=== PATIENT | male | born 1965 | race Caucasian/White ===

== ENCOUNTER 2016-09-10 21:55 | Observation (INO) | payer OTHER ==
[~2016-09-10] VITALS: Ht 180.3 cm; Wt 68.0 kg
[~2016-09-10 21:55] MED LIST: CELEXA 20MG20 MG/TAB; CITALOPRAM10 MG PO; DOXYCYCLINE 10100 MG PO; EC NAPROSYN500 MG; FOLIC ACID 11 MG/TA1; FOLIC ACID 11 MG/TA1 PO; LEVAQUIN 750MG750 M1 PO; NALTREXONE 50 MG PO; NAPROSYN250 MG PO; NO HOME MEDICATIONS; NORCO 325 MG-51 TAB; OXYCODONE5 MG PO; PREDNISONE20 MG PO; PROVENTIL0.09 MG/A1 IH; REMERON45 MG PO; REVIA 50MG TABL50 MG; THERAGRAN TAB1 UDTAB PO
[2016-09-10] MEDS ORDERED: CELEXA10 MG PO (22:11)
[2016-09-10] MEDS ORDERED: NATURE'S BLEND100 M2 PO (22:12)
[2016-09-10] MEDS ORDERED: ZOCOR5 MG PO (22:12)
[2016-09-10] MEDS ORDERED: ASPIRIN 81M81 MG/TA2 PO (22:12)
[2016-09-10] MEDS ORDERED: BLOOD THINNER PO (22:14)
[2016-09-10 22:16] LABS: BASO # 0.1 (0.0-0.2); BASO % 0.5 % (0.0-2.0); EOS # 0.5 (0.0-0.7); EOS % 2.8 % (0-4.0); GRAN # 12.2 (1.4-6.5); GRAN % 66.6 % (42.2-75.2); HEMATOCRIT 42.5 % (42.0-52.0); HEMOGLOBIN 14.7 g/dl (13.5-18.0); LYMPH # 4.2 (1.2-3.4); LYMPH % 23.1 % (20.0-51.0); MEAN CELL VOLUME 89 fl (80.0-100.0); MEAN CORPUSCULAR HEMOGLOBIN 31 pg (27.0-31.0); MEAN CORPUSCULAR HGB CONC 35 g/dl (33.0-37.0); MEAN PLATELET VOLUME 8.7 fl (7.4-10.4); MONO # 1.2 (0.1-0.6); MONO % 6.3 % (1.7-9.3); PLATELET COUNT 239 K/mm3 (130-400); RED BLOOD COUNT 4.78 M/mm3 (4.20-5.60); REDCELL DISTRIBUTION WIDTH-CV 13.2 % (11.5-14.5); WHITE BLOOD COUNT 18.3 K/mm3 (4.8-10.8)
[2016-09-10 22:21] LABS: PROTHROMBIN TIME 10.6 SECONDS (9.7-12.8)
[2016-09-10 22:23] LABS: PARTIAL THROMBOPLASTIN TIME 29.8 SECONDS (26.0-37.0)
[2016-09-10 22:25] LABS: ADJUSTED CALCIUM 9.3 mg/dL (8.4-10.2); ALANINE AMINOTRANSFERASE 29 U/L (21-72); ALBUMIN 4.6 gm/dL (3.5-5.0); ALKALINE PHOSPHATASE 53 U/L (50-136); ANION GAP 12 mmol/L (7-16); BILIRUBIN,TOTAL 0.5 mg/dL (0.0-1.0); BLOOD UREA NITROGEN 17 mg/dL (9-20); CALCIUM 9.8 mg/dL (8.4-10.2); CARBON DIOXIDE 24 mmol/L (22-30); CHLORIDE 101 mmol/L (98-107); CREATININE, serum 1.02 mg/dL (0.66-1.25); GLUCOSE 87 mg/dL (74-106); LIPASE 105 U/L (23-300); SODIUM 137 mmol/L (137-145); TOTAL PROTEIN 7.7 gm/dL (6.4-8.2)
[2016-09-10 22:27] LABS: C-REACTIVE PROTEIN < 0.5 mg/dL (0.0-0.9)
[2016-09-10 22:35] LABS: B-TYPE NATRIURETIC PEPTIDE 41 pg/mL (0-125)
[2016-09-10 22:36] LABS: TROPONIN-I < 0.012 ng/mL (0.000-0.034)
[2016-09-11 00:28] VITALS: BP 105/68; PULSE 70; TEMP 97.8
[2016-09-11 00:33] LABS: MAGNESIUM 1.9 mg/dL (1.6-2.3)
[2016-09-11] MEDS ORDERED: VITAMIN D 1001000 IU PO (01:28)
[2016-09-11] MEDS ORDERED: CELEXA40 MG PO (01:31)
[2016-09-11] MEDS ORDERED: VISTARIL50 MG PO (01:33)
[2016-09-11] MEDS ORDERED: ZANTAC 150MG T150 MG PO (01:37)
[2016-09-11] MEDS ORDERED: BRILINTA90 MG PO (01:42)
[2016-09-11] MEDS ORDERED: DESYREL 50MG50 MG PO (01:43)
[2016-09-11] MEDS ORDERED: CHANTIX START M1 TAB PO (01:48)
[2016-09-11] MEDS ORDERED: TYLENOL 325MG325 MG PO (01:49)
[2016-09-11] MEDS ORDERED: LIPITOR 80MG80 MG PO (01:52)
[2016-09-11] MEDS ORDERED: PERIACTIN 4MG TA4 MG PO (01:55)
[2016-09-11] MEDS ORDERED: FOLIC ACID 11 MG/TA1 PO (01:56)
[2016-09-11 05:07] VITALS: BP 100/59; PULSE 71
[2016-09-11 07:39] VITALS: BP 101/65; PULSE 71; TEMP 97.5
[2016-09-11] MEDS ORDERED: NITROSTAT0.4 MG/TAB SL (11:49)
[2016-09-11] MEDS ORDERED: LOPRESSOR 225 MG/TAB PO (11:49)
== END 2016-09-11 12:31 | disposition home or self-care (01) ==
LOC: COL.ER 21:55 → MEDICAL 23:27
PROVIDERS: Emergency Medicine
DX: R07.9 Chest pain, unspecified (principal); K21.9 Gastro-esophageal reflux disease without esophagitis; E78.5 Hyperlipidemia, unspecified; F17.210 Nicotine dependence, cigarettes, uncomplicated; F10.20 Alcohol dependence, uncomplicated; F41.8 Other specified anxiety disorders; F43.10 Post-traumatic stress disorder, unspecified; I25.10 Atherosclerotic heart disease of native coronary artery without angina pectoris; Z95.5 Presence of coronary angioplasty implant and graft; I25.2 Old myocardial infarction; I10 Essential (primary) hypertension; J44.9 Chronic obstructive pulmonary disease, unspecified
CPT/HCPCS: G0378; J2405; J7030

== ENCOUNTER 2016-10-24 16:31 | Inpatient (IN) | payer OTHER ==
[~2016-10-24] VITALS: Ht 180.3 cm; Wt 64.1 kg
[~2016-10-24 16:31] MED LIST changes: +ASPIRIN 81M81 MG/TA2 PO; +BLOOD THINNER PO; +BRILINTA90 MG PO; +CELEXA10 MG PO; +CELEXA40 MG PO; +CHANTIX START M1 TAB PO; +DESYREL 50MG50 MG PO; +LIPITOR 80MG80 MG PO; +LOPRESSOR 225 MG/TAB PO; +NATURE'S BLEND100 M2 PO; +NITROSTAT0.4 MG/TAB SL; +PERIACTIN 4MG TA4 MG PO; +TYLENOL 325MG325 MG PO; +VISTARIL50 MG PO; +VITAMIN D 1001000 IU PO; +ZANTAC 150MG T150 MG PO; +ZOCOR5 MG PO
[2016-10-24 17:18] LABS: INR 1.1 (0.8-3.0); PROTHROMBIN TIME 11.7 SECONDS (9.7-12.8)
[2016-10-24 17:19] LABS: ADJUSTED CALCIUM 9.1 mg/dL (8.4-10.2); ALANINE AMINOTRANSFERASE 23 U/L (21-72); ALBUMIN 4.9 gm/dL (3.5-5.0); ALKALINE PHOSPHATASE 59 U/L (50-136); ANION GAP 10 mmol/L (7-16); BILIRUBIN,TOTAL 0.8 mg/dL (0.0-1.0); BLOOD UREA NITROGEN 7 mg/dL (9-20); CALCIUM 9.8 mg/dL (8.4-10.2); CARBON DIOXIDE 25 mmol/L (22-30); CHLORIDE 103 mmol/L (98-107); GLUCOSE 97 mg/dL (74-106); POTASSIUM 4.1 mmol/L (3.4-5.0); SODIUM 138 mmol/L (137-145); TOTAL PROTEIN 8.2 gm/dL (6.4-8.2)
[2016-10-24 17:21] LABS: BASO # 0.1 (0.0-0.2); EOS # 0.4 (0.0-0.7); EOS % 3.6 % (0-4.0); GRAN # 7.8 (1.4-6.5); GRAN % 65.8 % (42.2-75.2); HEMATOCRIT 46.9 % (42.0-52.0); HEMOGLOBIN 16.1 g/dl (13.5-18.0); LYMPH # 2.4 (1.2-3.4); LYMPH % 20.1 % (20.0-51.0); MEAN CELL VOLUME 90 fl (80.0-100.0); MEAN CORPUSCULAR HEMOGLOBIN 31 pg (27.0-31.0); MEAN CORPUSCULAR HGB CONC 34 g/dl (33.0-37.0); MEAN PLATELET VOLUME 9.1 fl (7.4-10.4); MONO # 1.1 (0.1-0.6); PLATELET COUNT 257 K/mm3 (130-400); REDCELL DISTRIBUTION WIDTH-CV 13.3 % (11.5-14.5); WHITE BLOOD COUNT 11.9 K/mm3 (4.8-10.8)
[2016-10-24 17:31] LABS: TROPONIN-I < 0.012 ng/mL (0.000-0.034)
[2016-10-24 20:49] VITALS: BP 89/63; PULSE 111; TEMP 98
[2016-10-25 00:52] VITALS: BP 91/74; PULSE 105; TEMP 97.8
[2016-10-25 02:11] LABS: INFLUENZA B NEGATIVE
[2016-10-25 03:58] VITALS: BP 112/63; PULSE 108; TEMP 97.3
[2016-10-25 07:12] VITALS: BP 111/64; PULSE 96; TEMP 98.2
[2016-10-25 07:41] LABS: BASO % 0.3 % (0.0-2.0); EOS % 0.1 % (0-4.0); GRAN # 7.7 (1.4-6.5); GRAN % 81.1 % (42.2-75.2); HEMATOCRIT 42.6 % (42.0-52.0); HEMOGLOBIN 14.2 g/dl (13.5-18.0); LYMPH # 1.1 (1.2-3.4); LYMPH % 11.4 % (20.0-51.0); MEAN CELL VOLUME 92 fl (80.0-100.0); MEAN CORPUSCULAR HEMOGLOBIN 31 pg (27.0-31.0); MEAN CORPUSCULAR HGB CONC 33 g/dl (33.0-37.0); MEAN PLATELET VOLUME 9.1 fl (7.4-10.4); MONO # 0.6 (0.1-0.6); MONO % 6.6 % (1.7-9.3); PLATELET COUNT 248 K/mm3 (130-400); RED BLOOD COUNT 4.63 M/mm3 (4.20-5.60); REDCELL DISTRIBUTION WIDTH-CV 13.5 % (11.5-14.5); WHITE BLOOD COUNT 9.6 K/mm3 (4.8-10.8)
[2016-10-25 07:54] LABS: ADJUSTED CALCIUM 9.3 mg/dL (8.4-10.2); ALANINE AMINOTRANSFERASE 22 U/L (21-72); ALBUMIN 4.1 gm/dL (3.5-5.0); ALKALINE PHOSPHATASE 50 U/L (50-136); ANION GAP 11 mmol/L (7-16); BILIRUBIN,TOTAL 0.5 mg/dL (0.0-1.0); BLOOD UREA NITROGEN 6 mg/dL (9-20); CALCIUM 9.4 mg/dL (8.4-10.2); CARBON DIOXIDE 22 mmol/L (22-30); CHLORIDE 111 mmol/L (98-107); CREATININE, serum 0.84 mg/dL (0.66-1.25); GLUCOSE 103 mg/dL (74-106); POTASSIUM 4.2 mmol/L (3.4-5.0); SODIUM 144 mmol/L (137-145)
[2016-10-25 08:06] LABS: TROPONIN-I < 0.012 ng/mL (0.000-0.034)
[2016-10-25 08:15] LABS: PH 7 (5-8); SQUAMOUS EPITHELIAL None Seen /hpf; URINE APPEARANCE Clear; URINE BACTERIA None Seen /hpf; URINE BILIRUBIN Negative (NEGATIVE); URINE BLOOD Negative (NEGATIVE); URINE COLOR Straw; URINE GLUCOSE Negative (NEGATIVE); URINE KETONE Negative (NEGATIVE); URINE RBC 0-2 /hpf; URINE UROBILINOGEN Negative (NEGATIVE); URINE WBC None Seen /hpf
[2016-10-25 12:05] VITALS: BP 116/67; PULSE 94; TEMP 98.9
[2016-10-25 15:58] VITALS: BP 120/70; PULSE 89; TEMP 97.8
[2016-10-25 21:13] VITALS: BP 118/63; PULSE 104; TEMP 97.4
[2016-10-26] VITALS (15 sets, daily range): BP systolic 114–118; BP diastolic 61–65; PULSE 101–102; TEMP 96.9–98.1; O2SAT 94–97
[2016-10-26 02:16] LABS: HEMATOCRIT 39.1 % (42.0-52.0); HEMOGLOBIN 12.9 g/dl (13.5-18.0); MEAN CELL VOLUME 93 fl (80.0-100.0); MEAN CORPUSCULAR HEMOGLOBIN 31 pg (27.0-31.0); MEAN CORPUSCULAR HGB CONC 33 g/dl (33.0-37.0); PLATELET COUNT 227 K/mm3 (130-400); REDCELL DISTRIBUTION WIDTH-CV 13.6 % (11.5-14.5); WHITE BLOOD COUNT 12.7 K/mm3 (4.8-10.8)
[2016-10-26] MEDS ORDERED: NICODERM C21 MG/PATC TD (02:23)
[2016-10-26] MEDS ORDERED: LEVAQUIN 750MG750 M1 PO (02:23)
[2016-10-26] MEDS ORDERED: IPRATROPIUM BROM3 M1 IH ×2 (02:23)
[2016-10-26] MEDS ORDERED: HEPARIN SOD5000 U/ML IV (02:24)
[2016-10-26 02:25] LABS: PROTHROMBIN TIME 11.2 SECONDS (9.7-12.8)
[2016-10-26] MEDS ORDERED: ROBITUSSIN DM 105 ML PO (02:25)
[2016-10-26] MEDS ORDERED: MUCINEX DM 30 M1 TE1 PO (02:25)
[2016-10-26] MEDS ORDERED: SOLU-MEDRO125 MG/21 IV (02:26)
[2016-10-26 02:27] LABS: PARTIAL THROMBOPLASTIN TIME 26.6 SECONDS (26.0-37.0)
== END 2016-10-26 03:39 | disposition short-term general hospital (02) | DRG 313 ==
LOC: COL.ER 16:31 → MEDICAL 18:26 → ICU 10-26 02:14
PROVIDERS: Emergency Medicine; Internal Medicine; Nurse Practitioner Family
DX: R07.9 Chest pain, unspecified (principal); J44.1 Chronic obstructive pulmonary disease with (acute) exacerbation; I25.10 Atherosclerotic heart disease of native coronary artery without angina pectoris; Z95.5 Presence of coronary angioplasty implant and graft; F17.210 Nicotine dependence, cigarettes, uncomplicated; I10 Essential (primary) hypertension; F43.12 Post-traumatic stress disorder, chronic; F41.8 Other specified anxiety disorders; F10.20 Alcohol dependence, uncomplicated
CPT/HCPCS: 99223-AI; 99239; J1644; J1650; J1956; J2930; J7030; J7512

== ENCOUNTER 2016-11-29 07:17 | Emergency (ER) | payer OTHER ==
[~2016-11-29] VITALS: Ht 180.3 cm; Wt 64.1 kg
[~2016-11-29 07:17] MED LIST changes: +HEPARIN SOD5000 U/ML IV; +IPRATROPIUM BROM3 M1 IH; +MUCINEX DM 30 M1 TE1 PO; +NICODERM C21 MG/PATC TD; +ROBITUSSIN DM 105 ML PO; +SOLU-MEDRO125 MG/21 IV
[2016-11-29] MEDS ORDERED: RT SPIRIVA18 MCG IH (07:40)
[2016-11-29] MEDS ORDERED: NICOTROL I420 MG/42 IH (07:41)
[2016-11-29] MEDS ORDERED: RT ALBUTER2.5 MG/0.5 IH (07:41)
[2016-11-29] MEDS ORDERED: ZOLOFT 25MG25 MG PO (07:43)
[2016-11-29 07:58] LABS: BASO # 0.1 (0.0-0.2); EOS # 0.4 (0.0-0.7); GRAN % 67.6 % (42.2-75.2); HEMATOCRIT 49.2 % (42.0-52.0); HEMOGLOBIN 16.4 g/dl (13.5-18.0); LYMPH # 2.9 (1.2-3.4); LYMPH % 21.5 % (20.0-51.0); MEAN CELL VOLUME 93 fl (80.0-100.0); MEAN CORPUSCULAR HEMOGLOBIN 31 pg (27.0-31.0); MEAN CORPUSCULAR HGB CONC 33 g/dl (33.0-37.0); MONO # 0.8 (0.1-0.6); MONO % 6.2 % (1.7-9.3); PLATELET COUNT 274 K/mm3 (130-400); RED BLOOD COUNT 5.27 M/mm3 (4.20-5.60); REDCELL DISTRIBUTION WIDTH-CV 13.4 % (11.5-14.5); WHITE BLOOD COUNT 13.3 K/mm3 (4.8-10.8)
[2016-11-29 08:02] LABS: ADJUSTED CALCIUM 9.3 mg/dL (8.4-10.2); ALANINE AMINOTRANSFERASE 18 U/L (21-72); ALBUMIN 4.5 gm/dL (3.5-5.0); ALKALINE PHOSPHATASE 54 U/L (50-136); ANION GAP 12 mmol/L (7-16); BILIRUBIN,TOTAL 0.7 mg/dL (0.0-1.0); BLOOD UREA NITROGEN 11 mg/dL (9-20); CALCIUM 9.7 mg/dL (8.4-10.2); CARBON DIOXIDE 27 mmol/L (22-30); CHLORIDE 104 mmol/L (98-107); CREATININE, serum 1.06 mg/dL (0.66-1.25); GLUCOSE 83 mg/dL (74-106); POTASSIUM 3.9 mmol/L (3.4-5.0); SODIUM 143 mmol/L (137-145); TOTAL PROTEIN 7.7 gm/dL (6.4-8.2)
[2016-11-29 08:07] LABS: PROTHROMBIN TIME 10.7 SECONDS (9.7-12.8)
[2016-11-29 08:09] LABS: PARTIAL THROMBOPLASTIN TIME 32.6 SECONDS (26.0-37.0)
[2016-11-29 08:14] LABS: TROPONIN-I < 0.012 ng/mL (0.000-0.034)
[2016-11-29 08:53] VITALS: BP 98/87; PULSE 89
== END 2016-11-29 09:08 | disposition short-term general hospital (02) ==
LOC: COL.ER 07:17
PROVIDERS: Family Medicine
DX: I20.9 Angina pectoris, unspecified (principal); I47.1 Supraventricular tachycardia; F17.210 Nicotine dependence, cigarettes, uncomplicated; Z79.82 Long term (current) use of aspirin; Z95.5 Presence of coronary angioplasty implant and graft
CPT/HCPCS: J0153; J1644; J2270; J7030

== ENCOUNTER 2017-01-03 16:02 | Emergency (ER) | payer OTHER ==
[~2017-01-03] VITALS: Ht 180.3 cm; Wt 65.9 kg
[~2017-01-03 16:02] MED LIST changes: +NICOTROL I420 MG/42 IH; +RT ALBUTER2.5 MG/0.5 IH; +RT SPIRIVA18 MCG IH; +ZOLOFT 25MG25 MG PO
[2017-01-03 16:08] VITALS: TEMP 97.6
[2017-01-03 16:26] LABS: BASO # 0.1 (0.0-0.2); BASO % 1.4 % (0.0-2.0); EOS # 0.5 (0.0-0.7); GRAN # 4.4 (1.4-6.5); GRAN % 47.2 % (42.2-75.2); HEMATOCRIT 45.5 % (42.0-52.0); HEMOGLOBIN 15.2 g/dl (13.5-18.0); LYMPH # 3.6 (1.2-3.4); MEAN CELL VOLUME 92 fl (80.0-100.0); MEAN CORPUSCULAR HEMOGLOBIN 31 pg (27.0-31.0); MEAN CORPUSCULAR HGB CONC 33 g/dl (33.0-37.0); MONO # 0.7 (0.1-0.6); MONO % 7.9 % (1.7-9.3); PLATELET COUNT 240 K/mm3 (130-400); RED BLOOD COUNT 4.96 M/mm3 (4.20-5.60); WHITE BLOOD COUNT 9.4 K/mm3 (4.8-10.8)
[2017-01-03 16:41] LABS: ALANINE AMINOTRANSFERASE 22 U/L (21-72); ALBUMIN 4.8 gm/dL (3.5-5.0); ALKALINE PHOSPHATASE 59 U/L (50-136); ANION GAP 11 mmol/L (7-16); BILIRUBIN,TOTAL 0.4 mg/dL (0.0-1.0); BLOOD UREA NITROGEN 10 mg/dL (9-20); CALCIUM 9.6 mg/dL (8.4-10.2); CARBON DIOXIDE 26 mmol/L (22-30); CHLORIDE 103 mmol/L (98-107); CREATININE, serum 1.12 mg/dL (0.66-1.25); GLUCOSE 79 mg/dL (74-106); POTASSIUM 3.9 mmol/L (3.4-5.0); SODIUM 141 mmol/L (137-145); TOTAL PROTEIN 7.5 gm/dL (6.4-8.2)
[2017-01-03 16:53] LABS: B-TYPE NATRIURETIC PEPTIDE 70 pg/mL (0-125); TROPONIN-I < 0.012 ng/mL (0.000-0.034)
[2017-01-03] MEDS ORDERED: NAPROXEN 3375 MG/TAB PO (21:09)
[2017-01-03 21:25] VITALS: BP 93/73; PULSE 72
== END 2017-01-03 21:27 | disposition home or self-care (01) ==
LOC: COL.ER 16:02
PROVIDERS: Emergency Medicine
DX: R07.89 Other chest pain (principal); I10 Essential (primary) hypertension; E78.5 Hyperlipidemia, unspecified; Z95.5 Presence of coronary angioplasty implant and graft
CPT/HCPCS: J1885; J2270; J2405; J7030; J7050; Q9967

== ENCOUNTER 2017-01-24 12:00 | Emergency (ER) | payer OTHER ==
[~2017-01-24] VITALS: Ht 180.3 cm; Wt 65.9 kg
[~2017-01-24 12:00] MED LIST changes: +NAPROXEN 3375 MG/TAB PO
[2017-01-24 12:03] VITALS: TEMP 98
[2017-01-24 12:31] LABS: BASO # 0.1 (0.0-0.2); BASO % 1.3 % (0.0-2.0); EOS # 0.4 (0.0-0.7); EOS % 3.5 % (0-4.0); GRAN # 5.8 (1.4-6.5); GRAN % 58.6 % (42.2-75.2); HEMOGLOBIN 15.6 g/dl (13.5-18.0); LYMPH # 2.9 (1.2-3.4); LYMPH % 28.9 % (20.0-51.0); MEAN CELL VOLUME 91 fl (80.0-100.0); MEAN CORPUSCULAR HEMOGLOBIN 31 pg (27.0-31.0); MEAN CORPUSCULAR HGB CONC 34 g/dl (33.0-37.0); MONO # 0.7 (0.1-0.6); MONO % 7.4 % (1.7-9.3); PLATELET COUNT 262 K/mm3 (130-400); RED BLOOD COUNT 5.07 M/mm3 (4.20-5.60); WHITE BLOOD COUNT 9.9 K/mm3 (4.8-10.8)
[2017-01-24 13:47] LABS: ADJUSTED CALCIUM 9.2 mg/dL (8.4-10.2); ALANINE AMINOTRANSFERASE 20 U/L (21-72); ALBUMIN 4.3 gm/dL (3.5-5.0); ALKALINE PHOSPHATASE 58 U/L (50-136); ANION GAP 8 mmol/L (7-16); BILIRUBIN,TOTAL 0.4 mg/dL (0.0-1.0); BLOOD UREA NITROGEN 9 mg/dL (9-20); CALCIUM 9.4 mg/dL (8.4-10.2); CARBON DIOXIDE 25 mmol/L (22-30); CHLORIDE 106 mmol/L (98-107); CREATININE, serum 0.99 mg/dL (0.66-1.25); GLUCOSE 90 mg/dL (74-106); INR 1.1 (0.8-3.0); PROTHROMBIN TIME 12.3 SECONDS (9.7-12.8); SODIUM 138 mmol/L (137-145); TOTAL PROTEIN 7.1 gm/dL (6.4-8.2)
[2017-01-24 13:58] LABS: TROPONIN-I < 0.012 ng/mL (0.000-0.034)
[2017-01-24 14:20] LABS: PARTIAL THROMBOPLASTIN TIME 31.6 SECONDS (26.0-37.0)
[2017-01-24] MEDS ORDERED: TYLENOL W/COD1 UDTAB PO (16:19)
[2017-01-24] MEDS ORDERED: FLEXERIL 1010 MG/TAB PO (16:19)
[2017-01-24 16:38] VITALS: BP 115/78; PULSE 67
== END 2017-01-24 17:00 | disposition home or self-care (01) ==
LOC: COL.ER 12:00
PROVIDERS: Family Medicine
DX: M25.512 Pain in left shoulder (principal); M25.511 Pain in right shoulder; R07.9 Chest pain, unspecified; I48.91 Unspecified atrial fibrillation; Z87.891 Personal history of nicotine dependence; Z79.82 Long term (current) use of aspirin
CPT/HCPCS: J1885; J2270; J2360; J2930

== ENCOUNTER 2017-02-15 17:20 | Emergency (ER) | payer OTHER ==
[~2017-02-15] VITALS: Ht 180.3 cm; Wt 65.0 kg
[~2017-02-15 17:20] MED LIST changes: +FLEXERIL 1010 MG/TAB PO; +TYLENOL W/COD1 UDTAB PO
[2017-02-15 17:31] VITALS: BP 122/64; TEMP 98.5
[2017-02-15] MEDS ORDERED: NORCO 325 MG-51 TAB PO (18:50)
[2017-02-15 18:55] VITALS: PULSE 87
== END 2017-02-15 18:56 | disposition home or self-care (01) ==
LOC: COL.ER 17:20
DX: S46.912A Strain of unspecified muscle, fascia and tendon at shoulder and upper arm level, left arm, initial encounter (principal); F32.9 Major depressive disorder, single episode, unspecified; Z95.5 Presence of coronary angioplasty implant and graft; F17.210 Nicotine dependence, cigarettes, uncomplicated; Z79.82 Long term (current) use of aspirin; X50.0XXA Overexertion from strenuous movement or load, initial encounter

== ENCOUNTER 2017-11-16 10:22 | Observation (INO) | payer OTHER ==
[~2017-11-16] VITALS: Ht 180.3 cm; Wt 51.3 kg
[~2017-11-16 10:22] MED LIST changes: +NORCO 325 MG-51 TAB PO
[2017-11-16 11:02] LABS: ALANINE AMINOTRANSFERASE 27 U/L (21-72); ALBUMIN 4.3 gm/dL (3.5-5.0); ALKALINE PHOSPHATASE 53 U/L (50-136); ANION GAP 9 mmol/L (7-16); AST,SGOT 17 U/L (15-37); BILIRUBIN,TOTAL 0.5 mg/dL (0.0-1.0); BLOOD UREA NITROGEN 7 mg/dL (9-20); CALCIUM 9.3 mg/dL (8.4-10.2); CARBON DIOXIDE 26 mmol/L (22-30); CHLORIDE 102 mmol/L (98-107); CREATININE, serum 0.95 mg/dL (0.66-1.25); GLUCOSE 111 mg/dL (74-106); LIPASE 81 U/L (23-300); POTASSIUM 3.9 mmol/L (3.4-5.0); SODIUM 137 mmol/L (137-145); TOTAL PROTEIN 7.4 gm/dL (6.4-8.2)
[2017-11-16 11:05] LABS: PROTHROMBIN TIME 11.4 SECONDS (9.7-12.8)
[2017-11-16 11:07] LABS: PARTIAL THROMBOPLASTIN TIME 35.4 SECONDS (26.0-37.0)
[2017-11-16 11:14] LABS: BASO # 0.1 (0.0-0.2); EOS # 0.3 (0.0-0.7); EOS % 3.3 % (0-4.0); GRAN # 5.5 (1.4-6.5); GRAN % 63.1 % (42.2-75.2); HEMOGLOBIN 15.7 g/dl (13.5-18.0); LYMPH # 2.1 (1.2-3.4); MEAN CELL VOLUME 90 fl (80.0-100.0); MEAN CORPUSCULAR HEMOGLOBIN 31 pg (27.0-31.0); MEAN CORPUSCULAR HGB CONC 34 g/dl (33.0-37.0); MEAN PLATELET VOLUME 9.1 fl (7.4-10.4); MONO # 0.7 (0.1-0.6); MONO % 7.9 % (1.7-9.3); PLATELET COUNT 259 K/mm3 (130-400); RED BLOOD COUNT 5.14 M/mm3 (4.20-5.60); REDCELL DISTRIBUTION WIDTH-CV 13.5 % (11.5-14.5); TROPONIN-I < 0.012 ng/mL (0.000-0.034)
[2017-11-16] MEDS ORDERED: CARDIZEM CD 12120 MG PO (14:47)
[2017-11-16] MEDS ORDERED: LIPITOR 80MG80 MG PO (14:47)
[2017-11-16 15:54] VITALS: BP 90/48; PULSE 76; TEMP 98.2
[2017-11-16 16:02] VITALS: BP 84/54; BP 90/48; BP 90/54; PULSE 102; PULSE 43; PULSE 59; TEMP 98.2; TEMP 98.4; TEMP 98.5
[2017-11-16 20:59] VITALS: BP 90/55; PULSE 69; TEMP 97.7
[2017-11-17] VITALS (33 sets, daily range): BP systolic 76–127; BP diastolic 37–75; PULSE 64–101; TEMP 97–98.2
[2017-11-17 07:07] LABS: BASO # 0.1 (0.0-0.2); BASO % 1.2 % (0.0-2.0); EOS # 0.5 (0.0-0.7); EOS % 5.8 % (0-4.0); GRAN # 3.8 (1.4-6.5); GRAN % 48.3 % (42.2-75.2); HEMATOCRIT 40.6 % (42.0-52.0); LYMPH # 2.8 (1.2-3.4); MEAN CELL VOLUME 93 fl (80.0-100.0); MEAN CORPUSCULAR HEMOGLOBIN 31 pg (27.0-31.0); MEAN CORPUSCULAR HGB CONC 33 g/dl (33.0-37.0); MEAN PLATELET VOLUME 8.7 fl (7.4-10.4); MONO # 0.6 (0.1-0.6); MONO % 8.1 % (1.7-9.3); PLATELET COUNT 195 K/mm3 (130-400); RED BLOOD COUNT 4.39 M/mm3 (4.20-5.60); REDCELL DISTRIBUTION WIDTH-CV 13.9 % (11.5-14.5)
[2017-11-17 07:09] LABS: HEMOGLOBIN 13.4 g/dl (13.5-18.0)
[2017-11-17 07:19] LABS: CALCIUM 8.6 mg/dL (8.4-10.2); CREATININE, serum 0.97 mg/dL (0.66-1.25); POTASSIUM 4.3 mmol/L (3.4-5.0)
[2017-11-18 01:01] VITALS: BP 108/70; BP 123/62; PULSE 79; PULSE 98; TEMP 98.2
[2017-11-18 04:12] VITALS: BP 118/101; PULSE 81; TEMP 97.9
[2017-11-18 04:15] VITALS: BP 100/74; PULSE 89
[2017-11-18 08:43] VITALS: BP 87/47; PULSE 83; TEMP 98
[2017-11-18 10:05] VITALS: BP 111/65
[2017-11-18 11:30] VITALS: BP 104/62; PULSE 62; TEMP 97.8
== END 2017-11-18 12:25 | disposition home or self-care (01) ==
LOC: COL.ER 10:22 → MEDICAL 14:49
PROVIDERS: Emergency Medicine; Hospitalist
DX: R07.9 Chest pain, unspecified (principal); I25.10 Atherosclerotic heart disease of native coronary artery without angina pectoris; F17.210 Nicotine dependence, cigarettes, uncomplicated; E78.5 Hyperlipidemia, unspecified; I10 Essential (primary) hypertension; J44.9 Chronic obstructive pulmonary disease, unspecified; F32.9 Major depressive disorder, single episode, unspecified; F41.9 Anxiety disorder, unspecified; I95.9 Hypotension, unspecified; R51 Headache; I25.2 Old myocardial infarction; Z95.5 Presence of coronary angioplasty implant and graft; Z79.82 Long term (current) use of aspirin; Z82.49 Family history of ischemic heart disease and other diseases of the circulatory system
CPT/HCPCS: 99239; A9502; G0378; J1650; J2270; J2785; J3010; J7030; J7040; Q9967

== ENCOUNTER 2018-01-04 10:29 | Observation (INO) | payer OTHER ==
[~2018-01-04] VITALS: Ht 180.3 cm; Wt 59.5 kg
[~2018-01-04 10:29] MED LIST changes: +CARDIZEM CD 12120 MG PO
[2018-01-04 10:53] LABS: HEMATOCRIT 38.7 % (42.0-52.0); HEMOGLOBIN 12.6 g/dl (13.5-18.0); MEAN CELL VOLUME 87 fl (80.0-100.0); MEAN CORPUSCULAR HEMOGLOBIN 28 pg (27.0-31.0); MEAN CORPUSCULAR HGB CONC 33 g/dl (33.0-37.0); MEAN PLATELET VOLUME 8.1 fl (7.4-10.4); PLATELET COUNT 608 K/mm3 (130-400); RED BLOOD COUNT 4.43 M/mm3 (4.20-5.60); REDCELL DISTRIBUTION WIDTH-CV 13.4 % (11.5-14.5)
[2018-01-04 11:06] LABS: ALBUMIN 3.8 gm/dL (3.5-5.0); BILIRUBIN,TOTAL 0.4 mg/dL (0.0-1.0); CALCIUM 9.2 mg/dL (8.4-10.2); CREATININE, serum 1.06 mg/dL (0.66-1.25); POTASSIUM 4.1 mmol/L (3.4-5.0); TOTAL PROTEIN 7.3 gm/dL (6.4-8.2)
[2018-01-04] MEDS ORDERED: ZYRTEC ALLERGY10 MG PO (11:22)
[2018-01-04] MEDS ORDERED: TESSALON P100 MG/CAP PO (11:23)
[2018-01-04] MEDS ORDERED: TYLENOL 325MG325 MG PO (11:23)
[2018-01-04] MEDS ORDERED: VOLTAREN 75 DR75 MG PO (11:23)
[2018-01-04] MEDS ORDERED: ZOLOFT 50MG50 MG PO (11:24)
[2018-01-04] MEDS ORDERED: ZITHROMAX500 M2 PO (11:24)
[2018-01-04] MEDS ORDERED: NICODERM C21 MG/PATC TD (11:25)
[2018-01-04 11:30] LABS: BAND 1 % (0-10); BASOPHIL 1 % (0-2); EOSINOPHIL 3 % (0-4); LYMPHOCYTE 12 % (20.0-51.0); NEUTROPHILS 79 % (42.0-75.2); PLATELET ESTIMATE INCREASED (NORMAL)
[2018-01-04 11:31] LABS: POLYCHROMASIA 1+
[2018-01-04 11:40] LABS: COLLECTION METHOD CLEAN CATCH
[2018-01-04 11:45] LABS: PH 6 (5-8); SQUAMOUS EPITHELIAL None Seen /hpf; URINE APPEARANCE Clear; URINE BACTERIA None Seen /hpf; URINE BILIRUBIN Negative (NEGATIVE); URINE BLOOD Negative (NEGATIVE); URINE COLOR Yellow; URINE GLUCOSE Negative (NEGATIVE); URINE KETONE Negative (NEGATIVE); URINE LEUKOCYTE ESTERASE Negative (NEGATIVE); URINE NITRATE Negative (NEGATIVE); URINE PROTEIN(semi-quant) Negative (NEGATIVE); URINE RBC 0-2 /hpf; URINE UROBILINOGEN Negative (NEGATIVE)
[2018-01-04 16:29] VITALS: BP 108/60; PULSE 56; TEMP 98.4
[2018-01-04 19:15] VITALS: BP 98/62; PULSE 85; TEMP 97.6
[2018-01-04] MEDS ORDERED: CHANTIX 0.5MG0.5 MG PO (19:47)
[2018-01-04] MEDS ORDERED: CHANTIX 1MG1 MG PO (19:48)
[2018-01-04 21:20] VITALS: BP 107/67; PULSE 74
[2018-01-04 23:24] VITALS: BP 147/96; PULSE 74; TEMP 98.4
[2018-01-05 04:00] VITALS: BP 87/64; PULSE 89; TEMP 98.2
[2018-01-05 06:22] VITALS: BP 124/70; PULSE 78
[2018-01-05 08:59] LABS: HEMOGLOBIN 11.1 g/dl (13.5-18.0); MEAN CELL VOLUME 91 fl (80.0-100.0); MEAN CORPUSCULAR HEMOGLOBIN 29 pg (27.0-31.0); MEAN CORPUSCULAR HGB CONC 32 g/dl (33.0-37.0); MEAN PLATELET VOLUME 8.3 fl (7.4-10.4); PLATELET COUNT 589 K/mm3 (130-400); RED BLOOD COUNT 3.85 M/mm3 (4.20-5.60); REDCELL DISTRIBUTION WIDTH-CV 13.6 % (11.5-14.5)
[2018-01-05 09:02] LABS: HEMATOCRIT 35.1 % (42.0-52.0)
[2018-01-05 09:04] LABS: ALBUMIN 3.1 gm/dL (3.5-5.0); BILIRUBIN,TOTAL 0.1 mg/dL (0.0-1.0); CREATININE, serum 0.88 mg/dL (0.66-1.25); POTASSIUM 5.1 mmol/L (3.4-5.0); TOTAL PROTEIN 6.3 gm/dL (6.4-8.2)
[2018-01-05 10:40] LABS: LYMPHOCYTE 19 % (20.0-51.0); METAMYELOCYTE 2 % (0-0); NEUTROPHILS 76 % (42.0-75.2); TOXIC GRANULATION PRESENT
[2018-01-05 12:09] VITALS: BP 115/62; PULSE 84; TEMP 97.8
[2018-01-05 15:33] VITALS: BP 115/57; BP 120/64; BP 120/70; PULSE 91; PULSE 95; PULSE 99
[2018-01-05] MEDS ORDERED: COMBIRESP IH (15:42)
[2018-01-05] MEDS ORDERED: NORCO 325 MG-101 TAB PO (15:43)
[2018-01-05] MEDS ORDERED: MEDROL 4MG DOSPA4 MG PO (15:43)
[2018-01-05] MEDS ORDERED: LEVAQUIN 5500 MG/TA1 PO (15:46)
[2018-01-09 10:17] LABS: PATHOLOGY DIFF REVIEW OK +
== END 2018-01-05 17:57 | disposition home or self-care (01) ==
LOC: COL.ER 10:29 → MEDICAL 16:10
PROVIDERS: Family Medicine; Hospitalist
DX: R07.9 Chest pain, unspecified (principal); J18.8 Other pneumonia, unspecified organism; J44.1 Chronic obstructive pulmonary disease with (acute) exacerbation; F41.9 Anxiety disorder, unspecified; F32.9 Major depressive disorder, single episode, unspecified; I25.10 Atherosclerotic heart disease of native coronary artery without angina pectoris; R56.9 Unspecified convulsions; D47.3 Essential (hemorrhagic) thrombocythemia; D72.829 Elevated white blood cell count, unspecified; E87.5 Hyperkalemia; R73.9 Hyperglycemia, unspecified; E87.1 Hypo-osmolality and hyponatremia; E44.0 Moderate protein-calorie malnutrition; R53.81 Other malaise; E78.5 Hyperlipidemia, unspecified; I25.2 Old myocardial infarction; F17.210 Nicotine dependence, cigarettes, uncomplicated; F14.11 Cocaine abuse, in remission; Z95.5 Presence of coronary angioplasty implant and graft; Z79.82 Long term (current) use of aspirin
CPT/HCPCS: OP; J0696; J1170; J1956; J3010; J7030; J7512; Q9967

== ENCOUNTER 2018-01-13 11:55 | Inpatient (IN) | payer OTHER ==
[~2018-01-13] VITALS: Ht 180.3 cm; Wt 59.1 kg
[~2018-01-13 11:55] MED LIST changes: +CHANTIX 0.5MG0.5 MG PO; +CHANTIX 1MG1 MG PO; +COMBIRESP IH; +LEVAQUIN 5500 MG/TA1 PO; +MEDROL 4MG DOSPA4 MG PO; +NORCO 325 MG-101 TAB PO; +TESSALON P100 MG/CAP PO; +VOLTAREN 75 DR75 MG PO; +ZITHROMAX500 M2 PO; +ZOLOFT 50MG50 MG PO; +ZYRTEC ALLERGY10 MG PO
[2018-01-13 12:37] LABS: HEMOGLOBIN 11.8 g/dl (13.5-18.0); MEAN CELL VOLUME 88 fl (80.0-100.0); MEAN CORPUSCULAR HEMOGLOBIN 29 pg (27.0-31.0); MEAN CORPUSCULAR HGB CONC 33 g/dl (33.0-37.0); MEAN PLATELET VOLUME 8.3 fl (7.4-10.4); PLATELET COUNT 319 K/mm3 (130-400); RED BLOOD COUNT 4.05 M/mm3 (4.20-5.60)
[2018-01-13 12:40] LABS: HEMATOCRIT 35.8 % (42.0-52.0)
[2018-01-13 12:47] LABS: PROTHROMBIN TIME 11.8 SECONDS (9.7-12.8)
[2018-01-13 12:51] LABS: ALANINE AMINOTRANSFERASE 36 U/L (21-72); ALBUMIN 3.4 gm/dL (3.5-5.0); ALKALINE PHOSPHATASE 46 U/L (50-136); ANION GAP 7 mmol/L (7-16); AST,SGOT 13 U/L (15-37); BILIRUBIN,TOTAL 0.2 mg/dL (0.0-1.0); BLOOD UREA NITROGEN 18 mg/dL (9-20); CALCIUM 8.9 mg/dL (8.4-10.2); CARBON DIOXIDE 27 mmol/L (22-30); CHLORIDE 101 mmol/L (98-107); CREATININE, serum 0.93 mg/dL (0.66-1.25); GLUCOSE 113 mg/dL (74-106); POTASSIUM 3.6 mmol/L (3.4-5.0); SODIUM 136 mmol/L (137-145); TOTAL PROTEIN 6.4 gm/dL (6.4-8.2)
[2018-01-13 13:06] LABS: BAND 7 % (0-10); LYMPHOCYTE 18 % (20.0-51.0); NEUTROPHILS 69 % (42.0-75.2)
[2018-01-13 13:07] LABS: PLATELET ESTIMATE NORMAL (NORMAL)
[2018-01-13 13:09] LABS: TROPONIN-I < 0.012 ng/mL (0.000-0.034)
[2018-01-13] MEDS ORDERED: ATARAX 25MG25 MG/TAB PO (15:27)
[2018-01-13 17:31] VITALS: BP 105/65; PULSE 99
[2018-01-13 19:30] VITALS: BP 131/60; PULSE 103; TEMP 97.8
[2018-01-13 23:34] VITALS: BP 99/53; PULSE 88; TEMP 97.4
[2018-01-14 03:44] VITALS: BP 91/49; PULSE 82
[2018-01-14 07:02] LABS: HEMATOCRIT 31.4 % (42.0-52.0); HEMOGLOBIN 10.2 g/dl (13.5-18.0); MEAN CELL VOLUME 91 fl (80.0-100.0); MEAN CORPUSCULAR HEMOGLOBIN 29 pg (27.0-31.0); MEAN CORPUSCULAR HGB CONC 33 g/dl (33.0-37.0); MEAN PLATELET VOLUME 8.6 fl (7.4-10.4); PLATELET COUNT 315 K/mm3 (130-400); RED BLOOD COUNT 3.47 M/mm3 (4.20-5.60); REDCELL DISTRIBUTION WIDTH-CV 15.3 % (11.5-14.5)
[2018-01-14 07:10] VITALS: BP 108/63; PULSE 19; TEMP 97.8
[2018-01-14 07:19] LABS: CALCIUM 8.6 mg/dL (8.4-10.2); CREATININE, serum 0.84 mg/dL (0.66-1.25); POTASSIUM 4.4 mmol/L (3.4-5.0)
[2018-01-14 07:55] LABS: BAND 4 % (0-10); HYPOCHROMIA 1+; LYMPHOCYTE 4 % (20.0-51.0); NEUTROPHILS 92 % (42.0-75.2); PLATELET ESTIMATE NORMAL (NORMAL)
[2018-01-14 11:32] VITALS: BP 113/62; PULSE 64; TEMP 97.8
[2018-01-14 15:11] VITALS: BP 109/54; PULSE 115; TEMP 98.3
[2018-01-14 20:42] VITALS: BP 113/57; PULSE 102
[2018-01-15] VITALS: BP 104/57; PULSE 94; TEMP 97.8
[2018-01-15 03:47] LABS: MEAN CELL VOLUME 91 fl (80.0-100.0); MEAN CORPUSCULAR HEMOGLOBIN 30 pg (27.0-31.0); MEAN CORPUSCULAR HGB CONC 33 g/dl (33.0-37.0); MEAN PLATELET VOLUME 8.5 fl (7.4-10.4); PLATELET COUNT 254 K/mm3 (130-400); RED BLOOD COUNT 3.35 M/mm3 (4.20-5.60); REDCELL DISTRIBUTION WIDTH-CV 15.5 % (11.5-14.5)
[2018-01-15 03:52] LABS: HEMATOCRIT 30.5 % (42.0-52.0)
[2018-01-15 03:57] LABS: CALCIUM 8.5 mg/dL (8.4-10.2); CREATININE, serum 0.83 mg/dL (0.66-1.25); POTASSIUM 4.2 mmol/L (3.4-5.0)
[2018-01-15 04:36] LABS: BAND 7 % (0-10); EOSINOPHIL 1 % (0-4); LYMPHOCYTE 7 % (20.0-51.0); NEUTROPHILS 81 % (42.0-75.2)
[2018-01-15 04:37] LABS: ANISOCYTOSIS 1+; HYPOCHROMIA 1+; OVALOCYTES 1+; PLATELET ESTIMATE NORMAL (NORMAL)
[2018-01-15 04:38] LABS: HELMET CELLS 1+
[2018-01-15 05:23] VITALS: BP 116/72; PULSE 68; TEMP 98
[2018-01-15 07:54] VITALS: BP 115/69; PULSE 74; TEMP 97.4
[2018-01-15 12:48] VITALS: BP 110/57; PULSE 91; TEMP 97.3
[2018-01-15 16:54] VITALS: BP 91/71; PULSE 89; TEMP 98.3
[2018-01-15 21:49] VITALS: BP 101/58; PULSE 78; TEMP 97.3
[2018-01-16] VITALS (8 sets, daily range): BP systolic 96–125; BP diastolic 51–83; PULSE 76–110; TEMP 97.9–98.6
[2018-01-16 06:14] LABS: BASO % 0.2 % (0.0-2.0); EOS # 0.1 (0.0-0.7); EOS % 0.7 % (0-4.0); GRAN # 12.3 (1.4-6.5); GRAN % 69.6 % (42.2-75.2); HEMOGLOBIN 10.5 g/dl (13.5-18.0); LYMPH # 3.3 (1.2-3.4); LYMPH % 18.6 % (20.0-51.0); MEAN CELL VOLUME 90 fl (80.0-100.0); MEAN CORPUSCULAR HEMOGLOBIN 29 pg (27.0-31.0); MEAN CORPUSCULAR HGB CONC 32 g/dl (33.0-37.0); MEAN PLATELET VOLUME 8.8 fl (7.4-10.4); MONO # 1.4 (0.1-0.6); PLATELET COUNT 271 K/mm3 (130-400); RED BLOOD COUNT 3.62 M/mm3 (4.20-5.60); REDCELL DISTRIBUTION WIDTH-CV 15.7 % (11.5-14.5)
[2018-01-16 06:15] LABS: HEMATOCRIT 32.6 % (42.0-52.0)
[2018-01-16 06:22] LABS: CALCIUM 8.8 mg/dL (8.4-10.2); CREATININE, serum 0.79 mg/dL (0.66-1.25); POTASSIUM 3.9 mmol/L (3.4-5.0)
[2018-01-16 13:24] LABS: HIV 1/2 Antibodies Non-Reactive; HIV-1p24 Antigen Non-Reactive
[2018-01-17 03:07] VITALS: BP 102/58; PULSE 96; TEMP 98.1
[2018-01-17 06:19] LABS: HEMOGLOBIN 10.6 g/dl (13.5-18.0); MEAN CELL VOLUME 91 fl (80.0-100.0); MEAN CORPUSCULAR HEMOGLOBIN 29 pg (27.0-31.0); MEAN CORPUSCULAR HGB CONC 32 g/dl (33.0-37.0); MEAN PLATELET VOLUME 8.7 fl (7.4-10.4); PLATELET COUNT 273 K/mm3 (130-400); RED BLOOD COUNT 3.61 M/mm3 (4.20-5.60); REDCELL DISTRIBUTION WIDTH-CV 15.9 % (11.5-14.5)
[2018-01-17 06:27] LABS: CALCIUM 8.5 mg/dL (8.4-10.2); CREATININE, serum 0.77 mg/dL (0.66-1.25); POTASSIUM 3.7 mmol/L (3.4-5.0)
[2018-01-17 06:54] LABS: BAND 2 % (0-10); EOSINOPHIL 1 % (0-4); LYMPHOCYTE 21 % (20.0-51.0); MYELOCYTE 1 % (0-0); NEUTROPHILS 69 % (42.0-75.2); PLATELET ESTIMATE NORMAL (NORMAL)
[2018-01-17 06:56] LABS: ANISOCYTOSIS 1+
[2018-01-17 07:21] VITALS: BP 121/74; PULSE 78; TEMP 97.7
[2018-01-17 11:10] VITALS: BP 119/65; PULSE 93; TEMP 98.2
[2018-01-17 14:58] VITALS: BP 123/68; PULSE 92; TEMP 98.1
[2018-01-17 21:04] VITALS: BP 113/68; PULSE 83; TEMP 98.1
[2018-01-17 23:11] VITALS: BP 115/67; PULSE 75; TEMP 97.4
[2018-01-18 05:31] VITALS: PULSE 84
[2018-01-18 06:09] LABS: MEAN CELL VOLUME 92 fl (80.0-100.0); MEAN CORPUSCULAR HEMOGLOBIN 29 pg (27.0-31.0); MEAN CORPUSCULAR HGB CONC 32 g/dl (33.0-37.0); MEAN PLATELET VOLUME 8.8 fl (7.4-10.4); PLATELET COUNT 263 K/mm3 (130-400); RED BLOOD COUNT 3.75 M/mm3 (4.20-5.60); REDCELL DISTRIBUTION WIDTH-CV 16.2 % (11.5-14.5)
[2018-01-18 06:12] LABS: HEMATOCRIT 34.6 % (42.0-52.0)
[2018-01-18 06:39] LABS: BAND 2 % (0-10); HYPOCHROMIA 1+; LYMPHOCYTE 35 % (20.0-51.0); NEUTROPHILS 60 % (42.0-75.2); PLATELET ESTIMATE NORMAL (NORMAL)
[2018-01-18 06:41] LABS: ANISOCYTOSIS 1+
[2018-01-18 06:42] LABS: POLYCHROMASIA 1+
[2018-01-18 06:43] LABS: BURR CELLS 1+
[2018-01-18 07:13] VITALS: BP 107/79; PULSE 74; TEMP 97.7
[2018-01-18 11:08] VITALS: BP 131/75; PULSE 101; TEMP 98
[2018-01-18 14:52] VITALS: BP 122/64; PULSE 88; TEMP 98.2
[2018-01-18 17:41] LABS: MYCOPLASMA IGM ANTIBODIES 0.72 (0.00-0.90)
[2018-01-18 19:32] VITALS: BP 131/75; PULSE 96; TEMP 97.6
[2018-01-18 23:44] VITALS: BP 117/70; PULSE 80; TEMP 98.2
[2018-01-19 05:04] VITALS: BP 109/65; PULSE 66; TEMP 98
[2018-01-19 05:37] LABS: HEMOGLOBIN 11.1 g/dl (13.5-18.0); MEAN CELL VOLUME 92 fl (80.0-100.0); MEAN CORPUSCULAR HEMOGLOBIN 29 pg (27.0-31.0); MEAN CORPUSCULAR HGB CONC 32 g/dl (33.0-37.0); MEAN PLATELET VOLUME 8.9 fl (7.4-10.4); PLATELET COUNT 252 K/mm3 (130-400); REDCELL DISTRIBUTION WIDTH-CV 16.4 % (11.5-14.5)
[2018-01-19 05:40] LABS: HEMATOCRIT 34.8 % (42.0-52.0)
[2018-01-19 05:51] LABS: CALCIUM 8.8 mg/dL (8.4-10.2); CREATININE, serum 0.96 mg/dL (0.66-1.25); POTASSIUM 3.8 mmol/L (3.4-5.0)
[2018-01-19 06:22] LABS: BAND 6 % (0-10); EOSINOPHIL 1 % (0-4); HYPOCHROMIA 2+; LYMPHOCYTE 29 % (20.0-51.0); NEUTROPHILS 57 % (42.0-75.2); PLATELET ESTIMATE NORMAL (NORMAL)
[2018-01-19 06:23] LABS: ANISOCYTOSIS 1+; OVALOCYTES 1+
[2018-01-19 07:50] VITALS: BP 126/81; PULSE 84; TEMP 98.1
[2018-01-19 10:48] VITALS: BP 117/63; PULSE 80; TEMP 98.3
[2018-01-19 15:50] LABS: BLASTOMYCES ID Negative (Negative)
[2018-01-19 17:47] VITALS: BP 125/77; PULSE 104; TEMP 98.5
[2018-01-19 20:38] VITALS: BP 117/80; PULSE 100; TEMP 97.9
[2018-01-20 01:52] VITALS: BP 106/53; PULSE 64; TEMP 97.8
[2018-01-20 04:25] VITALS: BP 102/50; PULSE 78; TEMP 97.8
[2018-01-20 07:00] LABS: HEMOGLOBIN 11.5 g/dl (13.5-18.0); MEAN CELL VOLUME 92 fl (80.0-100.0); MEAN CORPUSCULAR HEMOGLOBIN 29 pg (27.0-31.0); MEAN CORPUSCULAR HGB CONC 32 g/dl (33.0-37.0); MEAN PLATELET VOLUME 9.2 fl (7.4-10.4); PLATELET COUNT 202 K/mm3 (130-400); RED BLOOD COUNT 3.91 M/mm3 (4.20-5.60); REDCELL DISTRIBUTION WIDTH-CV 16.8 % (11.5-14.5)
[2018-01-20 07:05] LABS: HEMATOCRIT 35.8 % (42.0-52.0)
[2018-01-20 07:11] LABS: CREATININE, serum 0.89 mg/dL (0.66-1.25); POTASSIUM 3.9 mmol/L (3.4-5.0)
[2018-01-20 07:23] LABS: BAND 1 % (0-10); EOSINOPHIL 1 % (0-4); LYMPHOCYTE 21 % (20.0-51.0); NEUTROPHILS 71 % (42.0-75.2); PLATELET ESTIMATE NORMAL (NORMAL)
[2018-01-20 07:24] LABS: ANISOCYTOSIS 1+; HYPOCHROMIA 1+; POLYCHROMASIA 1+
[2018-01-20 08:24] LABS: .HISTOPLASMA ANTIGEN SERUM None Detected (())
[2018-01-20 09:00] VITALS: BP 109/67; PULSE 116; TEMP 98.5
[2018-01-20] MEDS ORDERED: LEVAQUIN 750MG750 M1 PO (10:42)
[2018-01-20] MEDS ORDERED: MONODOX100 PO (10:43)
[2018-01-20] MEDS ORDERED: CHANTIX 1MG1 MG PO (10:45)
[2018-01-20] MEDS ORDERED: NYSTATIN OR100 MU/ML PO (10:52)
[2018-01-20] MEDS ORDERED: NORCO 325 MG-51 TAB PO (10:53)
[2018-01-20 12:11] VITALS: BP 104/60; PULSE 116; TEMP 98.3
[2018-01-21 15:05] LABS: COCCIDIOIDES AB IGG Negative (Negative); COCCIDIOIDES AB IGM Negative (Negative); COCCIDIOIDES CF Negative (Negative)
[2018-01-21] MEDS ORDERED: OMNICEF 300MG300 MG PO (22:52)
== END 2018-01-20 17:40 | disposition home or self-care (01) | DRG 871 ==
LOC: COL.ER 11:55 → MEDICAL 15:06
PROVIDERS: Emergency Medicine; Hospitalist; Internal Medicine; Internal Medicine Infectious Disease; Physician Assistant
PROC: 02HV33Z Insertion of Infusion Device into Superior Vena Cava, Percutaneous Approach (ICD-10-PCS; principal; 2018-01-13)
DX: A41.9 Sepsis, unspecified organism (principal); J18.9 Pneumonia, unspecified organism; J44.0 Chronic obstructive pulmonary disease with (acute) lower respiratory infection; J44.1 Chronic obstructive pulmonary disease with (acute) exacerbation; B37.0 Candidal stomatitis; Z68.1 Body mass index [BMI] 19.9 or less, adult; I10 Essential (primary) hypertension; I25.10 Atherosclerotic heart disease of native coronary artery without angina pectoris; Z95.5 Presence of coronary angioplasty implant and graft; F41.8 Other specified anxiety disorders; Z87.891 Personal history of nicotine dependence; E78.5 Hyperlipidemia, unspecified; D64.9 Anemia, unspecified; R63.4 Abnormal weight loss
CPT/HCPCS: 99223-AI; 99231-AI; 99233-AI; 99239; A4216; C1751; J0692; J1170; J1650; J1956; J3370; J7030; J7050; J7120; J7512; Q9967

== ENCOUNTER 2018-01-21 21:58 | Emergency (ER) | payer OTHER ==
[~2018-01-21] VITALS: Ht 180.3 cm; Wt 61.1 kg
[~2018-01-21 21:58] MED LIST changes: +ATARAX 25MG25 MG/TAB PO; +MONODOX100 PO; +NYSTATIN OR100 MU/ML PO
[2018-01-21 22:04] VITALS: TEMP 98.2
[2018-01-21 22:41] LABS: HEMATOCRIT 38.6 % (42.0-52.0); HEMOGLOBIN 12.4 g/dl (13.5-18.0); MEAN CELL VOLUME 91 fl (80.0-100.0); MEAN CORPUSCULAR HEMOGLOBIN 29 pg (27.0-31.0); MEAN CORPUSCULAR HGB CONC 32 g/dl (33.0-37.0); MEAN PLATELET VOLUME 8.3 fl (7.4-10.4); PLATELET COUNT 235 K/mm3 (130-400); RED BLOOD COUNT 4.25 M/mm3 (4.20-5.60); REDCELL DISTRIBUTION WIDTH-CV 17.1 % (11.5-14.5)
[2018-01-21] MEDS ORDERED: OMNICEF 300MG300 MG PO (22:52)
[2018-01-21 22:53] LABS: ANION GAP 4 mmol/L (7-16); BLOOD UREA NITROGEN 21 mg/dL (9-20); CALCIUM 9.4 mg/dL (8.4-10.2); CARBON DIOXIDE 32 mmol/L (22-30); CHLORIDE 99 mmol/L (98-107); CREATININE, serum 0.98 mg/dL (0.66-1.25); GLUCOSE 98 mg/dL (74-106); SODIUM 135 mmol/L (137-145)
[2018-01-21 22:55] LABS: CREATINE KINASE < 20 U/L (55-170)
[2018-01-21 23:05] LABS: BAND 5 % (0-10); EOSINOPHIL 9 % (0-4); LYMPHOCYTE 20 % (20.0-51.0); METAMYELOCYTE 1 % (0-0); MYELOCYTE 1 % (0-0); NEUTROPHILS 58 % (42.0-75.2)
[2018-01-21 23:06] LABS: ANISOCYTOSIS 2+; PLATELET ESTIMATE NORMAL (NORMAL)
[2018-01-21 23:21] VITALS: BP 108/73; PULSE 99
== END 2018-01-21 23:20 | disposition home or self-care (01) ==
LOC: COL.ER 21:58
PROVIDERS: Emergency Medicine
DX: T36.8X5A Adverse effect of other systemic antibiotics, initial encounter (principal); M65.872 Other synovitis and tenosynovitis, left ankle and foot; M65.871 Other synovitis and tenosynovitis, right ankle and foot; Z79.82 Long term (current) use of aspirin

== ENCOUNTER 2018-01-25 12:39 | Emergency (ER) | payer OTHER ==
[~2018-01-25] VITALS: Ht 180.3 cm; Wt 60.5 kg
[~2018-01-25 12:39] MED LIST changes: +OMNICEF 300MG300 MG PO
[2018-01-25 12:54] VITALS: TEMP 99.5
[2018-01-25 13:28] LABS: HEMATOCRIT 37.9 % (42.0-52.0); HEMOGLOBIN 12.3 g/dl (13.5-18.0); MEAN CELL VOLUME 90 fl (80.0-100.0); MEAN CORPUSCULAR HEMOGLOBIN 29 pg (27.0-31.0); MEAN CORPUSCULAR HGB CONC 33 g/dl (33.0-37.0); MEAN PLATELET VOLUME 8.5 fl (7.4-10.4); PLATELET COUNT 223 K/mm3 (130-400); RED BLOOD COUNT 4.21 M/mm3 (4.20-5.60); REDCELL DISTRIBUTION WIDTH-CV 16.5 % (11.5-14.5)
[2018-01-25 13:37] LABS: BAND 2 % (0-10); BASOPHIL 2 % (0-2); EOSINOPHIL 9 % (0-4); LYMPHOCYTE 25 % (20.0-51.0); MYELOCYTE 3 % (0-0); NEUTROPHILS 51 % (42.0-75.2); PLATELET ESTIMATE NORMAL (NORMAL)
[2018-01-25 13:38] LABS: ANISOCYTOSIS 1+
[2018-01-25 13:39] LABS: PARTIAL THROMBOPLASTIN TIME 30.3 SECONDS (26.0-37.0)
[2018-01-25 13:43] LABS: ALANINE AMINOTRANSFERASE 46 U/L (21-72); ALBUMIN 3.7 gm/dL (3.5-5.0); ALKALINE PHOSPHATASE 45 U/L (50-136); ANION GAP 6 mmol/L (7-16); AST,SGOT 17 U/L (15-37); BILIRUBIN,TOTAL 0.3 mg/dL (0.0-1.0); BLOOD UREA NITROGEN 20 mg/dL (9-20); C-REACTIVE PROTEIN 4.3 mg/dL (0.0-0.9); CALCIUM 9.6 mg/dL (8.4-10.2); CARBON DIOXIDE 30 mmol/L (22-30); CHLORIDE 103 mmol/L (98-107); CREATININE, serum 1.05 mg/dL (0.66-1.25); GLUCOSE 99 mg/dL (74-106); SODIUM 139 mmol/L (137-145); TOTAL PROTEIN 6.9 gm/dL (6.4-8.2)
[2018-01-25 13:55] LABS: TROPONIN-I < 0.012 ng/mL (0.000-0.034)
[2018-01-25 15:45] VITALS: BP 104/73; PULSE 97
[2018-01-25] MEDS ORDERED: PREDNISONE20 MG PO (15:46)
== END 2018-01-25 15:58 | disposition home or self-care (01) ==
LOC: COL.ER 12:39
PROVIDERS: Emergency Medicine
DX: J18.1 Lobar pneumonia, unspecified organism (principal); J44.1 Chronic obstructive pulmonary disease with (acute) exacerbation; I25.10 Atherosclerotic heart disease of native coronary artery without angina pectoris; I10 Essential (primary) hypertension; E78.5 Hyperlipidemia, unspecified; E78.00 Pure hypercholesterolemia, unspecified; F17.210 Nicotine dependence, cigarettes, uncomplicated; Z79.82 Long term (current) use of aspirin
CPT/HCPCS: J2930; J3010; J7512; Q9967

== ENCOUNTER 2018-02-03 20:06 | Emergency (ER) | payer OTHER ==
[~2018-02-03] VITALS: Ht 180.3 cm; Wt 63.6 kg
[2018-02-03 20:24] VITALS: TEMP 97
[2018-02-03 21:12] LABS: BASO # 0.1 (0.0-0.2); BASO % 0.6 % (0.0-2.0); EOS # 0.6 (0.0-0.7); EOS % 7.3 % (0-4.0); GRAN # 3.8 (1.4-6.5); GRAN % 45.8 % (42.2-75.2); HEMOGLOBIN 12.9 g/dl (13.5-18.0); LYMPH # 3.1 (1.2-3.4); LYMPH % 37.4 % (20.0-51.0); MEAN CELL VOLUME 90 fl (80.0-100.0); MEAN CORPUSCULAR HEMOGLOBIN 29 pg (27.0-31.0); MEAN CORPUSCULAR HGB CONC 32 g/dl (33.0-37.0); MEAN PLATELET VOLUME 8.6 fl (7.4-10.4); MONO # 0.6 (0.1-0.6); MONO % 7.1 % (1.7-9.3); PLATELET COUNT 283 K/mm3 (130-400); RED BLOOD COUNT 4.44 M/mm3 (4.20-5.60); REDCELL DISTRIBUTION WIDTH-CV 16.4 % (11.5-14.5)
[2018-02-03 21:24] LABS: ALANINE AMINOTRANSFERASE 18 U/L (21-72); ALBUMIN 3.9 gm/dL (3.5-5.0); ALKALINE PHOSPHATASE 47 U/L (50-136); ANION GAP 6 mmol/L (7-16); AST,SGOT 19 U/L (15-37); BILIRUBIN,TOTAL 0.3 mg/dL (0.0-1.0); BLOOD UREA NITROGEN 12 mg/dL (9-20); C-REACTIVE PROTEIN 0.8 mg/dL (0.0-0.9); CALCIUM 9.4 mg/dL (8.4-10.2); CARBON DIOXIDE 28 mmol/L (22-30); CHLORIDE 107 mmol/L (98-107); CREATININE, serum 1.09 mg/dL (0.66-1.25); GLUCOSE 95 mg/dL (74-106); LIPASE 111 U/L (23-300); POTASSIUM 3.9 mmol/L (3.4-5.0); SODIUM 142 mmol/L (137-145); TOTAL PROTEIN 6.9 gm/dL (6.4-8.2)
[2018-02-03 21:33] LABS: TROPONIN-I < 0.012 ng/mL (0.000-0.034)
[2018-02-03 22:00] LABS: COLLECTION METHOD CLEAN CATCH
[2018-02-03 22:06] LABS: PH 5 (5-8); SQUAMOUS EPITHELIAL None Seen /hpf; URINE APPEARANCE Clear; URINE BACTERIA None Seen /hpf; URINE BILIRUBIN Negative (NEGATIVE); URINE BLOOD Negative (NEGATIVE); URINE COLOR Straw; URINE GLUCOSE Negative (NEGATIVE); URINE KETONE Negative (NEGATIVE); URINE LEUKOCYTE ESTERASE Negative (NEGATIVE); URINE NITRATE Negative (NEGATIVE); URINE PROTEIN(semi-quant) Negative (NEGATIVE); URINE RBC 0-2 /hpf; URINE UROBILINOGEN Negative (NEGATIVE)
[2018-02-03 23:06] VITALS: BP 102/74; PULSE 105
== END 2018-02-03 23:06 | disposition home or self-care (01) ==
LOC: COL.ER 20:06
PROVIDERS: Emergency Medicine
DX: R10.31 Right lower quadrant pain (principal); J18.1 Lobar pneumonia, unspecified organism; J44.9 Chronic obstructive pulmonary disease, unspecified; I10 Essential (primary) hypertension; F17.210 Nicotine dependence, cigarettes, uncomplicated; Z79.82 Long term (current) use of aspirin
CPT/HCPCS: J7030; Q9967

== ENCOUNTER 2018-02-19 14:22 | Emergency (ER) | payer OTHER ==
[~2018-02-19] VITALS: Ht 180.3 cm; Wt 63.6 kg
[2018-02-19 14:28] VITALS: TEMP 97.6
[2018-02-19 14:47] LABS: BASO # 0.1 (0.0-0.2); EOS # 0.4 (0.0-0.7); GRAN # 7.6 (1.4-6.5); GRAN % 60.6 % (42.2-75.2); HEMATOCRIT 47.1 % (42.0-52.0); HEMOGLOBIN 15.2 g/dl (13.5-18.0); LYMPH # 3.3 (1.2-3.4); LYMPH % 25.9 % (20.0-51.0); MEAN CELL VOLUME 90 fl (80.0-100.0); MEAN CORPUSCULAR HEMOGLOBIN 29 pg (27.0-31.0); MEAN CORPUSCULAR HGB CONC 32 g/dl (33.0-37.0); MEAN PLATELET VOLUME 8.8 fl (7.4-10.4); MONO # 1.1 (0.1-0.6); MONO % 8.5 % (1.7-9.3); PLATELET COUNT 255 K/mm3 (130-400); RED BLOOD COUNT 5.26 M/mm3 (4.20-5.60); REDCELL DISTRIBUTION WIDTH-CV 15.8 % (11.5-14.5)
[2018-02-19 14:54] LABS: ALANINE AMINOTRANSFERASE 14 U/L (21-72); ALBUMIN 4.7 gm/dL (3.5-5.0); ALKALINE PHOSPHATASE 71 U/L (50-136); ANION GAP 9 mmol/L (7-16); AST,SGOT 20 U/L (15-37); BILIRUBIN,TOTAL 0.7 mg/dL (0.0-1.0); BLOOD UREA NITROGEN 7 mg/dL (9-20); CALCIUM 9.7 mg/dL (8.4-10.2); CARBON DIOXIDE 25 mmol/L (22-30); CHLORIDE 106 mmol/L (98-107); CREATININE, serum 1.14 mg/dL (0.66-1.25); GLUCOSE 94 mg/dL (74-106); POTASSIUM 3.9 mmol/L (3.4-5.0); SODIUM 140 mmol/L (137-145); TOTAL PROTEIN 8.2 gm/dL (6.4-8.2)
[2018-02-19 15:09] LABS: TROPONIN-I < 0.012 ng/mL (0.000-0.034)
[2018-02-19 17:17] LABS: COLLECTION METHOD CLEAN CATCH
[2018-02-19 17:22] LABS: PH 5 (5-8); SQUAMOUS EPITHELIAL None Seen /hpf; URINE APPEARANCE Clear; URINE BACTERIA None Seen /hpf; URINE BILIRUBIN Negative (NEGATIVE); URINE BLOOD Negative (NEGATIVE); URINE COLOR Yellow; URINE GLUCOSE Negative (NEGATIVE); URINE KETONE Trace (NEGATIVE); URINE LEUKOCYTE ESTERASE Negative (NEGATIVE); URINE NITRATE Negative (NEGATIVE); URINE PROTEIN(semi-quant) Negative (NEGATIVE); URINE RBC 0-2 /hpf; URINE UROBILINOGEN Negative (NEGATIVE)
[2018-02-19 17:30] LABS: TRICYCLIC ANTIDEPRESS URINE NEGATIVE
[2018-02-19] MEDS ORDERED: PREDNISONE20 MG PO (18:28)
[2018-02-19 18:31] VITALS: BP 111/71; PULSE 108
== END 2018-02-19 18:36 | disposition home or self-care (01) ==
LOC: COL.ER 14:22
PROVIDERS: Emergency Medicine; Nurse Practitioner
DX: R07.89 Other chest pain (principal); J44.1 Chronic obstructive pulmonary disease with (acute) exacerbation; I25.10 Atherosclerotic heart disease of native coronary artery without angina pectoris; F17.210 Nicotine dependence, cigarettes, uncomplicated; E78.5 Hyperlipidemia, unspecified; F43.10 Post-traumatic stress disorder, unspecified; F32.9 Major depressive disorder, single episode, unspecified; F41.9 Anxiety disorder, unspecified; Z95.5 Presence of coronary angioplasty implant and graft; Z79.82 Long term (current) use of aspirin
CPT/HCPCS: J2270; J2405; J7030; J7512

== ENCOUNTER 2018-03-21 15:34 | Emergency (ER) | payer OTHER ==
[~2018-03-21] VITALS: Wt 62.7 kg
[2018-03-21 15:46] VITALS: TEMP 98
[2018-03-21 16:17] LABS: BASO # 0.1 (0.0-0.2); BASO % 0.9 % (0.0-2.0); EOS # 0.5 (0.0-0.7); EOS % 5.3 % (0-4.0); GRAN # 4.5 (1.4-6.5); GRAN % 51.4 % (42.2-75.2); HEMATOCRIT 45.8 % (42.0-52.0); HEMOGLOBIN 15.1 g/dl (13.5-18.0); LYMPH % 34.5 % (20.0-51.0); MEAN CELL VOLUME 88 fl (80.0-100.0); MEAN CORPUSCULAR HEMOGLOBIN 29 pg (27.0-31.0); MEAN CORPUSCULAR HGB CONC 33 g/dl (33.0-37.0); MEAN PLATELET VOLUME 8.7 fl (7.4-10.4); MONO # 0.7 (0.1-0.6); MONO % 7.4 % (1.7-9.3); PLATELET COUNT 260 K/mm3 (130-400); RED BLOOD COUNT 5.19 M/mm3 (4.20-5.60); REDCELL DISTRIBUTION WIDTH-CV 15.5 % (11.5-14.5)
[2018-03-21 16:24] LABS: PROTHROMBIN TIME 11.1 SECONDS (9.7-12.8)
[2018-03-21 16:27] LABS: ALANINE AMINOTRANSFERASE 16 U/L (21-72); ALBUMIN 4.3 gm/dL (3.5-5.0); ALKALINE PHOSPHATASE 48 U/L (50-136); ANION GAP 9 mmol/L (7-16); AST,SGOT 17 U/L (15-37); BILIRUBIN,TOTAL 0.2 mg/dL (0.0-1.0); BLOOD UREA NITROGEN 7 mg/dL (9-20); CALCIUM 9.4 mg/dL (8.4-10.2); CARBON DIOXIDE 23 mmol/L (22-30); CHLORIDE 105 mmol/L (98-107); CREATININE, serum 1.04 mg/dL (0.66-1.25); GLUCOSE 98 mg/dL (74-106); POTASSIUM 3.8 mmol/L (3.4-5.0); SODIUM 137 mmol/L (137-145); TOTAL PROTEIN 7.2 gm/dL (6.4-8.2)
[2018-03-21 16:42] LABS: TROPONIN-I < 0.012 ng/mL (0.000-0.035)
[2018-03-21] MEDS ORDERED: MIRTAZAPINE7.5 MG PO (17:03)
[2018-03-21 18:40] VITALS: BP 104/64; PULSE 89
== END 2018-03-21 19:00 | disposition home or self-care (01) ==
LOC: COL.ER 15:34
PROVIDERS: Family Medicine
DX: R07.89 Other chest pain (principal); J44.9 Chronic obstructive pulmonary disease, unspecified; F17.210 Nicotine dependence, cigarettes, uncomplicated; E78.5 Hyperlipidemia, unspecified; I25.10 Atherosclerotic heart disease of native coronary artery without angina pectoris; Z79.82 Long term (current) use of aspirin; Z95.9 Presence of cardiac and vascular implant and graft, unspecified
CPT/HCPCS: J2060; J7030

== ENCOUNTER 2018-04-12 10:56 | Emergency (ER) | payer OTHER ==
[~2018-04-12] VITALS: Ht 180.3 cm; Wt 59.1 kg
[~2018-04-12 10:56] MED LIST changes: +MIRTAZAPINE7.5 MG PO
[2018-04-12 11:14] VITALS: TEMP 97.8
[2018-04-12 11:18] LABS: BASO # 0.1 (0.0-0.2); BASO % 0.7 % (0.0-2.0); EOS # 0.2 (0.0-0.7); EOS % 1.3 % (0-4.0); GRAN # 9.7 (1.4-6.5); GRAN % 73.4 % (42.2-75.2); HEMATOCRIT 42.1 % (42.0-52.0); HEMOGLOBIN 13.7 g/dl (13.5-18.0); LYMPH # 2.5 (1.2-3.4); LYMPH % 18.6 % (20.0-51.0); MEAN CELL VOLUME 90 fl (80.0-100.0); MEAN CORPUSCULAR HEMOGLOBIN 29 pg (27.0-31.0); MEAN CORPUSCULAR HGB CONC 33 g/dl (33.0-37.0); MEAN PLATELET VOLUME 8.6 fl (7.4-10.4); MONO # 0.7 (0.1-0.6); MONO % 5.6 % (1.7-9.3); PLATELET COUNT 283 K/mm3 (130-400); RED BLOOD COUNT 4.68 M/mm3 (4.20-5.60); REDCELL DISTRIBUTION WIDTH-CV 14.8 % (11.5-14.5)
[2018-04-12 11:32] LABS: ALANINE AMINOTRANSFERASE 20 U/L (21-72); ALBUMIN 4.1 gm/dL (3.5-5.0); ALKALINE PHOSPHATASE 38 U/L (50-136); ANION GAP 7 mmol/L (7-16); AST,SGOT 17 U/L (15-37); BILIRUBIN,TOTAL 0.3 mg/dL (0.0-1.0); BLOOD UREA NITROGEN 8 mg/dL (9-20); CALCIUM 9.3 mg/dL (8.4-10.2); CARBON DIOXIDE 26 mmol/L (22-30); CHLORIDE 104 mmol/L (98-107); CREATININE, serum 1.02 mg/dL (0.66-1.25); GLUCOSE 140 mg/dL (74-106); POTASSIUM 4.1 mmol/L (3.4-5.0); SODIUM 138 mmol/L (137-145)
[2018-04-12 11:34] LABS: PARTIAL THROMBOPLASTIN TIME 32.9 SECONDS (26.0-37.0)
[2018-04-12 11:37] LABS: PROTHROMBIN TIME 11.6 SECONDS (9.7-12.8)
[2018-04-12 11:45] LABS: TROPONIN-I < 0.012 ng/mL (0.000-0.035)
[2018-04-12] MEDS ORDERED: NORCO 325 MG-51 TAB PO (14:06)
[2018-04-12] MEDS ORDERED: ZITHROMAX Z PA250 MG PO (14:06)
[2018-04-12] MEDS ORDERED: PREDNISONE10 MG PO (14:06)
[2018-04-12 14:23] VITALS: BP 104/64; PULSE 99
== END 2018-04-12 14:25 | disposition home or self-care (01) ==
LOC: COL.ER 10:56
PROVIDERS: Family Medicine
DX: J42 Unspecified chronic bronchitis (principal); I25.10 Atherosclerotic heart disease of native coronary artery without angina pectoris; F17.210 Nicotine dependence, cigarettes, uncomplicated; Z79.82 Long term (current) use of aspirin; Z95.5 Presence of coronary angioplasty implant and graft
CPT/HCPCS: J2930; J7030

== ENCOUNTER 2018-04-20 22:17 | Emergency (ER) | payer OTHER ==
[~2018-04-20] VITALS: Ht 180.3 cm; Wt 59.1 kg
[~2018-04-20 22:17] MED LIST changes: +PREDNISONE10 MG PO; +ZITHROMAX Z PA250 MG PO
[2018-04-20 22:30] VITALS: TEMP 96.7
[2018-04-20 22:57] LABS: BASO # 0.1 (0.0-0.2); BASO % 0.9 % (0.0-2.0); EOS # 0.5 (0.0-0.7); EOS % 3.6 % (0-4.0); GRAN # 8.2 (1.4-6.5); GRAN % 63.5 % (42.2-75.2); HEMATOCRIT 44.1 % (42.0-52.0); HEMOGLOBIN 14.5 g/dl (13.5-18.0); LYMPH # 3.3 (1.2-3.4); LYMPH % 25.9 % (20.0-51.0); MEAN CELL VOLUME 89 fl (80.0-100.0); MEAN CORPUSCULAR HEMOGLOBIN 29 pg (27.0-31.0); MEAN CORPUSCULAR HGB CONC 33 g/dl (33.0-37.0); MEAN PLATELET VOLUME 8.7 fl (7.4-10.4); MONO # 0.7 (0.1-0.6); MONO % 5.6 % (1.7-9.3); PLATELET COUNT 284 K/mm3 (130-400); RED BLOOD COUNT 4.97 M/mm3 (4.20-5.60); REDCELL DISTRIBUTION WIDTH-CV 14.5 % (11.5-14.5)
[2018-04-20 23:11] LABS: ALANINE AMINOTRANSFERASE 19 U/L (21-72); ALBUMIN 4.3 gm/dL (3.5-5.0); ALCOHOL(ethanol),MEDICAL 176 mg/dL; ALKALINE PHOSPHATASE 48 U/L (50-136); ANION GAP 10 mmol/L (7-16); AST,SGOT 16 U/L (15-37); BILIRUBIN,TOTAL 0.2 mg/dL (0.0-1.0); BLOOD UREA NITROGEN 6 mg/dL (9-20); CALCIUM 9.1 mg/dL (8.4-10.2); CARBON DIOXIDE 22 mmol/L (22-30); CHLORIDE 105 mmol/L (98-107); CREATININE, serum 0.97 mg/dL (0.66-1.25); GLUCOSE 100 mg/dL (74-106); LIPASE 116 U/L (23-300); POTASSIUM 3.6 mmol/L (3.4-5.0); SODIUM 137 mmol/L (137-145); TOTAL PROTEIN 7.3 gm/dL (6.4-8.2)
[2018-04-20 23:23] LABS: TROPONIN-I < 0.012 ng/mL (0.000-0.035)
[2018-04-21 01:03] LABS: PROTHROMBIN TIME 11.4 SECONDS (9.7-12.8)
[2018-04-21 01:07] LABS: D-DIMER < 200.00 ng/mLDDu (200-230)
[2018-04-21 01:15] VITALS: PULSE 102
[2018-04-21 01:30] VITALS: BP 88/46
== END 2018-04-21 02:10 | disposition home or self-care (01) ==
LOC: COL.ER 22:17
PROVIDERS: Emergency Medicine
DX: F10.129 Alcohol abuse with intoxication, unspecified (principal); J44.9 Chronic obstructive pulmonary disease, unspecified; I25.10 Atherosclerotic heart disease of native coronary artery without angina pectoris; J40 Bronchitis, not specified as acute or chronic; Y90.6 Blood alcohol level of 120-199 mg/100 ml; F17.210 Nicotine dependence, cigarettes, uncomplicated; Z79.82 Long term (current) use of aspirin
CPT/HCPCS: J2060; J2405; J2930

== ENCOUNTER 2018-05-07 09:06 | Emergency (ER) | payer OTHER ==
[~2018-05-07] VITALS: Ht 180.3 cm; Wt 65.9 kg
[2018-05-07 09:10] VITALS: TEMP 98.2
[2018-05-07 09:23] LABS: BASO # 0.1 (0.0-0.2); BASO % 1.2 % (0.0-2.0); EOS # 0.4 (0.0-0.7); EOS % 5.8 % (0-4.0); GRAN # 3.9 (1.4-6.5); GRAN % 54.4 % (42.2-75.2); HEMATOCRIT 47.6 % (42.0-52.0); HEMOGLOBIN 15.6 g/dl (13.5-18.0); LYMPH # 2.1 (1.2-3.4); LYMPH % 28.7 % (20.0-51.0); MEAN CELL VOLUME 90 fl (80.0-100.0); MEAN CORPUSCULAR HEMOGLOBIN 29 pg (27.0-31.0); MEAN CORPUSCULAR HGB CONC 33 g/dl (33.0-37.0); MEAN PLATELET VOLUME 8.6 fl (7.4-10.4); MONO # 0.7 (0.1-0.6); MONO % 9.5 % (1.7-9.3); PLATELET COUNT 252 K/mm3 (130-400); RED BLOOD COUNT 5.31 M/mm3 (4.20-5.60); REDCELL DISTRIBUTION WIDTH-CV 14.2 % (11.5-14.5)
[2018-05-07 09:37] LABS: ALANINE AMINOTRANSFERASE 26 U/L (21-72); ALBUMIN 4.5 gm/dL (3.5-5.0); ALKALINE PHOSPHATASE 52 U/L (50-136); ANION GAP 10 mmol/L (7-16); AST,SGOT 31 U/L (15-37); BILIRUBIN,TOTAL 0.3 mg/dL (0.0-1.0); BLOOD UREA NITROGEN 7 mg/dL (9-20); CALCIUM 9.9 mg/dL (8.4-10.2); CARBON DIOXIDE 27 mmol/L (22-30); CHLORIDE 102 mmol/L (98-107); CREATININE, serum 1.05 mg/dL (0.66-1.25); GLUCOSE 106 mg/dL (74-106); POTASSIUM 3.6 mmol/L (3.4-5.0); SODIUM 139 mmol/L (137-145); TOTAL PROTEIN 7.6 gm/dL (6.4-8.2)
[2018-05-07 09:52] LABS: TROPONIN-I < 0.012 ng/mL (0.000-0.035)
[2018-05-07 09:54] LABS: INR 0.9 (0.8-3.0); PROTHROMBIN TIME 10.1 SECONDS (9.7-12.8)
[2018-05-07 09:57] LABS: PARTIAL THROMBOPLASTIN TIME 33.7 SECONDS (26.0-37.0)
[2018-05-07 12:40] VITALS: BP 108/74; PULSE 82
== END 2018-05-07 12:41 | disposition home or self-care (01) ==
LOC: COL.ER 09:06
PROVIDERS: Family Medicine
DX: R07.89 Other chest pain (principal); I25.10 Atherosclerotic heart disease of native coronary artery without angina pectoris; F17.210 Nicotine dependence, cigarettes, uncomplicated; Z79.82 Long term (current) use of aspirin
CPT/HCPCS: J1170; J3010; J7030

== ENCOUNTER 2018-05-09 13:56 | Emergency (ER) | payer OTHER ==
[~2018-05-09] VITALS: Ht 180.3 cm; Wt 65.9 kg
[2018-05-09 14:14] VITALS: TEMP 97.4
[2018-05-09 14:25] LABS: BASO # 0.1 (0.0-0.2); BASO % 1.3 % (0.0-2.0); EOS # 0.6 (0.0-0.7); GRAN # 3.9 (1.4-6.5); GRAN % 50.2 % (42.2-75.2); HEMOGLOBIN 15.3 g/dl (13.5-18.0); LYMPH # 2.6 (1.2-3.4); LYMPH % 33.1 % (20.0-51.0); MEAN CELL VOLUME 89 fl (80.0-100.0); MEAN CORPUSCULAR HEMOGLOBIN 30 pg (27.0-31.0); MEAN CORPUSCULAR HGB CONC 33 g/dl (33.0-37.0); MEAN PLATELET VOLUME 8.6 fl (7.4-10.4); MONO # 0.6 (0.1-0.6); MONO % 7.9 % (1.7-9.3); PLATELET COUNT 280 K/mm3 (130-400); RED BLOOD COUNT 5.17 M/mm3 (4.20-5.60); REDCELL DISTRIBUTION WIDTH-CV 14.1 % (11.5-14.5)
[2018-05-09 14:34] LABS: ALANINE AMINOTRANSFERASE 22 U/L (21-72); ALBUMIN 4.3 gm/dL (3.5-5.0); ALKALINE PHOSPHATASE 56 U/L (50-136); ANION GAP 9 mmol/L (7-16); AST,SGOT 19 U/L (15-37); BILIRUBIN,TOTAL 0.3 mg/dL (0.0-1.0); BLOOD UREA NITROGEN 6 mg/dL (9-20); CALCIUM 9.8 mg/dL (8.4-10.2); CARBON DIOXIDE 29 mmol/L (22-30); CHLORIDE 103 mmol/L (98-107); CREATININE, serum 1.03 mg/dL (0.66-1.25); GLUCOSE 88 mg/dL (74-106); LIPASE 86 U/L (23-300); POTASSIUM 4.1 mmol/L (3.4-5.0); SODIUM 141 mmol/L (137-145); TOTAL PROTEIN 7.3 gm/dL (6.4-8.2)
[2018-05-09 14:38] LABS: INR 0.9 (0.8-3.0); PROTHROMBIN TIME 10.6 SECONDS (9.7-12.8)
[2018-05-09 14:48] LABS: TROPONIN-I < 0.012 ng/mL (0.000-0.035)
[2018-05-09 15:59] LABS: D-DIMER < 200.00 ng/mLDDu (200-230)
[2018-05-09 17:18] VITALS: BP 103/56; PULSE 94
== END 2018-05-09 17:21 | disposition home or self-care (01) ==
LOC: COL.ER 13:56
PROVIDERS: Emergency Medicine
DX: R07.89 Other chest pain (principal); J44.9 Chronic obstructive pulmonary disease, unspecified; F41.9 Anxiety disorder, unspecified; F17.210 Nicotine dependence, cigarettes, uncomplicated; Z95.5 Presence of coronary angioplasty implant and graft
CPT/HCPCS: J1170; J1885; J2060; J7030

== ENCOUNTER 2018-05-12 15:18 | Emergency (ER) | payer OTHER ==
[~2018-05-12] VITALS: Ht 180.3 cm; Wt 61.4 kg
[2018-05-12 15:36] VITALS: BP 119/72; PULSE 108; TEMP 97.4
== END 2018-05-12 18:25 | disposition left against medical advice (07) ==
LOC: COL.ER 15:18
DX: R09.89 Other specified symptoms and signs involving the circulatory and respiratory systems (principal)

== ENCOUNTER 2018-05-29 21:09 | Emergency (ER) | payer OTHER ==
[~2018-05-29] VITALS: Ht 180.3 cm; Wt 61.4 kg
[2018-05-29 22:02] LABS: BASO # 0.1 (0.0-0.2); BASO % 1.3 % (0.0-2.0); EOS # 0.5 (0.0-0.7); GRAN # 4.8 (1.4-6.5); GRAN % 47.1 % (42.2-75.2); HEMATOCRIT 46.3 % (42.0-52.0); HEMOGLOBIN 15.6 g/dl (13.5-18.0); LYMPH % 39.8 % (20.0-51.0); MEAN CELL VOLUME 87 fl (80.0-100.0); MEAN CORPUSCULAR HEMOGLOBIN 29 pg (27.0-31.0); MEAN CORPUSCULAR HGB CONC 34 g/dl (33.0-37.0); MEAN PLATELET VOLUME 8.4 fl (7.4-10.4); MONO # 0.6 (0.1-0.6); MONO % 6.2 % (1.7-9.3); PLATELET COUNT 295 K/mm3 (130-400); REDCELL DISTRIBUTION WIDTH-CV 14.6 % (11.5-14.5)
[2018-05-29 22:10] LABS: PROTHROMBIN TIME 11.3 SECONDS (9.7-12.8)
[2018-05-29 22:16] LABS: ALANINE AMINOTRANSFERASE 20 U/L (21-72); ALBUMIN 4.6 gm/dL (3.5-5.0); ALCOHOL(ethanol),MEDICAL 208 mg/dL; ALKALINE PHOSPHATASE 53 U/L (50-136); ANION GAP 12 mmol/L (7-16); AST,SGOT 22 U/L (15-37); BILIRUBIN,TOTAL 0.5 mg/dL (0.0-1.0); BLOOD UREA NITROGEN 4 mg/dL (9-20); CALCIUM 9.4 mg/dL (8.4-10.2); CARBON DIOXIDE 23 mmol/L (22-30); CHLORIDE 101 mmol/L (98-107); CREATININE, serum 0.92 (0.66-1.25); GLUCOSE 88 mg/dL (74-106); SODIUM 136 mmol/L (137-145); TOTAL PROTEIN 7.8 gm/dL (6.4-8.2)
[2018-05-29 22:19] LABS: ACETAMINOPHEN < 10 ug/mL (10-30); SALICYLATE < 1.0 mg/dL
[2018-05-29 22:22] LABS: TRICYCLIC ANTIDEPRESS URINE NEGATIVE
[2018-05-29 22:28] LABS: TROPONIN-I < 0.012 ng/mL (0.000-0.035)
[2018-05-29 22:47] LABS: THYROXINE (T4)-TOTAL 1.8 ug/dL (5.5-11.0)
--- NOTE | 2018-05-29 23:09 | NUR ---
PT REQUESTS A NICOTINE PATCH- STATES HE IS A 2 PACK A DAY SMOKER GIVEN A GLASS OF ICE WATER
[2018-05-30] MEDS ORDERED: PREDNISONE10 MG PO (15:13)
[2018-05-30] MEDS ORDERED: MOTRIN 200200 MG/TAB PO (15:14)
[2018-05-31 15:00] VITALS: TEMP 98.6
[2018-05-31] MEDS ORDERED: VALIUM 5MG T5 MG/TAB PO (16:03)
[2018-05-31 16:55] VITALS: BP 103/65; PULSE 89
== END 2018-05-31 17:03 | disposition home or self-care (01) ==
LOC: COL.ER 21:09
PROVIDERS: Emergency Medicine
DX: R45.851 Suicidal ideations (principal); F10.229 Alcohol dependence with intoxication, unspecified; J44.9 Chronic obstructive pulmonary disease, unspecified; F32.9 Major depressive disorder, single episode, unspecified; Y90.5 Blood alcohol level of 100-119 mg/100 ml
CPT/HCPCS: J2060; J2405; J2550; J3475; J7030

== ENCOUNTER 2018-06-11 12:18 | Emergency (ER) | payer OTHER ==
[~2018-06-11] VITALS: Ht 180.3 cm; Wt 60.0 kg
[~2018-06-11 12:18] MED LIST changes: +MOTRIN 200200 MG/TAB PO; +VALIUM 5MG T5 MG/TAB PO
[2018-06-11 12:23] VITALS: TEMP 97
[2018-06-11 12:44] LABS: BASO # 0.1 (0.0-0.2); BASO % 1.4 % (0.0-2.0); EOS # 0.4 (0.0-0.7); EOS % 5.3 % (0-4.0); GRAN % 47.7 % (42.2-75.2); HEMATOCRIT 44.7 % (42.0-52.0); HEMOGLOBIN 15.2 g/dl (13.5-18.0); LYMPH # 3.1 (1.2-3.4); LYMPH % 36.7 % (20.0-51.0); MEAN CELL VOLUME 88 fl (80.0-100.0); MEAN CORPUSCULAR HEMOGLOBIN 30 pg (27.0-31.0); MEAN CORPUSCULAR HGB CONC 34 g/dl (33.0-37.0); MEAN PLATELET VOLUME 8.7 fl (7.4-10.4); MONO # 0.7 (0.1-0.6); MONO % 8.1 % (1.7-9.3); PLATELET COUNT 276 K/mm3 (130-400); RED BLOOD COUNT 5.06 M/mm3 (4.20-5.60)
[2018-06-11 12:53] LABS: ALANINE AMINOTRANSFERASE 21 U/L (21-72); ALBUMIN 4.6 gm/dL (3.5-5.0); ALCOHOL(ethanol),MEDICAL 248 mg/dL; ALKALINE PHOSPHATASE 48 U/L (50-136); ANION GAP 14 mmol/L (7-16); AST,SGOT 32 U/L (15-37); BILIRUBIN,TOTAL 0.3 mg/dL (0.0-1.0); BLOOD UREA NITROGEN 7 mg/dL (9-20); CALCIUM 9.3 mg/dL (8.4-10.2); CARBON DIOXIDE 25 mmol/L (22-30); CHLORIDE 106 mmol/L (98-107); CREATININE, serum 0.82 (0.66-1.25); GLUCOSE 84 mg/dL (74-106); POTASSIUM 4.3 mmol/L (3.4-5.0); SODIUM 144 mmol/L (137-145); TOTAL PROTEIN 7.8 gm/dL (6.4-8.2)
[2018-06-11 13:05] LABS: TROPONIN-I < 0.012 ng/mL (0.000-0.035)
[2018-06-11 13:43] LABS: COLLECTION METHOD CLEAN CATCH
[2018-06-11 13:54] LABS: PH 6 (5-8); SQUAMOUS EPITHELIAL None Seen /hpf; URINE APPEARANCE Clear; URINE BACTERIA None Seen /hpf; URINE BILIRUBIN Negative (NEGATIVE); URINE BLOOD Negative (NEGATIVE); URINE COLOR Straw; URINE GLUCOSE Negative (NEGATIVE); URINE KETONE Negative (NEGATIVE); URINE LEUKOCYTE ESTERASE Negative (NEGATIVE); URINE NITRATE Negative (NEGATIVE); URINE PROTEIN(semi-quant) Negative (NEGATIVE); URINE RBC 0-2 /hpf; URINE UROBILINOGEN Negative (NEGATIVE)
[2018-06-11 14:03] LABS: TRICYCLIC ANTIDEPRESS URINE NEGATIVE
[2018-06-11 16:43] LABS: THYROID STIMULATING HORMONE 0.981 uIU/mL (0.465-4.680)
[2018-06-11 19:16] VITALS: BP 107/60; PULSE 109
== END 2018-06-11 19:16 | disposition short-term general hospital (02) ==
LOC: COL.ER 12:18
PROVIDERS: Emergency Medicine; Family Medicine
DX: F10.229 Alcohol dependence with intoxication, unspecified (principal); J44.9 Chronic obstructive pulmonary disease, unspecified; I25.10 Atherosclerotic heart disease of native coronary artery without angina pectoris; F17.210 Nicotine dependence, cigarettes, uncomplicated; Y90.8 Blood alcohol level of 240 mg/100 ml or more; Z79.82 Long term (current) use of aspirin
CPT/HCPCS: J2405; J7030

== ENCOUNTER 2018-06-19 15:54 | Emergency (ER) | payer OTHER ==
[~2018-06-19] VITALS: Ht 180.3 cm; Wt 60.2 kg
[2018-06-19 15:59] VITALS: BP 135/70; PULSE 112; TEMP 97
[2018-06-19 16:43] LABS: BASO # 0.1 (0.0-0.2); BASO % 0.5 % (0.0-2.0); EOS # 0.4 (0.0-0.7); EOS % 3.3 % (0-4.0); GRAN # 7.8 (1.4-6.5); GRAN % 61.3 % (42.2-75.2); HEMATOCRIT 42.2 % (42.0-52.0); HEMOGLOBIN 14.3 g/dl (13.5-18.0); LYMPH # 3.3 (1.2-3.4); LYMPH % 26.2 % (20.0-51.0); MEAN CELL VOLUME 89 fl (80.0-100.0); MEAN CORPUSCULAR HEMOGLOBIN 30 pg (27.0-31.0); MEAN CORPUSCULAR HGB CONC 34 g/dl (33.0-37.0); MEAN PLATELET VOLUME 8.7 fl (7.4-10.4); MONO # 0.9 (0.1-0.6); MONO % 7.1 % (1.7-9.3); PLATELET COUNT 243 K/mm3 (130-400); RED BLOOD COUNT 4.75 M/mm3 (4.20-5.60); REDCELL DISTRIBUTION WIDTH-CV 15.5 % (11.5-14.5)
--- NOTE | 2018-06-19 16:46 | NUR ---
SW was called to the ED because patient needed alcohol detox. SW spoke with the nurse and she reported patient would like to go back to the [facility] for detox. SW contacted [facility] and they reported patient was discharged last week and he as an admission date (07/04) to the [facility] treatment program in . SW was transferred to the location and they reported patient will not be able to be admitted until he is detoxed. DANIEL contacted [facility] again and they report if patient would like to be admitted for detox through them, the doctor will need to do a doc to doc call. SW then met with patient and he confirms he would like to return to the [facility]. SW reported this back to the doctor and nurse. SW also provided the phone number for [facility] to the doctor. DANIEL also reported that the [facility] does not have transportation and patient will likely need to be transported via EMS. Manager Terminal was also notified.
[2018-06-19 17:00] LABS: ACETAMINOPHEN 11 ug/mL (10-30); ALANINE AMINOTRANSFERASE 14 U/L (21-72); ALBUMIN 4.2 gm/dL (3.5-5.0); ALCOHOL(ethanol),MEDICAL 168 mg/dL; ALKALINE PHOSPHATASE 50 U/L (50-136); ANION GAP 12 mmol/L (7-16); AST,SGOT 31 U/L (15-37); BILIRUBIN,TOTAL 0.4 mg/dL (0.0-1.0); BLOOD UREA NITROGEN 6 mg/dL (9-20); CALCIUM 9.1 mg/dL (8.4-10.2); CARBON DIOXIDE 22 mmol/L (22-30); CHLORIDE 103 mmol/L (98-107); CREATININE, serum 0.87 (0.66-1.25); GLUCOSE 94 mg/dL (74-106); LIPASE 114 U/L (23-300); POTASSIUM 4.2 mmol/L (3.4-5.0); SODIUM 137 mmol/L (137-145); TOTAL PROTEIN 7.1 gm/dL (6.4-8.2)
[2018-06-19 17:01] LABS: SALICYLATE < 1.0 mg/dL
[2018-06-19 18:59] LABS: TRICYCLIC ANTIDEPRESS URINE NEGATIVE
== END 2018-06-19 19:05 | disposition short-term general hospital (02) ==
LOC: COL.ER 15:54
PROVIDERS: Emergency Medicine
DX: F10.129 Alcohol abuse with intoxication, unspecified (principal); J44.9 Chronic obstructive pulmonary disease, unspecified; I25.10 Atherosclerotic heart disease of native coronary artery without angina pectoris; F32.9 Major depressive disorder, single episode, unspecified; Y90.6 Blood alcohol level of 120-199 mg/100 ml; Z79.82 Long term (current) use of aspirin
CPT/HCPCS: C9113; J2060; J2405; J7030

== ENCOUNTER 2018-09-18 11:37 | Observation (INO) | payer OTHER ==
[~2018-09-18] VITALS: Ht 180.3 cm; Wt 67.8 kg
[2018-09-18 11:58] LABS: BASO # 0.1 (0.0-0.2); BASO % 1.3 % (0.0-2.0); EOS # 0.5 (0.0-0.7); EOS % 6.8 % (0-4.0); GRAN # 3.8 (1.4-6.5); GRAN % 49.1 % (42.2-75.2); HEMATOCRIT 44.8 % (42.0-52.0); HEMOGLOBIN 14.7 g/dl (13.5-18.0); LYMPH # 2.7 (1.2-3.4); MEAN CELL VOLUME 91 fl (80.0-100.0); MEAN CORPUSCULAR HEMOGLOBIN 30 pg (27.0-31.0); MEAN CORPUSCULAR HGB CONC 33 g/dl (33.0-37.0); MEAN PLATELET VOLUME 8.6 fl (7.4-10.4); MONO # 0.6 (0.1-0.6); MONO % 7.4 % (1.7-9.3); PLATELET COUNT 279 K/mm3 (130-400); PROTHROMBIN TIME 11.8 SECONDS (9.7-12.8); RED BLOOD COUNT 4.94 M/mm3 (4.20-5.60); REDCELL DISTRIBUTION WIDTH-CV 13.5 % (11.5-14.5)
[2018-09-18 12:01] LABS: PARTIAL THROMBOPLASTIN TIME 33.1 SECONDS (26.0-37.0)
[2018-09-18 12:05] LABS: ALANINE AMINOTRANSFERASE 10 U/L (21-72); ALBUMIN 4.2 gm/dL (3.5-5.0); ALKALINE PHOSPHATASE 50 U/L (50-136); ANION GAP 11 mmol/L (7-16); AST,SGOT 19 U/L (15-37); BILIRUBIN,TOTAL 0.3 mg/dL (0.0-1.0); BLOOD UREA NITROGEN 6 mg/dL (9-20); CALCIUM 9.6 mg/dL (8.4-10.2); CARBON DIOXIDE 25 mmol/L (22-30); CHLORIDE 102 mmol/L (98-107); CREATININE, serum 0.97 (0.66-1.25); GLUCOSE 103 mg/dL (74-106); SODIUM 139 mmol/L (137-145); TOTAL PROTEIN 7.3 gm/dL (6.4-8.2)
[2018-09-18 12:16] LABS: TROPONIN-I < 0.012 ng/mL (0.000-0.035)
[2018-09-18 15:44] VITALS: BP 91/58; PULSE 86
--- NOTE | 2018-09-18 19:45 | NUR ---
PT ADMITTED TO ROOM 343. SEE VS. DROWSY BUT ORIENTED. ASSIST TO BED. CALL LIGHT IN REACH. NO DISTRESS.
[2018-09-18 19:56] VITALS: BP 90/45; PULSE 110; TEMP 97.9
[2018-09-18 20:00] VITALS: BP 90/45; PULSE 110; TEMP 97.9
--- NOTE | 2018-09-18 20:10 | NUR ---
PT RESTING. NO RESP DISTRESS. HAD TO SHAKE SHOULDER TO WAKE. C/O CHEST PAIN. LEVEL7/10. RETURNS TO [facility]. CALL LIGHT IN REACH.
[2018-09-18 21:48] VITALS: BP 102/59; PULSE 102; TEMP 98.3
[2018-09-18 23:53] VITALS: BP 95/54; PULSE 90; TEMP 98.2
[2018-09-19 03:46] VITALS: BP 93/51; PULSE 84; TEMP 98.1
--- NOTE | 2018-09-19 05:44 | NUR ---
PT HAS SLEPT THROUGH THE NIGHT. NO FURTHER COMPLAINTS OF CHEST PAIN. QUIET UNEVENTFUL NIGHT.
[2018-09-19 07:01] LABS: BASO % 0.1 % (0.0-2.0); GRAN % 84.9 % (42.2-75.2); HEMATOCRIT 40.1 % (42.0-52.0); LYMPH # 1.2 (1.2-3.4); LYMPH % 9.2 % (20.0-51.0); MEAN CELL VOLUME 92 fl (80.0-100.0); MEAN CORPUSCULAR HEMOGLOBIN 30 pg (27.0-31.0); MEAN CORPUSCULAR HGB CONC 32 g/dl (33.0-37.0); MEAN PLATELET VOLUME 9.3 fl (7.4-10.4); MONO # 0.7 (0.1-0.6); MONO % 5.3 % (1.7-9.3); PLATELET COUNT 266 K/mm3 (130-400); RED BLOOD COUNT 4.37 M/mm3 (4.20-5.60); REDCELL DISTRIBUTION WIDTH-CV 13.5 % (11.5-14.5)
[2018-09-19 07:19] LABS: ALANINE AMINOTRANSFERASE 8 U/L (21-72); ALBUMIN 3.4 gm/dL (3.5-5.0); ALKALINE PHOSPHATASE 38 U/L (50-136); ANION GAP 7 mmol/L (7-16); AST,SGOT 14 U/L (15-37); BILIRUBIN,TOTAL 0.2 mg/dL (0.0-1.0); BLOOD UREA NITROGEN 11 mg/dL (9-20); CARBON DIOXIDE 22 mmol/L (22-30); CHLORIDE 112 mmol/L (98-107); CREATININE, serum 0.93 (0.66-1.25); GLUCOSE 112 mg/dL (74-106); POTASSIUM 4.5 mmol/L (3.4-5.0); SODIUM 141 mmol/L (137-145)
[2018-09-19 07:36] LABS: TROPONIN-I < 0.012 ng/mL (0.000-0.035)
[2018-09-19 08:14] VITALS: BP 101/48; PULSE 114; TEMP 97.8
--- NOTE | 2018-09-19 09:00 | NUR ---
Cardiology rounded, they do not want morphine given for pain, patient may have tylenol. Medications given per orders. visitor at bedside.
--- NOTE | 2018-09-19 10:41 | NUR ---
Patient sitting up in bed. He reports his gerd, improved after GI cocktail. Report tylenol not improving "chest pain". Voided in urinal. Will monitor.
--- NOTE | 2018-09-19 11:33 | NUR ---
SW attended clinical rounds. Patient lives independently at home with is girlfriend. [facility]. Patient is independent with ADLs and does not use any DME or home health services. SW does not anticipate any discharge needs. Patient will likely discharge tomorrow 09/20.
--- NOTE | 2018-09-19 12:03 | NUR ---
Initial visit; Patient thanked Manager Social Media for looking in on him and offering God's blessings and to keep him in Manager Social Media's prayers.
[2018-09-19 12:17] VITALS: BP 87/48; PULSE 98; TEMP 98.3
[2018-09-19 18:23] VITALS: BP 110/65; PULSE 96; TEMP 98.4
--- NOTE | 2018-09-19 18:32 | NUR ---
patient in bed eating dinner. alert and oriented x4. took vitals, all within normal limits. no further requests at this time.
[2018-09-19 19:57] VITALS: BP 102/54; PULSE 93; TEMP 98.2
--- NOTE | 2018-09-19 20:30 | NUR ---
Pt request and given Tylenol 650mg for chest pain rated 5/10. Denies feeling SOA. Refused most of his meds tonight. Pulse regular and strong. Call light in reach.
[2018-09-19 23:47] VITALS: BP 99/58; PULSE 65; PULSE 91; TEMP 98
[2018-09-20 04:00] VITALS: BP 110/76; PULSE 77; TEMP 98.2
--- NOTE | 2018-09-20 05:44 | NUR ---
Pt resting in bed. Lab in to draw blood. No c/o at this time.
[2018-09-20 06:53] LABS: BASO # 0.1 (0.0-0.2); BASO % 0.8 % (0.0-2.0); EOS # 0.4 (0.0-0.7); EOS % 4.4 % (0-4.0); GRAN # 5.4 (1.4-6.5); GRAN % 56.5 % (42.2-75.2); HEMATOCRIT 38.9 % (42.0-52.0); HEMOGLOBIN 12.6 g/dl (13.5-18.0); LYMPH % 30.9 % (20.0-51.0); MEAN CELL VOLUME 93 fl (80.0-100.0); MEAN CORPUSCULAR HEMOGLOBIN 30 pg (27.0-31.0); MEAN CORPUSCULAR HGB CONC 32 g/dl (33.0-37.0); MEAN PLATELET VOLUME 9.2 fl (7.4-10.4); MONO # 0.7 (0.1-0.6); MONO % 6.9 % (1.7-9.3); PLATELET COUNT 231 K/mm3 (130-400); RED BLOOD COUNT 4.19 M/mm3 (4.20-5.60); REDCELL DISTRIBUTION WIDTH-CV 13.9 % (11.5-14.5)
[2018-09-20 07:13] LABS: CALCIUM 8.8 mg/dL (8.4-10.2); CREATININE, serum 0.95 (0.66-1.25); POTASSIUM 4.1 mmol/L (3.4-5.0)
--- NOTE | 2018-09-20 07:19 | NUR ---
Shift report given to JELANI Martines.
[2018-09-20 08:20] VITALS: BP 102/68; PULSE 97; TEMP 98
[2018-09-20] MEDS ORDERED: NICODERM C14 MG/PATC TD (09:31)
[2018-09-20] MEDS ORDERED: LIPITOR 40MG TA40 MG PO (09:32)
[2018-09-20] MEDS ORDERED: PEPCID 20MG TAB20 MG PO (09:32)
--- NOTE | 2018-09-20 09:45 | NUR ---
Patient alert and oriented, answers questions appropriately. See assessment. No c/o chest, jaw or neck pain or pressure. Heart tones strong and even. Pulses palpable. No other c/o at this time.
--- NOTE | 2018-09-20 10:50 | NUR ---
Follow-up visit; Patient thanked Manager Bar for stopping and checking on him. Camilo stated he will follow up with his [facility] at [facility] but is feeling much better now and wonders if he is suffering from side effects from anxiety. Manager Bar wishes him well and offered God's blessings.
--- NOTE | 2018-09-20 11:10 | NUR ---
Discharge instructions reviewed with patient and friend, verbalized understanding. Discharged ambulatory to auto/home with friend at 1110.
== END 2018-09-20 11:10 | disposition home or self-care (01) ==
LOC: COL.ER 11:37 → SURG 16:52
PROVIDERS: Family Medicine; Physician Assistant; ADMIT Student in an Organized Health Care Education/Training Program
DX: I95.9 Hypotension, unspecified (principal); F17.210 Nicotine dependence, cigarettes, uncomplicated; J44.9 Chronic obstructive pulmonary disease, unspecified; Z79.82 Long term (current) use of aspirin; I25.2 Old myocardial infarction; F32.9 Major depressive disorder, single episode, unspecified; F41.9 Anxiety disorder, unspecified; F41.0 Panic disorder [episodic paroxysmal anxiety]; I25.10 Atherosclerotic heart disease of native coronary artery without angina pectoris; I47.1 Supraventricular tachycardia
CPT/HCPCS: 99232-AI; 99239; G0378; J1170; J2270; J2405; J2550; J2930; J7030

== ENCOUNTER 2018-10-19 14:57 | Emergency (ER) | payer OTHER ==
[~2018-10-19] VITALS: Ht 180.3 cm; Wt 61.8 kg
[~2018-10-19 14:57] MED LIST changes: +IMDUR 30MG30 MG/TAB PO; +LIPITOR 40MG TA40 MG PO; +NICODERM C14 MG/PATC TD; +PEPCID 20MG TAB20 MG PO; +PROTONIX 40MG T40 MG PO; +RT ADVAIR HFA 412 GM IH
[2018-10-19 15:11] VITALS: TEMP 98.4
[2018-10-19 16:08] LABS: BASO # 0.1 (0.0-0.2); BASO % 0.8 % (0.0-2.0); EOS # 0.8 (0.0-0.7); EOS % 8.1 % (0-4.0); GRAN # 5.7 (1.4-6.5); GRAN % 56.5 % (42.2-75.2); HEMATOCRIT 41.7 % (42.0-52.0); HEMOGLOBIN 13.8 g/dl (13.5-18.0); LYMPH # 2.9 (1.2-3.4); LYMPH % 28.4 % (20.0-51.0); MEAN CELL VOLUME 91 fl (80.0-100.0); MEAN CORPUSCULAR HEMOGLOBIN 30 pg (27.0-31.0); MEAN CORPUSCULAR HGB CONC 33 g/dl (33.0-37.0); MEAN PLATELET VOLUME 8.6 fl (7.4-10.4); MONO # 0.6 (0.1-0.6); MONO % 5.6 % (1.7-9.3); PLATELET COUNT 258 K/mm3 (130-400); RED BLOOD COUNT 4.61 M/mm3 (4.20-5.60)
[2018-10-19 16:21] LABS: ALANINE AMINOTRANSFERASE 9 U/L (21-72); ALKALINE PHOSPHATASE 44 U/L (50-136); ANION GAP 7 mmol/L (7-16); AST,SGOT 15 U/L (15-37); BILIRUBIN,TOTAL 0.2 mg/dL (0.0-1.0); BLOOD UREA NITROGEN 13 mg/dL (9-20); CALCIUM 9.1 mg/dL (8.4-10.2); CARBON DIOXIDE 27 mmol/L (22-30); CHLORIDE 104 mmol/L (98-107); CREATININE, serum 1.08 (0.66-1.25); GLUCOSE 103 mg/dL (74-106); POTASSIUM 4.1 mmol/L (3.4-5.0); SODIUM 138 mmol/L (137-145); TOTAL PROTEIN 6.7 gm/dL (6.4-8.2)
[2018-10-19 16:23] LABS: C-REACTIVE PROTEIN < 0.5 mg/dL (0.0-0.9)
[2018-10-19 16:32] LABS: TROPONIN-I < 0.012 ng/mL (0.000-0.035)
[2018-10-19 16:47] LABS: ERYTHROCYTE SEDIMENTATION RATE 1 mm/hr (0-15)
[2018-10-19] MEDS ORDERED: DESYREL 50MG50 MG PO (17:01)
[2018-10-19] MEDS ORDERED: MOBIC15 MG PO (17:01)
[2018-10-19] MEDS ORDERED: PROZAC 20MG20 MG PO (17:02)
[2018-10-19] MEDS ORDERED: 00186-0370-20 IH (17:02)
[2018-10-19 17:12] VITALS: BP 117/71; PULSE 86
== END 2018-10-19 17:16 | disposition home or self-care (01) ==
LOC: COL.ER 14:57
PROVIDERS: Emergency Medicine
DX: J44.9 Chronic obstructive pulmonary disease, unspecified (principal); R51 Headache; E78.00 Pure hypercholesterolemia, unspecified; F17.210 Nicotine dependence, cigarettes, uncomplicated; Z95.9 Presence of cardiac and vascular implant and graft, unspecified
CPT/HCPCS: J2405; J3010; J7030

== ENCOUNTER 2018-10-23 12:11 | Emergency (ER) | payer OTHER ==
[~2018-10-23] VITALS: Ht 180.3 cm; Wt 63.6 kg
[~2018-10-23 12:11] MED LIST changes: +00186-0370-20 IH; +MOBIC15 MG PO; +PROZAC 20MG20 MG PO
[2018-10-23] MEDS ORDERED: ASPIRIN 81M81 MG/TA2 PO (12:28)
[2018-10-23 14:41] LABS: BASO # 0.1 (0.0-0.2); EOS # 0.5 (0.0-0.7); EOS % 5.4 % (0-4.0); GRAN # 5.1 (1.4-6.5); GRAN % 53.9 % (42.2-75.2); HEMATOCRIT 41.8 % (42.0-52.0); HEMOGLOBIN 13.9 g/dl (13.5-18.0); LYMPH # 3.1 (1.2-3.4); LYMPH % 32.6 % (20.0-51.0); MEAN CELL VOLUME 88 fl (80.0-100.0); MEAN CORPUSCULAR HEMOGLOBIN 29 pg (27.0-31.0); MEAN CORPUSCULAR HGB CONC 33 g/dl (33.0-37.0); MEAN PLATELET VOLUME 8.7 fl (7.4-10.4); MONO # 0.7 (0.1-0.6); MONO % 6.9 % (1.7-9.3); PLATELET COUNT 273 K/mm3 (130-400); RED BLOOD COUNT 4.74 M/mm3 (4.20-5.60)
[2018-10-23 14:46] LABS: ALANINE AMINOTRANSFERASE 7 U/L (21-72); ALBUMIN 4.4 gm/dL (3.5-5.0); ALKALINE PHOSPHATASE 45 U/L (50-136); ANION GAP 7 mmol/L (7-16); AST,SGOT 16 U/L (15-37); BILIRUBIN,TOTAL 0.2 mg/dL (0.0-1.0); BLOOD UREA NITROGEN 9 mg/dL (9-20); CALCIUM 9.3 mg/dL (8.4-10.2); CARBON DIOXIDE 26 mmol/L (22-30); CHLORIDE 105 mmol/L (98-107); CREATININE, serum 1.01 (0.66-1.25); GLUCOSE 89 mg/dL (74-106); POTASSIUM 3.9 mmol/L (3.4-5.0); SODIUM 138 mmol/L (137-145); TOTAL PROTEIN 7.2 gm/dL (6.4-8.2)
[2018-10-23 15:07] LABS: TROPONIN-I < 0.012 ng/mL (0.000-0.035)
[2018-10-23 15:23] LABS: HIV 1/2 Antibodies Non-Reactive; HIV-1p24 Antigen Non-Reactive
[2018-10-23] MEDS ORDERED: ATARAX 25MG25 MG/TAB PO (16:36)
[2018-10-23 16:56] VITALS: BP 106/52; PULSE 74; TEMP 97
== END 2018-10-23 16:56 | disposition home or self-care (01) ==
LOC: COL.ER 12:11
PROVIDERS: Nurse Practitioner
DX: R07.89 Other chest pain (principal); J44.9 Chronic obstructive pulmonary disease, unspecified; F43.10 Post-traumatic stress disorder, unspecified; F32.9 Major depressive disorder, single episode, unspecified; F17.210 Nicotine dependence, cigarettes, uncomplicated; Z95.9 Presence of cardiac and vascular implant and graft, unspecified; Z79.82 Long term (current) use of aspirin
CPT/HCPCS: J2270; J2405

== ENCOUNTER 2018-11-06 15:37 | Emergency (ER) | payer OTHER ==
[~2018-11-06] VITALS: Ht 180.3 cm; Wt 63.6 kg
[2018-11-06 15:44] VITALS: TEMP 98.4
[2018-11-06 16:26] LABS: BASO # 0.1 (0.0-0.2); EOS # 0.8 (0.0-0.7); GRAN # 5.9 (1.4-6.5); GRAN % 56.6 % (42.2-75.2); HEMATOCRIT 42.6 % (42.0-52.0); HEMOGLOBIN 14.3 g/dl (13.5-18.0); LYMPH # 2.7 (1.2-3.4); LYMPH % 26.5 % (20.0-51.0); MEAN CELL VOLUME 88 fl (80.0-100.0); MEAN CORPUSCULAR HEMOGLOBIN 30 pg (27.0-31.0); MEAN CORPUSCULAR HGB CONC 34 g/dl (33.0-37.0); MEAN PLATELET VOLUME 8.9 fl (7.4-10.4); MONO # 0.8 (0.1-0.6); MONO % 7.3 % (1.7-9.3); PLATELET COUNT 262 K/mm3 (130-400); RED BLOOD COUNT 4.84 M/mm3 (4.20-5.60); REDCELL DISTRIBUTION WIDTH-CV 14.4 % (11.5-14.5)
[2018-11-06 16:48] LABS: ALANINE AMINOTRANSFERASE 6 U/L (21-72); ALBUMIN 4.2 gm/dL (3.5-5.0); ALKALINE PHOSPHATASE 45 U/L (50-136); ANION GAP 8 mmol/L (7-16); AST,SGOT 14 U/L (15-37); BILIRUBIN,TOTAL 0.1 mg/dL (0.0-1.0); BLOOD UREA NITROGEN 11 mg/dL (9-20); C-REACTIVE PROTEIN 0.8 mg/dL (0.0-0.9); CARBON DIOXIDE 24 mmol/L (22-30); CHLORIDE 105 mmol/L (98-107); CREATININE, serum 1.09 (0.66-1.25); GLUCOSE 95 mg/dL (74-106); LIPASE 93 U/L (23-300); POTASSIUM 3.8 mmol/L (3.4-5.0); SODIUM 137 mmol/L (137-145); TOTAL PROTEIN 6.9 gm/dL (6.4-8.2)
[2018-11-06 16:59] LABS: TROPONIN-I < 0.012 ng/mL (0.000-0.035)
[2018-11-06 20:30] VITALS: BP 101/76; PULSE 71
== END 2018-11-06 20:30 | disposition home or self-care (01) ==
LOC: COL.ER 15:37
PROVIDERS: Emergency Medicine
DX: J44.9 Chronic obstructive pulmonary disease, unspecified (principal); I10 Essential (primary) hypertension; E78.5 Hyperlipidemia, unspecified; K21.9 Gastro-esophageal reflux disease without esophagitis; F17.210 Nicotine dependence, cigarettes, uncomplicated; Z79.51 Long term (current) use of inhaled steroids; Z79.82 Long term (current) use of aspirin
CPT/HCPCS: J1170; J2405; J7030

== ENCOUNTER 2018-11-16 08:37 | Emergency (ER) | payer OTHER ==
[~2018-11-16] VITALS: Ht 180.3 cm; Wt 63.6 kg
[2018-11-16] MEDS ORDERED: PREDNISONE20 MG PO ×3 (08:55→22:17)
[2018-11-16] MEDS ORDERED: DOXYCYCLINE 10100 MG PO (08:55)
[2018-11-16 08:56] LABS: BASO # 0.1 (0.0-0.2); BASO % 1.3 % (0.0-2.0); EOS # 0.8 (0.0-0.7); EOS % 8.6 % (0-4.0); GRAN # 5.1 (1.4-6.5); GRAN % 51.8 % (42.2-75.2); HEMOGLOBIN 15.8 g/dl (13.5-18.0); LYMPH % 30.5 % (20.0-51.0); MEAN CELL VOLUME 89 fl (80.0-100.0); MEAN CORPUSCULAR HEMOGLOBIN 29 pg (27.0-31.0); MEAN CORPUSCULAR HGB CONC 33 g/dl (33.0-37.0); MEAN PLATELET VOLUME 8.7 fl (7.4-10.4); MONO # 0.7 (0.1-0.6); MONO % 7.2 % (1.7-9.3); PLATELET COUNT 280 K/mm3 (130-400); RED BLOOD COUNT 5.38 M/mm3 (4.20-5.60); REDCELL DISTRIBUTION WIDTH-CV 14.8 % (11.5-14.5)
[2018-11-16 09:07] LABS: ALANINE AMINOTRANSFERASE 8 U/L (21-72); ALBUMIN 4.7 gm/dL (3.5-5.0); ALKALINE PHOSPHATASE 56 U/L (50-136); ANION GAP 11 mmol/L (7-16); AST,SGOT 19 U/L (15-37); BILIRUBIN,TOTAL 0.3 mg/dL (0.0-1.0); BLOOD UREA NITROGEN 10 mg/dL (9-20); CALCIUM 9.8 mg/dL (8.4-10.2); CARBON DIOXIDE 29 mmol/L (22-30); CHLORIDE 103 mmol/L (98-107); CREATININE, serum 1.08 (0.66-1.25); GLUCOSE 99 mg/dL (74-106); LIPASE 85 U/L (23-300); POTASSIUM 4.4 mmol/L (3.4-5.0); PROTHROMBIN TIME 11.9 SECONDS (9.7-12.8); SODIUM 142 mmol/L (137-145)
[2018-11-16 09:20] LABS: TROPONIN-I < 0.012 ng/mL (0.000-0.035)
[2018-11-16 09:30] LABS: D-DIMER < 200.00 ng/mLDDu (200-230)
[2018-11-16] MEDS ORDERED: VENTOLIN0.09 MG IH (10:58)
[2018-11-16 12:29] VITALS: BP 97/68; PULSE 111; TEMP 98.6
[2018-11-16] MEDS ORDERED: PHENERGAN 25 TA25 MG PO (22:17)
== END 2018-11-16 12:29 | disposition home or self-care (01) ==
LOC: COL.ER 08:37
PROVIDERS: Emergency Medicine
DX: J44.9 Chronic obstructive pulmonary disease, unspecified (principal); R07.89 Other chest pain; F17.210 Nicotine dependence, cigarettes, uncomplicated; F41.9 Anxiety disorder, unspecified; Z95.5 Presence of coronary angioplasty implant and graft; Z79.82 Long term (current) use of aspirin
CPT/HCPCS: C9113; J1170; J2060; J2405; J2930; J3010; J3475; J7030

== ENCOUNTER 2018-11-16 19:32 | Emergency (ER) | payer OTHER ==
[~2018-11-16] VITALS: Ht 180.3 cm; Wt 65.9 kg
[~2018-11-16 19:32] MED LIST changes: +VENTOLIN0.09 MG IH
[2018-11-16 19:40] VITALS: TEMP 97.6
[2018-11-16] MEDS ORDERED: PREDNISONE20 MG PO (22:17)
[2018-11-16] MEDS ORDERED: PHENERGAN 25 TA25 MG PO (22:17)
[2018-11-16 22:32] VITALS: BP 107/66; PULSE 101
== END 2018-11-16 22:32 | disposition home or self-care (01) ==
LOC: COL.ER 19:32
DX: J44.1 Chronic obstructive pulmonary disease with (acute) exacerbation (principal); R10.10 Upper abdominal pain, unspecified; Z95.9 Presence of cardiac and vascular implant and graft, unspecified
CPT/HCPCS: J0780; J1885; J7512

== ENCOUNTER 2018-11-22 22:29 | Emergency (ER) | payer OTHER ==
[~2018-11-22] VITALS: Ht 180.3 cm; Wt 63.6 kg
[~2018-11-22 22:29] MED LIST changes: +PHENERGAN 25 TA25 MG PO
[2018-11-22 22:39] VITALS: TEMP 98.2
[2018-11-22 23:08] LABS: BASO # 0.1 (0.0-0.2); BASO % 0.6 % (0.0-2.0); EOS # 0.9 (0.0-0.7); EOS % 6.5 % (0-4.0); GRAN # 8.3 (1.4-6.5); GRAN % 59.4 % (42.2-75.2); HEMATOCRIT 42.6 % (42.0-52.0); HEMOGLOBIN 14.5 g/dl (13.5-18.0); LYMPH # 3.7 (1.2-3.4); LYMPH % 26.8 % (20.0-51.0); MEAN CELL VOLUME 87 fl (80.0-100.0); MEAN CORPUSCULAR HEMOGLOBIN 30 pg (27.0-31.0); MEAN CORPUSCULAR HGB CONC 34 g/dl (33.0-37.0); MEAN PLATELET VOLUME 8.7 fl (7.4-10.4); MONO # 0.8 (0.1-0.6); MONO % 5.8 % (1.7-9.3); PLATELET COUNT 250 K/mm3 (130-400); RED BLOOD COUNT 4.88 M/mm3 (4.20-5.60); REDCELL DISTRIBUTION WIDTH-CV 14.7 % (11.5-14.5)
[2018-11-22 23:23] LABS: ALANINE AMINOTRANSFERASE < 6 U/L (21-72); ALBUMIN 4.3 gm/dL (3.5-5.0); ALKALINE PHOSPHATASE 49 U/L (50-136); ANION GAP 9 mmol/L (7-16); AST,SGOT 20 U/L (15-37); BILIRUBIN,TOTAL 0.2 mg/dL (0.0-1.0); BLOOD UREA NITROGEN 10 mg/dL (9-20); C-REACTIVE PROTEIN 0.7 mg/dL (0.0-0.9); CALCIUM 9.2 mg/dL (8.4-10.2); CARBON DIOXIDE 25 mmol/L (22-30); CHLORIDE 103 mmol/L (98-107); CREATININE, serum 0.93 (0.66-1.25); GLUCOSE 89 mg/dL (74-106); LIPASE 121 U/L (23-300); POTASSIUM 3.9 mmol/L (3.4-5.0); SODIUM 136 mmol/L (137-145); TOTAL PROTEIN 7.2 gm/dL (6.4-8.2)
[2018-11-23] MEDS ORDERED: DOXYCYCLINE 10100 MG PO (01:24)
[2018-11-23 01:56] VITALS: BP 108/71; PULSE 92
== END 2018-11-23 02:01 | disposition home or self-care (01) ==
LOC: COL.ER 22:29
PROVIDERS: Emergency Medicine
DX: J40 Bronchitis, not specified as acute or chronic (principal); R07.89 Other chest pain; I10 Essential (primary) hypertension; E78.5 Hyperlipidemia, unspecified; J44.9 Chronic obstructive pulmonary disease, unspecified; F17.210 Nicotine dependence, cigarettes, uncomplicated; Z79.82 Long term (current) use of aspirin; Z95.5 Presence of coronary angioplasty implant and graft
CPT/HCPCS: J2405; J3010; J8540

== ENCOUNTER 2018-11-25 12:08 | Emergency (ER) | payer OTHER ==
[~2018-11-25] VITALS: Ht 180.3 cm; Wt 65.9 kg
[2018-11-25 12:12] VITALS: BP 144/63; TEMP 97.9
[2018-11-25] MEDS ORDERED: CEPHALEXIN500 M1 PO (12:39)
[2018-11-25 12:53] VITALS: PULSE 84
== END 2018-11-25 12:53 | disposition home or self-care (01) ==
LOC: COL.ER 12:08
DX: I80.8 Phlebitis and thrombophlebitis of other sites (principal); Z98.890 Other specified postprocedural states; Z79.52 Long term (current) use of systemic steroids; Z79.82 Long term (current) use of aspirin; Z79.51 Long term (current) use of inhaled steroids

== ENCOUNTER 2018-11-26 16:22 | Emergency (ER) | payer OTHER ==
[~2018-11-26] VITALS: Ht 180.3 cm; Wt 63.6 kg
[~2018-11-26 16:22] MED LIST changes: +CEPHALEXIN500 M1 PO
[2018-11-26 16:31] VITALS: TEMP 98.6
[2018-11-26 18:19] LABS: BASO # 0.1 (0.0-0.2); BASO % 1.1 % (0.0-2.0); EOS # 0.7 (0.0-0.7); EOS % 7.6 % (0-4.0); GRAN # 4.8 (1.4-6.5); GRAN % 51.3 % (42.2-75.2); HEMOGLOBIN 14.8 g/dl (13.5-18.0); LYMPH # 2.8 (1.2-3.4); LYMPH % 30.1 % (20.0-51.0); MEAN CELL VOLUME 89 fl (80.0-100.0); MEAN CORPUSCULAR HEMOGLOBIN 29 pg (27.0-31.0); MEAN CORPUSCULAR HGB CONC 33 g/dl (33.0-37.0); MEAN PLATELET VOLUME 8.6 fl (7.4-10.4); MONO # 0.8 (0.1-0.6); PLATELET COUNT 254 K/mm3 (130-400); RED BLOOD COUNT 5.08 M/mm3 (4.20-5.60); REDCELL DISTRIBUTION WIDTH-CV 14.7 % (11.5-14.5)
[2018-11-26 18:32] LABS: ALANINE AMINOTRANSFERASE 9 U/L (21-72); ALBUMIN 4.2 gm/dL (3.5-5.0); ALKALINE PHOSPHATASE 40 U/L (50-136); ANION GAP 9 mmol/L (7-16); AST,SGOT 17 U/L (15-37); BILIRUBIN,TOTAL 0.3 mg/dL (0.0-1.0); BLOOD UREA NITROGEN 9 mg/dL (9-20); C-REACTIVE PROTEIN 0.8 mg/dL (0.0-0.9); CARBON DIOXIDE 24 mmol/L (22-30); CHLORIDE 106 mmol/L (98-107); CREATININE, serum 1.03 (0.66-1.25); GLUCOSE 119 mg/dL (74-106); POTASSIUM 3.7 mmol/L (3.4-5.0); SODIUM 138 mmol/L (137-145)
[2018-11-26 18:41] LABS: TROPONIN-I < 0.012 ng/mL (0.000-0.035)
[2018-11-26 20:15] VITALS: BP 102/60; PULSE 94
== END 2018-11-26 20:15 | disposition home or self-care (01) ==
LOC: COL.ER 16:22
PROVIDERS: Emergency Medicine
DX: I80.9 Phlebitis and thrombophlebitis of unspecified site (principal); J44.9 Chronic obstructive pulmonary disease, unspecified; R07.89 Other chest pain; F17.210 Nicotine dependence, cigarettes, uncomplicated; I10 Essential (primary) hypertension; E78.5 Hyperlipidemia, unspecified; Z98.890 Other specified postprocedural states; Z79.82 Long term (current) use of aspirin
CPT/HCPCS: J7030

== ENCOUNTER 2018-11-28 12:44 | Day surgery (SDC) | payer OTHER ==
[~2018-11-28] VITALS: Ht 180.3 cm; Wt 61.5 kg
[2018-11-28] MEDS ORDERED: VITAMIN D 1001000 IU PO (13:19)
[2018-11-28 13:20] VITALS: BP 92/71; PULSE 100; TEMP 99
[2018-11-28 14:40] VITALS: BP 108/74; PULSE 101
--- NOTE | 2018-11-28 14:40 | NUR ---
Patient returns to GI bay 4 per cart and is awake and alert. Transfers from cart to recliner with one person assist. IV fluids infusing and patient denies difficulty swallowing or nausea. Given Cranberry juice and water to drink. Son in room.
[2018-11-28 14:55] VITALS: BP 111/94; PULSE 96
--- NOTE | 2018-11-28 14:55 | NUR ---
Tolerated juice and water. Son in room. IV fluids continue to infuse. Denies pain or nausea.
[2018-11-28 15:10] VITALS: BP 119/81; PULSE 93
--- NOTE | 2018-11-28 15:10 | NUR ---
Eating muffin and sipping on warm coffee.
[2018-11-28 15:25] VITALS: BP 110/79; PULSE 83
--- NOTE | 2018-11-28 15:25 | NUR ---
Sipping on warm coffee and tolerated muffin. Complains of being cold and wishes to get dressed. IV discontinued and allowed to dress.
--- NOTE | 2018-11-28 15:35 | NUR ---
Dr. Borges here to talk with the patient and all questions answered.
--- NOTE | 2018-11-28 15:40 | NUR ---
Patient given dismissal instructions and voices understanding of these. Dismissed to home driven by son and taken to the front door per wheelchair by Laura PALOMARES with dismissal instructions in hand.
== END 2018-11-28 15:40 | disposition home or self-care (01) ==
LOC: SDCO 12:44
DX: Z12.11 Encounter for screening for malignant neoplasm of colon (principal); K21.9 Gastro-esophageal reflux disease without esophagitis; K22.70 Barrett's esophagus without dysplasia; I25.10 Atherosclerotic heart disease of native coronary artery without angina pectoris; I25.2 Old myocardial infarction; I10 Essential (primary) hypertension; J44.9 Chronic obstructive pulmonary disease, unspecified; F17.210 Nicotine dependence, cigarettes, uncomplicated; G43.909 Migraine, unspecified, not intractable, without status migrainosus; D64.9 Anemia, unspecified; E78.00 Pure hypercholesterolemia, unspecified; Z80.0 Family history of malignant neoplasm of digestive organs
CPT/HCPCS: 43239; G0121; J2704; J7030

== ENCOUNTER 2018-11-30 12:06 | Emergency (ER) | payer OTHER ==
[~2018-11-30] VITALS: Ht 180.3 cm; Wt 65.9 kg
[2018-11-30 12:21] VITALS: TEMP 98.8
[2018-11-30 13:05] LABS: BASO # 0.1 (0.0-0.2); BASO % 0.8 % (0.0-2.0); EOS # 0.7 (0.0-0.7); EOS % 6.4 % (0-4.0); GRAN # 6.5 (1.4-6.5); GRAN % 58.8 % (42.2-75.2); HEMATOCRIT 44.4 % (42.0-52.0); HEMOGLOBIN 14.8 g/dl (13.5-18.0); LYMPH # 2.7 (1.2-3.4); LYMPH % 24.7 % (20.0-51.0); MEAN CELL VOLUME 88 fl (80.0-100.0); MEAN CORPUSCULAR HEMOGLOBIN 29 pg (27.0-31.0); MEAN CORPUSCULAR HGB CONC 33 g/dl (33.0-37.0); MEAN PLATELET VOLUME 8.6 fl (7.4-10.4); MONO # 0.9 (0.1-0.6); MONO % 8.4 % (1.7-9.3); PLATELET COUNT 268 K/mm3 (130-400); RED BLOOD COUNT 5.05 M/mm3 (4.20-5.60); REDCELL DISTRIBUTION WIDTH-CV 15.1 % (11.5-14.5)
[2018-11-30 13:13] LABS: INR 0.9 (0.8-3.0); PROTHROMBIN TIME 10.4 SECONDS (9.7-12.8)
[2018-11-30 13:16] LABS: PARTIAL THROMBOPLASTIN TIME 29.9 SECONDS (26.0-37.0)
[2018-11-30 13:19] LABS: ALANINE AMINOTRANSFERASE 13 U/L (21-72); ALBUMIN 4.3 gm/dL (3.5-5.0); ALKALINE PHOSPHATASE 54 U/L (50-136); ANION GAP 9 mmol/L (7-16); AST,SGOT 18 U/L (15-37); BILIRUBIN,TOTAL 0.4 mg/dL (0.0-1.0); BLOOD UREA NITROGEN 10 mg/dL (9-20); CALCIUM 9.4 mg/dL (8.4-10.2); CARBON DIOXIDE 23 mmol/L (22-30); CHLORIDE 105 mmol/L (98-107); CREATININE, serum 1.01 (0.66-1.25); GLUCOSE 90 mg/dL (74-106); LIPASE 89 U/L (23-300); POTASSIUM 4.3 mmol/L (3.4-5.0); SODIUM 137 mmol/L (137-145); TOTAL PROTEIN 7.3 gm/dL (6.4-8.2)
[2018-11-30 13:27] LABS: ALCOHOL(ethanol),MEDICAL < 10 mg/dL
[2018-11-30 13:29] LABS: TROPONIN-I < 0.012 ng/mL (0.000-0.035)
[2018-11-30] MEDS ORDERED: CARAFATE 1GM1 G PO (14:56)
[2018-11-30 17:01] VITALS: BP 105/70; PULSE 83
== END 2018-11-30 17:07 | disposition home or self-care (01) ==
LOC: COL.ER 12:06
PROVIDERS: Physician Assistant
DX: R07.9 Chest pain, unspecified (principal); J44.9 Chronic obstructive pulmonary disease, unspecified; K22.70 Barrett's esophagus without dysplasia; I25.10 Atherosclerotic heart disease of native coronary artery without angina pectoris; F17.210 Nicotine dependence, cigarettes, uncomplicated; Z79.82 Long term (current) use of aspirin
CPT/HCPCS: J2270; J2405

== ENCOUNTER 2018-12-02 16:25 | Emergency (ER) | payer OTHER ==
[~2018-12-02] VITALS: Ht 180.3 cm; Wt 65.9 kg
[~2018-12-02 16:25] MED LIST changes: +CARAFATE 1GM1 G PO
[2018-12-02 16:28] VITALS: TEMP 98.4
[2018-12-02 17:20] LABS: BASO # 0.1 (0.0-0.2); BASO % 1.1 % (0.0-2.0); EOS # 0.6 (0.0-0.7); GRAN # 5.8 (1.4-6.5); GRAN % 55.5 % (42.2-75.2); HEMATOCRIT 44.5 % (42.0-52.0); HEMOGLOBIN 14.8 g/dl (13.5-18.0); LYMPH % 29.2 % (20.0-51.0); MEAN CELL VOLUME 89 fl (80.0-100.0); MEAN CORPUSCULAR HEMOGLOBIN 29 pg (27.0-31.0); MEAN CORPUSCULAR HGB CONC 33 g/dl (33.0-37.0); MONO # 0.8 (0.1-0.6); MONO % 7.6 % (1.7-9.3); PLATELET COUNT 308 K/mm3 (130-400); RED BLOOD COUNT 5.03 M/mm3 (4.20-5.60); REDCELL DISTRIBUTION WIDTH-CV 15.1 % (11.5-14.5)
[2018-12-02 17:25] LABS: PROTHROMBIN TIME 11.3 SECONDS (9.7-12.8)
[2018-12-02 17:29] LABS: ALANINE AMINOTRANSFERASE 12 U/L (21-72); ALBUMIN 4.5 gm/dL (3.5-5.0); ALKALINE PHOSPHATASE 52 U/L (50-136); ANION GAP 11 mmol/L (7-16); AST,SGOT 18 U/L (15-37); BILIRUBIN,TOTAL 0.2 mg/dL (0.0-1.0); BLOOD UREA NITROGEN 12 mg/dL (9-20); CALCIUM 9.6 mg/dL (8.4-10.2); CARBON DIOXIDE 27 mmol/L (22-30); CHLORIDE 102 mmol/L (98-107); CREATININE, serum 1.15 (0.66-1.25); D-DIMER < 200.00 ng/mLDDu (200-230); GLUCOSE 94 mg/dL (74-106); SODIUM 140 mmol/L (137-145); TOTAL PROTEIN 7.3 gm/dL (6.4-8.2)
[2018-12-02 17:45] LABS: TROPONIN-I < 0.012 ng/mL (0.000-0.035)
[2018-12-02 19:12] VITALS: BP 102/62; PULSE 92
== END 2018-12-02 19:14 | disposition home or self-care (01) ==
LOC: COL.ER 16:25
PROVIDERS: Emergency Medicine
DX: K22.70 Barrett's esophagus without dysplasia (principal); E78.5 Hyperlipidemia, unspecified; J44.9 Chronic obstructive pulmonary disease, unspecified; F17.210 Nicotine dependence, cigarettes, uncomplicated
CPT/HCPCS: C9113; J2270

== ENCOUNTER 2018-12-04 09:07 | Emergency (ER) | payer OTHER ==
[~2018-12-04] VITALS: Ht 180.3 cm; Wt 63.6 kg
[2018-12-04 09:19] VITALS: TEMP 98.2
[2018-12-04] MEDS ORDERED: IMDUR 30MG30 MG/TAB PO (11:32)
[2018-12-04 13:25] VITALS: BP 96/73; PULSE 99
== END 2018-12-04 13:25 | disposition home or self-care (01) ==
LOC: COL.ER 09:07
DX: R07.89 Other chest pain (principal); I25.10 Atherosclerotic heart disease of native coronary artery without angina pectoris; Z98.890 Other specified postprocedural states; Z79.82 Long term (current) use of aspirin
CPT/HCPCS: J1100; Q9967

== ENCOUNTER 2018-12-17 15:34 | Emergency (ER) | payer OTHER ==
[~2018-12-17] VITALS: Ht 180.3 cm; Wt 65.9 kg
[2018-12-17] MEDS ORDERED: DOXYCYCLINE 10100 MG PO (17:30)
[2018-12-17 17:41] VITALS: BP 107/64; PULSE 103; TEMP 98.1
== END 2018-12-17 17:51 | disposition home or self-care (01) ==
LOC: COL.ER 15:34
DX: J44.9 Chronic obstructive pulmonary disease, unspecified (principal); R07.89 Other chest pain; I25.10 Atherosclerotic heart disease of native coronary artery without angina pectoris; Z79.82 Long term (current) use of aspirin
CPT/HCPCS: J8540

== ENCOUNTER 2018-12-20 15:53 | Emergency (ER) | payer OTHER ==
[~2018-12-20] VITALS: Ht 180.3 cm; Wt 65.9 kg
[2018-12-20] MEDS ORDERED: TESSALON P100 MG/CAP PO (16:18)
[2018-12-20] MEDS ORDERED: PROAIR HFA0.09 MG/AC IH (16:19)
[2018-12-20] MEDS ORDERED: 00186-0372-20 IH (16:20)
[2018-12-20] MEDS ORDERED: PREDNISONE20 MG PO (16:58)
[2018-12-20 17:14] VITALS: BP 93/75; PULSE 102; TEMP 98.4
== END 2018-12-20 17:14 | disposition home or self-care (01) ==
LOC: COL.ER 15:53
DX: J44.1 Chronic obstructive pulmonary disease with (acute) exacerbation (principal); Z79.82 Long term (current) use of aspirin
CPT/HCPCS: J7512

== ENCOUNTER 2018-12-22 13:07 | Emergency (ER) | payer OTHER ==
[~2018-12-22] VITALS: Ht 180.3 cm; Wt 63.6 kg
[~2018-12-22 13:07] MED LIST changes: +00186-0372-20 IH; +PROAIR HFA0.09 MG/AC IH
[2018-12-22 13:49] LABS: ALBUMIN 4.6 gm/dL (3.5-5.0); BILIRUBIN,TOTAL 0.4 mg/dL (0.0-1.0); CALCIUM 9.3 mg/dL (8.4-10.2); CREATININE, serum 0.9 (0.66-1.25); POTASSIUM 3.7 mmol/L (3.4-5.0); TOTAL PROTEIN 7.8 gm/dL (6.4-8.2)
[2018-12-22 13:55] LABS: MEAN CELL VOLUME 88 fl (80.0-100.0); MEAN CORPUSCULAR HEMOGLOBIN 29 pg (27.0-31.0); MEAN CORPUSCULAR HGB CONC 33 g/dl (33.0-37.0); MEAN PLATELET VOLUME 8.4 fl (7.4-10.4); PLATELET COUNT 291 K/mm3 (130-400); RED BLOOD COUNT 5.44 M/mm3 (4.20-5.60); REDCELL DISTRIBUTION WIDTH-CV 15.4 % (11.5-14.5)
[2018-12-22 14:37] LABS: BAND 3 % (0-10); EOSINOPHIL 2 % (0-4); LYMPHOCYTE 35 % (20.0-51.0); METAMYELOCYTE 1 % (0-0); NEUTROPHILS 50 % (42.0-75.2); PLATELET ESTIMATE NORMAL (NORMAL)
[2018-12-22 15:04] LABS: TROPONIN-I < 0.012 ng/mL (0.000-0.035)
[2018-12-22 16:03] LABS: ARTERIAL BLD GAS O2 SATURATION 93.2 % (92-100); ARTERIAL BLD GAS TCO2 CT 21.6; ARTERIAL BLOOD GAS BASE EXCESS -4.5 (-2-2); ARTERIAL BLOOD GAS HCO3 20.4 meq/L (22-26); ARTERIAL BLOOD GAS PCO2 37.4 mmHg (35-45); ARTERIAL BLOOD GAS PO2 66.9 mmHg (80-100); ARTERIAL BLOOD GAS pH 7.36 (7.35-7.45)
[2018-12-22 16:17] VITALS: BP 109/71; PULSE 94; TEMP 98.2
== END 2018-12-22 16:21 | disposition home or self-care (01) ==
LOC: COL.ER 13:07
PROVIDERS: Emergency Medicine; Family Medicine
DX: J44.9 Chronic obstructive pulmonary disease, unspecified (principal); I10 Essential (primary) hypertension; F10.129 Alcohol abuse with intoxication, unspecified; Z95.9 Presence of cardiac and vascular implant and graft, unspecified; Y90.6 Blood alcohol level of 120-199 mg/100 ml
CPT/HCPCS: J3411; J3475; J7030

== ENCOUNTER 2019-01-05 15:43 | Emergency (ER) | payer OTHER ==
[~2019-01-05] VITALS: Ht 180.3 cm; Wt 65.9 kg
[2019-01-05 15:45] VITALS: TEMP 97.9
[2019-01-05 16:26] LABS: HEMATOCRIT 45.2 % (42.0-52.0); MEAN CELL VOLUME 90 fl (80.0-100.0); MEAN CORPUSCULAR HEMOGLOBIN 30 pg (27.0-31.0); MEAN CORPUSCULAR HGB CONC 33 g/dl (33.0-37.0); MEAN PLATELET VOLUME 8.3 fl (7.4-10.4); PLATELET COUNT 323 K/mm3 (130-400); RED BLOOD COUNT 5.05 M/mm3 (4.20-5.60); REDCELL DISTRIBUTION WIDTH-CV 15.9 % (11.5-14.5)
[2019-01-05 16:31] LABS: INR 0.9 (0.8-3.0); PROTHROMBIN TIME 10.2 SECONDS (9.7-12.8)
[2019-01-05 16:34] LABS: PARTIAL THROMBOPLASTIN TIME 28.8 SECONDS (26.0-37.0)
[2019-01-05 16:36] LABS: ALANINE AMINOTRANSFERASE 17 U/L (21-72); ALBUMIN 4.5 gm/dL (3.5-5.0); ALCOHOL(ethanol),MEDICAL 254 mg/dL; ALKALINE PHOSPHATASE 50 U/L (50-136); ANION GAP 12 mmol/L (7-16); AST,SGOT 22 U/L (15-37); BILIRUBIN,TOTAL 0.3 mg/dL (0.0-1.0); BLOOD UREA NITROGEN 7 mg/dL (9-20); CALCIUM 8.6 mg/dL (8.4-10.2); CARBON DIOXIDE 23 mmol/L (22-30); CHLORIDE 105 mmol/L (98-107); CREATININE, serum 0.87 (0.66-1.25); GLUCOSE 60 mg/dL (74-106); POTASSIUM 3.8 mmol/L (3.4-5.0); SODIUM 140 mmol/L (137-145); TOTAL PROTEIN 7.6 gm/dL (6.4-8.2)
[2019-01-05 16:42] LABS: BAND 5 % (0-10); EOSINOPHIL 1 % (0-4); LYMPHOCYTE 34 % (20.0-51.0); NEUTROPHILS 55 % (42.0-75.2); PLATELET ESTIMATE NORMAL (NORMAL)
[2019-01-05 16:50] LABS: TROPONIN-I < 0.012 ng/mL (0.000-0.035)
[2019-01-05 21:00] VITALS: BP 115/89; PULSE 100
== END 2019-01-05 21:00 | disposition home or self-care (01) ==
LOC: COL.ER 15:43
PROVIDERS: Family Medicine
DX: R07.89 Other chest pain (principal); J44.9 Chronic obstructive pulmonary disease, unspecified; Z79.82 Long term (current) use of aspirin; F10.229 Alcohol dependence with intoxication, unspecified; Y90.8 Blood alcohol level of 240 mg/100 ml or more
CPT/HCPCS: C9113; J1200; J1630; J2060; J7030

== ENCOUNTER 2019-01-31 15:49 | Emergency (ER) | payer OTHER ==
[~2019-01-31] VITALS: Ht 180.3 cm; Wt 63.6 kg
[2019-01-31 15:55] VITALS: TEMP 98
[2019-01-31 16:42] LABS: BASO # 0.1 (0.0-0.2); BASO % 0.7 % (0.0-2.0); EOS # 0.5 (0.0-0.7); EOS % 2.8 % (0-4.0); GRAN # 11.3 (1.4-6.5); GRAN % 70.2 % (42.2-75.2); HEMATOCRIT 43.6 % (42.0-52.0); HEMOGLOBIN 14.6 g/dl (13.5-18.0); LYMPH # 3.3 (1.2-3.4); LYMPH % 20.3 % (20.0-51.0); MEAN CELL VOLUME 90 fl (80.0-100.0); MEAN CORPUSCULAR HEMOGLOBIN 30 pg (27.0-31.0); MEAN CORPUSCULAR HGB CONC 34 g/dl (33.0-37.0); MONO # 0.9 (0.1-0.6); MONO % 5.4 % (1.7-9.3); PLATELET COUNT 277 K/mm3 (130-400); RED BLOOD COUNT 4.86 M/mm3 (4.20-5.60); REDCELL DISTRIBUTION WIDTH-CV 15.3 % (11.5-14.5)
[2019-01-31 17:08] LABS: ALANINE AMINOTRANSFERASE 13 U/L (21-72); ALBUMIN 4.3 gm/dL (3.5-5.0); ALKALINE PHOSPHATASE 52 U/L (50-136); ANION GAP 9 mmol/L (7-16); AST,SGOT 30 U/L (15-37); BILIRUBIN,TOTAL 0.3 mg/dL (0.0-1.0); BLOOD UREA NITROGEN 12 mg/dL (9-20); CALCIUM 9.4 mg/dL (8.4-10.2); CARBON DIOXIDE 27 mmol/L (22-30); CHLORIDE 104 mmol/L (98-107); CREATININE, serum 1.06 (0.66-1.25); GLUCOSE 114 mg/dL (74-106); POTASSIUM 3.8 mmol/L (3.4-5.0); SODIUM 140 mmol/L (137-145); TOTAL PROTEIN 7.3 gm/dL (6.4-8.2)
[2019-01-31 17:28] LABS: TROPONIN-I < 0.012 ng/mL (0.000-0.035)
[2019-01-31] MEDS ORDERED: TUSS PO (18:23)
[2019-01-31 19:00] VITALS: BP 109/85; PULSE 89
== END 2019-01-31 19:02 | disposition home or self-care (01) ==
LOC: COL.ER 15:49
PROVIDERS: Emergency Medicine
DX: J44.9 Chronic obstructive pulmonary disease, unspecified (principal); R07.81 Pleurodynia; F32.9 Major depressive disorder, single episode, unspecified; I25.10 Atherosclerotic heart disease of native coronary artery without angina pectoris; K21.9 Gastro-esophageal reflux disease without esophagitis; F17.210 Nicotine dependence, cigarettes, uncomplicated; Z95.5 Presence of coronary angioplasty implant and graft; Z79.82 Long term (current) use of aspirin
CPT/HCPCS: J2060; J3010

== ENCOUNTER 2019-02-02 12:28 | Emergency (ER) | payer OTHER ==
[~2019-02-02] VITALS: Ht 180.3 cm; Wt 65.0 kg
[~2019-02-02 12:28] MED LIST changes: +TUSS PO
[2019-02-02 12:36] VITALS: TEMP 97.6
[2019-02-02 12:51] LABS: BASO # 0.1 (0.0-0.2); BASO % 1.2 % (0.0-2.0); EOS # 0.7 (0.0-0.7); EOS % 6.3 % (0-4.0); GRAN # 5.6 (1.4-6.5); GRAN % 52.7 % (42.2-75.2); HEMATOCRIT 46.6 % (42.0-52.0); HEMOGLOBIN 15.3 g/dl (13.5-18.0); LYMPH # 3.3 (1.2-3.4); LYMPH % 31.5 % (20.0-51.0); MEAN CELL VOLUME 91 fl (80.0-100.0); MEAN CORPUSCULAR HEMOGLOBIN 30 pg (27.0-31.0); MEAN CORPUSCULAR HGB CONC 33 g/dl (33.0-37.0); MEAN PLATELET VOLUME 9.1 fl (7.4-10.4); MONO # 0.8 (0.1-0.6); MONO % 7.4 % (1.7-9.3); PLATELET COUNT 313 K/mm3 (130-400); REDCELL DISTRIBUTION WIDTH-CV 15.4 % (11.5-14.5)
[2019-02-02 12:59] LABS: INR 0.9 (0.8-3.0); PROTHROMBIN TIME 10.6 SECONDS (9.7-12.8)
[2019-02-02 13:02] LABS: PARTIAL THROMBOPLASTIN TIME 32.7 SECONDS (26.0-37.0)
[2019-02-02 13:04] LABS: ALANINE AMINOTRANSFERASE < 6 U/L (21-72); ALBUMIN 4.6 gm/dL (3.5-5.0); ALKALINE PHOSPHATASE 59 U/L (50-136); ANION GAP 10 mmol/L (7-16); AST,SGOT 20 U/L (15-37); BILIRUBIN,TOTAL 0.3 mg/dL (0.0-1.0); BLOOD UREA NITROGEN 11 mg/dL (9-20); CALCIUM 9.7 mg/dL (8.4-10.2); CARBON DIOXIDE 27 mmol/L (22-30); CHLORIDE 104 mmol/L (98-107); CREATININE, serum 1.19 (0.66-1.25); GLUCOSE 84 mg/dL (74-106); LIPASE 126 U/L (23-300); POTASSIUM 4.2 mmol/L (3.4-5.0); SODIUM 142 mmol/L (137-145); TOTAL PROTEIN 7.9 gm/dL (6.4-8.2)
[2019-02-02 13:20] LABS: TROPONIN-I < 0.012 ng/mL (0.000-0.035)
[2019-02-02 15:10] LABS: ALCOHOL(ethanol),MEDICAL < 10 mg/dL
[2019-02-02 15:22] LABS: TROPONIN-I 3 HR POST INITIAL < 0.012 ng/mL (0.000-0.034)
[2019-02-02 16:45] VITALS: BP 95/79; PULSE 93
== END 2019-02-02 16:52 | disposition home or self-care (01) ==
LOC: COL.ER 12:28
PROVIDERS: Emergency Medicine
DX: R07.89 Other chest pain (principal); J44.9 Chronic obstructive pulmonary disease, unspecified; Z95.9 Presence of cardiac and vascular implant and graft, unspecified
CPT/HCPCS: J1170; J1885; J2060; J2405

== ENCOUNTER 2019-02-08 12:11 | Emergency (ER) | payer OTHER ==
[~2019-02-08] VITALS: Ht 180.3 cm; Wt 63.6 kg
[2019-02-08 12:42] VITALS: BP 101/76; PULSE 84; TEMP 98.3
== END 2019-02-08 13:08 | disposition left against medical advice (07) ==
LOC: COL.ER 12:11
DX: R06.02 Shortness of breath (principal); R07.9 Chest pain, unspecified

== ENCOUNTER 2019-02-11 13:46 | Emergency (ER) | payer OTHER ==
[~2019-02-11] VITALS: Ht 180.3 cm; Wt 65.5 kg
[2019-02-11 13:56] VITALS: TEMP 98.4
[2019-02-11 15:40] LABS: BASO # 0.2 (0.0-0.2); EOS # 0.7 (0.0-0.7); EOS % 5.2 % (0-4.0); GRAN # 9.4 (1.4-6.5); GRAN % 66.1 % (42.2-75.2); HEMATOCRIT 49.5 % (42.0-52.0); HEMOGLOBIN 16.1 g/dl (13.5-18.0); LYMPH # 3.2 (1.2-3.4); MEAN CELL VOLUME 92 fl (80.0-100.0); MEAN CORPUSCULAR HEMOGLOBIN 30 pg (27.0-31.0); MEAN CORPUSCULAR HGB CONC 33 g/dl (33.0-37.0); MEAN PLATELET VOLUME 9.3 fl (7.4-10.4); MONO # 0.7 (0.1-0.6); MONO % 4.8 % (1.7-9.3); PLATELET COUNT 247 K/mm3 (130-400); RED BLOOD COUNT 5.41 M/mm3 (4.20-5.60); REDCELL DISTRIBUTION WIDTH-CV 15.1 % (11.5-14.5)
[2019-02-11 16:03] LABS: ALANINE AMINOTRANSFERASE 11 U/L (21-72); ALBUMIN 4.7 gm/dL (3.5-5.0); ALKALINE PHOSPHATASE 55 U/L (50-136); ANION GAP 9 mmol/L (7-16); AST,SGOT 16 U/L (15-37); BILIRUBIN,TOTAL 0.2 mg/dL (0.0-1.0); BLOOD UREA NITROGEN 11 mg/dL (9-20); CALCIUM 9.5 mg/dL (8.4-10.2); CARBON DIOXIDE 27 mmol/L (22-30); CHLORIDE 104 mmol/L (98-107); CREATININE, serum 1.03 (0.66-1.25); GLUCOSE 99 mg/dL (74-106); POTASSIUM 3.8 mmol/L (3.4-5.0); SODIUM 141 mmol/L (137-145); TOTAL PROTEIN 7.8 gm/dL (6.4-8.2)
[2019-02-11 16:15] LABS: TROPONIN-I < 0.012 ng/mL (0.000-0.035)
[2019-02-11 16:43] LABS: INR 0.9 (0.8-3.0); PROTHROMBIN TIME 10.3 SECONDS (9.7-12.8)
[2019-02-11 16:45] LABS: PARTIAL THROMBOPLASTIN TIME 31.7 SECONDS (26.0-37.0)
[2019-02-11 18:00] VITALS: BP 113/68; PULSE 79
== END 2019-02-11 18:00 | disposition home or self-care (01) ==
LOC: COL.ER 13:46
PROVIDERS: Family Medicine
DX: R07.89 Other chest pain (principal); I25.10 Atherosclerotic heart disease of native coronary artery without angina pectoris; F17.210 Nicotine dependence, cigarettes, uncomplicated; Z79.82 Long term (current) use of aspirin
CPT/HCPCS: J1200; J1630; J2405; J7030

== ENCOUNTER 2019-02-21 11:24 | Emergency (ER) | payer OTHER ==
[~2019-02-21] VITALS: Ht 180.3 cm; Wt 65.9 kg
[2019-02-21 11:54] LABS: BASO # 0.1 (0.0-0.2); BASO % 1.2 % (0.0-2.0); EOS # 0.4 (0.0-0.7); EOS % 4.1 % (0-4.0); GRAN # 5.7 (1.4-6.5); GRAN % 60.4 % (42.2-75.2); HEMOGLOBIN 14.7 g/dl (13.5-18.0); LYMPH % 21.5 % (20.0-51.0); MEAN CELL VOLUME 89 fl (80.0-100.0); MEAN CORPUSCULAR HEMOGLOBIN 30 pg (27.0-31.0); MEAN CORPUSCULAR HGB CONC 33 g/dl (33.0-37.0); MEAN PLATELET VOLUME 8.3 fl (7.4-10.4); MONO # 1.2 (0.1-0.6); MONO % 12.4 % (1.7-9.3); PLATELET COUNT 277 K/mm3 (130-400); RED BLOOD COUNT 4.97 M/mm3 (4.20-5.60); REDCELL DISTRIBUTION WIDTH-CV 14.9 % (11.5-14.5)
[2019-02-21 12:16] LABS: ALANINE AMINOTRANSFERASE 17 U/L (21-72); ALBUMIN 4.6 gm/dL (3.5-5.0); ALKALINE PHOSPHATASE 57 U/L (50-136); ANION GAP 12 mmol/L (7-16); AST,SGOT 37 U/L (15-37); BILIRUBIN,TOTAL 0.6 mg/dL (0.0-1.0); BLOOD UREA NITROGEN 8 mg/dL (9-20); C-REACTIVE PROTEIN 0.8 mg/dL (0.0-0.9); CALCIUM 9.3 mg/dL (8.4-10.2); CARBON DIOXIDE 25 mmol/L (22-30); CHLORIDE 99 mmol/L (98-107); CREATININE, serum 0.92 (0.66-1.25); GLUCOSE 176 mg/dL (74-106); LIPASE 98 U/L (23-300); POTASSIUM 3.8 mmol/L (3.4-5.0); SODIUM 137 mmol/L (137-145); TOTAL PROTEIN 7.7 gm/dL (6.4-8.2)
[2019-02-21 12:18] LABS: ALCOHOL(ethanol),MEDICAL < 10 mg/dL
[2019-02-21 12:34] LABS: COLLECTION METHOD CLEAN CATCH
[2019-02-21 12:39] LABS: PH 6 (5-8); SQUAMOUS EPITHELIAL None Seen /hpf; URINE APPEARANCE Clear; URINE BACTERIA None Seen /hpf; URINE BILIRUBIN Negative (NEGATIVE); URINE BLOOD Negative (NEGATIVE); URINE COLOR Yellow; URINE GLUCOSE Negative (NEGATIVE); URINE KETONE Negative (NEGATIVE); URINE LEUKOCYTE ESTERASE Negative (NEGATIVE); URINE NITRATE Negative (NEGATIVE); URINE PROTEIN(semi-quant) Negative (NEGATIVE); URINE RBC 0-2 /hpf; URINE UROBILINOGEN Negative (NEGATIVE)
[2019-02-21 15:33] LABS: ACETAMINOPHEN < 10 ug/mL (10-30); SALICYLATE < 1.0 mg/dL
[2019-02-21 15:39] LABS: TRICYCLIC ANTIDEPRESS URINE NEGATIVE
--- NOTE | 2019-02-21 17:39 | NUR ---
Sequins Stringer responded to Emergency Department for consult. Patient detoxing from alcohol and interested in resources. Patient reports he was at the [facility] [place] last night but that they discharged him home. Patient works with the Red Team and sees Dr. Barraza for primary care. Patient reports he has had inpatient alcohol treatment in the past at [facility] in [place]. Prior to presenting to [facility] yesterday, patient has been drinking about a case of beer per day. Patient states he is in pain, hearing things, and is having suicidal thoughts. DANIEL contacted transfer agent, Mónica (ph#[phone] ext [phone]) at the [facility] who advised if patient wants to transfer to the [facility] for medical detox, he will have to do so via EMS transport, which would be an out of pocket cost for patient. DANIEL met again with patient and patient's girlfriend, Mini De Guzman (ph#[phone]) to provide update. Mini states they cannot afford EMS transport and [facility]. SW provided list of alcohol treatment resources. Patient states he is suicidal and does not think the ER can discharge him if he is having suicidal thoughts. DANIEL collaborated with ER physician and contacted [facility] for a screening. DANIEL was advised Xiomara sladeerCarlos Alberto would arrive in approximately an hour. DANIEL provided update to ER physician.
[2019-02-22] MEDS ORDERED: LIBRIUM 25M25 MG/CAP PO (07:37)
[2019-02-22] MEDS ORDERED: NEURONTIN300 MG/CAP PO (07:37)
[2019-02-22 08:30] VITALS: BP 108/83; PULSE 87; TEMP 97.1
== END 2019-02-22 08:30 | disposition home or self-care (01) ==
LOC: COL.ER 11:24
PROVIDERS: Emergency Medicine; Family Medicine
DX: F10.239 Alcohol dependence with withdrawal, unspecified (principal); I10 Essential (primary) hypertension; I25.2 Old myocardial infarction; Z79.82 Long term (current) use of aspirin
CPT/HCPCS: J2060; J2405; J7030

== ENCOUNTER 2019-03-21 16:56 | Emergency (ER) | payer OTHER ==
[~2019-03-21] VITALS: Ht 180.3 cm; Wt 66.8 kg
[~2019-03-21 16:56] MED LIST changes: +LIBRIUM 25M25 MG/CAP PO; +NEURONTIN300 MG/CAP PO
[2019-03-21 17:04] VITALS: TEMP 98.1
[2019-03-21 17:41] LABS: BASO # 0.1 (0.0-0.2); BASO % 1.2 % (0.0-2.0); EOS % 10.8 % (0-4.0); GRAN # 4.3 (1.4-6.5); GRAN % 45.1 % (42.2-75.2); HEMATOCRIT 45.6 % (42.0-52.0); LYMPH # 3.3 (1.2-3.4); LYMPH % 34.7 % (20.0-51.0); MEAN CELL VOLUME 91 fl (80.0-100.0); MEAN CORPUSCULAR HEMOGLOBIN 30 pg (27.0-31.0); MEAN CORPUSCULAR HGB CONC 33 g/dl (33.0-37.0); MEAN PLATELET VOLUME 8.9 fl (7.4-10.4); MONO # 0.7 (0.1-0.6); MONO % 7.7 % (1.7-9.3); PLATELET COUNT 263 K/mm3 (130-400); RED BLOOD COUNT 5.01 M/mm3 (4.20-5.60); REDCELL DISTRIBUTION WIDTH-CV 14.4 % (11.5-14.5)
[2019-03-21 17:47] LABS: ALBUMIN 4.6 gm/dL (3.5-5.0); BILIRUBIN,TOTAL 0.5 mg/dL (0.0-1.0); CALCIUM 9.6 mg/dL (8.4-10.2); CREATININE, serum 1.31 (0.66-1.25); TOTAL PROTEIN 7.8 gm/dL (6.4-8.2)
[2019-03-21 18:03] LABS: PROLACTIN 13.7 ng/mL (3.7-17.9)
[2019-03-21 19:15] LABS: COLLECTION METHOD CLEAN CATCH
[2019-03-21 19:25] LABS: MUCOUS Present /lpf; PH 5 (5-8); SQUAMOUS EPITHELIAL 0-2 /hpf; URINE APPEARANCE Clear; URINE BACTERIA None Seen /hpf; URINE BILIRUBIN Negative (NEGATIVE); URINE BLOOD Negative (NEGATIVE); URINE COLOR Yellow; URINE GLUCOSE Negative (NEGATIVE); URINE KETONE Negative (NEGATIVE); URINE LEUKOCYTE ESTERASE Negative (NEGATIVE); URINE NITRATE Negative (NEGATIVE); URINE PROTEIN(semi-quant) Negative (NEGATIVE); URINE RBC 0-2 /hpf; URINE UROBILINOGEN Negative (NEGATIVE)
[2019-03-21 20:35] VITALS: BP 103/69; PULSE 80
== END 2019-03-21 20:40 | disposition home or self-care (01) ==
LOC: COL.ER 16:56
PROVIDERS: Emergency Medicine
DX: R55 Syncope and collapse (principal); Z79.82 Long term (current) use of aspirin
CPT/HCPCS: J1885; J2550; J7030

== ENCOUNTER 2019-03-26 12:56 | Emergency (ER) | payer OTHER ==
[~2019-03-26] VITALS: Ht 180.3 cm; Wt 66.8 kg
[2019-03-26 13:03] VITALS: TEMP 97.4
[2019-03-26 13:51] LABS: BASO # 0.1 (0.0-0.2); BASO % 0.5 % (0.0-2.0); EOS # 0.5 (0.0-0.7); EOS % 3.1 % (0-4.0); GRAN # 12.7 (1.4-6.5); GRAN % 75.9 % (42.2-75.2); HEMATOCRIT 43.8 % (42.0-52.0); HEMOGLOBIN 14.4 g/dl (13.5-18.0); LYMPH # 2.4 (1.2-3.4); LYMPH % 14.6 % (20.0-51.0); MEAN CELL VOLUME 91 fl (80.0-100.0); MEAN CORPUSCULAR HEMOGLOBIN 30 pg (27.0-31.0); MEAN CORPUSCULAR HGB CONC 33 g/dl (33.0-37.0); MEAN PLATELET VOLUME 8.9 fl (7.4-10.4); MONO # 0.9 (0.1-0.6); MONO % 5.3 % (1.7-9.3); PLATELET COUNT 242 K/mm3 (130-400); RED BLOOD COUNT 4.84 M/mm3 (4.20-5.60); REDCELL DISTRIBUTION WIDTH-CV 14.3 % (11.5-14.5)
[2019-03-26 14:11] LABS: ALANINE AMINOTRANSFERASE 11 U/L (21-72); ALBUMIN 4.4 gm/dL (3.5-5.0); ALKALINE PHOSPHATASE 52 U/L (50-136); ANION GAP 10 mmol/L (7-16); AST,SGOT 15 U/L (15-37); BILIRUBIN,TOTAL 0.4 mg/dL (0.0-1.0); BLOOD UREA NITROGEN 13 mg/dL (9-20); CALCIUM 9.1 mg/dL (8.4-10.2); CARBON DIOXIDE 24 mmol/L (22-30); CHLORIDE 107 mmol/L (98-107); CREATININE, serum 1.34 (0.66-1.25); GLUCOSE 124 mg/dL (74-106); POTASSIUM 3.6 mmol/L (3.4-5.0); SODIUM 140 mmol/L (137-145); TOTAL PROTEIN 7.3 gm/dL (6.4-8.2)
[2019-03-26 14:15] LABS: ALCOHOL(ethanol),MEDICAL < 10 mg/dL
[2019-03-26 14:32] LABS: TROPONIN-I < 0.012 ng/mL (0.000-0.035)
[2019-03-26] MEDS ORDERED: CARAFATE 1GM1 G PO (16:27)
[2019-03-26 17:26] VITALS: BP 101/67; PULSE 71
== END 2019-03-26 17:26 | disposition home or self-care (01) ==
LOC: COL.ER 12:56
PROVIDERS: Emergency Medicine
DX: R07.89 Other chest pain (principal); Z87.19 Personal history of other diseases of the digestive system; Z79.82 Long term (current) use of aspirin

== ENCOUNTER 2019-04-01 11:50 | Emergency (ER) | payer OTHER ==
[~2019-04-01] VITALS: Ht 180.3 cm; Wt 66.8 kg
[2019-04-01 12:44] VITALS: TEMP 98.9
[2019-04-01 15:48] LABS: BASO # 0.1 (0.0-0.2); BASO % 0.6 % (0.0-2.0); EOS # 0.4 (0.0-0.7); EOS % 2.9 % (0-4.0); GRAN # 9.6 (1.4-6.5); GRAN % 75.5 % (42.2-75.2); HEMOGLOBIN 14.9 g/dl (13.5-18.0); LYMPH # 1.7 (1.2-3.4); LYMPH % 13.1 % (20.0-51.0); MEAN CELL VOLUME 89 fl (80.0-100.0); MEAN CORPUSCULAR HEMOGLOBIN 29 pg (27.0-31.0); MEAN CORPUSCULAR HGB CONC 33 g/dl (33.0-37.0); MEAN PLATELET VOLUME 8.9 fl (7.4-10.4); MONO # 0.9 (0.1-0.6); MONO % 7.3 % (1.7-9.3); PLATELET COUNT 221 K/mm3 (130-400); RED BLOOD COUNT 5.08 M/mm3 (4.20-5.60); REDCELL DISTRIBUTION WIDTH-CV 14.3 % (11.5-14.5)
[2019-04-01 15:56] LABS: COLLECTION METHOD CLEAN CATCH
[2019-04-01 16:03] LABS: ALANINE AMINOTRANSFERASE 18 U/L (21-72); ALBUMIN 4.6 gm/dL (3.5-5.0); ALKALINE PHOSPHATASE 61 U/L (50-136); ANION GAP 11 mmol/L (7-16); AST,SGOT 28 U/L (15-37); BILIRUBIN,TOTAL 0.7 mg/dL (0.0-1.0); BLOOD UREA NITROGEN 12 mg/dL (9-20); C-REACTIVE PROTEIN 5.2 mg/dL (0.0-0.9); CALCIUM 9.4 mg/dL (8.4-10.2); CARBON DIOXIDE 22 mmol/L (22-30); CHLORIDE 104 mmol/L (98-107); CREATININE, serum 1.26 (0.66-1.25); GLUCOSE 105 mg/dL (74-106); LIPASE 57 U/L (23-300); POTASSIUM 3.9 mmol/L (3.4-5.0); SODIUM 137 mmol/L (137-145); TOTAL PROTEIN 7.7 gm/dL (6.4-8.2)
[2019-04-01 16:20] LABS: TROPONIN-I < 0.012 ng/mL (0.000-0.035)
[2019-04-01 17:53] LABS: PH 5 (5-8); URINE APPEARANCE Hazy; URINE BILIRUBIN Negative (NEGATIVE); URINE BLOOD Negative (NEGATIVE); URINE COLOR Yellow; URINE GLUCOSE Negative (NEGATIVE); URINE KETONE Trace (NEGATIVE); URINE LEUKOCYTE ESTERASE Negative (NEGATIVE); URINE NITRATE Negative (NEGATIVE); URINE PROTEIN(semi-quant) Negative (NEGATIVE)
[2019-04-01] MEDS ORDERED: ZOFRAN 4MG T4 MG/TAB PO (18:03)
[2019-04-01 18:31] LABS: MUCOUS Present /lpf; SQUAMOUS EPITHELIAL 0-2 /hpf
[2019-04-01 18:34] VITALS: BP 109/70; PULSE 100
[2019-04-02] MEDS ORDERED: K-DUR20 MEQ PO (18:00)
[2019-04-02] MEDS ORDERED: ZOFRAN 4MG T4 MG/TAB PO (18:00)
[2019-04-02] MEDS ORDERED: PHENERGAN25 MG RC (18:00)
== END 2019-04-01 18:34 | disposition home or self-care (01) ==
LOC: COL.ER 11:50
PROVIDERS: Emergency Medicine
DX: K56.7 Ileus, unspecified (principal); B34.9 Viral infection, unspecified; J44.9 Chronic obstructive pulmonary disease, unspecified; I10 Essential (primary) hypertension; F17.210 Nicotine dependence, cigarettes, uncomplicated; Z95.9 Presence of cardiac and vascular implant and graft, unspecified; Z79.82 Long term (current) use of aspirin
CPT/HCPCS: J1170; J2405; J7030; Q9967

== ENCOUNTER 2019-04-02 15:27 | Emergency (ER) | payer OTHER ==
[~2019-04-02] VITALS: Ht 180.3 cm; Wt 66.8 kg
[~2019-04-02 15:27] MED LIST changes: +ZOFRAN 4MG T4 MG/TAB PO
[2019-04-02 15:35] VITALS: TEMP 97.4
[2019-04-02 17:10] LABS: BASO # 0.1 (0.0-0.2); BASO % 0.6 % (0.0-2.0); EOS # 0.6 (0.0-0.7); EOS % 5.6 % (0-4.0); GRAN % 66.6 % (42.2-75.2); LYMPH % 18.7 % (20.0-51.0); MEAN CELL VOLUME 90 fl (80.0-100.0); MEAN CORPUSCULAR HEMOGLOBIN 30 pg (27.0-31.0); MEAN CORPUSCULAR HGB CONC 33 g/dl (33.0-37.0); MEAN PLATELET VOLUME 8.8 fl (7.4-10.4); MONO # 0.9 (0.1-0.6); PLATELET COUNT 183 K/mm3 (130-400); RED BLOOD COUNT 4.12 M/mm3 (4.20-5.60)
[2019-04-02 17:14] LABS: HEMOGLOBIN 12.3 g/dl (13.5-18.0)
[2019-04-02 17:24] LABS: ALANINE AMINOTRANSFERASE 17 U/L (21-72); ALBUMIN 3.9 gm/dL (3.5-5.0); ALKALINE PHOSPHATASE 48 U/L (50-136); ANION GAP 7 mmol/L (7-16); AST,SGOT 22 U/L (15-37); BILIRUBIN,TOTAL 0.4 mg/dL (0.0-1.0); BLOOD UREA NITROGEN 7 mg/dL (9-20); C-REACTIVE PROTEIN 4.6 mg/dL (0.0-0.9); CALCIUM 8.5 mg/dL (8.4-10.2); CARBON DIOXIDE 25 mmol/L (22-30); CHLORIDE 105 mmol/L (98-107); CREATININE, serum 1.18 (0.66-1.25); GLUCOSE 98 mg/dL (74-106); LIPASE 47 U/L (23-300); POTASSIUM 3.2 mmol/L (3.4-5.0); SODIUM 137 mmol/L (137-145); TOTAL PROTEIN 6.5 gm/dL (6.4-8.2)
[2019-04-02 17:34] LABS: TROPONIN-I < 0.012 ng/mL (0.000-0.035)
[2019-04-02] MEDS ORDERED: PHENERGAN25 MG RC (18:00)
[2019-04-02] MEDS ORDERED: ZOFRAN 4MG T4 MG/TAB PO (18:00)
[2019-04-02] MEDS ORDERED: K-DUR20 MEQ PO (18:00)
[2019-04-02 18:12] VITALS: BP 135/82; PULSE 97
== END 2019-04-02 18:14 | disposition home or self-care (01) ==
LOC: COL.ER 15:27
PROVIDERS: Emergency Medicine
DX: K56.7 Ileus, unspecified (principal); R19.7 Diarrhea, unspecified; E87.6 Hypokalemia; F32.9 Major depressive disorder, single episode, unspecified; E78.5 Hyperlipidemia, unspecified; J44.9 Chronic obstructive pulmonary disease, unspecified; I10 Essential (primary) hypertension; B34.9 Viral infection, unspecified; Z95.5 Presence of coronary angioplasty implant and graft; Z87.891 Personal history of nicotine dependence; Z79.82 Long term (current) use of aspirin
CPT/HCPCS: J2405; J3010; J7030

== ENCOUNTER 2019-04-05 17:07 | Emergency (ER) | payer OTHER ==
[~2019-04-05] VITALS: Ht 180.3 cm; Wt 66.8 kg
[~2019-04-05 17:07] MED LIST changes: +K-DUR20 MEQ PO; +PHENERGAN25 MG RC
[2019-04-05 17:13] VITALS: TEMP 98.3
[2019-04-05 18:26] LABS: BASO # 0.1 (0.0-0.2); BASO % 0.6 % (0.0-2.0); EOS # 0.4 (0.0-0.7); EOS % 3.7 % (0-4.0); GRAN # 7.8 (1.4-6.5); GRAN % 64.9 % (42.2-75.2); HEMATOCRIT 43.4 % (42.0-52.0); HEMOGLOBIN 14.4 g/dl (13.5-18.0); LYMPH # 2.8 (1.2-3.4); LYMPH % 23.4 % (20.0-51.0); MEAN CELL VOLUME 89 fl (80.0-100.0); MEAN CORPUSCULAR HEMOGLOBIN 30 pg (27.0-31.0); MEAN CORPUSCULAR HGB CONC 33 g/dl (33.0-37.0); MEAN PLATELET VOLUME 8.7 fl (7.4-10.4); MONO # 0.8 (0.1-0.6); MONO % 6.7 % (1.7-9.3); PLATELET COUNT 265 K/mm3 (130-400); RED BLOOD COUNT 4.88 M/mm3 (4.20-5.60); REDCELL DISTRIBUTION WIDTH-CV 14.1 % (11.5-14.5)
[2019-04-05 18:40] LABS: ANION GAP 11 mmol/L (7-16); BLOOD UREA NITROGEN 7 mg/dL (9-20); CALCIUM 9.4 mg/dL (8.4-10.2); CARBON DIOXIDE 25 mmol/L (22-30); CHLORIDE 102 mmol/L (98-107); CREATININE, serum 1.07 (0.66-1.25); GLUCOSE 118 mg/dL (74-106); POTASSIUM 3.4 mmol/L (3.4-5.0); SODIUM 137 mmol/L (137-145)
[2019-04-05 18:48] LABS: ALBUMIN 4.7 gm/dL (3.5-5.0); BILIRUBIN,TOTAL 0.6 mg/dL (0.0-1.0); CALCIUM 9.4 mg/dL (8.4-10.2); CREATININE, serum 1.05 (0.66-1.25); POTASSIUM 3.4 mmol/L (3.4-5.0); TOTAL PROTEIN 7.8 gm/dL (6.4-8.2)
[2019-04-05 18:58] LABS: TROPONIN-I < 0.012 ng/mL (0.000-0.035)
[2019-04-05] MEDS ORDERED: PREDNISONE20 MG PO (20:04)
[2019-04-05] MEDS ORDERED: PHENERGAN 25 TA25 MG PO (20:04)
[2019-04-05 20:15] VITALS: BP 107/76; PULSE 97
== END 2019-04-05 20:15 | disposition home or self-care (01) ==
LOC: COL.ER 17:07
PROVIDERS: Emergency Medicine
DX: R11.10 Vomiting, unspecified (principal); J44.9 Chronic obstructive pulmonary disease, unspecified; I25.10 Atherosclerotic heart disease of native coronary artery without angina pectoris; Z79.82 Long term (current) use of aspirin
CPT/HCPCS: J0780; J7512

== ENCOUNTER 2019-04-07 20:42 | Emergency (ER) | payer OTHER ==
[~2019-04-07] VITALS: Ht 180.3 cm; Wt 66.8 kg
[2019-04-07 21:55] LABS: COLLECTION METHOD CLEAN CATCH
[2019-04-07 22:12] LABS: TRICYCLIC ANTIDEPRESS URINE NEGATIVE
[2019-04-07 22:19] LABS: PH 6 (5-8); SQUAMOUS EPITHELIAL None Seen /hpf; URINE APPEARANCE Clear; URINE BACTERIA None Seen /hpf; URINE BILIRUBIN Negative (NEGATIVE); URINE BLOOD Negative (NEGATIVE); URINE COLOR Straw; URINE GLUCOSE Negative (NEGATIVE); URINE KETONE Negative (NEGATIVE); URINE LEUKOCYTE ESTERASE Negative (NEGATIVE); URINE NITRATE Negative (NEGATIVE); URINE PROTEIN(semi-quant) Negative (NEGATIVE); URINE RBC 0-2 /hpf; URINE UROBILINOGEN Negative (NEGATIVE)
[2019-04-07 22:34] LABS: BASO # 0.1 (0.0-0.2); BASO % 0.5 % (0.0-2.0); EOS # 0.3 (0.0-0.7); EOS % 1.8 % (0-4.0); GRAN % 72.5 % (42.2-75.2); HEMATOCRIT 39.7 % (42.0-52.0); HEMOGLOBIN 13.4 g/dl (13.5-18.0); LYMPH # 3.3 (1.2-3.4); MEAN CELL VOLUME 87 fl (80.0-100.0); MEAN CORPUSCULAR HEMOGLOBIN 30 pg (27.0-31.0); MEAN CORPUSCULAR HGB CONC 34 g/dl (33.0-37.0); MEAN PLATELET VOLUME 8.4 fl (7.4-10.4); MONO # 0.6 (0.1-0.6); MONO % 3.9 % (1.7-9.3); PLATELET COUNT 309 K/mm3 (130-400); RED BLOOD COUNT 4.54 M/mm3 (4.20-5.60)
[2019-04-07 22:37] LABS: ALANINE AMINOTRANSFERASE 17 U/L (21-72); ALBUMIN 4.3 gm/dL (3.5-5.0); ALCOHOL(ethanol),MEDICAL 117 mg/dL; ALKALINE PHOSPHATASE 55 U/L (50-136); ANION GAP 14 mmol/L (7-16); AST,SGOT 25 U/L (15-37); BILIRUBIN,TOTAL 0.4 mg/dL (0.0-1.0); BLOOD UREA NITROGEN 7 mg/dL (9-20); CARBON DIOXIDE 22 mmol/L (22-30); CHLORIDE 98 mmol/L (98-107); GLUCOSE 99 mg/dL (74-106); POTASSIUM 3.6 mmol/L (3.4-5.0); SALICYLATE 1.1 mg/dL; SODIUM 134 mmol/L (137-145); TOTAL PROTEIN 7.1 gm/dL (6.4-8.2)
[2019-04-07 22:39] LABS: ACETAMINOPHEN < 10 ug/mL (10-30)
[2019-04-07 22:54] LABS: TROPONIN-I < 0.012 ng/mL (0.000-0.035)
[2019-04-07 23:06] LABS: TSH w REFLEX 0.987 uIU/mL (0.465-4.680)
--- NOTE | 2019-04-08 13:37 | NUR ---
Patient's nurse reported that patient is having suicidal ideation and has a history of alcoholism and wondering about options for him to detox at [facility] as the patient has been declined from a number of alternative detox/inpatient options including the [facility] and [facility]. daycare worker contacted [facility] Detox Hotline at [phone] and they advised the patient call their number personally for a brief phone assessment to indicate if the patient meets detox criteria. daycare worker referred the patient and his nurse Junie to [facility] and provided them with the contact information along with a list of alternative substance abuse centers that complete detox for males. No further needs at this time.
[2019-04-08 15:30] VITALS: TEMP 98.3
[2019-04-08 19:25] VITALS: BP 110/80
[2019-04-08 22:06] VITALS: PULSE 115
== END 2019-04-08 22:10 ==
LOC: COL.ER 20:42
PROVIDERS: Emergency Medicine
DX: F19.10 Other psychoactive substance abuse, uncomplicated (principal); F10.129 Alcohol abuse with intoxication, unspecified; R45.851 Suicidal ideations; F41.9 Anxiety disorder, unspecified; J44.9 Chronic obstructive pulmonary disease, unspecified; F17.210 Nicotine dependence, cigarettes, uncomplicated; Z79.82 Long term (current) use of aspirin

== ENCOUNTER 2019-05-24 23:24 | Emergency (ER) | payer OTHER ==
[~2019-05-24] VITALS: Ht 180.3 cm; Wt 65.9 kg
[2019-05-24 23:31] VITALS: TEMP 97.7
[2019-05-25 00:03] LABS: BASO # 0.1 (0.0-0.2); BASO % 0.8 % (0.0-2.0); EOS # 0.4 (0.0-0.7); EOS % 3.1 % (0-4.0); GRAN # 7.6 (1.4-6.5); HEMATOCRIT 45.3 % (42.0-52.0); HEMOGLOBIN 14.9 g/dl (13.5-18.0); LYMPH # 3.2 (1.2-3.4); LYMPH % 26.5 % (20.0-51.0); MEAN CELL VOLUME 88 fl (80.0-100.0); MEAN CORPUSCULAR HEMOGLOBIN 29 pg (27.0-31.0); MEAN CORPUSCULAR HGB CONC 33 g/dl (33.0-37.0); MEAN PLATELET VOLUME 9.3 fl (7.4-10.4); MONO # 0.9 (0.1-0.6); PLATELET COUNT 212 K/mm3 (130-400); RED BLOOD COUNT 5.13 M/mm3 (4.20-5.60); REDCELL DISTRIBUTION WIDTH-CV 15.5 % (11.5-14.5)
[2019-05-25 00:08] LABS: INR 0.9 (0.8-3.0); PROTHROMBIN TIME 10.7 SECONDS (9.7-12.8)
[2019-05-25 00:50] LABS: ALANINE AMINOTRANSFERASE 108 U/L (4-49); ALBUMIN 4.8 gm/dL (3.5-5.0); ALCOHOL(ethanol),MEDICAL 135 mg/dL; ALKALINE PHOSPHATASE 63 U/L (50-136); ANION GAP 14 mmol/L (7-16); AST,SGOT 137 U/L (15-37); BILIRUBIN,TOTAL 0.5 mg/dL (0.0-1.0); BLOOD UREA NITROGEN 3 mg/dL (9-20); CALCIUM 9.5 mg/dL (8.4-10.2); CARBON DIOXIDE 28 mmol/L (22-30); CHLORIDE 92 mmol/L (98-107); CREATININE, serum 0.83 (0.66-1.25); GLUCOSE 112 mg/dL (74-106); SODIUM 134 mmol/L (137-145)
[2019-05-25 00:53] LABS: POTASSIUM 2.9 mmol/L (3.4-5.0)
[2019-05-25 01:03] LABS: TROPONIN-I < 0.012 ng/mL (0.000-0.035)
[2019-05-25] MEDS ORDERED: LIBRIUM 25M25 MG/CAP PO (06:14)
[2019-05-25] MEDS ORDERED: ZOFRAN ODT4 MG SL (06:15)
[2019-05-25 06:37] VITALS: BP 112/73; PULSE 81
== END 2019-05-25 06:37 | disposition home or self-care (01) ==
LOC: COL.ER 23:24
PROVIDERS: Emergency Medicine
DX: R07.89 Other chest pain (principal); F10.220 Alcohol dependence with intoxication, uncomplicated; J44.9 Chronic obstructive pulmonary disease, unspecified; E78.5 Hyperlipidemia, unspecified; F17.220 Nicotine dependence, chewing tobacco, uncomplicated; Y90.6 Blood alcohol level of 120-199 mg/100 ml; Z79.82 Long term (current) use of aspirin
CPT/HCPCS: J2270; J2405; J7040

== ENCOUNTER 2019-06-21 17:45 | Emergency (ER) | payer OTHER ==
[~2019-06-21] VITALS: Ht 180.3 cm; Wt 59.1 kg
[~2019-06-21 17:45] MED LIST changes: +ZOFRAN ODT4 MG SL
[2019-06-21 18:02] LABS: BASO # 0.1 (0.0-0.2); EOS # 0.4 (0.0-0.7); EOS % 4.2 % (0-4.0); GRAN # 4.9 (1.4-6.5); GRAN % 51.1 % (42.2-75.2); HEMATOCRIT 48.1 % (42.0-52.0); HEMOGLOBIN 15.4 g/dl (13.5-18.0); LYMPH # 3.3 (1.2-3.4); MEAN CELL VOLUME 90 fl (80.0-100.0); MEAN CORPUSCULAR HEMOGLOBIN 29 pg (27.0-31.0); MEAN CORPUSCULAR HGB CONC 32 g/dl (33.0-37.0); MEAN PLATELET VOLUME 9.5 fl (7.4-10.4); MONO # 0.9 (0.1-0.6); MONO % 9.2 % (1.7-9.3); PLATELET COUNT 244 K/mm3 (130-400); RED BLOOD COUNT 5.36 M/mm3 (4.20-5.60); REDCELL DISTRIBUTION WIDTH-CV 16.2 % (11.5-14.5)
[2019-06-21 18:11] LABS: ACETAMINOPHEN 11 ug/mL (10-30); ALANINE AMINOTRANSFERASE 74 U/L (4-49); ALBUMIN 4.5 gm/dL (3.5-5.0); ALCOHOL(ethanol),MEDICAL 127 mg/dL; ALKALINE PHOSPHATASE 55 U/L (50-136); ANION GAP 11 mmol/L (7-16); AST,SGOT 79 U/L (15-37); BILIRUBIN,TOTAL 0.4 mg/dL (0.0-1.0); BLOOD UREA NITROGEN 3 mg/dL (9-20); CALCIUM 9.5 mg/dL (8.4-10.2); CARBON DIOXIDE 28 mmol/L (22-30); CHLORIDE 99 mmol/L (98-107); CREATININE, serum 0.86 (0.66-1.25); GLUCOSE 103 mg/dL (74-106); POTASSIUM 3.6 mmol/L (3.4-5.0); SODIUM 138 mmol/L (137-145); TOTAL PROTEIN 7.7 gm/dL (6.4-8.2)
[2019-06-21 18:12] LABS: SALICYLATE < 1.0 mg/dL
[2019-06-21 18:22] LABS: TROPONIN-I < 0.012 ng/mL (0.000-0.035)
[2019-06-21 18:26] LABS: COLLECTION METHOD CLEAN CATCH
[2019-06-21 18:31] LABS: PH 6 (5-8); SQUAMOUS EPITHELIAL None Seen /hpf; URINE APPEARANCE Clear; URINE BACTERIA Rare /hpf; URINE BILIRUBIN Negative (NEGATIVE); URINE BLOOD Negative (NEGATIVE); URINE COLOR Straw; URINE GLUCOSE Negative (NEGATIVE); URINE KETONE Negative (NEGATIVE); URINE LEUKOCYTE ESTERASE Negative (NEGATIVE); URINE NITRATE Negative (NEGATIVE); URINE PROTEIN(semi-quant) Negative (NEGATIVE); URINE RBC 0-2 /hpf; URINE UROBILINOGEN Negative (NEGATIVE)
[2019-06-21 18:41] LABS: TRICYCLIC ANTIDEPRESS URINE NEGATIVE
[2019-06-22 01:31] VITALS: BP 104/73; PULSE 83; TEMP 97.9
== END 2019-06-22 01:32 ==
LOC: COL.ER 17:45
PROVIDERS: Emergency Medicine
DX: R45.851 Suicidal ideations (principal); F10.239 Alcohol dependence with withdrawal, unspecified; J44.9 Chronic obstructive pulmonary disease, unspecified; Z79.82 Long term (current) use of aspirin; Z79.899 Other long term (current) drug therapy; Z98.890 Other specified postprocedural states; F17.210 Nicotine dependence, cigarettes, uncomplicated
CPT/HCPCS: J1885; J2060; J2405; J7030; J7512

== ENCOUNTER 2019-07-09 14:54 | Emergency (ER) | payer OTHER ==
[~2019-07-09] VITALS: Ht 180.3 cm; Wt 63.6 kg
[2019-07-09 15:10] VITALS: TEMP 98.1
[2019-07-09 16:18] LABS: BASO # 0.1 (0.0-0.2); BASO % 1.1 % (0.0-2.0); EOS # 0.7 (0.0-0.7); EOS % 6.8 % (0-4.0); GRAN % 59.8 % (42.2-75.2); HEMATOCRIT 46.5 % (42.0-52.0); HEMOGLOBIN 15.3 g/dl (13.5-18.0); LYMPH # 2.6 (1.2-3.4); LYMPH % 25.4 % (20.0-51.0); MEAN CELL VOLUME 88 fl (80.0-100.0); MEAN CORPUSCULAR HEMOGLOBIN 29 pg (27.0-31.0); MEAN CORPUSCULAR HGB CONC 33 g/dl (33.0-37.0); MEAN PLATELET VOLUME 9.5 fl (7.4-10.4); MONO # 0.7 (0.1-0.6); MONO % 6.5 % (1.7-9.3); PLATELET COUNT 316 K/mm3 (130-400); RED BLOOD COUNT 5.27 M/mm3 (4.20-5.60); REDCELL DISTRIBUTION WIDTH-CV 16.1 % (11.5-14.5)
[2019-07-09 17:19] LABS: PROTHROMBIN TIME 11.4 SECONDS (9.7-12.8)
[2019-07-09 17:21] LABS: ALANINE AMINOTRANSFERASE 22 U/L (4-49); ALKALINE PHOSPHATASE 47 U/L (50-136); ANION GAP 4 mmol/L (7-16); AST,SGOT 22 U/L (15-37); BILIRUBIN,TOTAL 0.4 mg/dL (0.0-1.0); BLOOD UREA NITROGEN 9 mg/dL (9-20); CARBON DIOXIDE 29 mmol/L (22-30); CHLORIDE 104 mmol/L (98-107); CREATININE, serum 1.01 (0.66-1.25); GLUCOSE 110 mg/dL (74-106); LIPASE 131 U/L (23-300); SODIUM 137 mmol/L (137-145); TOTAL PROTEIN 7.1 gm/dL (6.4-8.2)
[2019-07-09 17:28] LABS: D-DIMER < 200.00 ng/mLDDu (200-230)
[2019-07-09 17:44] LABS: TROPONIN-I < 0.012 ng/mL (0.000-0.035)
[2019-07-09] MEDS ORDERED: NORCO 325 MG-51 TAB PO (18:12)
[2019-07-09] MEDS ORDERED: PREDNISONE20 MG PO (18:12)
[2019-07-09 18:25] VITALS: BP 120/72; PULSE 72
== END 2019-07-09 18:28 | disposition home or self-care (01) ==
LOC: COL.ER 14:54
PROVIDERS: Emergency Medicine
DX: R07.81 Pleurodynia (principal); K21.9 Gastro-esophageal reflux disease without esophagitis; J44.9 Chronic obstructive pulmonary disease, unspecified; F41.9 Anxiety disorder, unspecified; F17.210 Nicotine dependence, cigarettes, uncomplicated; Z95.5 Presence of coronary angioplasty implant and graft; Z79.82 Long term (current) use of aspirin
CPT/HCPCS: J1885; J2270; J2405; J7030; J7512

== ENCOUNTER 2019-07-31 15:58 | Emergency (ER) | payer OTHER ==
[~2019-07-31] VITALS: Ht 180.3 cm; Wt 65.9 kg
[2019-07-31 16:02] VITALS: TEMP 97.8
[2019-07-31 16:22] LABS: BASO # 0.1 (0.0-0.2); BASO % 0.8 % (0.0-2.0); EOS # 0.8 (0.0-0.7); EOS % 6.5 % (0-4.0); GRAN # 6.1 (1.4-6.5); GRAN % 52.2 % (42.2-75.2); HEMATOCRIT 44.9 % (42.0-52.0); HEMOGLOBIN 14.9 g/dl (13.5-18.0); LYMPH # 3.8 (1.2-3.4); MEAN CELL VOLUME 86 fl (80.0-100.0); MEAN CORPUSCULAR HEMOGLOBIN 28 pg (27.0-31.0); MEAN CORPUSCULAR HGB CONC 33 g/dl (33.0-37.0); MEAN PLATELET VOLUME 8.3 fl (7.4-10.4); MONO # 0.9 (0.1-0.6); MONO % 7.7 % (1.7-9.3); PLATELET COUNT 293 K/mm3 (130-400); RED BLOOD COUNT 5.25 M/mm3 (4.20-5.60); REDCELL DISTRIBUTION WIDTH-CV 15.6 % (11.5-14.5)
[2019-07-31 16:34] LABS: ALANINE AMINOTRANSFERASE 21 U/L (4-49); ALBUMIN 4.4 gm/dL (3.5-5.0); ALKALINE PHOSPHATASE 56 U/L (50-136); ANION GAP 8 mmol/L (7-16); AST,SGOT 22 U/L (15-37); BILIRUBIN,TOTAL 0.4 mg/dL (0.0-1.0); BLOOD UREA NITROGEN 14 mg/dL (9-20); CALCIUM 9.5 mg/dL (8.4-10.2); CARBON DIOXIDE 26 mmol/L (22-30); CHLORIDE 102 mmol/L (98-107); CREATININE, serum 0.96 (0.66-1.25); GLUCOSE 129 mg/dL (74-106); LIPASE 172 U/L (23-300); POTASSIUM 3.7 mmol/L (3.4-5.0); SODIUM 136 mmol/L (137-145); TOTAL PROTEIN 7.5 gm/dL (6.4-8.2)
[2019-07-31 16:35] LABS: C-REACTIVE PROTEIN < 0.5 mg/dL (0.0-0.9)
[2019-07-31 16:42] LABS: TROPONIN-I < 0.012 ng/mL (0.000-0.035)
[2019-07-31] MEDS ORDERED: PREDNISONE20 MG PO (17:38)
[2019-07-31 19:06] VITALS: BP 107/65; PULSE 82
== END 2019-07-31 19:07 | disposition home or self-care (01) ==
LOC: COL.ER 15:58
PROVIDERS: Emergency Medicine
DX: J44.9 Chronic obstructive pulmonary disease, unspecified (principal); I10 Essential (primary) hypertension; E78.5 Hyperlipidemia, unspecified; I25.2 Old myocardial infarction; I45.6 Pre-excitation syndrome; I25.10 Atherosclerotic heart disease of native coronary artery without angina pectoris; F17.210 Nicotine dependence, cigarettes, uncomplicated; Z79.82 Long term (current) use of aspirin
CPT/HCPCS: J3010; J7030; J7512

== ENCOUNTER 2019-08-03 12:10 | Emergency (ER) | payer OTHER ==
[~2019-08-03] VITALS: Ht 180.3 cm; Wt 65.9 kg
[2019-08-03 12:15] VITALS: TEMP 97.5
[2019-08-03 12:39] LABS: BASO # 0.1 (0.0-0.2); BASO % 1.2 % (0.0-2.0); EOS # 0.6 (0.0-0.7); EOS % 5.6 % (0-4.0); GRAN # 5.9 (1.4-6.5); GRAN % 51.5 % (42.2-75.2); HEMATOCRIT 47.4 % (42.0-52.0); HEMOGLOBIN 15.5 g/dl (13.5-18.0); LYMPH # 3.5 (1.2-3.4); LYMPH % 31.2 % (20.0-51.0); MEAN CELL VOLUME 87 fl (80.0-100.0); MEAN CORPUSCULAR HEMOGLOBIN 29 pg (27.0-31.0); MEAN CORPUSCULAR HGB CONC 33 g/dl (33.0-37.0); MEAN PLATELET VOLUME 8.8 fl (7.4-10.4); MONO # 1.1 (0.1-0.6); MONO % 9.6 % (1.7-9.3); PLATELET COUNT 330 K/mm3 (130-400); RED BLOOD COUNT 5.43 M/mm3 (4.20-5.60); REDCELL DISTRIBUTION WIDTH-CV 15.9 % (11.5-14.5)
[2019-08-03 12:47] LABS: PROTHROMBIN TIME 10.8 SECONDS (9.7-12.8)
[2019-08-03 12:58] LABS: ALANINE AMINOTRANSFERASE 25 U/L (4-49); ALBUMIN 4.5 gm/dL (3.5-5.0); ALKALINE PHOSPHATASE 60 U/L (50-136); ANION GAP 9 mmol/L (7-16); AST,SGOT 28 U/L (15-37); BILIRUBIN,TOTAL 0.4 mg/dL (0.0-1.0); BLOOD UREA NITROGEN 17 mg/dL (9-20); CALCIUM 9.7 mg/dL (8.4-10.2); CARBON DIOXIDE 29 mmol/L (22-30); CHLORIDE 100 mmol/L (98-107); CREATININE, serum 1.02 (0.66-1.25); GLUCOSE 98 mg/dL (74-106); LIPASE 189 U/L (23-300); POTASSIUM 4.2 mmol/L (3.4-5.0); SODIUM 137 mmol/L (137-145); TOTAL PROTEIN 7.8 gm/dL (6.4-8.2)
[2019-08-03 13:09] LABS: TROPONIN-I < 0.012 ng/mL (0.000-0.035)
[2019-08-03 16:10] VITALS: BP 104/72; PULSE 77
== END 2019-08-03 16:15 | disposition home or self-care (01) ==
LOC: COL.ER 12:10
PROVIDERS: Emergency Medicine
DX: R07.89 Other chest pain (principal); J44.9 Chronic obstructive pulmonary disease, unspecified; K21.9 Gastro-esophageal reflux disease without esophagitis; Z79.82 Long term (current) use of aspirin
CPT/HCPCS: C9113; J1885; J2270; J2405; J7030

== ENCOUNTER 2019-08-09 13:32 | Emergency (ER) | payer OTHER ==
[~2019-08-09] VITALS: Ht 180.3 cm; Wt 63.6 kg
[2019-08-09 13:37] VITALS: TEMP 98.3
[2019-08-09 14:06] LABS: BASO # 0.1 (0.0-0.2); BASO % 0.8 % (0.0-2.0); EOS # 0.6 (0.0-0.7); GRAN # 7.1 (1.4-6.5); GRAN % 59.5 % (42.2-75.2); HEMATOCRIT 43.8 % (42.0-52.0); HEMOGLOBIN 14.7 g/dl (13.5-18.0); LYMPH # 2.9 (1.2-3.4); LYMPH % 24.4 % (20.0-51.0); MEAN CELL VOLUME 86 fl (80.0-100.0); MEAN CORPUSCULAR HEMOGLOBIN 29 pg (27.0-31.0); MEAN CORPUSCULAR HGB CONC 34 g/dl (33.0-37.0); MEAN PLATELET VOLUME 8.8 fl (7.4-10.4); MONO # 1.1 (0.1-0.6); MONO % 9.3 % (1.7-9.3); PLATELET COUNT 295 K/mm3 (130-400); REDCELL DISTRIBUTION WIDTH-CV 16.1 % (11.5-14.5)
[2019-08-09 14:07] LABS: ALANINE AMINOTRANSFERASE 23 U/L (4-49); ALBUMIN 4.5 gm/dL (3.5-5.0); ALKALINE PHOSPHATASE 62 U/L (50-136); ANION GAP 8 mmol/L (7-16); AST,SGOT 27 U/L (15-37); BILIRUBIN,TOTAL 0.4 mg/dL (0.0-1.0); BLOOD UREA NITROGEN 9 mg/dL (9-20); CALCIUM 9.6 mg/dL (8.4-10.2); CARBON DIOXIDE 24 mmol/L (22-30); CHLORIDE 105 mmol/L (98-107); CREATININE, serum 1.03 (0.66-1.25); GLUCOSE 99 mg/dL (74-106); LIPASE 143 U/L (23-300); POTASSIUM 3.9 mmol/L (3.4-5.0); SODIUM 137 mmol/L (137-145); TOTAL PROTEIN 7.7 gm/dL (6.4-8.2)
[2019-08-09 14:28] LABS: TROPONIN-I < 0.012 ng/mL (0.000-0.035)
[2019-08-09 16:53] VITALS: BP 94/61; PULSE 82
== END 2019-08-09 16:53 | disposition home or self-care (01) ==
LOC: COL.ER 13:32
PROVIDERS: Emergency Medicine
DX: R07.89 Other chest pain (principal); F41.9 Anxiety disorder, unspecified; J44.9 Chronic obstructive pulmonary disease, unspecified; F32.9 Major depressive disorder, single episode, unspecified; Z79.52 Long term (current) use of systemic steroids; Z79.82 Long term (current) use of aspirin; Z79.51 Long term (current) use of inhaled steroids; Z95.818 Presence of other cardiac implants and grafts
CPT/HCPCS: J1790; J1885; J3010; J7030; J7040

== ENCOUNTER 2019-08-21 20:32 | Emergency (ER) | payer OTHER ==
[~2019-08-21] VITALS: Ht 180.3 cm; Wt 63.6 kg
[2019-08-21 20:36] VITALS: TEMP 99
[2019-08-21 21:02] LABS: BASO # 0.1 (0.0-0.2); EOS # 0.4 (0.0-0.7); EOS % 4.5 % (0-4.0); GRAN # 3.9 (1.4-6.5); GRAN % 45.7 % (42.2-75.2); HEMATOCRIT 39.2 % (42.0-52.0); HEMOGLOBIN 13.5 g/dl (13.5-18.0); LYMPH # 3.5 (1.2-3.4); LYMPH % 40.1 % (20.0-51.0); MEAN CELL VOLUME 84 fl (80.0-100.0); MEAN CORPUSCULAR HEMOGLOBIN 29 pg (27.0-31.0); MEAN CORPUSCULAR HGB CONC 34 g/dl (33.0-37.0); MEAN PLATELET VOLUME 8.6 fl (7.4-10.4); MONO # 0.7 (0.1-0.6); MONO % 7.9 % (1.7-9.3); PLATELET COUNT 240 K/mm3 (130-400); RED BLOOD COUNT 4.65 M/mm3 (4.20-5.60)
[2019-08-21 21:11] LABS: PROTHROMBIN TIME 11.2 SECONDS (9.7-12.8)
[2019-08-21 21:13] LABS: PARTIAL THROMBOPLASTIN TIME 30.5 SECONDS (26.0-37.0)
[2019-08-21 21:19] LABS: ALANINE AMINOTRANSFERASE 34 U/L (4-49); ALBUMIN 4.2 gm/dL (3.5-5.0); ALCOHOL(ethanol),MEDICAL 247 mg/dL; ALKALINE PHOSPHATASE 51 U/L (50-136); ANION GAP 12 mmol/L (7-16); AST,SGOT 39 U/L (15-37); BILIRUBIN,TOTAL 0.4 mg/dL (0.0-1.0); BLOOD UREA NITROGEN 3 mg/dL (9-20); CALCIUM 8.8 mg/dL (8.4-10.2); CARBON DIOXIDE 23 mmol/L (22-30); CHLORIDE 96 mmol/L (98-107); CREATININE, serum 1.03 (0.66-1.25); GLUCOSE 98 mg/dL (74-106); POTASSIUM 3.6 mmol/L (3.4-5.0); SODIUM 132 mmol/L (137-145)
[2019-08-21 21:31] LABS: TROPONIN-I < 0.012 ng/mL (0.000-0.035)
[2019-08-21 23:28] VITALS: BP 101/67; PULSE 91
== END 2019-08-21 23:21 ==
LOC: COL.ER 20:32
PROVIDERS: Family Medicine
DX: F10.129 Alcohol abuse with intoxication, unspecified (principal); J44.9 Chronic obstructive pulmonary disease, unspecified; Z20.828 Contact with and (suspected) exposure to other viral communicable diseases; Z79.82 Long term (current) use of aspirin; Y90.8 Blood alcohol level of 240 mg/100 ml or more
CPT/HCPCS: J2270; J7030

== ENCOUNTER 2019-08-25 13:03 | Emergency (ER) | payer OTHER ==
[~2019-08-25] VITALS: Ht 180.3 cm; Wt 63.6 kg
[2019-08-25 13:13] VITALS: TEMP 98.3
[2019-08-25 13:27] LABS: BASO # 0.1 (0.0-0.2); BASO % 0.7 % (0.0-2.0); EOS # 0.7 (0.0-0.7); EOS % 7.7 % (0-4.0); GRAN # 4.4 (1.4-6.5); GRAN % 49.9 % (42.2-75.2); HEMATOCRIT 43.5 % (42.0-52.0); HEMOGLOBIN 14.2 g/dl (13.5-18.0); LYMPH # 2.8 (1.2-3.4); LYMPH % 31.8 % (20.0-51.0); MEAN CELL VOLUME 87 fl (80.0-100.0); MEAN CORPUSCULAR HEMOGLOBIN 28 pg (27.0-31.0); MEAN CORPUSCULAR HGB CONC 33 g/dl (33.0-37.0); MEAN PLATELET VOLUME 8.7 fl (7.4-10.4); MONO # 0.8 (0.1-0.6); MONO % 8.9 % (1.7-9.3); PLATELET COUNT 234 K/mm3 (130-400); REDCELL DISTRIBUTION WIDTH-CV 17.6 % (11.5-14.5)
[2019-08-25 13:32] LABS: PROTHROMBIN TIME 10.6 SECONDS (9.7-12.8)
[2019-08-25 13:34] LABS: PARTIAL THROMBOPLASTIN TIME 31.5 SECONDS (26.0-37.0)
[2019-08-25 13:36] LABS: ALBUMIN 4.4 gm/dL (3.5-5.0); BILIRUBIN,TOTAL 0.4 mg/dL (0.0-1.0); CALCIUM 9.8 mg/dL (8.4-10.2); CREATININE, serum 1.16 (0.66-1.25); POTASSIUM 4.3 mmol/L (3.4-5.0); TOTAL PROTEIN 7.4 gm/dL (6.4-8.2)
[2019-08-25 13:48] LABS: TROPONIN-I 0.017 ng/mL (0.000-0.035)
[2019-08-25 16:17] VITALS: BP 97/68; PULSE 81
== END 2019-08-25 16:20 | disposition home or self-care (01) ==
LOC: COL.ER 13:03
PROVIDERS: Family Medicine
DX: R55 Syncope and collapse (principal); G89.29 Other chronic pain; R07.9 Chest pain, unspecified; J44.9 Chronic obstructive pulmonary disease, unspecified; I25.10 Atherosclerotic heart disease of native coronary artery without angina pectoris; F17.210 Nicotine dependence, cigarettes, uncomplicated; Z79.82 Long term (current) use of aspirin; Z79.52 Long term (current) use of systemic steroids; Z79.51 Long term (current) use of inhaled steroids
CPT/HCPCS: J3010; J7030

== ENCOUNTER 2019-09-14 20:37 | Emergency (ER) | payer OTHER ==
[~2019-09-14] VITALS: Ht 180.3 cm; Wt 65.9 kg
[2019-09-14 20:46] VITALS: TEMP 99.7
[2019-09-14 21:32] LABS: COLLECTION METHOD CLEAN CATCH
[2019-09-14 21:47] LABS: ALANINE AMINOTRANSFERASE 33 U/L (4-49); ALBUMIN 4.9 gm/dL (3.5-5.0); ALKALINE PHOSPHATASE 63 U/L (50-136); ANION GAP 12 mmol/L (7-16); AST,SGOT 28 U/L (15-37); BILIRUBIN,TOTAL 0.9 mg/dL (0.0-1.0); BLOOD UREA NITROGEN 10 mg/dL (9-20); CALCIUM 9.4 mg/dL (8.4-10.2); CARBON DIOXIDE 22 mmol/L (22-30); CHLORIDE 100 mmol/L (98-107); CREATININE, serum 1.01 (0.66-1.25); GLUCOSE 65 mg/dL (74-106); SODIUM 134 mmol/L (137-145)
[2019-09-14 21:48] LABS: BASO # 0.1 (0.0-0.2); BASO % 1.3 % (0.0-2.0); EOS # 0.3 (0.0-0.7); EOS % 3.1 % (0-4.0); GRAN # 5.5 (1.4-6.5); HEMATOCRIT 43.5 % (42.0-52.0); HEMOGLOBIN 14.6 g/dl (13.5-18.0); LYMPH # 3.2 (1.2-3.4); LYMPH % 31.2 % (20.0-51.0); MEAN CELL VOLUME 86 fl (80.0-100.0); MEAN CORPUSCULAR HEMOGLOBIN 29 pg (27.0-31.0); MEAN CORPUSCULAR HGB CONC 34 g/dl (33.0-37.0); MONO # 1.1 (0.1-0.6); MONO % 10.8 % (1.7-9.3); PLATELET COUNT 313 K/mm3 (130-400); RED BLOOD COUNT 5.04 M/mm3 (4.20-5.60); REDCELL DISTRIBUTION WIDTH-CV 16.8 % (11.5-14.5)
[2019-09-14 21:51] LABS: ACETAMINOPHEN < 10 ug/mL (10-30); ALCOHOL(ethanol),MEDICAL < 10 mg/dL; MUCOUS Present /lpf; PH 5 (5-8); SALICYLATE < 1.0 mg/dL; SQUAMOUS EPITHELIAL None Seen /hpf; URINE APPEARANCE Clear; URINE BACTERIA None Seen /hpf; URINE BILIRUBIN Negative (NEGATIVE); URINE BLOOD Negative (NEGATIVE); URINE COLOR Yellow; URINE GLUCOSE Negative (NEGATIVE); URINE KETONE Trace (NEGATIVE); URINE LEUKOCYTE ESTERASE Negative (NEGATIVE); URINE NITRATE Negative (NEGATIVE); URINE PROTEIN(semi-quant) Negative (NEGATIVE); URINE RBC 0-2 /hpf; URINE UROBILINOGEN Negative (NEGATIVE)
[2019-09-14 22:00] LABS: TRICYCLIC ANTIDEPRESS URINE NEGATIVE
[2019-09-15 00:26] VITALS: BP 101/68; PULSE 95
== END 2019-09-15 00:31 ==
LOC: COL.ER 20:37
PROVIDERS: Emergency Medicine
DX: R45.851 Suicidal ideations (principal); F10.229 Alcohol dependence with intoxication, unspecified; F10.239 Alcohol dependence with withdrawal, unspecified; I25.10 Atherosclerotic heart disease of native coronary artery without angina pectoris; K21.9 Gastro-esophageal reflux disease without esophagitis; F32.9 Major depressive disorder, single episode, unspecified; J44.9 Chronic obstructive pulmonary disease, unspecified; F41.9 Anxiety disorder, unspecified; Z20.828 Contact with and (suspected) exposure to other viral communicable diseases; Z79.51 Long term (current) use of inhaled steroids; Z79.52 Long term (current) use of systemic steroids; Z79.82 Long term (current) use of aspirin
CPT/HCPCS: J2060; J2550; J3411; J7030

== ENCOUNTER 2019-09-20 15:38 | Emergency (ER) | payer OTHER ==
[~2019-09-20] VITALS: Ht 180.3 cm; Wt 65.9 kg
[2019-09-20 15:44] VITALS: TEMP 98.6
[2019-09-20 16:01] LABS: BASO # 0.1 (0.0-0.2); BASO % 1.2 % (0.0-2.0); EOS # 0.8 (0.0-0.7); EOS % 7.1 % (0-4.0); GRAN # 6.3 (1.4-6.5); HEMATOCRIT 37.6 % (42.0-52.0); HEMOGLOBIN 12.4 g/dl (13.5-18.0); LYMPH # 3.1 (1.2-3.4); LYMPH % 27.4 % (20.0-51.0); MEAN CELL VOLUME 90 fl (80.0-100.0); MEAN CORPUSCULAR HEMOGLOBIN 30 pg (27.0-31.0); MEAN CORPUSCULAR HGB CONC 33 g/dl (33.0-37.0); MEAN PLATELET VOLUME 8.9 fl (7.4-10.4); MONO # 0.8 (0.1-0.6); MONO % 7.2 % (1.7-9.3); PLATELET COUNT 259 K/mm3 (130-400); RED BLOOD COUNT 4.17 M/mm3 (4.20-5.60); REDCELL DISTRIBUTION WIDTH-CV 17.4 % (11.5-14.5)
[2019-09-20 16:14] LABS: ALANINE AMINOTRANSFERASE 41 U/L (4-49); ALBUMIN 4.4 gm/dL (3.5-5.0); ALKALINE PHOSPHATASE 50 U/L (50-136); ANION GAP 8 mmol/L (7-16); AST,SGOT 43 U/L (15-37); BILIRUBIN,TOTAL 0.4 mg/dL (0.0-1.0); BLOOD UREA NITROGEN 17 mg/dL (9-20); C-REACTIVE PROTEIN 0.7 mg/dL (0.0-0.9); CALCIUM 9.6 mg/dL (8.4-10.2); CARBON DIOXIDE 26 mmol/L (22-30); CHLORIDE 102 mmol/L (98-107); CREATININE, serum 1.34 (0.66-1.25); GLUCOSE 91 mg/dL (74-106); LIPASE 174 U/L (23-300); POTASSIUM 4.2 mmol/L (3.4-5.0); SODIUM 136 mmol/L (137-145); TOTAL PROTEIN 7.3 gm/dL (6.4-8.2)
[2019-09-20 16:29] LABS: TROPONIN-I < 0.012 ng/mL (0.000-0.035)
[2019-09-20 19:23] VITALS: BP 99/62; PULSE 82
== END 2019-09-20 19:21 | disposition home or self-care (01) ==
LOC: COL.ER 15:38
PROVIDERS: Emergency Medicine
DX: R07.89 Other chest pain (principal); M25.511 Pain in right shoulder; G89.29 Other chronic pain; I10 Essential (primary) hypertension; E78.5 Hyperlipidemia, unspecified; J44.9 Chronic obstructive pulmonary disease, unspecified; Z95.9 Presence of cardiac and vascular implant and graft, unspecified; Z79.52 Long term (current) use of systemic steroids; Z79.82 Long term (current) use of aspirin
CPT/HCPCS: J2405; J3010; J7030

== ENCOUNTER 2019-09-21 19:14 | Emergency (ER) | payer OTHER ==
[~2019-09-21] VITALS: Ht 180.3 cm; Wt 65.9 kg
[2019-09-21 19:17] VITALS: BP 136/80; PULSE 98; TEMP 98
== END 2019-09-21 19:40 | disposition left against medical advice (07) ==
LOC: COL.ER 19:14
DX: R07.89 Other chest pain (principal); Z79.82 Long term (current) use of aspirin

== ENCOUNTER 2019-09-22 10:05 | Emergency (ER) | payer OTHER ==
[~2019-09-22] VITALS: Ht 180.3 cm; Wt 65.9 kg
[2019-09-22 10:09] VITALS: TEMP 98.7
[2019-09-22 10:36] LABS: BASO # 0.1 (0.0-0.2); BASO % 1.1 % (0.0-2.0); EOS # 0.7 (0.0-0.7); EOS % 6.8 % (0-4.0); GRAN # 5.4 (1.4-6.5); GRAN % 56.3 % (42.2-75.2); HEMATOCRIT 39.3 % (42.0-52.0); HEMOGLOBIN 12.8 g/dl (13.5-18.0); LYMPH # 2.7 (1.2-3.4); LYMPH % 27.9 % (20.0-51.0); MEAN CELL VOLUME 91 fl (80.0-100.0); MEAN CORPUSCULAR HEMOGLOBIN 30 pg (27.0-31.0); MEAN CORPUSCULAR HGB CONC 33 g/dl (33.0-37.0); MEAN PLATELET VOLUME 8.9 fl (7.4-10.4); MONO # 0.7 (0.1-0.6); MONO % 6.9 % (1.7-9.3); PLATELET COUNT 254 K/mm3 (130-400); RED BLOOD COUNT 4.33 M/mm3 (4.20-5.60); REDCELL DISTRIBUTION WIDTH-CV 17.4 % (11.5-14.5)
[2019-09-22 10:44] LABS: INR 0.9 (0.8-3.0); PROTHROMBIN TIME 10.5 SECONDS (9.7-12.8)
[2019-09-22 10:47] LABS: ALANINE AMINOTRANSFERASE 39 U/L (4-49); ALBUMIN 4.3 gm/dL (3.5-5.0); ALKALINE PHOSPHATASE 53 U/L (50-136); ANION GAP 7 mmol/L (7-16); AST,SGOT 38 U/L (15-37); BILIRUBIN,TOTAL 0.4 mg/dL (0.0-1.0); BLOOD UREA NITROGEN 16 mg/dL (9-20); CARBON DIOXIDE 27 mmol/L (22-30); CHLORIDE 104 mmol/L (98-107); CREATININE, serum 1.24 (0.66-1.25); GLUCOSE 120 mg/dL (74-106); LIPASE 70 U/L (23-300); POTASSIUM 4.1 mmol/L (3.4-5.0); SODIUM 137 mmol/L (137-145); TOTAL PROTEIN 7.1 gm/dL (6.4-8.2)
[2019-09-22 11:03] LABS: TROPONIN-I < 0.012 ng/mL (0.000-0.035)
[2019-09-22 13:14] VITALS: BP 117/76; PULSE 88
[2019-09-23] MEDS ORDERED: CAMPRAL333 M1 (01:29)
[2019-09-23] MEDS ORDERED: NICODERM C14 MG/PATC TD (01:29)
[2019-09-23] MEDS ORDERED: REMERON30 MG PO (01:29)
[2019-09-23] MEDS ORDERED: NICORETTE GUM2 MG BC (01:30)
[2019-09-23] MEDS ORDERED: FLEXERIL 1010 MG/TAB PO (01:30)
[2019-09-23] MEDS ORDERED: NEURONTIN300 MG/CAP PO (01:30)
[2019-09-23] MEDS ORDERED: DESYREL 50MG50 MG PO (01:30)
[2019-09-23] MEDS ORDERED: PROTONIX 40MG T40 MG PO (01:31)
[2019-09-23] MEDS ORDERED: NATURE'S BLEND100 M2 PO (01:31)
[2019-09-23] MEDS ORDERED: FOLIC ACID 11 MG/TA1 PO (01:31)
[2019-09-23] MEDS ORDERED: LIPITOR 80MG80 MG PO (01:31)
== END 2019-09-22 13:17 | disposition home or self-care (01) ==
LOC: COL.ER 10:05
PROVIDERS: Emergency Medicine
DX: R07.89 Other chest pain (principal); S49.91XA Unspecified injury of right shoulder and upper arm, initial encounter; Z95.9 Presence of cardiac and vascular implant and graft, unspecified; X58.XXXA Exposure to other specified factors, initial encounter
CPT/HCPCS: J2270; J2405; J7030

== ENCOUNTER 2019-09-22 20:56 | Inpatient (IN) | payer OTHER ==
[~2019-09-22] VITALS: Ht 180.3 cm; Wt 70.0 kg
[2019-09-22 21:23] LABS: BASO # 0.2 (0.0-0.2); EOS # 0.8 (0.0-0.7); GRAN # 10.2 (1.4-6.5); GRAN % 68.1 % (42.2-75.2); HEMATOCRIT 43.4 % (42.0-52.0); HEMOGLOBIN 13.7 g/dl (13.5-18.0); LYMPH # 2.9 (1.2-3.4); LYMPH % 19.7 % (20.0-51.0); MEAN CELL VOLUME 93 fl (80.0-100.0); MEAN CORPUSCULAR HEMOGLOBIN 29 pg (27.0-31.0); MEAN CORPUSCULAR HGB CONC 32 g/dl (33.0-37.0); MEAN PLATELET VOLUME 8.9 fl (7.4-10.4); MONO # 0.8 (0.1-0.6); MONO % 5.3 % (1.7-9.3); PLATELET COUNT 293 K/mm3 (130-400); RED BLOOD COUNT 4.69 M/mm3 (4.20-5.60); REDCELL DISTRIBUTION WIDTH-CV 17.8 % (11.5-14.5)
[2019-09-22 21:28] LABS: INR 0.9 (0.8-3.0); PROTHROMBIN TIME 10.1 SECONDS (9.7-12.8)
[2019-09-22 21:33] LABS: ARTERIAL BLD GAS O2 SATURATION 93.6 % (92-100); ARTERIAL BLD GAS TCO2 CT 24.5; ARTERIAL BLOOD GAS BASE EXCESS -2.4 (-2-2); ARTERIAL BLOOD GAS HCO3 23.2 meq/L (22-26); ARTERIAL BLOOD GAS PCO2 42.8 mmHg (35-45); ARTERIAL BLOOD GAS PO2 67.7 mmHg (80-100); ARTERIAL BLOOD GAS pH 7.35 (7.35-7.45)
[2019-09-22 21:37] LABS: ALANINE AMINOTRANSFERASE 41 U/L (4-49); ALBUMIN 4.7 gm/dL (3.5-5.0); ALKALINE PHOSPHATASE 61 U/L (50-136); ANION GAP 9 mmol/L (7-16); AST,SGOT 35 U/L (15-37); BILIRUBIN,TOTAL 0.3 mg/dL (0.0-1.0); BLOOD UREA NITROGEN 14 mg/dL (9-20); C-REACTIVE PROTEIN 1.5 mg/dL (0.0-0.9); CALCIUM 9.2 mg/dL (8.4-10.2); CARBON DIOXIDE 27 mmol/L (22-30); CHLORIDE 105 mmol/L (98-107); CREATINE KINASE 125 U/L (55-170); CREATININE, serum 1.44 (0.66-1.25); GLUCOSE 128 mg/dL (74-106); LIPASE 106 U/L (23-300); POTASSIUM 4.4 mmol/L (3.4-5.0); SODIUM 141 mmol/L (137-145); TOTAL PROTEIN 7.8 gm/dL (6.4-8.2)
[2019-09-22 21:56] LABS: ALCOHOL(ethanol),MEDICAL < 10 mg/dL; TROPONIN-I < 0.012 ng/mL (0.000-0.035)
[2019-09-23] VITALS (7 sets, daily range): BP systolic 101–134; BP diastolic 59–73; PULSE 97–126; TEMP 97.6–101.8
[2019-09-23] MEDS ORDERED: REMERON30 MG PO (01:29)
[2019-09-23] MEDS ORDERED: CAMPRAL333 M1 (01:29)
[2019-09-23] MEDS ORDERED: NICODERM C14 MG/PATC TD (01:29)
[2019-09-23] MEDS ORDERED: NEURONTIN300 MG/CAP PO (01:30)
[2019-09-23] MEDS ORDERED: FLEXERIL 1010 MG/TAB PO (01:30)
[2019-09-23] MEDS ORDERED: NICORETTE GUM2 MG BC (01:30)
[2019-09-23] MEDS ORDERED: DESYREL 50MG50 MG PO (01:30)
[2019-09-23] MEDS ORDERED: PROTONIX 40MG T40 MG PO (01:31)
[2019-09-23] MEDS ORDERED: LIPITOR 80MG80 MG PO (01:31)
[2019-09-23] MEDS ORDERED: FOLIC ACID 11 MG/TA1 PO (01:31)
[2019-09-23] MEDS ORDERED: NATURE'S BLEND100 M2 PO (01:31)
[2019-09-23 06:12] LABS: HEMATOCRIT 38.2 % (42.0-52.0); MEAN CELL VOLUME 93 fl (80.0-100.0); MEAN CORPUSCULAR HEMOGLOBIN 29 pg (27.0-31.0); MEAN CORPUSCULAR HGB CONC 31 g/dl (33.0-37.0); MEAN PLATELET VOLUME 9.3 fl (7.4-10.4); PLATELET COUNT 230 K/mm3 (130-400); RED BLOOD COUNT 4.13 M/mm3 (4.20-5.60); REDCELL DISTRIBUTION WIDTH-CV 17.7 % (11.5-14.5)
[2019-09-23 06:30] LABS: ALANINE AMINOTRANSFERASE 35 U/L (4-49); ALBUMIN 3.7 gm/dL (3.5-5.0); ALKALINE PHOSPHATASE 38 U/L (50-136); ANION GAP 7 mmol/L (7-16); AST,SGOT 31 U/L (15-37); BILIRUBIN,TOTAL 0.6 mg/dL (0.0-1.0); BLOOD UREA NITROGEN 12 mg/dL (9-20); CALCIUM 8.5 mg/dL (8.4-10.2); CARBON DIOXIDE 25 mmol/L (22-30); CHLORIDE 108 mmol/L (98-107); CREATININE, serum 1.14 (0.66-1.25); GLUCOSE 174 mg/dL (74-106); POTASSIUM 4.1 mmol/L (3.4-5.0); SODIUM 140 mmol/L (137-145); TOTAL PROTEIN 6.5 gm/dL (6.4-8.2)
[2019-09-23 06:33] LABS: TROPONIN-I < 0.012 ng/mL (0.000-0.035)
[2019-09-23 06:41] LABS: ANISOCYTOSIS 1+; BAND 37 % (0-10); LYMPHOCYTE 6 % (20.0-51.0); METAMYELOCYTE 2 % (0-0); NEUTROPHILS 50 % (42.0-75.2); PLATELET ESTIMATE NORMAL (NORMAL)
--- NOTE | 2019-09-23 08:56 | NUR ---
PATIENT ASSESSMENT COMPLETED. HE REPORTS PAIN OF A 7 AND DOES HAVE SOME NAUSEA. HE HAS ORDERED A SECOND TRAY FOR BREAKFAST AFTER EATTING THE WHOLE 1ST ONE. WILL GIVEN PRN PAIN MEDICATION IF TIME TO.
--- NOTE | 2019-09-23 10:19 | NUR ---
SW met with patient to complete intake. Patient states that he lives in [place] with his significant other Mini [phone] and son Camilo Ngo [phone]. Patient states that he does not utilize any DME at home, and is independent with his ADL's. Patient states that his PCP is Dr. Barraza at the [facility]. Patient states that he usually gets his major meds from the [facility], but if it's something small he will go to [facility]. Patient states that he is able to afford his medications. Patient stated that he is in discussion with his significant other and son in regards to who he will appoint for his DPOA-HC. He did not wish to appoint anyone at this time. Patient stated that he utilized Telehealth services, but when COVID arrived services were stopped, but he would like to continue services when able to. Patient provided that he called the [facility] to obtain his auth. number for billing and wanted the to have information for hospital records. [facility] Auth number is as follows [id number]. SW will continue to follow.
--- NOTE | 2019-09-23 11:24 | NUR ---
PRN ATIVAN GIVEN AT THIS TIME. PATIENT SAYS HE IS A LITTLE ANXIOUS AND SHORT OF BREATH. I CALLED RT AND SHE WILL COME GIVE HIM A BREATHING TREATMENT
--- NOTE | 2019-09-23 12:30 | NUR ---
PATIENT COMPLAINS OF PAIN TO THE MID CHEST AND MID ABDOMEN CAUSED BY NAUSEA. NOTIFIED DR. PAUL OF THIS AND HE WILL ENTER ORDERS
[2019-09-23 16:03] LABS: TRICYCLIC ANTIDEPRESS URINE POSITIVE
--- NOTE | 2019-09-23 19:48 | NUR ---
Pt assessment completed and documented. Pt resting in bed watching television. Was able to eat 100% of dinner. IVF infusing per orders to right AC IV site. Complaints of constant mid sternal chest pressure that radiates to his neck and left arm. HARRIS Meléndez notified with orders to continue current treatment and to call if chest pain worsens. Exp. wheezing noted throughout all lung linn. Pt requesting PRN melatonin for sleep tonight. PT denies any other needs. Call light within reach.
[2019-09-24 04:00] VITALS: BP 106/71; PULSE 95; TEMP 97.8
--- NOTE | 2019-09-24 05:17 | NUR ---
Pt had uneventful shift. Pt rested well in bed overnight. IVF infusing per orders to right ac IV. Pt on 2L O2 via nasal cannula. Complaints of mid sternal chest pressure that radiates to his neck and left arm during the night- HARRIS Meléndez was notified with orders to continue current treatment and to call if chest pressure worsened. Pt denies any other needs. Call light within reach.
[2019-09-24 07:19] VITALS: BP 113/65; PULSE 104; TEMP 97.6
[2019-09-24 07:20] LABS: HEMOGLOBIN 10.8 g/dl (13.5-18.0); MEAN CELL VOLUME 92 fl (80.0-100.0); MEAN CORPUSCULAR HEMOGLOBIN 29 pg (27.0-31.0); MEAN CORPUSCULAR HGB CONC 31 g/dl (33.0-37.0); MEAN PLATELET VOLUME 9.9 fl (7.4-10.4); PLATELET COUNT 238 K/mm3 (130-400); RED BLOOD COUNT 3.74 M/mm3 (4.20-5.60); REDCELL DISTRIBUTION WIDTH-CV 17.7 % (11.5-14.5)
[2019-09-24 07:29] LABS: ALBUMIN 3.6 gm/dL (3.5-5.0); BILIRUBIN,TOTAL 0.4 mg/dL (0.0-1.0); CALCIUM 8.8 mg/dL (8.4-10.2); CREATININE, serum 0.95 (0.66-1.25); MAGNESIUM 2.1 mg/dL (1.6-2.3); PHOSPHOROUS 2.4 mg/dL (2.5-4.5); POTASSIUM 3.8 mmol/L (3.4-5.0); TOTAL PROTEIN 6.5 gm/dL (6.4-8.2)
[2019-09-24 07:31] LABS: HEMATOCRIT 34.5 % (42.0-52.0)
--- NOTE | 2019-09-24 08:11 | NUR ---
Pt being cared for by this nurse and orienteeNessa RN. Pt sitting in bed coloring, A&O. Pt on 2L NC, satting well. Pt has LAC IV w/ IVF infusing, no complications. Heart RRR, occasionally tachy. Audible exp wheezing noted. Pt denies N/V/D, c/o chest tightness still, noted to have constant cough, received breathing tx this morning. No edema noted. Pt requested ativan, stated his "anxiety was getting up there". Breakfast tray set up, no issues noted at this time.
--- NOTE | 2019-09-24 10:15 | NUR ---
Pt resting in bed, alert and oriented. complains of chest feeling tight, states that it started a couple days ago. denies pain anywhere else. wheezes audible on expiration. right lower lobe audible fine crackles. pt states cough usually after breathing treatment. heart sounds regular, S1 and S2 present. pt requested ativan, given per APR. will continue to monitor.
--- NOTE | 2019-09-24 10:30 | NUR ---
Initial visit; Patient thanked Parking Lot Laborer for looking in on him, visiting and offering God's blessings.
[2019-09-24 10:34] LABS: BAND 39 % (0-10); LYMPHOCYTE 4 % (20.0-51.0); NEUTROPHILS 56 % (42.0-75.2); PLATELET ESTIMATE NORMAL (NORMAL)
[2019-09-24 11:13] VITALS: BP 116/65; PULSE 99; TEMP 98
--- NOTE | 2019-09-24 14:55 | NUR ---
pt reported feeling anxious, requested ativan. Ativan given per prn order.
[2019-09-24 15:56] VITALS: BP 105/56; PULSE 90; TEMP 97.8
--- NOTE | 2019-09-24 17:11 | NUR ---
Pt IV in Right AC was taken out. new IV inserted into the Right forearm. flushes easily, no redness, drainage or edema. NS continued per APR.
--- NOTE | 2019-09-24 18:22 | NUR ---
pt resting in bed most of the day. requested ativan prn per orders every 6 hours. complained of chest pain, cardiology was consulted and notified by nurse. no other complaints at this time.
[2019-09-24 19:36] VITALS: BP 117/72; PULSE 101; TEMP 98.1
--- NOTE | 2019-09-24 20:30 | NUR ---
Patient assessed at this time. Alert and oriented x 4, and able to make needs known. Denies having pain at this time. Did complain of nausea, and was given PRN Zofran. Peripheral IV to right forearm. Fluids running per orders. Site is without redness, warmth, swelling, and pain. Reports SOB and dyspnea with exertion. Denies at rest. Continues on oxygen at 2 L/min via NC. Denies chest pain and discomfort. HR-tachy. Telemetry in place: sinus tachycardia. Capillary refill less than 3 seconds. Non-tenting skin turgor. BSAx4. Abdomen soft and non-tender. No edema. Voices no questions, needs, or concerns at this time. Resting in bed with call light within reach.
[2019-09-25] VITALS: BP 105/61; PULSE 96; TEMP 98.2
[2019-09-25 03:27] VITALS: BP 115/68; PULSE 100; TEMP 97.7
--- NOTE | 2019-09-25 05:27 | NUR ---
Patient has been resting in bed. Awake on and off during the night. Has been using bedside urinal. Voices no questions, needs, or concerns at this time. RT increased oxygen to 3 L/min via NC during the night. Continues to have expiratory wheezing, and reports SOB with exertion. Continues on IV antibiotics per orders. Voices no questions, needs, or concerns at this time. Resting in bed wtih call light within reach.
[2019-09-25 07:12] LABS: HEMOGLOBIN 10.3 g/dl (13.5-18.0); MEAN CELL VOLUME 90 fl (80.0-100.0); MEAN CORPUSCULAR HEMOGLOBIN 29 pg (27.0-31.0); MEAN CORPUSCULAR HGB CONC 32 g/dl (33.0-37.0); MEAN PLATELET VOLUME 9.5 fl (7.4-10.4); PLATELET COUNT 249 K/mm3 (130-400); RED BLOOD COUNT 3.56 M/mm3 (4.20-5.60); REDCELL DISTRIBUTION WIDTH-CV 17.6 % (11.5-14.5)
[2019-09-25 07:17] LABS: HEMATOCRIT 32.2 % (42.0-52.0)
[2019-09-25 07:29] LABS: CALCIUM 8.9 mg/dL (8.4-10.2); CREATININE, serum 1.02 (0.66-1.25); POTASSIUM 3.7 mmol/L (3.4-5.0)
[2019-09-25 07:40] VITALS: BP 121/66; PULSE 103; TEMP 97.3
[2019-09-25 09:40] LABS: BAND 21 % (0-10); LYMPHOCYTE 4 % (20.0-51.0); NEUTROPHILS 73 % (42.0-75.2)
[2019-09-25 09:41] LABS: ANISOCYTOSIS 1+; PLATELET ESTIMATE NORMAL (NORMAL)
[2019-09-25 09:43] LABS: HYPOCHROMIA 1+
--- NOTE | 2019-09-25 11:50 | NUR ---
Pt moved to room 359, this nurse contacted Joel regarding TB test/lab. Pt has cough but unable to produce sputum. TB lab ordered, phone order.
--- NOTE | 2019-09-25 15:09 | NUR ---
Casket Coverer contacted patient's significant other, Mini to discuss discharge planning. Mini is in agreement with patient returning home upon discharge. SW spoke with Mini about recommendation for shower seat and grab bars. Mini reports she already has a shower chair for patient and will be able to install grab bars for patient upon discharge. DANIEL will continue to follow as needed.
--- NOTE | 2019-09-25 16:09 | NUR ---
Pt reported nausea earlier today, did not want to eat. reported chest pain and feeling his heart was racing. Gave hydralazine per orders for anxiety. Pt now reports feeling much better and no nausea.
[2019-09-25 17:00] VITALS: BP 130/77; PULSE 93
[2019-09-25 19:06] VITALS: BP 128/63; PULSE 77; TEMP 98
--- NOTE | 2019-09-25 21:15 | NUR ---
Patient assessed at this time. Alert and oriented x 4, and able to make needs known. Denies having pain and discomfort at this time. Peripheral INT to right forearm flushed. Site is without redness, warmth, swelling, and pain. Reports SOB with exertion. Continues to wear oxygen at 3 L/min via NC. LS with expiratory wheezing throughout. HRR. Capillary refill less than 3 seconds. Non-tenting skin turgor. BSAx4. Abdomen soft and non-tender. Voices no questions, needs, or concerns at this time. Resting in bed with call light within reach.
[2019-09-25 23:09] VITALS: BP 117/75; PULSE 83; TEMP 97.6
[2019-09-26 03:59] VITALS: BP 130/80; PULSE 80; TEMP 97.7
--- NOTE | 2019-09-26 06:17 | NUR ---
Patient has been resting in bed with call light within reach. Voices no questions, needs, or concerns at this time. Had been given PRN Melatonin to help with insomnia last night, and reported medication was effective.
[2019-09-26 07:35] VITALS: BP 135/72; PULSE 103; TEMP 97.5
[2019-09-26 08:04] LABS: CALCIUM 9.4 mg/dL (8.4-10.2); POTASSIUM 3.8 mmol/L (3.4-5.0)
[2019-09-26 08:07] LABS: HEMOGLOBIN 11.7 g/dl (13.5-18.0); MEAN CELL VOLUME 89 fl (80.0-100.0); MEAN CORPUSCULAR HEMOGLOBIN 29 pg (27.0-31.0); MEAN CORPUSCULAR HGB CONC 32 g/dl (33.0-37.0); MEAN PLATELET VOLUME 9.7 fl (7.4-10.4); PLATELET COUNT 303 K/mm3 (130-400); REDCELL DISTRIBUTION WIDTH-CV 17.6 % (11.5-14.5)
[2019-09-26 08:11] LABS: HEMATOCRIT 36.5 % (42.0-52.0)
[2019-09-26 08:34] LABS: BAND 7 % (0-10); LYMPHOCYTE 5 % (20.0-51.0); METAMYELOCYTE 1 % (0-0); MYELOCYTE 1 % (0-0); NEUTROPHILS 84 % (42.0-75.2); PLATELET ESTIMATE NORMAL (NORMAL)
[2019-09-26 12:11] VITALS: BP 125/69; PULSE 100; TEMP 97.5
[2019-09-26 16:11] VITALS: BP 112/73; PULSE 92; TEMP 97.9
--- NOTE | 2019-09-26 18:15 | NUR ---
pt resting in bed, states he feels achy all over and tired. gave tylenol per orders. no complaints of nausea, ate dinner well. no other complaints of pain. lung sounds had exp. wheezing in all lobes. denies chest pain, SOB present. pt on oxygen at 3 L. will continue to monitor.
--- NOTE | 2019-09-26 21:25 | NUR ---
Pt assessment completed and documented. Pt resting in bed with eyes closed when entering room. Pt alert and oriented x3. Complaints of chest discomfort that is worse when he coughs. Pt states pain is not new. INT to right forearm CDI. Pt on 3L O2 via nasal cannula. Telemetry on. Pt denies any other needs. Call light within reach.
[2019-09-26 23:00] VITALS: BP 121/85; PULSE 90; TEMP 97.6
[2019-09-27 04:11] VITALS: BP 107/79; PULSE 81; TEMP 97.7
--- NOTE | 2019-09-27 05:14 | NUR ---
Pt had uneventful shift. Pt states he rested on and off throughout the night in bed. INT to left forearm CDI. Telemetry on. Complaints of chest discomfort that was worse when coughing overnight. Scheduled tylenol given per orders. PT denies any other needs. Call light within reach.
[2019-09-27 07:25] LABS: HEMATOCRIT 39.7 % (42.0-52.0); MEAN CELL VOLUME 89 fl (80.0-100.0); MEAN CORPUSCULAR HEMOGLOBIN 29 pg (27.0-31.0); MEAN CORPUSCULAR HGB CONC 33 g/dl (33.0-37.0); MEAN PLATELET VOLUME 9.4 fl (7.4-10.4); PLATELET COUNT 342 K/mm3 (130-400); RED BLOOD COUNT 4.48 M/mm3 (4.20-5.60); REDCELL DISTRIBUTION WIDTH-CV 17.4 % (11.5-14.5)
[2019-09-27 07:39] LABS: CALCIUM 9.4 mg/dL (8.4-10.2); CREATININE, serum 0.99 (0.66-1.25)
[2019-09-27 07:40] VITALS: BP 130/72; PULSE 89; TEMP 97.3
[2019-09-27 08:13] LABS: BAND 5 % (0-10); EOSINOPHIL 1 % (0-4); LYMPHOCYTE 12 % (20.0-51.0); METAMYELOCYTE 1 % (0-0); NEUTROPHILS 79 % (42.0-75.2); NUCLEATED RED BLOOD CELL 1 (0-6); PLATELET ESTIMATE NORMAL (NORMAL)
--- NOTE | 2019-09-27 10:25 | NUR ---
JAYLEN NOTE: PT AOX4. STATES CONSTAND CHEST PRESSURE TO MID CHEST WORSENED BY ACTIVITY. REPORTS MILD NAUSEA BUT TOLERATING PO. STATES CHRONIC KAUSHAL HIP, SHOULDERS AND GEN PAIN. ON SCHED TYLENOL. ON TELE, TACHY, NO CONCERNS. STEADY INDEPENDENT AMBULATION. ON 2L HI AJAY NC. TITRATED TO 1L WITH O2 SAT 94%. SOB WITH AMBULATION. DENIES DIZINESS. VSS. TOLERATING IV ABX.
[2019-09-27 12:22] VITALS: BP 131/66; PULSE 108; TEMP 98.1
[2019-09-27 16:00] VITALS: BP 129/79; PULSE 87; TEMP 97.7
--- NOTE | 2019-09-27 19:26 | NUR ---
CHANGE OF SHIFT REPORT RECEIVED FROM DAY SHIFT NURSE. TELE IN PLACE.
[2019-09-27 20:35] VITALS: BP 116/83; PULSE 100; TEMP 99
[2019-09-28 02:27] VITALS: BP 108/73; PULSE 88; TEMP 98.1
[2019-09-28 05:42] VITALS: BP 119/88; PULSE 105; TEMP 97.6
--- NOTE | 2019-09-28 06:33 | NUR ---
Reports nausea resolved. Wanting more coffee.
[2019-09-28 07:25] LABS: HEMATOCRIT 40.2 % (42.0-52.0); HEMOGLOBIN 13.2 g/dl (13.5-18.0); MEAN CELL VOLUME 88 fl (80.0-100.0); MEAN CORPUSCULAR HEMOGLOBIN 29 pg (27.0-31.0); MEAN CORPUSCULAR HGB CONC 33 g/dl (33.0-37.0); MEAN PLATELET VOLUME 9.1 fl (7.4-10.4); PLATELET COUNT 310 K/mm3 (130-400); RED BLOOD COUNT 4.56 M/mm3 (4.20-5.60); REDCELL DISTRIBUTION WIDTH-CV 17.3 % (11.5-14.5)
[2019-09-28 07:35] LABS: CALCIUM 8.9 mg/dL (8.4-10.2); CREATININE, serum 0.91 (0.66-1.25); POTASSIUM 3.5 mmol/L (3.4-5.0)
--- NOTE | 2019-09-28 07:50 | NUR ---
PATIENT RESTING IN BED DURING CHANGE OF SHIFT REPORT GIVEN TO DAY SHIFT NURSEAMALIA. TELE IN PLACE, AIRBORNE ISOLATION CONTINUES.
[2019-09-28 09:36] VITALS: BP 118/70; PULSE 130; TEMP 98.2
[2019-09-28 10:10] LABS: BAND 4 % (0-10); LYMPHOCYTE 13 % (20.0-51.0); METAMYELOCYTE 1 % (0-0); NEUTROPHILS 78 % (42.0-75.2)
[2019-09-28 10:11] LABS: ANISOCYTOSIS 1+; PLATELET ESTIMATE NORMAL (NORMAL)
[2019-09-28 10:13] LABS: HYPOCHROMIA 1+
[2019-09-28 12:05] VITALS: BP 116/67; PULSE 132; TEMP 99.6
[2019-09-28 12:09] LABS: TB GOLD INTERPRETATION Indeterminate (Negative)
--- NOTE | 2019-09-28 15:07 | NUR ---
Certified Procedural Coder contacted patient by phone as he is still in isolation. Patient states he is getting worse instead of getting better but reports he was just seen by the Hospitalist. Patient states he has been getting around his room okay. Patient still plans to return home upon discharge. SW will continue to follow.
[2019-09-28 17:09] VITALS: BP 110/72; PULSE 109; TEMP 97.2
--- NOTE | 2019-09-28 19:19 | NUR ---
PATIENT IS ALERT AND ORIENTED. PATIENT COMPLAINED OF NAUSEA, BACK PAIN, AND ANXIETY. ZOFRAN, ATIVAN AND TYLENOL ADMINSTERED NEEDED. MORPHINE ADMIN ONCE.PT HAD EPISODE OF DESATURATION 88% AND TACHCARDIA 130's, OXYGEN TITRATED TO 6L AT 95%, HR 109.
--- NOTE | 2019-09-28 21:30 | NUR ---
Assessment completed. Pt resting in bed. Reports shortness of breath after repositioning in bed, currently on 6 L/min O2 by NC, O2 saturation 98%. Coarse crackles auscultated over all lung linn. Cough noted. Pt reports nausea, feelings of anxiety, and pain 7/10 in chest and back with deep breaths. NS running to left forearm IV at 75 ml/hr.
--- NOTE | 2019-09-28 21:38 | NUR ---
Report received from JELANI Urrutia. Pt resting in room at this time.
[2019-09-28 21:58] VITALS: BP 118/65; PULSE 93; TEMP 98.3
[2019-09-29 00:35] VITALS: BP 111/75; PULSE 77; TEMP 97.8
[2019-09-29 04:28] VITALS: BP 102/70; PULSE 75; TEMP 97.8
--- NOTE | 2019-09-29 05:40 | NUR ---
Pt sleeping in bed throughout shift, easily aroused when entering room. Remains on 6 L/min by NC, O2 saturation 97-99% during night. Pt reports shortness of breath with physical exertion. Pt reporting pain 7/10 in chest and back. Reporting anxiety when awake. Remains in airborne isolation due to inconclusive TB quantiferon gold test.
[2019-09-29 08:17] VITALS: BP 114/73; PULSE 103; TEMP 97.3
[2019-09-29 09:08] LABS: HEMATOCRIT 38.8 % (42.0-52.0); HEMOGLOBIN 12.5 g/dl (13.5-18.0); MEAN CELL VOLUME 90 fl (80.0-100.0); MEAN CORPUSCULAR HEMOGLOBIN 29 pg (27.0-31.0); MEAN CORPUSCULAR HGB CONC 32 g/dl (33.0-37.0); MEAN PLATELET VOLUME 8.8 fl (7.4-10.4); PLATELET COUNT 281 K/mm3 (130-400); RED BLOOD COUNT 4.31 M/mm3 (4.20-5.60); REDCELL DISTRIBUTION WIDTH-CV 17.4 % (11.5-14.5)
[2019-09-29 09:27] LABS: CALCIUM 8.9 mg/dL (8.4-10.2); CREATININE, serum 0.97 (0.66-1.25); POTASSIUM 3.4 mmol/L (3.4-5.0)
[2019-09-29 11:15] LABS: ANISOCYTOSIS 2+; BAND 1 % (0-10); LYMPHOCYTE 33 % (20.0-51.0); NEUTROPHILS 62 % (42.0-75.2); PLATELET ESTIMATE NORMAL (NORMAL)
[2019-09-29 12:00] VITALS: BP 118/77; PULSE 112; TEMP 98.2
--- NOTE | 2019-09-29 15:48 | NUR ---
Patient is alert and oriented. complain of back pain, chest pain. continue to receive antibiotic and pain medication. patient mention that he had one episode of diarrhea this shift. awaiting sputum specimen form patient. patient state he is currently not producing any phlegm. Potassium 3.4, replaced with 60mEQ effer k. NS at 75mL/hr, ativan for anxiety. norco and tylenol for pain.
[2019-09-29 18:20] VITALS: BP 112/78; PULSE 102; TEMP 97.9
[2019-09-29 19:36] VITALS: BP 95/64; PULSE 92; TEMP 98
--- NOTE | 2019-09-29 19:48 | NUR ---
Assessment completed. Pt resting in bed. Reports pain 7/10 in chest and back, feelings of anxiety, nausea, and shortness of breath with movement. Currently on 4 L/min O2 by NC. O2 saturation 97%. Lung sounds coarse over allf linn. Pt reports having frequent watery stools. PRN [place] administered for pain, PRN ativan for anxiety, PRN Zofran for nausea per orders. Pt sitting up in bed eating snack before this nurse left room. Will continue to monitor.
--- NOTE | 2019-09-29 19:54 | NUR ---
REPORT RECEIVED FROM JELANI HOLLAND. PT RESTING IN ROOM, REQUESTS MEDICATION FOR PAIN AT THIS TIME.
[2019-09-30 01:20] VITALS: BP 103/62; PULSE 86; TEMP 97.8
[2019-09-30 04:22] VITALS: BP 114/71; PULSE 91; TEMP 97.6
--- NOTE | 2019-09-30 05:17 | NUR ---
Sleeping in bed throughout shift. Requested medication for pain, anxiety, and nausea once at beginning of shift. Has been sleeping or resting in bed without complaint since last administered PRN medications. IV Zosyn administered per orders.
[2019-09-30 06:54] LABS: HEMATOCRIT 38.3 % (42.0-52.0); HEMOGLOBIN 12.4 g/dl (13.5-18.0); MEAN CELL VOLUME 91 fl (80.0-100.0); MEAN CORPUSCULAR HEMOGLOBIN 29 pg (27.0-31.0); MEAN CORPUSCULAR HGB CONC 32 g/dl (33.0-37.0); MEAN PLATELET VOLUME 9.3 fl (7.4-10.4); PLATELET COUNT 321 K/mm3 (130-400); RED BLOOD COUNT 4.23 M/mm3 (4.20-5.60); REDCELL DISTRIBUTION WIDTH-CV 17.6 % (11.5-14.5)
[2019-09-30 07:14] LABS: CREATININE, serum 0.94 (0.66-1.25); POTASSIUM 3.9 mmol/L (3.4-5.0)
[2019-09-30 08:22] VITALS: BP 100/73; PULSE 104; TEMP 98
--- NOTE | 2019-09-30 08:45 | NUR ---
Patient sitting up in bed watching TV. A&Ox4. VSS 2L NC O2, no reported SOB. . IV CDI, fluids infusing. Patient reporting pain in chest and back. Not due for pain medication. No further needs expressed from the patient. Airborne precautions in place. Call light within reach
[2019-09-30 10:20] LABS: BAND 1 % (0-10); EOSINOPHIL 6 % (0-4); LYMPHOCYTE 17 % (20.0-51.0); METAMYELOCYTE 1 % (0-0); NEUTROPHILS 71 % (42.0-75.2)
[2019-09-30 10:21] LABS: ANISOCYTOSIS 1+; HYPOCHROMIA 1+; PLATELET ESTIMATE NORMAL (NORMAL)
[2019-09-30 11:41] VITALS: BP 129/74; PULSE 110; TEMP 97.9
[2019-09-30 12:33] LABS: PROTHROMBIN TIME 10.9 SECONDS (9.7-12.8)
[2019-09-30 15:51] VITALS: BP 138/72; PULSE 110; TEMP 97.9
[2019-09-30 16:15] LABS: TRICYCLIC ANTIDEPRESS URINE NEGATIVE
--- NOTE | 2019-09-30 18:14 | NUR ---
Patient has complaints of nausea and dinner not settling right. Requested nausea medication. Nurse gave zofran, IV and the patient is calling out for more nausea medication after initial dose. A&Ox3. VSS, patient currently on room air and O2 sats 94%. Nurse encouraged patient to take deep breaths to help calm down and help control anxiety. NC at the bedside as needed. Reporting pain in chest and back that is unresolved with pain medication. Doctor aware. No further needs expressed from the patient. Call light within reach. Airborne precautions in place
[2019-09-30 20:35] VITALS: BP 127/68; PULSE 97; TEMP 97.7
--- NOTE | 2019-09-30 20:35 | NUR ---
Assessment complete. Sitting up in bed, watching television, conversant. C/O of indestestion/heartbern. States, "A GI cocktail has worked in the ER". C/O anxiety r/t procedure tomorrow, requests PRN medication, will provide. Denies other needs at this time.
[2019-10-01] VITALS (8 sets, daily range): BP systolic 98–122; BP diastolic 69–76; PULSE 76–111; TEMP 97.4–98
--- NOTE | 2019-10-01 08:00 | NUR ---
Patient sitting up in bed coloring and listening to his audiobook. A&Ox4. VSS 2.5L NC O2, no reported SOB. IV CDI. Reporting pain at 4/10 and states that is his baseline. Patient NPO for procedure. Airborne precautions in place. No further needs expressed from the patient. Call light within reach
[2019-10-01 08:29] LABS: HEMATOCRIT 37.5 % (42.0-52.0); HEMOGLOBIN 12.2 g/dl (13.5-18.0); MEAN CELL VOLUME 88 fl (80.0-100.0); MEAN CORPUSCULAR HEMOGLOBIN 29 pg (27.0-31.0); MEAN CORPUSCULAR HGB CONC 33 g/dl (33.0-37.0); MEAN PLATELET VOLUME 9.5 fl (7.4-10.4); PLATELET COUNT 347 K/mm3 (130-400); RED BLOOD COUNT 4.24 M/mm3 (4.20-5.60); REDCELL DISTRIBUTION WIDTH-CV 17.3 % (11.5-14.5)
[2019-10-01 08:45] LABS: CALCIUM 9.3 mg/dL (8.4-10.2); CREATININE, serum 1.05 (0.66-1.25); POTASSIUM 3.9 mmol/L (3.4-5.0)
[2019-10-01 08:46] LABS: BAND 9 % (0-10); EOSINOPHIL 1 % (0-4); LYMPHOCYTE 11 % (20.0-51.0); METAMYELOCYTE 5 % (0-0); NEUTROPHILS 69 % (42.0-75.2); PLATELET ESTIMATE NORMAL (NORMAL)
--- NOTE | 2019-10-01 10:58 | NUR ---
Patient taken down for procedure. Patient wearing surgical mask and blanket covering. No further needs expressed from the patient
--- NOTE | 2019-10-01 11:50 | NUR ---
Patient back to room 359 from a procedure. Patient is A&Ox3. VSS 1.5L NC O2. Patient is coughing, but no complaints of SOB. Patient wearing a surgical mask in the hallway. VS monitored postop. No further needs expressed from the patient. Airborne precautions in place. Call light within reach
--- NOTE | 2019-10-01 18:37 | NUR ---
Patient had a better day. Had a bronchoscopy and tolerated the procedure well. Reports that he can breathe better and O2 titrated to 1L NC. Pain in chest and back better controlled today and anxiety better managed with scheduled medications. A&Ox3. VSS. IV CDI, coban covering. Airborne precautions in place. No further needs expressed from the patient. Call light within reach
--- NOTE | 2019-10-01 20:35 | NUR ---
Assessment complete.Sitting up on bed.Reports "feeling much better" post bronch. Denies needs at this time.
[2019-10-02 00:45] VITALS: BP 122/79; PULSE 91; TEMP 97.6
[2019-10-02 05:00] VITALS: BP 102/65; PULSE 96; TEMP 98
[2019-10-02 07:39] VITALS: BP 92/63; PULSE 94; PULSE 98; TEMP 97.7
[2019-10-02 08:03] LABS: HEMATOCRIT 37.4 % (42.0-52.0); HEMOGLOBIN 12.2 g/dl (13.5-18.0); MEAN CELL VOLUME 89 fl (80.0-100.0); MEAN CORPUSCULAR HEMOGLOBIN 29 pg (27.0-31.0); MEAN CORPUSCULAR HGB CONC 33 g/dl (33.0-37.0); MEAN PLATELET VOLUME 9.1 fl (7.4-10.4); PLATELET COUNT 362 K/mm3 (130-400); RED BLOOD COUNT 4.21 M/mm3 (4.20-5.60); REDCELL DISTRIBUTION WIDTH-CV 17.2 % (11.5-14.5)
[2019-10-02 08:08] LABS: CALCIUM 9.5 mg/dL (8.4-10.2); CREATININE, serum 1.13 (0.66-1.25); POTASSIUM 3.8 mmol/L (3.4-5.0)
[2019-10-02 08:59] LABS: BAND 9 % (0-10); EOSINOPHIL 3 % (0-4); LYMPHOCYTE 15 % (20.0-51.0); METAMYELOCYTE 2 % (0-0); NEUTROPHILS 67 % (42.0-75.2)
[2019-10-02 09:00] LABS: PLATELET ESTIMATE NORMAL (NORMAL)
--- NOTE | 2019-10-02 11:28 | NUR ---
Pt resting in the chair, complaints of right sided chest pain rated a 7 out of 10. gave tramadol prn per orders. pt reports pain at IV site, slight reddness noted and flushes easily, pain when flushed. IV taken out. no other complaints at this time. will continue to monitor.
[2019-10-02 12:00] VITALS: BP 100/66; PULSE 75; TEMP 98.1
--- NOTE | 2019-10-02 13:31 | NUR ---
SW patient remains in airborne isolation. SW contacted the patient to follow up and review discharge plan. The patient states that he is feeling better and feels good about returning home upon discharge. He had no other questions for SW at this time. SW to continue to follow as needed.
[2019-10-02 16:00] VITALS: BP 106/67; PULSE 76; TEMP 98.5
--- NOTE | 2019-10-02 16:11 | NUR ---
Pt resting in bed, IV site checked no signs of redness or edema. pt reports pain in the chest, no other complaints of pain.
[2019-10-02 20:00] VITALS: BP 114/80; PULSE 94; TEMP 97.9
--- NOTE | 2019-10-02 21:00 | NUR ---
Patient assessed at this time. Alert and oriented x 4, and able to make needs known. Reported level 2 pain to chest. Peripheral INT to left hand flushed. Site without redness, warmth, swelling, and pain. Reports some SOB with exertion, but "much better." Continues to be on room air at this time. LS faint expiratory wheezes in upper lobes, diminished in lower. HRR. Capillary refill less than 3 seconds. Non-tenting skin turgor. BSAx4. Abdomen soft and non-tender. No edema. Voices no questions, needs, or concerns at this time. Continues on airborne precautions to rule out TB.
[2019-10-03] VITALS (7 sets, daily range): BP systolic 94–117; BP diastolic 60–80; PULSE 85–104; TEMP 97.7–98.4
--- NOTE | 2019-10-03 05:38 | NUR ---
Patient has voices no questions, needs, or concerns this shift. Received PRN [place] once this shift. Resting in bed with call light within reach.
[2019-10-03 07:20] LABS: HEMOGLOBIN 11.8 g/dl (13.5-18.0); MEAN CELL VOLUME 89 fl (80.0-100.0); MEAN CORPUSCULAR HEMOGLOBIN 29 pg (27.0-31.0); MEAN CORPUSCULAR HGB CONC 32 g/dl (33.0-37.0); PLATELET COUNT 341 K/mm3 (130-400); RED BLOOD COUNT 4.09 M/mm3 (4.20-5.60); REDCELL DISTRIBUTION WIDTH-CV 17.3 % (11.5-14.5)
[2019-10-03 07:36] LABS: HEMATOCRIT 36.5 % (42.0-52.0)
--- NOTE | 2019-10-03 07:57 | NUR ---
CALLED CRITICAL LAB VAL[facility] TO MIKE/TOMAS IGLESIAS
--- NOTE | 2019-10-03 09:20 | NUR ---
PT IN ROOM, WONDERING WHEN TEST RESULTS WILL BE READ, ICE BROUGHT IN PER PT REQUEST, VITALS TAKEN, MEDS GIVEN, ASSESSMENT PERFORMED. PT GOT TACHYPNIC TALKING ABOUT BEING LONELY AND ISOLATED IN ROOM, PT BREATHING RETURNED TO NORMAL AFTERWARDS. PT DISCONNECTED FROM ZOSYN. REPORTS NOT HAVING BM IN 3-4 DAYS, WILL LOOK FOR ANY MEDICATIONS FOR CONSTIPATION. PT REPORTS ABD PAIN 07/24. NO OTHER NEEDS AT THIS TIME.
[2019-10-03 10:17] LABS: BAND 15 % (0-10); LYMPHOCYTE 16 % (20.0-51.0); METAMYELOCYTE 3 % (0-0); NEUTROPHILS 64 % (42.0-75.2); PLATELET ESTIMATE NORMAL (NORMAL)
--- NOTE | 2019-10-03 16:24 | NUR ---
DANIEL was asked to inquire if the patient could transfer to the [facility]. DANIEL contacted Idania Transfer RN, at the [facility]. Idania reports that the [facility] is full right now and no beds are available. She states that an ambulance ride to [place] would not be covered. DANIEL contacted Jeni Transfer RN, at the [place], [place]. Jeni reports that the patient has been at our hospital for awhile and would need to know why a transfer is being recommended. She states that it looks like the patient is close to discharging and that a rn charge could help with any services the patient may need after discharge.
--- NOTE | 2019-10-03 18:15 | NUR ---
PT PLEASANT, AOX4, REPORTS INC ANXIETY, HARRIS MCKEON ALERTED. PSYCH SAW PT TODAY FOR PT C/O OF INC ANXIETY. PT OUT OF ISOLATION. COMPLAINING OF PAIN, PRN MEDICATION ADMINISTERED WHEN AVAILABLE. PT MOOD IMPROVED ONCE HE MOVED ROOMS. STILL ON RA. NO OTHER NEEDS AT THIS TIME.
--- NOTE | 2019-10-03 21:00 | NUR ---
Patient assessed at this time. Alert and oriented x 4, and able to make needs known. Reported pain to chest r/t cough. Given PRN Ultram as requested. Peripheral INT to left hand flushed. Site is without redness, warmth, swelling, and pain. Reports SOB with exertion. LS CTA in upper lobes, diminished in lower lobes. Respirations even and unlabored at this time. Dry cough, no sputum production. HRR. Telemetry in place. Capillary refill less than 3 seconds. Non-tenting skin turgor. BSAx4. Abdomen soft and non-tender. No edema. Voices no questions, needs, or concerns at this time. Patient did refuse scheduled Miralax and Senokot, stating that he had a large BM earlier today, and a medium BM this afternoon. Given PRN Melatonin as requested to help sleep as well. Resting in bed with call light within reach.
[2019-10-04 03:21] VITALS: BP 97/67; PULSE 86; TEMP 97.9
--- NOTE | 2019-10-04 06:14 | NUR ---
Patient's IV to left hand infiltrated. New IV started to right forearm. Complained of discomfort and given PRN Ultram. Reports some SOB with exertion. Continues to drink decafe coffee throughout the night. Voices no questions, needs, or concerns at this time. In bed with call light within reach.
--- NOTE | 2019-10-04 07:45 | NUR ---
PT PLEASANT, AOX4, PT REPORTS FEELING WEAK. EDUCATED PT TO NOT GET UP WITHOUT ASSISTANCE, BED ALARM SET. VITALS REVIEWED, MEDICATIONS GIVEN, ASSESSMENT PERFORMED, EXPIRATORY WHEEZES NOTED PT REPORTS WANTING CENTRAL LINE. PT REPORTS PAIN 6/10 IN ABD. NO OTHER NEEDS AT THIS TIME.
[2019-10-04 07:46] VITALS: BP 121/61; PULSE 88; TEMP 98.2
--- NOTE | 2019-10-04 09:17 | NUR ---
PT SLEEPING COMFORTABLY IN ROOM.
[2019-10-04 10:50] LABS: HEMOGLOBIN 11.5 g/dl (13.5-18.0); MEAN CELL VOLUME 91 fl (80.0-100.0); MEAN CORPUSCULAR HEMOGLOBIN 29 pg (27.0-31.0); MEAN CORPUSCULAR HGB CONC 32 g/dl (33.0-37.0); MEAN PLATELET VOLUME 9.6 fl (7.4-10.4); PLATELET COUNT 384 K/mm3 (130-400); REDCELL DISTRIBUTION WIDTH-CV 17.6 % (11.5-14.5)
[2019-10-04 10:52] LABS: HEMATOCRIT 36.3 % (42.0-52.0)
--- NOTE | 2019-10-04 10:54 | NUR ---
CRITICAL WBC REPORTED TO MIKE IGLESIAS.
[2019-10-04 10:55] LABS: CALCIUM 9.5 mg/dL (8.4-10.2); CREATININE, serum 1.05 (0.66-1.25); POTASSIUM 4.2 mmol/L (3.4-5.0)
--- NOTE | 2019-10-04 11:25 | NUR ---
PT REPORTS FEELING SOB, PT REPORTS IT BEING DUE TO ANXIETY. HARRIS MCKEON MADE AWARE, WILL BE SEEING PT.
[2019-10-04 11:27] LABS: BAND 9 % (0-10); EOSINOPHIL 1 % (0-4); LYMPHOCYTE 21 % (20.0-51.0); METAMYELOCYTE 3 % (0-0); MYELOCYTE 1 % (0-0); NEUTROPHILS 60 % (42.0-75.2); PLATELET ESTIMATE NORMAL (NORMAL)
[2019-10-04 12:31] VITALS: BP 112/76; PULSE 91; TEMP 97.6
--- NOTE | 2019-10-04 13:00 | NUR ---
The patient's RN notified DANIEL that the patient had some questions for SW. DANIEL met with the patient and the patient's life partner, Mini, to address questions and review d/c plan. The patient reports that [facility] and he wanted to know if this was still recommended. DANIEL updated the patient and Mini on how the [facility] was full. DANIEL informed the patient's PA of the patient's questions. SW to continue to follow.
--- NOTE | 2019-10-04 15:18 | NUR ---
PT REPORTS INABILITY TO USE NICORETTE GUM DUE TO NOT HAVING TEETH.
[2019-10-04 15:52] VITALS: BP 127/74; PULSE 92; TEMP 98.1
--- NOTE | 2019-10-04 17:07 | NUR ---
PT PLEASANT, AOX4, VERY ANXIOUS ABOUT CARE AND POSSIBLE TRANSFER, PT HAS BEEN ANXIOUS ALL DAY NOT RELIEVED BY X1 DOSE OF ATIVAN. PT RECIEVING PRN PAIN MEDICATION AND REPORTS NO RELIEF, PAIN STAYS AT 7/10. PT GIRLFRIEND VISITED DURING THE DAY. PT WANTED NICORETTE [place]ES, HOSPITAL ONLY HAS NICORETTE GUM SO PT IS LETTING IT DISSOLVE IN MOUTH DUE TO LACK OF TEETH. NO OTHER NEEDS AT THIS TIME.
[2019-10-04 18:56] VITALS: BP 102/79; PULSE 91; TEMP 98.4
--- NOTE | 2019-10-04 20:15 | NUR ---
Patient assessed at this time. Alert and oriented x 4, and able to make needs known. Reported pain to chest area, and given PRN Ultram as requested. Peripheral INT to right forearm flushed. Site is without redness, warmth, swelling, and pain. IV antibiotics started per orders. Denies having SOB and dyspnea at rest, but continues with exertion. Dry cough, no sputum production. Respirations even and unlabored. Remains on room air. LS CTA. HRR. Telemetry: normal sinus. Capillary refill less than 3 seconds. Non-tenting skin turgor. BSAx4. Abdomen soft and non-tender. No edema. Voices no questions, needs, or concerns at this time. Resting in bed with call light within reach. Given PRN Melatonin. Continues to request coffee during the night. Given decafe coffee as requested.
[2019-10-04 23:23] VITALS: BP 129/74; PULSE 89; TEMP 97.7
--- NOTE | 2019-10-05 00:20 | NUR ---
Patient given GI [place] for heartburn as requested. Voices no further questions, needs, or concerns at this time. Resting in bed with call light within reach.
[2019-10-05 03:13] VITALS: BP 101/59; PULSE 66; TEMP 98.1
--- NOTE | 2019-10-05 05:19 | NUR ---
Patient given PRN Ultram as requested around 0500 for pain to right chest area. Stated that he feels like it is moving up and getting better. Patient was able to get a few hours of sleep this shift. Did not want to be woken up for scheduled nebulizer treatment around 0200. RT aware. Called RT and notified them around 0500 of patient wanting PRN nebulizer treatment. Continues to have occasional dry cough, no sputum. Voices no questions, needs, or concerns at this time. Stated that the GI [place] helped last night. In bed with call light within reach. Sitting up on phone at this time.
[2019-10-05 07:10] LABS: HEMOGLOBIN 11.3 g/dl (13.5-18.0); MEAN CELL VOLUME 90 fl (80.0-100.0); MEAN CORPUSCULAR HEMOGLOBIN 29 pg (27.0-31.0); MEAN CORPUSCULAR HGB CONC 32 g/dl (33.0-37.0); MEAN PLATELET VOLUME 9.1 fl (7.4-10.4); PLATELET COUNT 365 K/mm3 (130-400); RED BLOOD COUNT 3.91 M/mm3 (4.20-5.60); REDCELL DISTRIBUTION WIDTH-CV 17.7 % (11.5-14.5)
[2019-10-05 07:12] LABS: HEMATOCRIT 35.3 % (42.0-52.0)
[2019-10-05 07:33] LABS: BAND 2 % (0-10); EOSINOPHIL 2 % (0-4); LYMPHOCYTE 28 % (20.0-51.0); METAMYELOCYTE 3 % (0-0); NEUTROPHILS 58 % (42.0-75.2)
[2019-10-05 07:34] LABS: PLATELET ESTIMATE NORMAL (NORMAL)
[2019-10-05 07:35] LABS: CALCIUM 9.2 mg/dL (8.4-10.2); CREATININE, serum 1.19 (0.66-1.25); POTASSIUM 3.9 mmol/L (3.4-5.0)
[2019-10-05 07:40] VITALS: BP 104/63; PULSE 97; TEMP 98.5
--- NOTE | 2019-10-05 10:31 | NUR ---
Patient is alert and oriented. complain of right chest pain that has been ongoing for awhile now. multiple bruise on his hands and abdomen. signifcant other visiting at bedside.
[2019-10-05] MEDS ORDERED: TYLENOL 325MG325 MG PO (10:36)
[2019-10-05] MEDS ORDERED: MELATIN 3 MG-11 TAB PO (10:38)
[2019-10-05] MEDS ORDERED: PROZAC60 MG PO (10:44)
[2019-10-05] MEDS ORDERED: MUCUS RELIEF400 M1 PO (10:44)
[2019-10-05] MEDS ORDERED: PROAIR HFA0.09 MG/AC IH (10:44)
[2019-10-05] MEDS ORDERED: IMDUR 30MG30 MG/TAB PO (10:44)
[2019-10-05] MEDS ORDERED: ATARAX 25MG25 MG/TAB PO (10:44)
[2019-10-05] MEDS ORDERED: ULTRAM 50MG TAB50 MG PO (10:44)
[2019-10-05] MEDS ORDERED: SEROQUEL 1100 MG/TAB PO (10:44)
[2019-10-05] MEDS ORDERED: DOXYCYCLINE 10100 MG PO (10:44)
[2019-10-05] MEDS ORDERED: AMOXICILLIN 8751 TAB PO (10:44)
[2019-10-05] MEDS ORDERED: PREDNISONE20 MG PO (10:44)
--- NOTE | 2019-10-05 11:37 | NUR ---
Patient discharged with Vibramycin 100mg, Imdur 30mg, Ultra 50mg, Prozac 60mg,Seroquel 100mg, Atarax 25mg, Mucus Relief 400mg, Prednisone 20mg, Augmentin 875mg/125mg, ProAIR 90MCG new medication. Informed patient of future appointment with event decorator and designer, foil spooler, infection disease specialist.
--- NOTE | 2019-10-05 12:14 | NUR ---
Patient discharged home with significant other. INT discontinued.
== END 2019-10-05 12:16 | disposition home or self-care (01) | DRG 871 ==
LOC: COL.ER 20:56 → MEDICAL 22:17
PROVIDERS: Emergency Medicine; Hospitalist; Internal Medicine; Internal Medicine Pulmonary Disease; Physician Assistant; Student in an Organized Health Care Education/Training Program; ADMIT Family Medicine
PROC: 0BC88ZZ Extirpation of Matter from Left Upper Lobe Bronchus, Via Natural or Artificial Opening Endoscopic (ICD-10-PCS; 2019-10-01)
PROC: 0BC38ZZ Extirpation of Matter from Right Main Bronchus, Via Natural or Artificial Opening Endoscopic (ICD-10-PCS; principal; 2019-10-01 10:00)
DX: A41.9 Sepsis, unspecified organism (principal); J96.01 Acute respiratory failure with hypoxia; J18.9 Pneumonia, unspecified organism; N17.9 Acute kidney failure, unspecified; E44.0 Moderate protein-calorie malnutrition; J44.1 Chronic obstructive pulmonary disease with (acute) exacerbation; J44.0 Chronic obstructive pulmonary disease with (acute) lower respiratory infection; K21.9 Gastro-esophageal reflux disease without esophagitis; F32.9 Major depressive disorder, single episode, unspecified; F41.9 Anxiety disorder, unspecified; I25.10 Atherosclerotic heart disease of native coronary artery without angina pectoris; F19.10 Other psychoactive substance abuse, uncomplicated; F10.10 Alcohol abuse, uncomplicated; I45.6 Pre-excitation syndrome; R07.89 Other chest pain; G47.00 Insomnia, unspecified; J84.10 Pulmonary fibrosis, unspecified; G89.29 Other chronic pain; Z20.828 Contact with and (suspected) exposure to other viral communicable diseases; K59.00 Constipation, unspecified; Z87.891 Personal history of nicotine dependence
CPT/HCPCS: 99223-AI; 99231-AI; 99232-AI; 99233-AI; 99239; J0456; J1644; J2060; J2270; J2405; J2543; J2704; J2920; J2930; J7030; J7050; J7512; Q9967

== ENCOUNTER 2019-10-06 20:25 | Emergency (ER) | payer OTHER ==
[~2019-10-06] VITALS: Ht 180.3 cm; Wt 65.9 kg
[~2019-10-06 20:25] MED LIST changes: +AMOXICILLIN 8751 TAB PO; +CAMPRAL333 M1; +MELATIN 3 MG-11 TAB PO; +MUCUS RELIEF400 M1 PO; +NICORETTE GUM2 MG BC; +PROZAC60 MG PO; +REMERON30 MG PO; +SEROQUEL 1100 MG/TAB PO; +ULTRAM 50MG TAB50 MG PO
[2019-10-06 20:31] VITALS: TEMP 97.3
[2019-10-06 21:11] LABS: HEMOGLOBIN 12.2 g/dl (13.5-18.0); MEAN CELL VOLUME 88 fl (80.0-100.0); MEAN CORPUSCULAR HEMOGLOBIN 29 pg (27.0-31.0); MEAN CORPUSCULAR HGB CONC 33 g/dl (33.0-37.0); MEAN PLATELET VOLUME 8.6 fl (7.4-10.4); PLATELET COUNT 419 K/mm3 (130-400); REDCELL DISTRIBUTION WIDTH-CV 17.3 % (11.5-14.5)
[2019-10-06 21:21] LABS: CALCIUM 9.6 mg/dL (8.4-10.2); CREATININE, serum 1.06 (0.66-1.25); POTASSIUM 3.7 mmol/L (3.4-5.0)
[2019-10-06 21:33] LABS: ANISOCYTOSIS 2+; LYMPHOCYTE 11 % (20.0-51.0); MYELOCYTE 4 % (0-0); NEUTROPHILS 83 % (42.0-75.2); PLATELET ESTIMATE INCREASED (NORMAL)
[2019-10-06 22:15] VITALS: BP 127/92; PULSE 97
== END 2019-10-06 22:19 | disposition home or self-care (01) ==
LOC: COL.ER 20:25
PROVIDERS: Nurse Practitioner Primary Care
DX: R51 Headache (principal); I25.10 Atherosclerotic heart disease of native coronary artery without angina pectoris; I50.9 Heart failure, unspecified; I25.2 Old myocardial infarction; J44.9 Chronic obstructive pulmonary disease, unspecified; F32.9 Major depressive disorder, single episode, unspecified; F41.9 Anxiety disorder, unspecified; F43.12 Post-traumatic stress disorder, chronic; Z95.818 Presence of other cardiac implants and grafts; Z95.5 Presence of coronary angioplasty implant and graft; Z79.82 Long term (current) use of aspirin; Z79.52 Long term (current) use of systemic steroids; Z79.51 Long term (current) use of inhaled steroids; Z87.891 Personal history of nicotine dependence
CPT/HCPCS: J1200; J1885

== ENCOUNTER 2019-10-07 18:26 | Emergency (ER) | payer OTHER ==
[~2019-10-07] VITALS: Ht 180.3 cm; Wt 65.9 kg
[2019-10-07 18:30] VITALS: TEMP 98.7
[2019-10-07 18:44] LABS: HEMOGLOBIN 11.7 g/dl (13.5-18.0); MEAN CELL VOLUME 89 fl (80.0-100.0); MEAN CORPUSCULAR HEMOGLOBIN 29 pg (27.0-31.0); MEAN CORPUSCULAR HGB CONC 32 g/dl (33.0-37.0); MEAN PLATELET VOLUME 8.6 fl (7.4-10.4); PLATELET COUNT 389 K/mm3 (130-400); RED BLOOD COUNT 4.07 M/mm3 (4.20-5.60); REDCELL DISTRIBUTION WIDTH-CV 17.2 % (11.5-14.5)
[2019-10-07 18:48] LABS: HEMATOCRIT 36.1 % (42.0-52.0)
[2019-10-07 18:52] LABS: ALANINE AMINOTRANSFERASE 24 U/L (4-49); ALBUMIN 3.8 gm/dL (3.5-5.0); ALKALINE PHOSPHATASE 49 U/L (50-136); ANION GAP 10 mmol/L (7-16); AST,SGOT 21 U/L (15-37); BILIRUBIN,TOTAL 0.4 mg/dL (0.0-1.0); BLOOD UREA NITROGEN 18 mg/dL (9-20); CALCIUM 9.3 mg/dL (8.4-10.2); CARBON DIOXIDE 25 mmol/L (22-30); CHLORIDE 101 mmol/L (98-107); CREATININE, serum 1.15 (0.66-1.25); GLUCOSE 125 mg/dL (74-106); POTASSIUM 4.2 mmol/L (3.4-5.0); SODIUM 136 mmol/L (137-145); TOTAL PROTEIN 7.2 gm/dL (6.4-8.2)
[2019-10-07 19:03] LABS: ANISOCYTOSIS 3+; BAND 2 % (0-10); LYMPHOCYTE 14 % (20.0-51.0); MYELOCYTE 2 % (0-0); NEUTROPHILS 81 % (42.0-75.2); PLATELET ESTIMATE NORMAL (NORMAL)
[2019-10-07 19:04] LABS: TROPONIN-I < 0.012 ng/mL (0.000-0.035)
[2019-10-07 22:29] VITALS: BP 113/77; PULSE 72
== END 2019-10-07 22:29 | disposition home or self-care (01) ==
LOC: COL.ER 18:26
PROVIDERS: Family Medicine
DX: R07.89 Other chest pain (principal); J44.9 Chronic obstructive pulmonary disease, unspecified; F17.210 Nicotine dependence, cigarettes, uncomplicated; Z79.52 Long term (current) use of systemic steroids; Z79.82 Long term (current) use of aspirin; Z79.51 Long term (current) use of inhaled steroids
CPT/HCPCS: J1790; J2405; J3010; J7030

== ENCOUNTER 2019-10-11 09:50 | Outpatient (CLI) | payer OTHER ==
[~2019-10-11] VITALS: Ht 180.3 cm; Wt 67.2 kg
[2019-10-11 11:02] VITALS: BP 115/88; PULSE 122; TEMP 98.9
[2019-10-11 11:17] LABS: HEMATOCRIT 39.6 % (42.0-52.0); MEAN CELL VOLUME 87 fl (80.0-100.0); MEAN CORPUSCULAR HEMOGLOBIN 29 pg (27.0-31.0); MEAN CORPUSCULAR HGB CONC 33 g/dl (33.0-37.0); MEAN PLATELET VOLUME 8.5 fl (7.4-10.4); PLATELET COUNT 403 K/mm3 (130-400); RED BLOOD COUNT 4.53 M/mm3 (4.20-5.60); REDCELL DISTRIBUTION WIDTH-CV 17.1 % (11.5-14.5)
[2019-10-11 12:26] VITALS: BP 104/70; PULSE 115; TEMP 98.2
--- NOTE | 2019-10-11 13:32 | NUR ---
Pt states he feels no better after IVF and zofran doses. C/o continued overall "sick feeling" with nausea, body aches, occasional chills. Dr. Álvarez's office contacted to update them on pt's status. They will attemt to contact hospitalist to discuss direct admission. Pt resting calmly in bed with call light in reach.
[2019-10-11 13:58] LABS: BAND 7 % (0-10); EOSINOPHIL 2 % (0-4); LYMPHOCYTE 13 % (20.0-51.0); METAMYELOCYTE 2 % (0-0); NEUTROPHILS 72 % (42.0-75.2); PLATELET ESTIMATE NORMAL (NORMAL)
--- NOTE | 2019-10-11 14:00 | NUR ---
Pt taken by wheelchair to ED with personal belongings, for further cares per instruction of Glendy Macias APRN at ID[facility]Wound Care office after pt reports little to no improvement in symtoms. Continues to c/o nausea, chills and "filling super ill." Bedside report given to JELANI Reis and Dr. Rhoades.
[2019-10-11] MEDS ORDERED: MELATIN 3 MG-11 TAB PO (22:31)
== END 2019-10-11 14:00 | disposition still patient (30) ==
LOC: EUO 09:50
PROVIDERS: Internal Medicine Infectious Disease
DX: J18.9 Pneumonia, unspecified organism (principal); J84.10 Pulmonary fibrosis, unspecified; E86.0 Dehydration
CPT/HCPCS: J2405; J7030

== ENCOUNTER 2019-10-11 14:05 | Inpatient (IN) | payer OTHER ==
[~2019-10-11] VITALS: Ht 180.3 cm; Wt 66.7 kg
[2019-10-11 15:32] LABS: ALBUMIN 3.5 gm/dL (3.5-5.0); BILIRUBIN,TOTAL 0.6 mg/dL (0.0-1.0); CREATININE, serum 1.37 (0.66-1.25); TOTAL PROTEIN 6.4 gm/dL (6.4-8.2)
[2019-10-11 21:08] LABS: COLLECTION METHOD CLEAN CATCH
[2019-10-11 21:20] VITALS: BP 99/63; PULSE 88; TEMP 98.4
[2019-10-11 21:20] LABS: PH 6 (5-8); SQUAMOUS EPITHELIAL None Seen /hpf; URINE APPEARANCE Clear; URINE BACTERIA None Seen /hpf; URINE BILIRUBIN Negative (NEGATIVE); URINE BLOOD Negative (NEGATIVE); URINE COLOR Straw; URINE GLUCOSE Negative (NEGATIVE); URINE KETONE Negative (NEGATIVE); URINE LEUKOCYTE ESTERASE Negative (NEGATIVE); URINE NITRATE Negative (NEGATIVE); URINE PROTEIN(semi-quant) Negative (NEGATIVE); URINE RBC 0-2 /hpf; URINE UROBILINOGEN Negative (NEGATIVE)
[2019-10-11 21:34] LABS: TRICYCLIC ANTIDEPRESS URINE NEGATIVE
[2019-10-11] MEDS ORDERED: MELATIN 3 MG-11 TAB PO (22:31)
[2019-10-11 23:29] VITALS: BP 103/68; PULSE 98; TEMP 97.9
[2019-10-12] VITALS (8 sets, daily range): BP systolic 110–133; BP diastolic 61–81; PULSE 85–115; TEMP 97.8–99.4
--- NOTE | 2019-10-12 00:30 | NUR ---
Pt arrived to unit from ER, denies headache or chest pain. reports shortness of breath and cough. lung sounds have exp. wheezes bilaterally. pt reports night sweats and diarrhea. no other needs at this time, will continue to monitor.
--- NOTE | 2019-10-12 05:23 | NUR ---
Patient has denied having pain and discomfort except for some mild heart burn. Given milk and it was effective. Denies SOB. On room air. Resting in bed with call light within reach.
[2019-10-12 07:57] LABS: HEMATOCRIT 39.5 % (42.0-52.0); HEMOGLOBIN 12.8 g/dl (13.5-18.0); MEAN CELL VOLUME 89 fl (80.0-100.0); MEAN CORPUSCULAR HEMOGLOBIN 29 pg (27.0-31.0); MEAN CORPUSCULAR HGB CONC 32 g/dl (33.0-37.0); MEAN PLATELET VOLUME 8.8 fl (7.4-10.4); PLATELET COUNT 417 K/mm3 (130-400); RED BLOOD COUNT 4.44 M/mm3 (4.20-5.60)
[2019-10-12 07:58] LABS: ALBUMIN 3.8 gm/dL (3.5-5.0); BILIRUBIN,TOTAL 0.5 mg/dL (0.0-1.0); CALCIUM 9.6 mg/dL (8.4-10.2); CREATININE, serum 1.32 (0.66-1.25); POTASSIUM 4.3 mmol/L (3.4-5.0); TOTAL PROTEIN 6.9 gm/dL (6.4-8.2)
--- NOTE | 2019-10-12 08:00 | NUR ---
TELEMETRY CALLED NOTIFYING THIS NURSE OF IRREGULAR RHYTHM. THIS NURSE CHECKED ON PATIENT. PATIENT DESCRIBES PLEURITIC CHEST PAIN IN THE RIGHT SIDE OF HIS CHEST OTHERWISE PATIENT STATES THAT HE FEELS OKAY. HARRIS TIMMONS CALLED AND NOTIFIED. LABS AND EKG ORDERED.HUNTER WITH RT NOTIFIED OF EKG ORDER. PATIENT CURRENTLY RESTING IN BED. WILL GIVE AM MEDICATIONS AT THIS TIME. LAB IN ROOM DRAWING BLOOD.
[2019-10-12 08:47] LABS: BAND 6 % (0-10); EOSINOPHIL 3 % (0-4); LYMPHOCYTE 12 % (20.0-51.0); METAMYELOCYTE 1 % (0-0); NEUTROPHILS 72 % (42.0-75.2); PLATELET ESTIMATE NORMAL (NORMAL)
--- NOTE | 2019-10-12 09:01 | NUR ---
CALLED AND NOTIFIED OF PULMONOLOGY CONSULT. NO ORDERS GIVEN AT THIS TIME.
--- NOTE | 2019-10-12 14:44 | NUR ---
First visit from the mail carrier and clerk. No needs right now.
--- NOTE | 2019-10-12 18:43 | NUR ---
PATIENT PROVIDED WITH DETOX MEDICATIONS PER PROTOCOL DURING MY SHIFT. PATIENT GIVEN PRN PAIN MEDICATION NEEDED THROUGHOUT THE DAY. PATIENT CURRENTLY RESTING IN ROOM. PATIENT IS INDEPENDENT WITHIN THE ROOM. PATIENT DENIES ANY NEEDS AT THIS TIME. WILL REPORT OFF TO NIGHT NURSE.
--- NOTE | 2019-10-12 20:30 | NUR ---
Initial shift assessment done- denies pain at this time, will get some Ativan based on detox score, did have some stool-small hard formed, Tele on, IV of NS at 125cc/hr- watching some TV, requesting Sprite.
[2019-10-13] VITALS (11 sets, daily range): BP systolic 91–118; BP diastolic 46–75; PULSE 83–107; TEMP 97.6–98.5
--- NOTE | 2019-10-13 07:00 | NUR ---
Did get Ativan x2 this shift, Ultram every 6 hours for pain-- Zofran once for nausea. Did not sleep much-Tele on
--- NOTE | 2019-10-13 08:15 | NUR ---
Patient sitting up in bed getting a breathing treatment, RT at the bedside. Patient A&Ox3. VSS. IV CDI, fluids infusing. Patient requesting a PICC line, nurse informed the patient that he did not need one and that he wasnt going to get one. HARRIS Gonzalez aware. Contact precautions in place. Detox protocol in place. Visual tremors noted in hands. No further needs expressed from the patient. Call light within reach
[2019-10-13 12:28] LABS: CALCIUM 8.7 mg/dL (8.4-10.2); CREATININE, serum 1.07 (0.66-1.25); MEAN CELL VOLUME 89 fl (80.0-100.0); MEAN CORPUSCULAR HGB CONC 33 g/dl (33.0-37.0); MEAN PLATELET VOLUME 8.7 fl (7.4-10.4); PLATELET COUNT 331 K/mm3 (130-400); POTASSIUM 3.4 mmol/L (3.4-5.0); RED BLOOD COUNT 3.68 M/mm3 (4.20-5.60); REDCELL DISTRIBUTION WIDTH-CV 16.2 % (11.5-14.5)
[2019-10-13 12:35] LABS: HEMATOCRIT 32.8 % (42.0-52.0); MEAN CORPUSCULAR HEMOGLOBIN 29 pg (27.0-31.0)
[2019-10-13 12:38] LABS: HEMOGLOBIN 10.7 g/dl (13.5-18.0)
[2019-10-13 14:30] LABS: EOSINOPHIL 1 % (0-4); LYMPHOCYTE 8 % (20.0-51.0); NEUTROPHILS 89 % (42.0-75.2)
[2019-10-13 14:33] LABS: ANISOCYTOSIS 1+; HYPOCHROMIA 1+; PLATELET ESTIMATE NORMAL (NORMAL)
--- NOTE | 2019-10-13 17:38 | NUR ---
Patient has requested several times for a PICC line. Nurse informed patient that the doctor did not order a PICC line to be plced. Patient states that he is "tired" of getting poked by lab. Patient A&Ox3. VSS. IV CDI, fluids infusing. Visual tremors noted in arms Scheduled atarax PO tolerated by patient and patient states he thinks it is helping his anxiety. No reports of chest pain, SOB and no loose stools. Contact precautions in place. No further needs expressed from the patient. Call light within reach
--- NOTE | 2019-10-13 20:02 | NUR ---
Initial shift assessment done- states pleurisy type pain 08/23, will give pain meds when due-- up in the [place], getting coffee, drinking lots of coffee--encouraged to maybe slow down on coffe so he can get some sleep tonight. Understands need urine and stool specimen-- pt states he been having liquid stool bit no staff has seen this- will get a specimen tonight if possible-- VSS,
[2019-10-14] VITALS (8 sets, daily range): BP systolic 95–120; BP diastolic 50–82; PULSE 76–100; TEMP 97.8–98.9
--- NOTE | 2019-10-14 06:00 | NUR ---
Did sleep more than the previous night- when questioned about no stool specimen during the night- pt states "I guess im blocked up now"-- had told nurse he had liquid stools all day yesterday ,, also did not give a urine specimen after requesting one at start of shift. Continues to drink coffee-- also noted that patient seems to exaggerate hand/arms tremors when doing detox protocol-- did not give any ativan during the night- did get Atarax at start of shift, also was given tramadol twice during this shift for "lung" pain.
[2019-10-14 07:11] LABS: BASO % 0.2 % (0.0-2.0); EOS # 0.3 (0.0-0.7); EOS % 2.7 % (0-4.0); GRAN # 8.2 (1.4-6.5); HEMOGLOBIN 11.2 g/dl (13.5-18.0); LYMPH # 2.7 (1.2-3.4); LYMPH % 22.3 % (20.0-51.0); MEAN CELL VOLUME 89 fl (80.0-100.0); MEAN CORPUSCULAR HEMOGLOBIN 29 pg (27.0-31.0); MEAN CORPUSCULAR HGB CONC 32 g/dl (33.0-37.0); MEAN PLATELET VOLUME 8.4 fl (7.4-10.4); MONO # 0.8 (0.1-0.6); MONO % 6.3 % (1.7-9.3); PLATELET COUNT 328 K/mm3 (130-400); RED BLOOD COUNT 3.91 M/mm3 (4.20-5.60); REDCELL DISTRIBUTION WIDTH-CV 16.2 % (11.5-14.5)
[2019-10-14 07:26] LABS: HEMATOCRIT 34.7 % (42.0-52.0)
[2019-10-14 07:28] LABS: CALCIUM 9.1 mg/dL (8.4-10.2); CREATININE, serum 1.08 (0.66-1.25)
[2019-10-14 08:12] LABS: POTASSIUM 4.1 mmol/L (3.4-5.0)
--- NOTE | 2019-10-14 08:28 | NUR ---
PATIENT ASSESSMENT COMPLETED. HE IS AWAKE IN BED PLAYING ON IPAD. COMPLAINS OF CHEST PAIN NOT TIME FOR PAIN MEDICATION AT THIS TIME. NO OTHER CONCERNS AT THIS TIME.
--- NOTE | 2019-10-14 12:32 | NUR ---
DR. SANCHEZ DISCONTINUED DETOX PROTOCOL THIS WAS DCD. IVF ARE ALSO DISCONTINUED PER ORDERS
--- NOTE | 2019-10-14 16:13 | NUR ---
PATIENT COMPLAINED TO MOLDER APPRENTICE OF INDIGESTION BUT I WENT TO TALK WITH THE PATIENT AND HE WAS SOUNDLY SLEEPING IN BED. NO DISTRESS NOTED
--- NOTE | 2019-10-14 19:50 | NUR ---
Resting in bed with at bedside. Assessment complete. Lungs clear. Heart sounds normal. Bowels active x4. Pulses present throughout. No edema noted. INT right hand flushed without complications. Denies pain. Denies needs. Call light in reach. Will monitor.
--- NOTE | 2019-10-14 23:45 | NUR ---
Resting in bed. Denies needs. Call light in reach.
[2019-10-15] VITALS (9 sets, daily range): BP systolic 99–123; BP diastolic 63–81; PULSE 71–92; TEMP 97.6–98.4
--- NOTE | 2019-10-15 04:15 | NUR ---
Resting in bed. Denies needs. Call light in reach.
--- NOTE | 2019-10-15 06:06 | NUR ---
Patient had uneventful night. Required x1 dose of tramadol for pain control. Would like another dose with shift change this AM. Resting in bed. Denied other needs. Call light in reach.
[2019-10-15 06:19] LABS: HEMATOCRIT 38.5 % (42.0-52.0); HEMOGLOBIN 12.3 g/dl (13.5-18.0); MEAN CELL VOLUME 90 fl (80.0-100.0); MEAN CORPUSCULAR HEMOGLOBIN 29 pg (27.0-31.0); MEAN CORPUSCULAR HGB CONC 32 g/dl (33.0-37.0); MEAN PLATELET VOLUME 8.8 fl (7.4-10.4); PLATELET COUNT 372 K/mm3 (130-400); REDCELL DISTRIBUTION WIDTH-CV 16.6 % (11.5-14.5)
--- NOTE | 2019-10-15 07:14 | NUR ---
Report given to JELANI Becker
[2019-10-15 09:17] LABS: BAND 1 % (0-10); EOSINOPHIL 2 % (0-4); LYMPHOCYTE 40 % (20.0-51.0); METAMYELOCYTE 1 % (0-0); NEUTROPHILS 52 % (42.0-75.2); PLATELET ESTIMATE NORMAL (NORMAL)
--- NOTE | 2019-10-15 13:51 | NUR ---
Roadmaster met with the patient to complete initial intake. The patient lives in [place] with her life partner, Mini and his son, Camilo Birch. The patient denies DME use and is indepenent with ADLs. The patient receives medical care at the [facility], Red Team. The patient also receives medications from [facility]. The patient does not have advanced directives in the EMR and was not interested in a DPOA-HC form at this time. His only child is his son, Camilo Birch. # [phone]. The patient plans to return home, Mini will provide transportation.
[2019-10-15] MEDS ORDERED: AMOXICILLIN 8751 TAB PO (14:10)
--- NOTE | 2019-10-15 15:07 | NUR ---
The patient is to discharge home today, 10/14 with family support. There are no additional needs at this time.
--- NOTE | 2019-10-15 15:24 | NUR ---
Pt assessment completed and charted. Medications administered per APR. Pt sitting in bed, coloring..... A&O, independent in room, breathing is even and unlabored. Pt states he has rt sd chest pain that is sharp, non radiating, rated 7-8/10. LH INT IV flushes w/o difficulty, pt states it brings some discomfort. Pt had NATHALIA this morning, tolerated well. No issues. Lunch delivered by sig other this afternoon post procedure. Heart RRR, pulses strong bilaterally. BS hypoactive, pt denies diarrhea, vomiting, dizziness.
--- NOTE | 2019-10-15 15:51 | NUR ---
Discharge instructions discussed and reviewed w/ patients who verbalized understanding, all questions answered. No further needs. LH INT IV dc'd w/ catheter tip intact and no complications.
== END 2019-10-15 16:04 | disposition home or self-care (01) | DRG 871 ==
LOC: COL.ER 14:05 → MEDICAL 17:24
PROVIDERS: Emergency Medicine; Hospitalist; Physician Assistant
DX: A41.9 Sepsis, unspecified organism (principal); J18.9 Pneumonia, unspecified organism; N17.9 Acute kidney failure, unspecified; J84.10 Pulmonary fibrosis, unspecified; J44.9 Chronic obstructive pulmonary disease, unspecified; D69.6 Thrombocytopenia, unspecified; D64.9 Anemia, unspecified; I25.10 Atherosclerotic heart disease of native coronary artery without angina pectoris; K21.9 Gastro-esophageal reflux disease without esophagitis; F41.9 Anxiety disorder, unspecified; F32.9 Major depressive disorder, single episode, unspecified; G47.00 Insomnia, unspecified; R19.7 Diarrhea, unspecified; G20 Parkinson's disease; F43.10 Post-traumatic stress disorder, unspecified; Z20.828 Contact with and (suspected) exposure to other viral communicable diseases; Z95.5 Presence of coronary angioplasty implant and graft; Z87.891 Personal history of nicotine dependence
CPT/HCPCS: 99222-AI; 99231-AI; 99232-AI; 99233-AI; 99239; G0378; J1170; J1650; J1790; J1885; J1956; J2060; J2405; J2704; J7030; J7512

== ENCOUNTER 2019-10-18 00:08 | Emergency (ER) | payer OTHER ==
[~2019-10-18] VITALS: Ht 180.3 cm; Wt 65.9 kg
[2019-10-18 00:13] VITALS: TEMP 97.6
[2019-10-18 00:42] LABS: HEMATOCRIT 44.4 % (42.0-52.0); HEMOGLOBIN 14.1 g/dl (13.5-18.0); MEAN CELL VOLUME 90 fl (80.0-100.0); MEAN CORPUSCULAR HEMOGLOBIN 28 pg (27.0-31.0); MEAN CORPUSCULAR HGB CONC 32 g/dl (33.0-37.0); MEAN PLATELET VOLUME 8.2 fl (7.4-10.4); PLATELET COUNT 354 K/mm3 (130-400); RED BLOOD COUNT 4.96 M/mm3 (4.20-5.60); REDCELL DISTRIBUTION WIDTH-CV 16.5 % (11.5-14.5)
[2019-10-18 00:53] LABS: ALANINE AMINOTRANSFERASE 18 U/L (4-49); ALBUMIN 4.2 gm/dL (3.5-5.0); ALCOHOL(ethanol),MEDICAL < 10 mg/dL; ALKALINE PHOSPHATASE 56 U/L (50-136); ANION GAP 10 mmol/L (7-16); AST,SGOT 18 U/L (15-37); BILIRUBIN,TOTAL 0.4 mg/dL (0.0-1.0); BLOOD UREA NITROGEN 17 mg/dL (9-20); CALCIUM 9.3 mg/dL (8.4-10.2); CARBON DIOXIDE 31 mmol/L (22-30); CHLORIDE 98 mmol/L (98-107); CREATININE, serum 1.49 (0.66-1.25); GLUCOSE 151 mg/dL (74-106); LIPASE 61 U/L (23-300); POTASSIUM 4.1 mmol/L (3.4-5.0); SODIUM 138 mmol/L (137-145); TOTAL PROTEIN 7.3 gm/dL (6.4-8.2)
[2019-10-18 01:03] LABS: TROPONIN-I < 0.012 ng/mL (0.000-0.035)
[2019-10-18 01:10] LABS: BAND 5 % (0-10); EOSINOPHIL 2 % (0-4); LYMPHOCYTE 37 % (20.0-51.0); METAMYELOCYTE 2 % (0-0); NEUTROPHILS 51 % (42.0-75.2)
[2019-10-18 01:11] LABS: ANISOCYTOSIS 1+; HYPOCHROMIA 2+; PLATELET ESTIMATE NORMAL (NORMAL)
[2019-10-18 01:27] LABS: ARTERIAL BLD GAS O2 SATURATION 96.3 % (92-100); ARTERIAL BLD GAS TCO2 CT 23.3; ARTERIAL BLOOD GAS BASE EXCESS 0.2 (-2-2); ARTERIAL BLOOD GAS HCO3 22.4 meq/L (22-26); ARTERIAL BLOOD GAS PCO2 29.5 mmHg (35-45); ARTERIAL BLOOD GAS PO2 80.3 mmHg (80-100)
[2019-10-18 06:38] VITALS: BP 120/83; PULSE 103
[2019-10-19] MEDS ORDERED: DECADRON 4MG TAB4 MG PO (08:51)
[2019-10-19] MEDS ORDERED: DOXYCYCLINE 10100 MG PO (08:51)
== END 2019-10-18 06:40 | disposition home or self-care (01) ==
LOC: COL.ER 00:08
PROVIDERS: Emergency Medicine
DX: R07.89 Other chest pain (principal); R91.8 Other nonspecific abnormal finding of lung field; R06.02 Shortness of breath; F32.9 Major depressive disorder, single episode, unspecified; F41.9 Anxiety disorder, unspecified; J44.9 Chronic obstructive pulmonary disease, unspecified; I25.10 Atherosclerotic heart disease of native coronary artery without angina pectoris; K21.9 Gastro-esophageal reflux disease without esophagitis; F17.210 Nicotine dependence, cigarettes, uncomplicated; G89.29 Other chronic pain; Z95.5 Presence of coronary angioplasty implant and graft; Z79.82 Long term (current) use of aspirin; Z79.51 Long term (current) use of inhaled steroids
CPT/HCPCS: J1200; J1790; J2060; J7030; Q9967

== ENCOUNTER 2019-10-19 07:50 | Emergency (ER) | payer OTHER ==
[~2019-10-19] VITALS: Ht 180.3 cm; Wt 65.9 kg
[2019-10-19 07:54] VITALS: BP 103/62; TEMP 98.3
[2019-10-19] MEDS ORDERED: DOXYCYCLINE 10100 MG PO (08:51)
[2019-10-19] MEDS ORDERED: DECADRON 4MG TAB4 MG PO (08:51)
[2019-10-19 09:58] VITALS: PULSE 102
== END 2019-10-19 09:56 | disposition home or self-care (01) ==
LOC: COL.ER 07:50
DX: J18.9 Pneumonia, unspecified organism (principal); J44.0 Chronic obstructive pulmonary disease with (acute) lower respiratory infection; I25.10 Atherosclerotic heart disease of native coronary artery without angina pectoris; Z79.82 Long term (current) use of aspirin; Z79.51 Long term (current) use of inhaled steroids
CPT/HCPCS: J8540

== ENCOUNTER 2019-10-24 19:31 | Emergency (ER) | payer OTHER ==
[~2019-10-24] VITALS: Ht 180.3 cm; Wt 68.2 kg
[~2019-10-24 19:31] MED LIST changes: +DECADRON 4MG TAB4 MG PO
[2019-10-24 19:38] VITALS: TEMP 98.3
[2019-10-24 20:06] LABS: HEMOGLOBIN 11.3 g/dl (13.5-18.0); MEAN CELL VOLUME 89 fl (80.0-100.0); MEAN CORPUSCULAR HEMOGLOBIN 28 pg (27.0-31.0); MEAN CORPUSCULAR HGB CONC 32 g/dl (33.0-37.0); MEAN PLATELET VOLUME 8.7 fl (7.4-10.4); PLATELET COUNT 270 K/mm3 (130-400); RED BLOOD COUNT 4.01 M/mm3 (4.20-5.60); REDCELL DISTRIBUTION WIDTH-CV 15.9 % (11.5-14.5)
[2019-10-24 20:08] LABS: HEMATOCRIT 35.5 % (42.0-52.0)
[2019-10-24] MEDS ORDERED: PHENERGAN 25 TA25 MG PO (20:13)
[2019-10-24 20:17] LABS: ANION GAP 7 mmol/L (7-16); BLOOD UREA NITROGEN 15 mg/dL (9-20); C-REACTIVE PROTEIN 5.1 mg/dL (0.0-0.9); CALCIUM 8.7 mg/dL (8.4-10.2); CARBON DIOXIDE 28 mmol/L (22-30); CHLORIDE 103 mmol/L (98-107); GLUCOSE 123 mg/dL (74-106); POTASSIUM 4.2 mmol/L (3.4-5.0); SODIUM 138 mmol/L (137-145)
[2019-10-24 20:42] LABS: BAND 4 % (0-10); EOSINOPHIL 2 % (0-4); LYMPHOCYTE 23 % (20.0-51.0); MYELOCYTE 2 % (0-0); NEUTROPHILS 62 % (42.0-75.2)
[2019-10-24 20:44] LABS: ANISOCYTOSIS 1+; HYPOCHROMIA 2+; PLATELET ESTIMATE NORMAL (NORMAL); TROPONIN-I < 0.012 ng/mL (0.000-0.035)
[2019-10-24 21:15] VITALS: BP 109/82; PULSE 99
[2019-10-25 07:54] LABS: PATHOLOGY DIFF REVIEW OK
== END 2019-10-24 21:15 | disposition home or self-care (01) ==
LOC: COL.ER 19:31
PROVIDERS: Emergency Medicine
DX: G24.09 Other drug induced dystonia (principal); T43.3X5A Adverse effect of phenothiazine antipsychotics and neuroleptics, initial encounter; J18.9 Pneumonia, unspecified organism; I25.10 Atherosclerotic heart disease of native coronary artery without angina pectoris; Z79.82 Long term (current) use of aspirin; Z79.51 Long term (current) use of inhaled steroids
CPT/HCPCS: J1200; J1885

== ENCOUNTER 2019-10-26 13:00 | Emergency (ER) | payer OTHER ==
[~2019-10-26] VITALS: Ht 180.3 cm; Wt 68.2 kg
[2019-10-26 13:15] VITALS: PULSE 107; TEMP 98.2
[2019-10-26 14:07] LABS: HEMATOCRIT 37.1 % (42.0-52.0); HEMOGLOBIN 11.7 g/dl (13.5-18.0); MEAN CELL VOLUME 88 fl (80.0-100.0); MEAN CORPUSCULAR HEMOGLOBIN 28 pg (27.0-31.0); MEAN CORPUSCULAR HGB CONC 32 g/dl (33.0-37.0); MEAN PLATELET VOLUME 8.9 fl (7.4-10.4); PLATELET COUNT 291 K/mm3 (130-400); RED BLOOD COUNT 4.22 M/mm3 (4.20-5.60); REDCELL DISTRIBUTION WIDTH-CV 15.8 % (11.5-14.5)
[2019-10-26 14:13] LABS: PROTHROMBIN TIME 11.5 SECONDS (9.7-12.8)
[2019-10-26 14:16] LABS: PARTIAL THROMBOPLASTIN TIME 29.7 SECONDS (26.0-37.0)
[2019-10-26 14:23] LABS: ALANINE AMINOTRANSFERASE 16 U/L (4-49); ALBUMIN 3.8 gm/dL (3.5-5.0); ALKALINE PHOSPHATASE 55 U/L (50-136); ANION GAP 9 mmol/L (7-16); AST,SGOT 22 U/L (15-37); BILIRUBIN,TOTAL 0.3 mg/dL (0.0-1.0); BLOOD UREA NITROGEN 8 mg/dL (9-20); CALCIUM 9.1 mg/dL (8.4-10.2); CARBON DIOXIDE 26 mmol/L (22-30); CHLORIDE 105 mmol/L (98-107); CREATININE, serum 1.25 (0.66-1.25); GLUCOSE 145 mg/dL (74-106); POTASSIUM 3.9 mmol/L (3.4-5.0); SODIUM 140 mmol/L (137-145); TOTAL PROTEIN 6.8 gm/dL (6.4-8.2)
[2019-10-26 14:34] LABS: TROPONIN-I < 0.012 ng/mL (0.000-0.035)
[2019-10-26 14:39] LABS: BAND 2 % (0-10); EOSINOPHIL 3 % (0-4); LYMPHOCYTE 27 % (20.0-51.0); MYELOCYTE 1 % (0-0); NEUTROPHILS 60 % (42.0-75.2)
[2019-10-26 14:40] LABS: ANISOCYTOSIS 2+; HYPOCHROMIA 2+; PLATELET ESTIMATE NORMAL (NORMAL)
[2019-10-26 16:36] VITALS: BP 111/75
== END 2019-10-26 16:21 | disposition home or self-care (01) ==
LOC: COL.ER 13:00
PROVIDERS: Family Medicine
DX: R07.9 Chest pain, unspecified (principal); R19.7 Diarrhea, unspecified; I25.10 Atherosclerotic heart disease of native coronary artery without angina pectoris; J44.9 Chronic obstructive pulmonary disease, unspecified; Z79.82 Long term (current) use of aspirin; F17.200 Nicotine dependence, unspecified, uncomplicated
CPT/HCPCS: J1790; J7120

== ENCOUNTER 2019-10-29 11:35 | Emergency (ER) | payer OTHER ==
[~2019-10-29] VITALS: Ht 180.3 cm; Wt 68.2 kg
[2019-10-29 11:46] VITALS: TEMP 98.2
[2019-10-29 12:09] LABS: HEMATOCRIT 40.9 % (42.0-52.0); HEMOGLOBIN 13.1 g/dl (13.5-18.0); MEAN CELL VOLUME 88 fl (80.0-100.0); MEAN CORPUSCULAR HEMOGLOBIN 28 pg (27.0-31.0); MEAN CORPUSCULAR HGB CONC 32 g/dl (33.0-37.0); MEAN PLATELET VOLUME 8.6 fl (7.4-10.4); PLATELET COUNT 330 K/mm3 (130-400); RED BLOOD COUNT 4.67 M/mm3 (4.20-5.60); REDCELL DISTRIBUTION WIDTH-CV 15.7 % (11.5-14.5)
[2019-10-29 12:21] LABS: ALANINE AMINOTRANSFERASE 17 U/L (4-49); ALBUMIN 4.4 gm/dL (3.5-5.0); ALKALINE PHOSPHATASE 68 U/L (50-136); ANION GAP 11 mmol/L (7-16); AST,SGOT 24 U/L (15-37); BILIRUBIN,TOTAL 0.5 mg/dL (0.0-1.0); BLOOD UREA NITROGEN 8 mg/dL (9-20); CALCIUM 9.6 mg/dL (8.4-10.2); CARBON DIOXIDE 28 mmol/L (22-30); CHLORIDE 100 mmol/L (98-107); CREATININE, serum 1.24 (0.66-1.25); GLUCOSE 136 mg/dL (74-106); LIPASE 73 U/L (23-300); MAGNESIUM 1.7 mg/dL (1.6-2.3); POTASSIUM 3.9 mmol/L (3.4-5.0); SODIUM 140 mmol/L (137-145); TOTAL PROTEIN 7.9 gm/dL (6.4-8.2)
[2019-10-29 12:26] LABS: ALCOHOL(ethanol),MEDICAL < 10 mg/dL
[2019-10-29 12:41] LABS: TROPONIN-I < 0.012 ng/mL (0.000-0.035)
[2019-10-29 12:45] LABS: BAND 4 % (0-10); EOSINOPHIL 2 % (0-4); LYMPHOCYTE 17 % (20.0-51.0); NEUTROPHILS 73 % (42.0-75.2); PLATELET ESTIMATE NORMAL (NORMAL)
--- NOTE | 2019-10-29 13:42 | NUR ---
DANIEL responded to ED consult. The patient presented to the ED with chest pain. The patient has had multiple ED visits for chronic chest pain. The patient has been to the ED 15 times since September 05, 2019. DANIEL met with the patient and addressed the frequent visits. The patient states that things are going well at home. He states that he is still living with his girlfriend, Mini (ph#[phone]). The patient states that he develops chest pain and contacts the [facility] ED triage nurse. They advise him to come here. He reports that he was suppose to have an appointment with his PCP on 10/25, but forgot about the appointment. He states that the appointment was rescheduled, but is unsure of the date. He states that he is working with Dr. Maldonado and is scheduled to have a PET scan on 11/05 to determine if he has lung cancer. DANIEL discussed having an RN from the [facility] come out to visit him. The patient states that he may be interested in this. The patient states that he plans on returning back home with his girlfriend upon discharge from the ED. DANIEL contacted the [facility] Team and confirmed that the patient has an appointment with his PCP, Sanya Barraza, on 10/31, at 1130. The receptionist clerk then transferred DANIEL to Christi's RN. DANIEL left her voicemail. DANIEL updated the patient's RN on the above information and about the appointment with his PCP. DANIEL made an APS report. Intake ID#[id number].
[2019-10-29 15:08] VITALS: BP 119/89; PULSE 104
== END 2019-10-29 15:40 | disposition home or self-care (01) ==
LOC: COL.ER 11:35
PROVIDERS: Emergency Medicine
DX: R07.89 Other chest pain (principal); F41.9 Anxiety disorder, unspecified; I25.10 Atherosclerotic heart disease of native coronary artery without angina pectoris; J44.0 Chronic obstructive pulmonary disease with (acute) lower respiratory infection; J18.9 Pneumonia, unspecified organism; Z79.51 Long term (current) use of inhaled steroids; Z79.82 Long term (current) use of aspirin; F17.200 Nicotine dependence, unspecified, uncomplicated
CPT/HCPCS: J1790; J7030

== ENCOUNTER 2019-11-05 11:07 | Emergency (ER) | payer OTHER ==
[~2019-11-05] VITALS: Ht 180.3 cm; Wt 65.9 kg
[2019-11-05 11:32] VITALS: TEMP 98.1
[2019-11-05 12:27] LABS: BASO # 0.1 (0.0-0.2); BASO % 0.8 % (0.0-2.0); EOS # 0.3 (0.0-0.7); EOS % 2.4 % (0-4.0); GRAN # 8.2 (1.4-6.5); GRAN % 62.3 % (42.2-75.2); HEMATOCRIT 38.7 % (42.0-52.0); HEMOGLOBIN 12.5 g/dl (13.5-18.0); LYMPH # 3.2 (1.2-3.4); LYMPH % 24.3 % (20.0-51.0); MEAN CELL VOLUME 87 fl (80.0-100.0); MEAN CORPUSCULAR HEMOGLOBIN 28 pg (27.0-31.0); MEAN CORPUSCULAR HGB CONC 32 g/dl (33.0-37.0); MEAN PLATELET VOLUME 8.9 fl (7.4-10.4); MONO # 1.2 (0.1-0.6); MONO % 8.8 % (1.7-9.3); PLATELET COUNT 379 K/mm3 (130-400); RED BLOOD COUNT 4.43 M/mm3 (4.20-5.60); REDCELL DISTRIBUTION WIDTH-CV 15.4 % (11.5-14.5)
[2019-11-05 12:34] LABS: ALANINE AMINOTRANSFERASE 14 U/L (4-49); ALBUMIN 4.1 gm/dL (3.5-5.0); ALKALINE PHOSPHATASE 56 U/L (50-136); ANION GAP 8 mmol/L (7-16); AST,SGOT 19 U/L (15-37); BILIRUBIN,TOTAL 0.3 mg/dL (0.0-1.0); BLOOD UREA NITROGEN 15 mg/dL (9-20); CALCIUM 9.6 mg/dL (8.4-10.2); CARBON DIOXIDE 30 mmol/L (22-30); CHLORIDE 102 mmol/L (98-107); CREATININE, serum 1.41 (0.66-1.25); GLUCOSE 107 mg/dL (74-106); POTASSIUM 4.1 mmol/L (3.4-5.0); SODIUM 140 mmol/L (137-145); TOTAL PROTEIN 7.1 gm/dL (6.4-8.2)
[2019-11-05 12:35] LABS: PROTHROMBIN TIME 11.6 SECONDS (9.7-12.8)
[2019-11-05 12:38] LABS: PARTIAL THROMBOPLASTIN TIME 30.9 SECONDS (26.0-37.0)
[2019-11-05 12:44] LABS: TROPONIN-I < 0.012 ng/mL (0.000-0.035)
[2019-11-05 14:09] VITALS: BP 115/79; PULSE 96
== END 2019-11-05 14:13 | disposition home or self-care (01) ==
LOC: COL.ER 11:07
PROVIDERS: Family Medicine
DX: R07.9 Chest pain, unspecified (principal); J44.9 Chronic obstructive pulmonary disease, unspecified; F17.210 Nicotine dependence, cigarettes, uncomplicated; Z86.79 Personal history of other diseases of the circulatory system; Z79.82 Long term (current) use of aspirin
CPT/HCPCS: J1200; J1790; J7120

== ENCOUNTER 2019-11-10 16:29 | Emergency (ER) | payer OTHER ==
[~2019-11-10] VITALS: Ht 180.3 cm; Wt 65.9 kg
[2019-11-10 16:31] VITALS: TEMP 98.2
[2019-11-10 17:00] LABS: HEMATOCRIT 40.1 % (42.0-52.0); HEMOGLOBIN 13.4 g/dl (13.5-18.0); MEAN CELL VOLUME 83 fl (80.0-100.0); MEAN CORPUSCULAR HEMOGLOBIN 28 pg (27.0-31.0); MEAN CORPUSCULAR HGB CONC 33 g/dl (33.0-37.0); MEAN PLATELET VOLUME 8.7 fl (7.4-10.4); PLATELET COUNT 392 K/mm3 (130-400); RED BLOOD COUNT 4.82 M/mm3 (4.20-5.60); REDCELL DISTRIBUTION WIDTH-CV 15.1 % (11.5-14.5)
[2019-11-10 17:07] LABS: PROTHROMBIN TIME 11.6 SECONDS (9.7-12.8)
[2019-11-10 17:09] LABS: PARTIAL THROMBOPLASTIN TIME 30.7 SECONDS (26.0-37.0)
[2019-11-10 17:17] LABS: ALANINE AMINOTRANSFERASE 20 U/L (4-49); ALBUMIN 4.6 gm/dL (3.5-5.0); ALCOHOL(ethanol),MEDICAL 52 mg/dL; ALKALINE PHOSPHATASE 72 U/L (50-136); ANION GAP 14 mmol/L (7-16); AST,SGOT 31 U/L (15-37); BILIRUBIN,TOTAL 0.4 mg/dL (0.0-1.0); BLOOD UREA NITROGEN 8 mg/dL (9-20); CALCIUM 9.7 mg/dL (8.4-10.2); CARBON DIOXIDE 26 mmol/L (22-30); CHLORIDE 97 mmol/L (98-107); CREATININE, serum 1.01 (0.66-1.25); GLUCOSE 105 mg/dL (74-106); MAGNESIUM 1.9 mg/dL (1.6-2.3); POTASSIUM 3.8 mmol/L (3.4-5.0); SODIUM 137 mmol/L (137-145); TOTAL PROTEIN 7.9 gm/dL (6.4-8.2)
[2019-11-10 17:31] LABS: TROPONIN-I < 0.012 ng/mL (0.000-0.035)
[2019-11-10 17:34] LABS: EOSINOPHIL 3 % (0-4); LYMPHOCYTE 24 % (20.0-51.0); NEUTROPHILS 66 % (42.0-75.2)
[2019-11-10 17:35] LABS: ANISOCYTOSIS 1+; PLATELET ESTIMATE NORMAL (NORMAL)
[2019-11-10 17:36] LABS: TEAR DROP CELLS 1+
[2019-11-10 22:42] VITALS: BP 124/83; PULSE 108
== END 2019-11-10 22:28 | disposition short-term general hospital (02) ==
LOC: COL.ER 16:29
PROVIDERS: Family Medicine
DX: R07.9 Chest pain, unspecified (principal); J44.9 Chronic obstructive pulmonary disease, unspecified; F10.230 Alcohol dependence with withdrawal, uncomplicated; F41.9 Anxiety disorder, unspecified; R25.1 Tremor, unspecified; F17.210 Nicotine dependence, cigarettes, uncomplicated
CPT/HCPCS: J1790; J2060; J3411; J7030

== ENCOUNTER → 2019-11-23 | Emergency (ER) | payer OTHER ==
[~2019-11-23] MED LIST changes: +DUO-KAPS1 CAP PO
== END ==
LOC: COL.ER 22:20
DX: R69 Illness, unspecified (principal); Z53.21 Procedure and treatment not carried out due to patient leaving prior to being seen by health care provider

== ENCOUNTER 2019-12-17 22:33 | Emergency (ER) | payer OTHER ==
[~2019-12-17] VITALS: Ht 180.3 cm; Wt 59.1 kg
[2019-12-17 23:43] LABS: BASO # 0.1 (0.0-0.2); BASO % 1.3 % (0.0-2.0); EOS # 0.4 (0.0-0.7); GRAN # 4.8 (1.4-6.5); GRAN % 55.7 % (42.2-75.2); HEMATOCRIT 44.6 % (42.0-52.0); HEMOGLOBIN 13.9 g/dl (13.5-18.0); LYMPH # 2.7 (1.2-3.4); LYMPH % 31.4 % (20.0-51.0); MEAN CELL VOLUME 85 fl (80.0-100.0); MEAN CORPUSCULAR HEMOGLOBIN 26 pg (27.0-31.0); MEAN CORPUSCULAR HGB CONC 31 g/dl (33.0-37.0); MEAN PLATELET VOLUME 8.9 fl (7.4-10.4); MONO # 0.5 (0.1-0.6); MONO % 5.8 % (1.7-9.3); PLATELET COUNT 383 K/mm3 (130-400); RED BLOOD COUNT 5.26 M/mm3 (4.20-5.60); REDCELL DISTRIBUTION WIDTH-CV 15.9 % (11.5-14.5)
[2019-12-17 23:55] LABS: ALANINE AMINOTRANSFERASE 15 U/L (4-49); ALCOHOL(ethanol),MEDICAL 231 mg/dL; ALKALINE PHOSPHATASE 68 U/L (50-136); ANION GAP 16 mmol/L (7-16); AST,SGOT 25 U/L (15-37); BILIRUBIN,TOTAL 0.3 mg/dL (0.0-1.0); BLOOD UREA NITROGEN 3 mg/dL (9-20); CALCIUM 9.5 mg/dL (8.4-10.2); CARBON DIOXIDE 23 mmol/L (22-30); CHLORIDE 103 mmol/L (98-107); CREATININE, serum 1.09 (0.66-1.25); GLUCOSE 97 mg/dL (74-106); LIPASE 136 U/L (23-300); MAGNESIUM 2.1 mg/dL (1.6-2.3); POTASSIUM 3.9 mmol/L (3.4-5.0); SODIUM 142 mmol/L (137-145); TOTAL PROTEIN 9.5 gm/dL (6.4-8.2)
[2019-12-18 00:06] LABS: TROPONIN-I < 0.012 ng/mL (0.000-0.035)
[2019-12-18 10:14] VITALS: BP 102/65; PULSE 79; TEMP 98.5
--- NOTE | 2019-12-18 16:17 | NUR ---
Wing Coverer consulted for the patient due to being homeless and does not have his medications with him. The patient is medically cleared for discharge. DANIEL met with the patient. The patient was staying with his son, Camilo #[phone] but Camilo kicked the patient out because he started drinking alcohol. The patient was open to going to the [facility] for alcohol treatment or to the [facility]. SW contacted the [facility] and left several message and did not received a return call. SW contacted the [facility] and they are full. They encouraged the patient call during the day to check for availabity. DANIEL contacted Mini who is the patient's on and off again girlfriend. She was agreeable to making sure the patient has his meds. An APS case was open on the patient and Lucy Coulter was assigned to his case. DANIEL contacted Lucy and she reports the case was closed because the patient avoided her. DANIEL collaborated the above information with Lucy and she advised this SW to make another APS report so she could open his case again. APS report #[id number]. DANIEL collaborated the above information with the patient's nurse.
== END 2019-12-18 10:20 | disposition home or self-care (01) ==
LOC: COL.ER 22:33
PROVIDERS: Emergency Medicine
DX: J44.1 Chronic obstructive pulmonary disease with (acute) exacerbation (principal); F10.129 Alcohol abuse with intoxication, unspecified; I25.10 Atherosclerotic heart disease of native coronary artery without angina pectoris; Z79.82 Long term (current) use of aspirin; Z79.51 Long term (current) use of inhaled steroids
CPT/HCPCS: C9113; J1100; J2060; J2405; J3411; J7030

== ENCOUNTER 2019-12-29 12:33 | Emergency (ER) | payer OTHER ==
[~2019-12-29] VITALS: Ht 180.3 cm; Wt 63.6 kg
[2019-12-29 12:40] VITALS: TEMP 98.1
[2019-12-29 13:21] LABS: BASO # 0.1 (0.0-0.2); BASO % 0.9 % (0.0-2.0); EOS # 0.4 (0.0-0.7); EOS % 4.5 % (0-4.0); GRAN # 5.2 (1.4-6.5); GRAN % 61.4 % (42.2-75.2); HEMOGLOBIN 12.4 g/dl (13.5-18.0); LYMPH # 2.2 (1.2-3.4); LYMPH % 25.8 % (20.0-51.0); MEAN CELL VOLUME 85 fl (80.0-100.0); MEAN CORPUSCULAR HEMOGLOBIN 26 pg (27.0-31.0); MEAN CORPUSCULAR HGB CONC 31 g/dl (33.0-37.0); MEAN PLATELET VOLUME 9.3 fl (7.4-10.4); MONO # 0.6 (0.1-0.6); MONO % 6.9 % (1.7-9.3); PLATELET COUNT 303 K/mm3 (130-400); RED BLOOD COUNT 4.69 M/mm3 (4.20-5.60); REDCELL DISTRIBUTION WIDTH-CV 16.3 % (11.5-14.5)
[2019-12-29 13:31] LABS: ALANINE AMINOTRANSFERASE 14 U/L (4-49); ALKALINE PHOSPHATASE 48 U/L (50-136); ANION GAP 7 mmol/L (7-16); AST,SGOT 21 U/L (15-37); BILIRUBIN,TOTAL 0.3 mg/dL (0.0-1.0); BLOOD UREA NITROGEN 7 mg/dL (9-20); C-REACTIVE PROTEIN 1.1 mg/dL (0.0-0.9); CALCIUM 9.3 mg/dL (8.4-10.2); CARBON DIOXIDE 27 mmol/L (22-30); CHLORIDE 103 mmol/L (98-107); CREATININE, serum 1.14 (0.66-1.25); GLUCOSE 160 mg/dL (74-106); POTASSIUM 4.1 mmol/L (3.4-5.0); SODIUM 138 mmol/L (137-145); TOTAL PROTEIN 7.4 gm/dL (6.4-8.2)
[2019-12-29 13:41] LABS: TROPONIN-I < 0.012 ng/mL (0.000-0.035)
[2019-12-29 16:29] VITALS: BP 123/81; PULSE 98
== END 2019-12-29 16:31 | disposition home or self-care (01) ==
LOC: COL.ER 12:33
PROVIDERS: Emergency Medicine
DX: R07.89 Other chest pain (principal); I25.2 Old myocardial infarction; J44.9 Chronic obstructive pulmonary disease, unspecified; Z95.9 Presence of cardiac and vascular implant and graft, unspecified; Z79.82 Long term (current) use of aspirin; Z79.51 Long term (current) use of inhaled steroids
CPT/HCPCS: J1170; J1885; J7040

== ENCOUNTER 2020-01-18 10:04 | Emergency (ER) | payer OTHER ==
[~2020-01-18] VITALS: Ht 180.3 cm; Wt 65.9 kg
[2020-01-18 10:11] VITALS: TEMP 98.5
[2020-01-18 11:15] VITALS: BP 113/82; PULSE 87
== END 2020-01-18 11:15 | disposition home or self-care (01) ==
LOC: COL.ER 10:04
DX: J44.9 Chronic obstructive pulmonary disease, unspecified (principal); F10.20 Alcohol dependence, uncomplicated; R91.1 Solitary pulmonary nodule; I25.2 Old myocardial infarction; Z20.828 Contact with and (suspected) exposure to other viral communicable diseases; Z95.5 Presence of coronary angioplasty implant and graft; Z86.79 Personal history of other diseases of the circulatory system; Z79.82 Long term (current) use of aspirin
CPT/HCPCS: J1885

== ENCOUNTER 2020-02-03 15:09 | Emergency (ER) | payer OTHER ==
[~2020-02-03] VITALS: Ht 180.3 cm; Wt 65.9 kg
[2020-02-03 15:13] VITALS: BP 137/85; TEMP 98.2
[2020-02-03 16:05] VITALS: PULSE 111
== END 2020-02-03 16:05 | disposition home or self-care (01) ==
LOC: COL.ER 15:09
DX: M79.651 Pain in right thigh (principal); K21.9 Gastro-esophageal reflux disease without esophagitis; F32.9 Major depressive disorder, single episode, unspecified; J45.909 Unspecified asthma, uncomplicated; F41.0 Panic disorder [episodic paroxysmal anxiety]; G47.00 Insomnia, unspecified; I25.10 Atherosclerotic heart disease of native coronary artery without angina pectoris; I25.2 Old myocardial infarction; F17.200 Nicotine dependence, unspecified, uncomplicated; Z86.79 Personal history of other diseases of the circulatory system; Z95.5 Presence of coronary angioplasty implant and graft

== ENCOUNTER 2020-11-03 12:55 | Emergency (ER) | payer OTHER ==
[~2020-11-03] VITALS: Ht 180.3 cm; Wt 63.6 kg
[2020-11-03 13:28] VITALS: TEMP 99
[2020-11-03] MEDS ORDERED: NICORETTE2 M1 PO ×2 (13:45→13:46)
[2020-11-03] MEDS ORDERED: SPIRIVA RE2.5 MCG/Ac IH (13:47)
[2020-11-03] MEDS ORDERED: MOTRIN 800800 MG/TAB PO (13:49)
[2020-11-03] MEDS ORDERED: TRAVEL SICKNESS25 MG PO (13:49)
[2020-11-03] MEDS ORDERED: WELLBUTRIN XL300 M1 PO (13:51)
[2020-11-03] MEDS ORDERED: OXYGEN IH (13:54)
[2020-11-03 15:43] LABS: BASO # 0.1 (0.0-0.2); BASO % 1.3 % (0.0-2.0); EOS # 0.4 (0.0-0.7); EOS % 5.8 % (0-4.0); GRAN # 3.5 (1.4-6.5); GRAN % 51.6 % (42.2-75.2); HEMATOCRIT 44.1 % (42.0-52.0); HEMOGLOBIN 14.5 g/dl (13.5-18.0); LYMPH # 2.1 (1.2-3.4); LYMPH % 31.7 % (20.0-51.0); MEAN CELL VOLUME 90 fl (80.0-100.0); MEAN CORPUSCULAR HEMOGLOBIN 29 pg (27.0-31.0); MEAN CORPUSCULAR HGB CONC 33 g/dl (33.0-37.0); MEAN PLATELET VOLUME 11.3 fl (7.4-10.4); MONO # 0.6 (0.1-0.6); MONO % 9.3 % (1.7-9.3); PLATELET COUNT 250 K/mm3 (130-400); RED BLOOD COUNT 4.93 M/mm3 (4.20-5.60); REDCELL DISTRIBUTION WIDTH-CV 13.8 % (11.5-14.5)
[2020-11-03 16:27] LABS: ALANINE AMINOTRANSFERASE 14 U/L (4-49); ALBUMIN 4.4 gm/dL (3.5-5.0); ALKALINE PHOSPHATASE 47 U/L (50-136); ANION GAP 8 mmol/L (7-16); AST,SGOT 18 U/L (15-37); BILIRUBIN,TOTAL 0.3 mg/dL (0.0-1.0); BLOOD UREA NITROGEN 11 mg/dL (9-20); CARBON DIOXIDE 27 mmol/L (22-30); CHLORIDE 104 mmol/L (98-107); CREATININE, serum 1.04 (0.66-1.25); GLUCOSE 122 mg/dL (74-106); SODIUM 139 mmol/L (137-145); TOTAL PROTEIN 7.2 gm/dL (6.4-8.2)
[2020-11-03 16:39] LABS: TROPONIN-I < 0.012 ng/mL (0.000-0.035)
[2020-11-03 20:07] VITALS: BP 144/70; PULSE 68
== END 2020-11-03 20:08 | disposition home or self-care (01) ==
LOC: COL.ER 12:55
PROVIDERS: Personal Emergency Response Attendant
DX: R07.9 Chest pain, unspecified (principal); I25.10 Atherosclerotic heart disease of native coronary artery without angina pectoris; J44.9 Chronic obstructive pulmonary disease, unspecified; I25.2 Old myocardial infarction; Z87.891 Personal history of nicotine dependence; Z79.82 Long term (current) use of aspirin
CPT/HCPCS: J2270; J2405

== ENCOUNTER 2020-11-07 13:10 | Emergency (ER) | payer OTHER ==
[~2020-11-07] VITALS: Ht 180.3 cm; Wt 65.9 kg
[~2020-11-07 13:10] MED LIST changes: +MOTRIN 800800 MG/TAB PO; +NICORETTE2 M1 PO; +OXYGEN IH; +SPIRIVA RE2.5 MCG/Ac IH; +TRAVEL SICKNESS25 MG PO; +WELLBUTRIN XL300 M1 PO
[2020-11-07 13:24] VITALS: TEMP 97
[2020-11-07 14:05] LABS: BASO # 0.1 (0.0-0.2); BASO % 1.2 % (0.0-2.0); EOS # 0.6 (0.0-0.7); EOS % 9.6 % (0-4.0); GRAN # 2.7 (1.4-6.5); GRAN % 41.4 % (42.2-75.2); HEMATOCRIT 43.6 % (42.0-52.0); HEMOGLOBIN 14.2 g/dl (13.5-18.0); LYMPH # 2.4 (1.2-3.4); LYMPH % 37.1 % (20.0-51.0); MEAN CELL VOLUME 91 fl (80.0-100.0); MEAN CORPUSCULAR HEMOGLOBIN 30 pg (27.0-31.0); MEAN CORPUSCULAR HGB CONC 33 g/dl (33.0-37.0); MEAN PLATELET VOLUME 9.1 fl (7.4-10.4); MONO # 0.7 (0.1-0.6); MONO % 10.1 % (1.7-9.3); PLATELET COUNT 253 K/mm3 (130-400); REDCELL DISTRIBUTION WIDTH-CV 13.9 % (11.5-14.5)
[2020-11-07 14:58] LABS: ALKALINE PHOSPHATASE 58 U/L (0-750); ANION GAP 10 mmol/L; AST,SGOT 12 U/L (5-34); BILIRUBIN,TOTAL 0.2 mg/dL (0.2-1.2); BLOOD UREA NITROGEN 10 mg/dL (8-26); CALCIUM 9.7 mg/dL (8.4-10.2); CARBON DIOXIDE 24 mEq/L (22-29); CHLORIDE 106 mmol/L (98-107); CREATININE, serum 1.38 mg/dL (0.72-1.25); GLUCOSE 138 mg/dL (70-99); LIPASE 29 U/L (8-78); POTASSIUM 3.8 mmol/L (3.5-4.5); SODIUM 140 mmol/L (136-145); TOTAL PROTEIN 7.2 gm/dL (6.2-8.1)
[2020-11-07 15:34] LABS: ALANINE AMINOTRANSFERASE < 6 U/L (0-55); TROPONIN-I < 0.010 ng/mL (0.00-0.033)
[2020-11-07] MEDS ORDERED: ZOFRAN ODT4 MG PO (15:41)
[2020-11-07 16:09] VITALS: BP 104/64; PULSE 82
== END 2020-11-07 16:13 | disposition home or self-care (01) ==
LOC: COL.ER 13:10
PROVIDERS: Emergency Medicine
DX: R07.89 Other chest pain (principal); R79.89 Other specified abnormal findings of blood chemistry; I25.10 Atherosclerotic heart disease of native coronary artery without angina pectoris; I25.2 Old myocardial infarction; Z95.9 Presence of cardiac and vascular implant and graft, unspecified; Z87.891 Personal history of nicotine dependence; Z79.82 Long term (current) use of aspirin
CPT/HCPCS: J1170; J2270; J2405; J2765

== ENCOUNTER 2020-11-15 16:33 | Emergency (ER) | payer OTHER ==
[~2020-11-15] VITALS: Ht 180.3 cm; Wt 65.9 kg
[~2020-11-15 16:33] MED LIST changes: +ZOFRAN ODT4 MG PO
[2020-11-15 17:53] VITALS: TEMP 98.1
[2020-11-15 19:04] LABS: BASO # 0.1 (0.0-0.2); BASO % 0.8 % (0.0-2.0); EOS # 0.3 (0.0-0.7); GRAN # 6.3 (1.4-6.5); GRAN % 63.3 % (42.2-75.2); HEMATOCRIT 38.4 % (42.0-52.0); HEMOGLOBIN 12.5 g/dl (13.5-18.0); LYMPH # 2.6 (1.2-3.4); LYMPH % 26.1 % (20.0-51.0); MEAN CELL VOLUME 91 fl (80.0-100.0); MEAN CORPUSCULAR HEMOGLOBIN 30 pg (27.0-31.0); MEAN CORPUSCULAR HGB CONC 33 g/dl (33.0-37.0); MEAN PLATELET VOLUME 9.1 fl (7.4-10.4); MONO # 0.6 (0.1-0.6); MONO % 6.1 % (1.7-9.3); PLATELET COUNT 247 K/mm3 (130-400); RED BLOOD COUNT 4.22 M/mm3 (4.20-5.60); REDCELL DISTRIBUTION WIDTH-CV 13.9 % (11.5-14.5)
[2020-11-15 19:06] LABS: ALBUMIN 3.6 gm/dL (3.5-5.0); ALKALINE PHOSPHATASE 50 U/L (0-750); ANION GAP 9 mmol/L (7-16); AST,SGOT 12 U/L (5-34); BILIRUBIN,TOTAL 0.1 mg/dL (0.2-1.2); BLOOD UREA NITROGEN 9 mg/dL (8-26); CALCIUM 9.1 mg/dL (8.4-10.2); CARBON DIOXIDE 23 mmol/L (22-29); CHLORIDE 108 mmol/L (98-107); CREATININE, serum 1.28 mg/dL (0.72-1.25); GLUCOSE 121 mg/dL (70-99); POTASSIUM 3.6 mmol/L (3.5-4.5); SODIUM 140 mmol/L (136-145); TOTAL PROTEIN 6.5 gm/dL (6.2-8.1)
[2020-11-15 19:07] LABS: ALANINE AMINOTRANSFERASE < 6 U/L (0-55)
[2020-11-15 19:13] LABS: TROPONIN-I < 0.010 ng/mL (0.00-0.033)
[2020-11-15 21:45] VITALS: BP 95/70; PULSE 84
== END 2020-11-15 21:53 | disposition home or self-care (01) ==
LOC: COL.ER 16:33
PROVIDERS: Physician Assistant
DX: R07.89 Other chest pain (principal); I25.10 Atherosclerotic heart disease of native coronary artery without angina pectoris; J44.9 Chronic obstructive pulmonary disease, unspecified; F41.0 Panic disorder [episodic paroxysmal anxiety]; K21.9 Gastro-esophageal reflux disease without esophagitis; F32.9 Major depressive disorder, single episode, unspecified; G20 Parkinson's disease; I25.2 Old myocardial infarction; F17.200 Nicotine dependence, unspecified, uncomplicated; Z95.5 Presence of coronary angioplasty implant and graft; Z79.82 Long term (current) use of aspirin; Z79.899 Other long term (current) drug therapy
CPT/HCPCS: J1885; J2360

== ENCOUNTER → 2020-12-01 | Emergency (ER) | payer OTHER ==
[2020-12-01 18:33] VITALS: BP 105/74; PULSE 123; TEMP 98
== END ==
LOC: COL.ER 17:45
DX: R69 Illness, unspecified (principal)

== ENCOUNTER 2021-03-10 14:46 | Emergency (ER) | payer OTHER ==
[~2021-03-10] VITALS: Ht 180.3 cm; Wt 70.5 kg
[2021-03-10 15:28] LABS: BASO # 0.1 K/mm3 (0.0-0.2); BASO % 1.4 % (0.0-2.0); EOS # 0.7 K/mm3 (0.0-0.7); EOS % 9.7 % (0.0-4.0); GRAN # 3.3 K/mm3 (1.4-6.5); GRAN % 44.5 % (42.2-75.2); HEMATOCRIT 44.6 % (42.0-52.0); HEMOGLOBIN 14.8 g/dl (13.5-18.0); LYMPH # 2.6 K/mm3 (1.2-3.4); LYMPH % 35.1 % (20.0-51.0); MEAN CELL VOLUME 88 fl (80.0-100.0); MEAN CORPUSCULAR HEMOGLOBIN 29 pg (27-31); MEAN CORPUSCULAR HGB CONC 33 g/dl (33.0-37.0); MEAN PLATELET VOLUME 8.6 fl (7.4-10.4); MONO # 0.7 K/mm3 (0.1-0.6); MONO % 8.9 % (1.7-9.3); PLATELET COUNT 296 K/mm3 (130-400); REDCELL DISTRIBUTION WIDTH-CV 13.1 % (11.5-14.5)
[2021-03-10 15:50] LABS: ALANINE AMINOTRANSFERASE 21 U/L (0-55); ALBUMIN 4.3 gm/dL (3.5-5.0); ALKALINE PHOSPHATASE 54 U/L (40-150); ANION GAP 12 mmol/L (7-16); AST,SGOT 17 U/L (5-34); BILIRUBIN,TOTAL 0.4 mg/dL (0.2-1.2); BLOOD UREA NITROGEN 13 mg/dL (8-26); CALCIUM 9.6 mg/dL (8.4-10.2); CARBON DIOXIDE 26 mmol/L (22-29); CHLORIDE 104 mmol/L (98-107); CREATININE, serum 1.34 mg/dL (0.72-1.25); GLUCOSE 123 mg/dL (70-99); SODIUM 142 mmol/L (136-145); TOTAL PROTEIN 7.6 gm/dL (6.2-8.1)
[2021-03-10 15:56] LABS: TROPONIN-I < 0.010 ng/mL (0.00-0.033)
[2021-03-10 16:33] VITALS: TEMP 98.1
[2021-03-10 19:51] VITALS: BP 144/71; PULSE 64
[2021-03-10] MEDS ORDERED: NORCO 325 MG-51 TAB PO (19:52)
== END 2021-03-10 19:51 | disposition home or self-care (01) ==
LOC: COL.ER 14:46
PROVIDERS: Emergency Medicine
DX: R07.2 Precordial pain (principal); I25.10 Atherosclerotic heart disease of native coronary artery without angina pectoris; J44.9 Chronic obstructive pulmonary disease, unspecified; F41.9 Anxiety disorder, unspecified; F32.A Depression, unspecified; K21.9 Gastro-esophageal reflux disease without esophagitis; Z20.822 Contact with and (suspected) exposure to COVID-19; Z87.891 Personal history of nicotine dependence; Z79.899 Other long term (current) drug therapy; Z79.82 Long term (current) use of aspirin; Z79.51 Long term (current) use of inhaled steroids
CPT/HCPCS: J2270; J7120

== ENCOUNTER 2021-03-21 13:34 | Emergency (ER) | payer OTHER ==
[~2021-03-21] VITALS: Ht 180.3 cm; Wt 70.5 kg
[2021-03-21 13:38] VITALS: TEMP 98
[2021-03-21 13:56] LABS: BASO # 0.1 K/mm3 (0.0-0.2); BASO % 1.3 % (0.0-2.0); EOS # 0.6 K/mm3 (0.0-0.7); EOS % 6.3 % (0.0-4.0); GRAN # 5.5 K/mm3 (1.4-6.5); GRAN % 60.7 % (42.2-75.2); HEMATOCRIT 40.2 % (42.0-52.0); LYMPH # 2.2 K/mm3 (1.2-3.4); LYMPH % 23.6 % (20.0-51.0); MEAN CELL VOLUME 89 fl (80.0-100.0); MEAN CORPUSCULAR HEMOGLOBIN 29 pg (27-31); MEAN CORPUSCULAR HGB CONC 32 g/dl (33.0-37.0); MEAN PLATELET VOLUME 8.7 fl (7.4-10.4); MONO # 0.7 K/mm3 (0.1-0.6); MONO % 7.6 % (1.7-9.3); PLATELET COUNT 275 K/mm3 (130-400); RED BLOOD COUNT 4.54 M/mm3 (4.20-5.60); REDCELL DISTRIBUTION WIDTH-CV 13.2 % (11.5-14.5)
[2021-03-21 14:14] LABS: INR 1.1 (0.8-3.0); PARTIAL THROMBOPLASTIN TIME 29.5 SECONDS (26.0-37.0); PROTHROMBIN TIME 11.9 SECONDS (9.7-12.8)
[2021-03-21 14:15] LABS: ALANINE AMINOTRANSFERASE 26 U/L (0-55); ALBUMIN 3.8 gm/dL (3.5-5.0); ALKALINE PHOSPHATASE 48 U/L (40-150); ANION GAP 10 mmol/L (7-16); AST,SGOT 23 U/L (5-34); BILIRUBIN,TOTAL 0.3 mg/dL (0.2-1.2); BLOOD UREA NITROGEN 8 mg/dL (8-26); CALCIUM 8.4 mg/dL (8.4-10.2); CARBON DIOXIDE 24 mmol/L (22-29); CHLORIDE 108 mmol/L (98-107); CREATININE, serum 1.12 mg/dL (0.72-1.25); GLUCOSE 84 mg/dL (70-99); POTASSIUM 3.7 mmol/L (3.5-4.5); SODIUM 142 mmol/L (136-145); TOTAL PROTEIN 6.6 gm/dL (6.2-8.1)
[2021-03-21 14:21] LABS: TROPONIN-I < 0.010 ng/mL (0.00-0.033)
[2021-03-21 17:21] VITALS: BP 128/96; PULSE 102
[2021-03-24] MEDS ORDERED: NORCO 325 MG-51 TAB PO (18:04)
== END 2021-03-21 17:27 | disposition home or self-care (01) ==
LOC: COL.ER 13:34
PROVIDERS: Family Medicine
DX: R07.89 Other chest pain (principal); R00.0 Tachycardia, unspecified; J44.9 Chronic obstructive pulmonary disease, unspecified; I25.10 Atherosclerotic heart disease of native coronary artery without angina pectoris; I25.2 Old myocardial infarction; I45.6 Pre-excitation syndrome; K21.9 Gastro-esophageal reflux disease without esophagitis; F41.0 Panic disorder [episodic paroxysmal anxiety]; Z95.5 Presence of coronary angioplasty implant and graft; Z87.891 Personal history of nicotine dependence; Z79.82 Long term (current) use of aspirin; Z79.899 Other long term (current) drug therapy
CPT/HCPCS: J1100; J1885; J2270; J7120

== ENCOUNTER 2021-03-23 00:14 | Emergency (ER) | payer OTHER ==
[~2021-03-23] VITALS: Ht 180.3 cm; Wt 70.5 kg
[2021-03-23 01:06] LABS: BASO # 0.1 K/mm3 (0.0-0.2); BASO % 0.7 % (0.0-2.0); EOS # 0.2 K/mm3 (0.0-0.7); EOS % 1.2 % (0.0-4.0); LYMPH # 3.1 K/mm3 (1.2-3.4); LYMPH % 22.9 % (20.0-51.0); MEAN CELL VOLUME 87 fl (80.0-100.0); MEAN CORPUSCULAR HEMOGLOBIN 29 pg (27-31); MEAN CORPUSCULAR HGB CONC 33 g/dl (33.0-37.0); MEAN PLATELET VOLUME 8.8 fl (7.4-10.4); MONO # 1.1 K/mm3 (0.1-0.6); MONO % 8.1 % (1.7-9.3); PLATELET COUNT 297 K/mm3 (130-400); RED BLOOD COUNT 4.49 M/mm3 (4.20-5.60); REDCELL DISTRIBUTION WIDTH-CV 13.4 % (11.5-14.5)
[2021-03-23 01:23] LABS: ALBUMIN 4.3 gm/dL (3.5-5.0); BILIRUBIN,TOTAL 0.3 mg/dL (0.2-1.2); CALCIUM 9.4 mg/dL (8.4-10.2); CREATININE, serum 1.3 mg/dL (0.72-1.25); POTASSIUM 3.9 mmol/L (3.5-4.5); TOTAL PROTEIN 7.3 gm/dL (6.2-8.1)
[2021-03-23 01:29] LABS: TROPONIN-I 0.012 ng/mL (0.00-0.033)
[2021-03-23 05:22] VITALS: BP 123/95; PULSE 101
[2021-03-24] MEDS ORDERED: NORCO 325 MG-51 TAB PO (18:04)
== END 2021-03-23 05:22 | disposition home or self-care (01) ==
LOC: COL.ER 00:14
PROVIDERS: Student in an Organized Health Care Education/Training Program
DX: R07.89 Other chest pain (principal); I21.3 ST elevation (STEMI) myocardial infarction of unspecified site; I25.2 Old myocardial infarction; I45.6 Pre-excitation syndrome; J44.9 Chronic obstructive pulmonary disease, unspecified; Z95.818 Presence of other cardiac implants and grafts; Z95.5 Presence of coronary angioplasty implant and graft; Z87.891 Personal history of nicotine dependence; Z79.82 Long term (current) use of aspirin; Z79.899 Other long term (current) drug therapy
CPT/HCPCS: J2270

== ENCOUNTER 2021-03-31 17:09 | Emergency (ER) | payer OTHER ==
[~2021-03-31] VITALS: Ht 180.3 cm; Wt 70.5 kg
[2021-03-31 17:34] VITALS: BP 132/96; PULSE 102; TEMP 98.1
[2021-03-31 18:17] LABS: BASO # 0.1 K/mm3 (0.0-0.2); BASO % 1.1 % (0.0-2.0); EOS # 0.4 K/mm3 (0.0-0.7); EOS % 3.4 % (0.0-4.0); GRAN # 6.2 K/mm3 (1.4-6.5); GRAN % 59.7 % (42.2-75.2); HEMATOCRIT 39.7 % (42.0-52.0); HEMOGLOBIN 13.4 g/dl (13.5-18.0); LYMPH # 2.8 K/mm3 (1.2-3.4); LYMPH % 26.3 % (20.0-51.0); MEAN CELL VOLUME 87 fl (80.0-100.0); MEAN CORPUSCULAR HEMOGLOBIN 29 pg (27-31); MEAN CORPUSCULAR HGB CONC 34 g/dl (33.0-37.0); MEAN PLATELET VOLUME 8.5 fl (7.4-10.4); MONO # 0.9 K/mm3 (0.1-0.6); MONO % 8.3 % (1.7-9.3); PLATELET COUNT 263 K/mm3 (130-400); RED BLOOD COUNT 4.59 M/mm3 (4.20-5.60); REDCELL DISTRIBUTION WIDTH-CV 13.6 % (11.5-14.5)
[2021-03-31 18:34] LABS: ALANINE AMINOTRANSFERASE 18 U/L (0-55); ALBUMIN 4.2 gm/dL (3.5-5.0); ALKALINE PHOSPHATASE 44 U/L (40-150); ANION GAP 12 mmol/L (7-16); AST,SGOT 15 U/L (5-34); BILIRUBIN,TOTAL 0.3 mg/dL (0.2-1.2); BLOOD UREA NITROGEN 10 mg/dL (8-26); CALCIUM 9.4 mg/dL (8.4-10.2); CARBON DIOXIDE 23 mmol/L (22-29); CHLORIDE 105 mmol/L (98-107); CREATININE, serum 1.14 mg/dL (0.72-1.25); GLUCOSE 95 mg/dL (70-99); POTASSIUM 4.1 mmol/L (3.5-4.5); SODIUM 140 mmol/L (136-145); TOTAL PROTEIN 7.1 gm/dL (6.2-8.1)
[2021-03-31 18:55] LABS: TROPONIN-I < 0.010 ng/mL (0.00-0.033)
== END 2021-03-31 19:22 | disposition home or self-care (01) ==
LOC: COL.ER 17:09
PROVIDERS: Nurse Practitioner
DX: R07.89 Other chest pain (principal); I25.10 Atherosclerotic heart disease of native coronary artery without angina pectoris; I10 Essential (primary) hypertension; F17.200 Nicotine dependence, unspecified, uncomplicated; Z95.5 Presence of coronary angioplasty implant and graft

== ENCOUNTER 2021-04-19 22:36 | Emergency (ER) | payer OTHER ==
[~2021-04-19] VITALS: Ht 180.3 cm; Wt 65.9 kg
[2021-04-19 23:08] LABS: BASO # 0.1 K/mm3 (0.0-0.2); BASO % 1.2 % (0.0-2.0); EOS # 0.5 K/mm3 (0.0-0.7); EOS % 4.6 % (0.0-4.0); GRAN # 5.1 K/mm3 (1.4-6.5); GRAN % 52.5 % (42.2-75.2); HEMATOCRIT 41.6 % (42.0-52.0); LYMPH # 3.4 K/mm3 (1.2-3.4); LYMPH % 34.8 % (20.0-51.0); MEAN CELL VOLUME 87 fl (80.0-100.0); MEAN CORPUSCULAR HEMOGLOBIN 29 pg (27-31); MEAN CORPUSCULAR HGB CONC 34 g/dl (33.0-37.0); MEAN PLATELET VOLUME 8.6 fl (7.4-10.4); MONO # 0.6 K/mm3 (0.1-0.6); MONO % 6.3 % (1.7-9.3); PLATELET COUNT 276 K/mm3 (130-400); REDCELL DISTRIBUTION WIDTH-CV 14.3 % (11.5-14.5)
[2021-04-19 23:22] LABS: TRICYCLIC ANTIDEPRESS URINE NEGATIVE
[2021-04-19 23:24] LABS: ALANINE AMINOTRANSFERASE 16 U/L (0-55); ALBUMIN 4.5 gm/dL (3.5-5.0); ALCOHOL(ethanol),MEDICAL 227 mg/dL (0-10); ALKALINE PHOSPHATASE 48 U/L (40-150); ANION GAP 13 mmol/L (7-16); AST,SGOT 18 U/L (5-34); BILIRUBIN,TOTAL 0.3 mg/dL (0.2-1.2); BLOOD UREA NITROGEN 7 mg/dL (8-26); CALCIUM 9.3 mg/dL (8.4-10.2); CARBON DIOXIDE 24 mmol/L (22-29); CHLORIDE 103 mmol/L (98-107); CREATININE, serum 1.06 mg/dL (0.72-1.25); GLUCOSE 87 mg/dL (70-99); SODIUM 140 mmol/L (136-145); TOTAL PROTEIN 7.5 gm/dL (6.2-8.1)
[2021-04-19 23:25] LABS: ACETAMINOPHEN < 1.0 ug/mL (10-30); SALICYLATE < 5.0 mg/dL (15.0-30.0)
[2021-04-20] MEDS ORDERED: PROAMATINE 5MG T5 MG PO (07:00)
[2021-04-20] MEDS ORDERED: DESYREL 50MG50 MG PO (07:01)
[2021-04-20 11:00] VITALS: TEMP 98.4
[2021-04-20 18:10] VITALS: BP 91/53; PULSE 109
== END 2021-04-20 18:17 ==
LOC: COL.ER 22:36
PROVIDERS: Nurse Practitioner
DX: F10.129 Alcohol abuse with intoxication, unspecified (principal); R45.851 Suicidal ideations; F17.210 Nicotine dependence, cigarettes, uncomplicated; Y90.7 Blood alcohol level of 200-239 mg/100 ml; Z20.822 Contact with and (suspected) exposure to COVID-19

== ENCOUNTER 2021-05-03 13:09 | Emergency (ER) | payer OTHER ==
[~2021-05-03] VITALS: Ht 180.3 cm; Wt 69.5 kg
[~2021-05-03 13:09] MED LIST changes: +PROAMATINE 5MG T5 MG PO
[2021-05-03 13:20] VITALS: TEMP 98.2
[2021-05-03 14:00] LABS: BASO # 0.1 K/mm3 (0.0-0.2); BASO % 1.4 % (0.0-2.0); EOS # 0.5 K/mm3 (0.0-0.7); EOS % 5.5 % (0.0-4.0); GRAN # 4.6 K/mm3 (1.4-6.5); GRAN % 54.7 % (42.2-75.2); HEMATOCRIT 43.5 % (42.0-52.0); HEMOGLOBIN 14.6 g/dl (13.5-18.0); LYMPH # 2.5 K/mm3 (1.2-3.4); LYMPH % 29.9 % (20.0-51.0); MEAN CELL VOLUME 88 fl (80.0-100.0); MEAN CORPUSCULAR HEMOGLOBIN 29 pg (27-31); MEAN CORPUSCULAR HGB CONC 34 g/dl (33.0-37.0); MEAN PLATELET VOLUME 8.7 fl (7.4-10.4); MONO # 0.7 K/mm3 (0.1-0.6); MONO % 7.8 % (1.7-9.3); PLATELET COUNT 344 K/mm3 (130-400); RED BLOOD COUNT 4.96 M/mm3 (4.20-5.60); REDCELL DISTRIBUTION WIDTH-CV 14.6 % (11.5-14.5)
[2021-05-03 14:18] LABS: ALBUMIN 4.3 gm/dL (3.5-5.0); BILIRUBIN,TOTAL 0.3 mg/dL (0.2-1.2); CALCIUM 9.7 mg/dL (8.4-10.2); CREATININE, serum 1.31 mg/dL (0.72-1.25); POTASSIUM 3.8 mmol/L (3.5-4.5); TOTAL PROTEIN 7.6 gm/dL (6.2-8.1)
[2021-05-03 14:23] LABS: COLLECTION METHOD CLEAN CATCH
[2021-05-03 14:24] LABS: TROPONIN-I 0.017 ng/mL (0.00-0.033)
[2021-05-03 15:05] LABS: PH 6 (5-8); SQUAMOUS EPITHELIAL 0-2 /hpf (0-10); URINE APPEARANCE Clear (CLEAR/HAZY); URINE BACTERIA None Seen /hpf (NONE SEEN); URINE BILIRUBIN Negative (NEGATIVE); URINE BLOOD Negative (NEGATIVE); URINE COLOR Yellow (YELLOW); URINE GLUCOSE Negative (NEGATIVE); URINE KETONE Negative (NEGATIVE); URINE LEUKOCYTE ESTERASE Negative (NEGATIVE); URINE NITRATE Negative (NEGATIVE); URINE PROTEIN(semi-quant) Negative (NEGATIVE); URINE RBC 0-2 /hpf (0-2); URINE UROBILINOGEN Negative (NEGATIVE)
[2021-05-03] MEDS ORDERED: REGLAN 10MG10 MG/TAB PO (15:18)
[2021-05-03 16:11] VITALS: BP 125/88; PULSE 106
== END 2021-05-03 16:12 | disposition home or self-care (01) ==
LOC: COL.ER 13:09
PROVIDERS: Student in an Organized Health Care Education/Training Program
DX: R14.0 Abdominal distension (gaseous) (principal); R10.31 Right lower quadrant pain
CPT/HCPCS: Q9967

== ENCOUNTER 2021-05-04 12:02 | Emergency (ER) | payer OTHER ==
[~2021-05-04] VITALS: Ht 180.3 cm; Wt 69.5 kg
[~2021-05-04 12:02] MED LIST changes: +REGLAN 10MG10 MG/TAB PO
[2021-05-04 12:12] VITALS: TEMP 98.4
[2021-05-04 13:50] VITALS: BP 109/87; PULSE 103
== END 2021-05-04 13:52 | disposition home or self-care (01) ==
LOC: COL.ER 12:02
DX: R10.84 Generalized abdominal pain (principal); R14.0 Abdominal distension (gaseous); F17.200 Nicotine dependence, unspecified, uncomplicated
CPT/HCPCS: J1885; J2765

== ENCOUNTER 2021-05-16 09:51 | Emergency (ER) | payer OTHER ==
[~2021-05-16] VITALS: Ht 180.3 cm; Wt 69.5 kg
[2021-05-16 09:56] VITALS: BP 119/88; PULSE 116; TEMP 98.1
== END 2021-05-16 10:32 | disposition left against medical advice (07) ==
LOC: COL.ER 09:51
DX: R00.0 Tachycardia, unspecified (principal); F17.200 Nicotine dependence, unspecified, uncomplicated; Z53.29 Procedure and treatment not carried out because of patient's decision for other reasons

== ENCOUNTER 2021-07-10 14:02 | Emergency (ER) | payer OTHER ==
[~2021-07-10] VITALS: Ht 180.3 cm; Wt 68.2 kg
[2021-07-10 14:08] VITALS: TEMP 98.6
[2021-07-10 15:00] LABS: BASO # 0.1 K/mm3 (0.0-0.2); BASO % 1.1 % (0.0-2.0); EOS % 11.2 % (0.0-4.0); GRAN # 4.6 K/mm3 (1.4-6.5); GRAN % 50.4 % (42.2-75.2); HEMOGLOBIN 14.8 g/dl (13.5-18.0); LYMPH # 2.7 K/mm3 (1.2-3.4); LYMPH % 29.2 % (20.0-51.0); MEAN CELL VOLUME 87 fl (80.0-100.0); MEAN CORPUSCULAR HEMOGLOBIN 29 pg (27-31); MEAN CORPUSCULAR HGB CONC 34 g/dl (33.0-37.0); MEAN PLATELET VOLUME 9.7 fl (7.4-10.4); MONO # 0.7 K/mm3 (0.1-0.6); MONO % 7.5 % (1.7-9.3); PLATELET COUNT 278 K/mm3 (130-400); RED BLOOD COUNT 5.06 M/mm3 (4.20-5.60); REDCELL DISTRIBUTION WIDTH-CV 13.8 % (11.5-14.5)
[2021-07-10 15:22] LABS: ALANINE AMINOTRANSFERASE 16 U/L (0-55); ALBUMIN 4.2 gm/dL (3.5-5.0); ALKALINE PHOSPHATASE 52 U/L (40-150); ANION GAP 13 mmol/L (7-16); AST,SGOT 21 U/L (5-34); BILIRUBIN,TOTAL 0.2 mg/dL (0.2-1.2); BLOOD UREA NITROGEN 8 mg/dL (8-26); CALCIUM 9.3 mg/dL (8.4-10.2); CARBON DIOXIDE 24 mmol/L (22-29); CHLORIDE 104 mmol/L (98-107); CREATININE, serum 1.21 mg/dL (0.72-1.25); GLUCOSE 105 mg/dL (70-99); POTASSIUM 4.3 mmol/L (3.5-4.5); SODIUM 141 mmol/L (136-145); TOTAL PROTEIN 7.5 gm/dL (6.2-8.1)
[2021-07-10 15:33] LABS: TROPONIN-I < 0.010 ng/mL (0.00-0.033)
[2021-07-10] MEDS ORDERED: MOTRIN 800800 MG/TAB PO (16:38)
[2021-07-10 16:46] VITALS: BP 89/75; PULSE 100
== END 2021-07-10 16:50 | disposition home or self-care (01) ==
LOC: COL.ER 14:02
PROVIDERS: Personal Emergency Response Attendant
DX: R07.89 Other chest pain (principal); R00.0 Tachycardia, unspecified; Z82.49 Family history of ischemic heart disease and other diseases of the circulatory system; Z87.891 Personal history of nicotine dependence
CPT/HCPCS: J1885; J7030

== ENCOUNTER 2021-08-20 15:43 | Emergency (ER) | payer OTHER ==
[~2021-08-20] VITALS: Ht 180.3 cm; Wt 52.3 kg
[2021-08-20 16:25] LABS: BASO # 0.1 K/mm3 (0.0-0.2); BASO % 0.9 % (0.0-2.0); EOS # 0.7 K/mm3 (0.0-0.7); EOS % 6.8 % (0.0-4.0); GRAN # 5.1 K/mm3 (1.4-6.5); GRAN % 49.7 % (42.2-75.2); HEMATOCRIT 42.1 % (42.0-52.0); HEMOGLOBIN 14.1 g/dl (13.5-18.0); LYMPH # 3.6 K/mm3 (1.2-3.4); LYMPH % 35.1 % (20.0-51.0); MEAN CELL VOLUME 86 fl (80.0-100.0); MEAN CORPUSCULAR HEMOGLOBIN 29 pg (27-31); MEAN CORPUSCULAR HGB CONC 34 g/dl (33.0-37.0); MEAN PLATELET VOLUME 8.5 fl (7.4-10.4); MONO # 0.7 K/mm3 (0.1-0.6); MONO % 6.6 % (1.7-9.3); PLATELET COUNT 281 K/mm3 (130-400); RED BLOOD COUNT 4.89 M/mm3 (4.20-5.60); REDCELL DISTRIBUTION WIDTH-CV 14.6 % (11.5-14.5)
[2021-08-20 16:42] LABS: ALANINE AMINOTRANSFERASE 12 U/L (0-55); ALBUMIN 4.1 gm/dL (3.5-5.0); ALCOHOL(ethanol),MEDICAL 186 mg/dL (0-10); ALKALINE PHOSPHATASE 55 U/L (40-150); ANION GAP 15 mmol/L (7-16); AST,SGOT 18 U/L (5-34); BILIRUBIN,TOTAL 0.4 mg/dL (0.2-1.2); BLOOD UREA NITROGEN 8 mg/dL (8-26); CARBON DIOXIDE 22 mmol/L (22-29); CHLORIDE 102 mmol/L (98-107); CREATININE, serum 1.09 mg/dL (0.72-1.25); GLUCOSE 73 mg/dL (70-99); SODIUM 139 mmol/L (136-145); TOTAL PROTEIN 7.5 gm/dL (6.2-8.1)
[2021-08-20 16:55] LABS: ACETAMINOPHEN < 1.0 ug/mL (10-30); SALICYLATE < 5.0 mg/dL (15.0-30.0)
[2021-08-20 17:09] LABS: COLLECTION METHOD CLEAN CATCH
[2021-08-20 17:35] LABS: TRICYCLIC ANTIDEPRESS URINE NEGATIVE
[2021-08-20 17:43] LABS: SQUAMOUS EPITHELIAL None Seen /hpf (0-10); URINE BACTERIA None Seen /hpf (NONE SEEN); URINE RBC 0-2 /hpf (0-2)
[2021-08-20 17:44] LABS: PH 5 (5-8); URINE APPEARANCE Clear (CLEAR/HAZY); URINE BILIRUBIN Negative (NEGATIVE); URINE COLOR Yellow (YELLOW); URINE GLUCOSE Negative (NEGATIVE); URINE KETONE Negative (NEGATIVE); URINE PROTEIN(semi-quant) Negative (NEGATIVE)
[2021-08-20 17:45] LABS: URINE BLOOD Negative (NEGATIVE); URINE LEUKOCYTE ESTERASE Negative (NEGATIVE); URINE NITRATE Negative (NEGATIVE); URINE UROBILINOGEN Negative (NEGATIVE)
--- NOTE | 2021-08-20 18:45 | NUR ---
pt in safety precaution in place upon this RN arrival
--- NOTE | 2021-08-20 19:16 | NUR ---
awakens briefly reaching for blankets. assisted to cover up. Pt states "I'm freezing" closes eyes after covered.
--- NOTE | 2021-08-20 20:31 | NUR ---
resting bed, watching tv. Estra blanket provided
--- NOTE | 2021-08-20 20:40 | NUR ---
cooperative with line draw for blood work. Stands at bedside to use urinal.back to bed, covers self up. changes tv channel, then closes eyes
--- NOTE | 2021-08-20 20:48 | NUR ---
head no longer resting on tv remote. Volume turned down by this RN. no response from pt
--- NOTE | 2021-08-20 21:00 | NUR ---
resting quietly with eyes closed
--- NOTE | 2021-08-20 21:00 | NUR ---
pt resting with head on tv remote tv volume LOUD. continues with eyes closed
--- NOTE | 2021-08-20 21:14 | NUR ---
safety precautions continue
--- NOTE | 2021-08-20 22:30 | NUR ---
safety precautions continue in place.
[2021-08-21 07:32] VITALS: TEMP 98.6
[2021-08-21 10:46] VITALS: BP 142/86; PULSE 107
== END 2021-08-21 10:58 | disposition other institution (70) ==
LOC: COL.ER 15:43
PROVIDERS: Emergency Medicine
DX: R45.851 Suicidal ideations (principal); R51.9 Headache, unspecified; F17.210 Nicotine dependence, cigarettes, uncomplicated; Z20.822 Contact with and (suspected) exposure to COVID-19
CPT/HCPCS: J1200; J1885; J2405; J2765; J7030

== ENCOUNTER 2021-09-09 10:13 | Emergency (ER) | payer OTHER ==
[~2021-09-09] VITALS: Ht 180.3 cm; Wt 68.2 kg
[2021-09-09 10:21] VITALS: TEMP 97.9
[2021-09-09 10:48] LABS: BASO # 0.1 K/mm3 (0.0-0.2); BASO % 1.2 % (0.0-2.0); EOS # 0.3 K/mm3 (0.0-0.7); EOS % 4.6 % (0.0-4.0); GRAN # 3.7 K/mm3 (1.4-6.5); HEMATOCRIT 46.2 % (42.0-52.0); LYMPH # 2.2 K/mm3 (1.2-3.4); MEAN CELL VOLUME 89 fl (80.0-100.0); MEAN CORPUSCULAR HEMOGLOBIN 29 pg (27-31); MEAN CORPUSCULAR HGB CONC 33 g/dl (33.0-37.0); MEAN PLATELET VOLUME 8.9 fl (7.4-10.4); MONO # 0.6 K/mm3 (0.1-0.6); PLATELET COUNT 365 K/mm3 (130-400); RED BLOOD COUNT 5.22 M/mm3 (4.20-5.60); REDCELL DISTRIBUTION WIDTH-CV 14.4 % (11.5-14.5)
[2021-09-09 10:59] LABS: ALANINE AMINOTRANSFERASE 15 U/L (0-55); ALBUMIN 4.3 gm/dL (3.5-5.0); ALKALINE PHOSPHATASE 57 U/L (40-150); ANION GAP 14 mmol/L (7-16); AST,SGOT 16 U/L (5-34); BILIRUBIN,TOTAL 0.4 mg/dL (0.2-1.2); BLOOD UREA NITROGEN 6 mg/dL (8-26); CALCIUM 9.8 mg/dL (8.4-10.2); CARBON DIOXIDE 24 mmol/L (22-29); CHLORIDE 102 mmol/L (98-107); CREATININE, serum 1.33 mg/dL (0.72-1.25); GLUCOSE 105 mg/dL (70-99); SODIUM 140 mmol/L (136-145); TOTAL PROTEIN 7.6 gm/dL (6.2-8.1)
[2021-09-09 11:12] LABS: TROPONIN-I < 0.010 ng/mL (0.00-0.033)
[2021-09-09] MEDS ORDERED: PREDNISONE20 MG PO (11:46)
[2021-09-09] MEDS ORDERED: ZITHROMAX 250M250 MG PO (11:46)
[2021-09-09] MEDS ORDERED: TESSALON PERLE200 MG PO (11:46)
[2021-09-09 12:22] VITALS: BP 109/86; PULSE 104
== END 2021-09-09 12:25 | disposition home or self-care (01) ==
LOC: COL.ER 10:13
PROVIDERS: Physician Assistant
DX: J44.1 Chronic obstructive pulmonary disease with (acute) exacerbation (principal); Z86.16 Personal history of COVID-19
CPT/HCPCS: J7030; J7512

== ENCOUNTER 2021-10-17 22:00 | Emergency (ER) | payer OTHER ==
[~2021-10-17] VITALS: Ht 180.3 cm; Wt 67.3 kg
[~2021-10-17 22:00] MED LIST changes: +TESSALON PERLE200 MG PO; +ZITHROMAX 250M250 MG PO
[2021-10-17 22:14] VITALS: TEMP 98.5
[2021-10-17 22:40] VITALS: BP 109/93; PULSE 115
== END 2021-10-17 23:52 | disposition home or self-care (01) ==
LOC: COL.ER 22:00
DX: F10.10 Alcohol abuse, uncomplicated (principal); F41.9 Anxiety disorder, unspecified; F17.200 Nicotine dependence, unspecified, uncomplicated

== ENCOUNTER 2021-12-17 13:06 | Day surgery (SDC) | payer OTHER ==
[~2021-12-17] VITALS: Ht 180.3 cm; Wt 65.4 kg
[~2021-12-17 13:06] MED LIST changes: +BUSPAR10 MG PO; +COLESTID 1GM1 G PO; +CYMBALTA 60MG60 MG PO; +ELIQUIS 2.5 PO; +HYCET SOLN PO
[2021-12-17] MEDS ORDERED: FOLIC ACID 11 MG/TA1 PO (14:07)
[2021-12-17 14:17] VITALS: BP 114/79; PULSE 109; TEMP 97.9
[2021-12-17 15:35] VITALS: BP 91/70; PULSE 112; TEMP 97.2
[2021-12-17 15:50] VITALS: BP 94/70; PULSE 100
[2021-12-17 16:05] VITALS: BP 94/72; PULSE 104
--- NOTE | 2021-12-17 16:19 | NUR ---
1535 RETURNS TO ROOM 4 PER CART. AMBULATES FROM CART TO RECLINER WITH STAND BY ASSIST. ALERT. SEATED IN RECLINER. DENIES NAUSEA, ABD PAIN OR DYSPHAGIA. SIGNIFICANT OTHER IN ROOM. 1536 DR. MAHAN HERE. VISITS WITH PATIENT AND SIGNIFICANT OTHER. 1543 TOLERATES PO JUICE WITHOUT NAUSEA. SWALLOWS WITHOUT DIFFICULTY. 1605 DISCHARGE INSTRUCTIONS REVIEWED. PATIENT AND SIGNIFICANT OTHER VERBALIZE UNDERSTANDING. COPY OF INSTRUCTIONS AND EDUCATIONAL MATERIALS PROVIDED IN DISCHARGE FOLDER. 1611 DRESSES SELF. 1619 DISCHARGED PER WHEELCHAIR TO VEHICLE BEING DRIVEN BY SIGNIFICANT OTHER.
== END 2021-12-17 16:19 | disposition home or self-care (01) ==
LOC: SDCO 13:06
DX: K29.50 Unspecified chronic gastritis without bleeding (principal); K21.00 Gastro-esophageal reflux disease with esophagitis, without bleeding; F17.210 Nicotine dependence, cigarettes, uncomplicated
CPT/HCPCS: J2704; J7120

== ENCOUNTER 2021-12-25 10:04 | Emergency (ER) | payer OTHER ==
[~2021-12-25] VITALS: Ht 180.3 cm; Wt 65.9 kg
[2021-12-25 10:22] VITALS: BP 121/57; TEMP 98
[2021-12-25 10:55] LABS: BASO # 0.1 K/mm3 (0.0-0.2); BASO % 0.8 % (0.0-2.0); EOS # 0.3 K/mm3 (0.0-0.7); EOS % 4.3 % (0.0-4.0); GRAN # 3.4 K/mm3 (1.4-6.5); HEMATOCRIT 47.2 % (42.0-52.0); HEMOGLOBIN 15.2 g/dl (13.5-18.0); LYMPH # 2.1 K/mm3 (1.2-3.4); LYMPH % 31.7 % (20.0-51.0); MEAN CELL VOLUME 89 fl (80.0-100.0); MEAN CORPUSCULAR HEMOGLOBIN 29 pg (27-31); MEAN CORPUSCULAR HGB CONC 32 g/dl (33.0-37.0); MONO # 0.6 K/mm3 (0.1-0.6); MONO % 9.6 % (1.7-9.3); PLATELET COUNT 248 K/mm3 (130-400); RED BLOOD COUNT 5.33 M/mm3 (4.20-5.60); REDCELL DISTRIBUTION WIDTH-CV 15.8 % (11.5-14.5)
[2021-12-25 11:20] LABS: ALANINE AMINOTRANSFERASE 20 U/L (0-55); ALBUMIN 4.3 gm/dL (3.5-5.0); ALKALINE PHOSPHATASE 50 U/L (40-150); ANION GAP 12 mmol/L (7-16); AST,SGOT 23 U/L (5-34); BILIRUBIN,TOTAL 0.3 mg/dL (0.2-1.2); BLOOD UREA NITROGEN 5 mg/dL (8-26); CALCIUM 9.7 mg/dL (8.4-10.2); CARBON DIOXIDE 25 mmol/L (22-29); CHLORIDE 103 mmol/L (98-107); CREATININE, serum 1.09 mg/dL (0.72-1.25); GLUCOSE 131 mg/dL (70-99); LIPASE 26 U/L (8-78); POTASSIUM 3.9 mmol/L (3.5-4.5); SODIUM 140 mmol/L (136-145); TOTAL PROTEIN 7.9 gm/dL (6.2-8.1)
[2021-12-25 11:27] LABS: TROPONIN-I < 0.010 ng/mL (0.00-0.033)
[2021-12-25 15:37] VITALS: PULSE 90
== END 2021-12-25 15:37 | disposition home or self-care (01) ==
LOC: COL.ER 10:04
PROVIDERS: Emergency Medicine
DX: R10.84 Generalized abdominal pain (principal); R07.89 Other chest pain; R11.0 Nausea; F17.210 Nicotine dependence, cigarettes, uncomplicated; Z20.822 Contact with and (suspected) exposure to COVID-19
CPT/HCPCS: J2270; J2405; J7120; Q9967

== ENCOUNTER 2022-06-03 11:55 | Emergency (ER) | payer OTHER ==
[~2022-06-03] VITALS: Ht 180.3 cm; Wt 68.2 kg
[~2022-06-03 11:55] MED LIST changes: +ELIQUIS 5MG PO; +PRIL40 PO; +TYLENOL 500MG500 MG
[2022-06-03 12:01] VITALS: TEMP 97.8
[2022-06-03 12:36] LABS: BASO # 0.1 K/mm3 (0.0-0.2); BASO % 0.7 % (0.0-2.0); EOS # 0.3 K/mm3 (0.0-0.7); EOS % 3.9 % (0.0-4.0); GRAN # 4.3 K/mm3 (1.4-6.5); HEMATOCRIT 43.1 % (42.0-52.0); HEMOGLOBIN 14.2 g/dl (13.5-18.0); LYMPH # 2.3 K/mm3 (1.2-3.4); LYMPH % 28.6 % (20.0-51.0); MEAN CELL VOLUME 88 fl (80.0-100.0); MEAN CORPUSCULAR HEMOGLOBIN 29 pg (27-31); MEAN CORPUSCULAR HGB CONC 33 g/dl (33.0-37.0); MONO % 12.2 % (1.7-9.3); PLATELET COUNT 290 K/mm3 (130-400)
[2022-06-03 12:55] LABS: ALANINE AMINOTRANSFERASE 28 U/L (0-55); ALBUMIN 4.2 gm/dL (3.5-5.0); ALCOHOL(ethanol),MEDICAL 80 mg/dL (0-10); ALKALINE PHOSPHATASE 48 U/L (40-150); ANION GAP 15 mmol/L (7-16); AST,SGOT 28 U/L (5-34); BILIRUBIN,TOTAL 0.4 mg/dL (0.2-1.2); BLOOD UREA NITROGEN 5 mg/dL (8-26); CALCIUM 9.5 mg/dL (8.4-10.2); CARBON DIOXIDE 22 mmol/L (22-29); CHLORIDE 95 mmol/L (98-107); CREATININE, serum 0.87 mg/dL (0.72-1.25); GLUCOSE 84 mg/dL (70-99); POTASSIUM 3.4 mmol/L (3.5-4.5); SODIUM 132 mmol/L (136-145); TOTAL PROTEIN 7.2 gm/dL (6.2-8.1)
[2022-06-03 13:02] LABS: TROPONIN-I < 0.010 ng/mL (0.00-0.033)
[2022-06-03 14:03] VITALS: BP 105/69; PULSE 105
== END 2022-06-03 14:10 | disposition home or self-care (01) ==
LOC: COL.ER 11:55
PROVIDERS: Physician Assistant
DX: S93.402A Sprain of unspecified ligament of left ankle, initial encounter (principal); F10.929 Alcohol use, unspecified with intoxication, unspecified; I25.2 Old myocardial infarction; F17.200 Nicotine dependence, unspecified, uncomplicated; Z86.79 Personal history of other diseases of the circulatory system; Z95.5 Presence of coronary angioplasty implant and graft; W18.30XA Fall on same level, unspecified, initial encounter
CPT/HCPCS: J2060; J7030

== ENCOUNTER 2022-11-26 18:37 | Emergency (ER) | payer OTHER ==
[~2022-11-26] VITALS: Ht 180.3 cm; Wt 60.5 kg
[~2022-11-26 18:37] MED LIST changes: +ABILIFY20 MG PO; +CARAFATE S1 GM/10 ML PO; +CICLOPIROX TOP; +CYMBALTA 30MG30 MG PO; +ENSURE PLUS 23237 ML PO; +FLORINEF ACETA0.1 MG PO; +MULTI VITAMINS1 TAB PO; +NARCAN4 MG NS; +SENEXON-S 50-81 EACH PO; +SEROQUEL 200MG200 MG PO; +TAZTIA180 PO; +THIAMINE 1100 MG/TAB PO; -TYLENOL 500MG500 MG; +TYLENOL 500MG500 MG PO; +VALIUM 10MG10 MG/TAB PO; +WIXELA 250-501 EACH IH
[2022-11-26 18:42] VITALS: TEMP 97.6
[2022-11-26 19:50] LABS: BASO # 0.1 K/mm3 (0.0-0.2); BASO % 1.2 % (0.0-2.0); EOS # 0.4 K/mm3 (0.0-0.7); EOS % 4.3 % (0.0-4.0); GRAN % 48.9 % (42.2-75.2); HEMATOCRIT 41.7 % (42.0-52.0); HEMOGLOBIN 13.2 g/dl (13.5-18.0); LYMPH # 2.6 K/mm3 (1.2-3.4); LYMPH % 32.2 % (20.0-51.0); MEAN CELL VOLUME 86 fl (80.0-100.0); MEAN CORPUSCULAR HEMOGLOBIN 27 pg (27-31); MEAN CORPUSCULAR HGB CONC 32 g/dl (33.0-37.0); MEAN PLATELET VOLUME 9.2 fl (7.4-10.4); MONO # 1.1 K/mm3 (0.1-0.6); PLATELET COUNT 347 K/mm3 (130-400); RED BLOOD COUNT 4.83 M/mm3 (4.20-5.60); REDCELL DISTRIBUTION WIDTH-CV 16.2 % (11.5-14.5)
[2022-11-26 20:28] LABS: ALBUMIN 3.8 gm/dL (3.5-5.0); BILIRUBIN,TOTAL 0.4 mg/dL (0.2-1.2); C-REACTIVE PROTEIN 0.18 mg/dL (0.00-0.50); CALCIUM 9.3 mg/dL (8.4-10.2); CREATININE, serum 0.96 mg/dL (0.72-1.25); POTASSIUM 3.6 mmol/L (3.5-4.5); TOTAL PROTEIN 6.9 gm/dL (6.2-8.1)
[2022-11-26 21:03] LABS: COLLECTION METHOD CLEAN CATCH
[2022-11-26 21:13] LABS: PH 5.5 (5.0-8.5); URINE APPEARANCE Clear (CLEAR/HAZY); URINE BLOOD Negative (NEGATIVE); URINE COLOR Yellow (YELLOW); URINE GLUCOSE Negative (NEGATIVE); URINE KETONE Negative (NEGATIVE); URINE NITRATE Negative (NEGATIVE); URINE PROTEIN(semi-quant) Negative (NEGATIVE); URINE UROBILINOGEN 0.2 E.U/dL (0.2-1.0)
[2022-11-26 21:25] LABS: SQUAMOUS EPITHELIAL None Seen /hpf (0-10); URINE RBC 0-2 /hpf (0-2)
[2022-11-26 21:59] VITALS: BP 110/67; PULSE 80
== END 2022-11-26 22:00 | disposition home or self-care (01) ==
LOC: COL.ER 18:37
PROVIDERS: Family Medicine
DX: K52.9 Noninfective gastroenteritis and colitis, unspecified (principal)
CPT/HCPCS: J2270; J2405; J7120; Q9967

== ENCOUNTER 2023-01-12 12:42 | Emergency (ER) | payer OTHER ==
[~2023-01-12] VITALS: Ht 180.3 cm; Wt 61.4 kg
[~2023-01-12 12:42] MED LIST changes: +PREDNISONE50 MG PO
[2023-01-12 12:45] VITALS: TEMP 98.1
[2023-01-12 13:13] LABS: BASO # 0.1 K/mm3 (0.0-0.2); BASO % 1.2 % (0.0-2.0); EOS # 0.6 K/mm3 (0.0-0.7); EOS % 6.5 % (0.0-4.0); GRAN # 5.2 K/mm3 (1.4-6.5); GRAN % 57.9 % (42.2-75.2); HEMATOCRIT 40.2 % (42.0-52.0); HEMOGLOBIN 12.8 g/dl (13.5-18.0); LYMPH # 2.2 K/mm3 (1.2-3.4); LYMPH % 24.8 % (20.0-51.0); MEAN CELL VOLUME 86 fl (80.0-100.0); MEAN CORPUSCULAR HEMOGLOBIN 27 pg (27-31); MEAN CORPUSCULAR HGB CONC 32 g/dl (33.0-37.0); MEAN PLATELET VOLUME 9.2 fl (7.4-10.4); MONO # 0.8 K/mm3 (0.1-0.6); MONO % 8.9 % (1.7-9.3); PLATELET COUNT 289 K/mm3 (130-400); RED BLOOD COUNT 4.67 M/mm3 (4.20-5.60); REDCELL DISTRIBUTION WIDTH-CV 17.8 % (11.5-14.5)
[2023-01-12 13:34] LABS: ALBUMIN 3.9 gm/dL (3.5-5.0); BILIRUBIN,TOTAL 0.4 mg/dL (0.2-1.2); CALCIUM 9.3 mg/dL (8.4-10.2); CREATININE, serum 1.16 mg/dL (0.72-1.25); POTASSIUM 3.7 mmol/L (3.5-4.5); TOTAL PROTEIN 6.5 gm/dL (6.2-8.1)
[2023-01-12 14:20] LABS: PROTHROMBIN TIME 10.7 SECONDS (9.7-12.8)
[2023-01-12 15:22] VITALS: BP 104/58; PULSE 96
== END 2023-01-12 15:44 | disposition home or self-care (01) ==
LOC: COL.ER 12:42
PROVIDERS: Emergency Medicine; Physician Assistant
DX: K92.1 Melena (principal); I48.91 Unspecified atrial fibrillation; F17.200 Nicotine dependence, unspecified, uncomplicated; Z79.01 Long term (current) use of anticoagulants
CPT/HCPCS: J2360; J7030

== ENCOUNTER 2023-05-11 13:36 | Emergency (ER) | payer OTHER ==
[~2023-05-11] VITALS: Ht 180.3 cm; Wt 59.1 kg
[2023-05-11 13:51] VITALS: BP 106/74; PULSE 101; TEMP 98.1
== END 2023-05-11 14:54 | disposition left against medical advice (07) ==
LOC: COL.ER 13:36
DX: K59.00 Constipation, unspecified (principal)

== ENCOUNTER 2023-11-11 13:04 | Emergency (ER) | payer OTHER ==
[~2023-11-11] VITALS: Ht 180.3 cm; Wt 51.4 kg
[2023-11-11 13:12] VITALS: TEMP 99.3
[2023-11-11 13:28] LABS: BASO % 0.3 % (0.0-2.0); EOS # 0.1 K/mm3 (0.0-0.7); EOS % 0.8 % (0.0-4.0); GRAN # 8.6 K/mm3 (1.4-6.5); GRAN % 80.9 % (42.2-75.2); HEMOGLOBIN 11.8 g/dl (13.5-18.0); LYMPH # 1.4 K/mm3 (1.2-3.4); LYMPH % 12.8 % (20.0-51.0); MEAN CELL VOLUME 97 fl (80.0-100.0); MEAN CORPUSCULAR HEMOGLOBIN 32 pg (27-31); MEAN CORPUSCULAR HGB CONC 33 g/dl (33.0-37.0); MEAN PLATELET VOLUME 9.5 fl (7.4-10.4); MONO # 0.5 K/mm3 (0.1-0.6); MONO % 4.3 % (1.7-9.3); PLATELET COUNT 164 K/mm3 (130-400); RED BLOOD COUNT 3.65 M/mm3 (4.20-5.60); REDCELL DISTRIBUTION WIDTH-CV 18.6 % (11.5-14.5)
[2023-11-11 13:30] LABS: HEMATOCRIT 35.3 % (42.0-52.0)
[2023-11-11] MEDS ORDERED: Ondansetron 4 MG/2 ML VIAL IV ONE (13:30)
[2023-11-11] MEDS ORDERED: LR 1,000 ML IV ONE (13:30)
[2023-11-11] MEDS ORDERED: HYDROmorphone 0.5 MG/0.5 ML SYRINGE IV ONE ×2 (13:30→15:00)
[2023-11-11 13:33] LABS: INR 1.1 (0.8-3.0)
[2023-11-11 13:35] LABS: PARTIAL THROMBOPLASTIN TIME 35.4 SECONDS (26.0-37.0)
[2023-11-11 13:46] LABS: ALANINE AMINOTRANSFERASE 13 U/L (0-55); ALBUMIN 3.4 g/dL (3.5-5.0); ALKALINE PHOSPHATASE 44 U/L (40-150); ANION GAP 13 mmol/L (7-16); AST,SGOT 9 U/L (5-34); BILIRUBIN,TOTAL 0.2 mg/dL (0.2-1.2); BLOOD UREA NITROGEN 9 mg/dL (8-26); CALCIUM 9.5 mg/dL (8.4-10.2); CHLORIDE 102 mEq/L (98-107); CREATININE, serum 0.85 mg/dL (0.72-1.25); GLUCOSE 189 mg/dL (70-99); MAGNESIUM 1.9 mg/dL (1.6-2.6); POTASSIUM 3.6 mEq/L (3.5-4.5); SODIUM 137 mEq/L (136-145); TOTAL PROTEIN 6.3 g/dl (6.2-8.1)
[2023-11-11 13:54] LABS: TROPONIN-I < 0.010 ng/mL (0.00-0.033)
[2023-11-11] MEDS ORDERED: Iohexol 300 - 100 ML VIAL IV ONE (14:50)
[2023-11-11] MEDS ORDERED: NS 90 ML IV SCH (14:55)
[2023-11-11] MEDS ORDERED: ROXICODONE 55 MG/TAB PO (15:24)
[2023-11-11 15:45] VITALS: BP 128/86; PULSE 104
== END 2023-11-11 15:45 | disposition home or self-care (01) ==
LOC: COL.ER 13:04
PROVIDERS: Family Medicine
DX: C34.92 Malignant neoplasm of unspecified part of left bronchus or lung (principal); G89.29 Other chronic pain; F17.200 Nicotine dependence, unspecified, uncomplicated
CPT/HCPCS: J1170; J2405; J7120; Q9967

== ENCOUNTER 2023-11-17 16:58 | Emergency (ER) | payer OTHER ==
[~2023-11-17] VITALS: Ht 180.3 cm; Wt 51.4 kg
[~2023-11-17 16:58] MED LIST changes: +ROXICODONE 55 MG/TAB PO
[2023-11-17 17:02] VITALS: TEMP 97.7
[2023-11-17 17:15] VITALS: O2SAT 96
[2023-11-17 17:22] LABS: BASO % 0.3 % (0.0-2.0); EOS # 0.3 K/mm3 (0.0-0.7); EOS % 2.4 % (0.0-4.0); GRAN # 8.2 K/mm3 (1.4-6.5); GRAN % 68.2 % (42.2-75.2); HEMOGLOBIN 11.3 g/dl (13.5-18.0); LYMPH # 2.2 K/mm3 (1.2-3.4); LYMPH % 17.9 % (20.0-51.0); MEAN CELL VOLUME 97 fl (80.0-100.0); MEAN CORPUSCULAR HEMOGLOBIN 32 pg (27-31); MEAN CORPUSCULAR HGB CONC 33 g/dl (33.0-37.0); MEAN PLATELET VOLUME 9.5 fl (7.4-10.4); MONO # 1.2 K/mm3 (0.1-0.6); PLATELET COUNT 154 K/mm3 (130-400); RED BLOOD COUNT 3.55 M/mm3 (4.20-5.60); REDCELL DISTRIBUTION WIDTH-CV 17.8 % (11.5-14.5)
[2023-11-17 17:23] LABS: HEMATOCRIT 34.5 % (42.0-52.0)
[2023-11-17] MEDS ORDERED: NS 1,000 ML IV SCH (17:26)
[2023-11-17 17:38] LABS: ALANINE AMINOTRANSFERASE 10 U/L (0-55); ALBUMIN 3.4 g/dL (3.5-5.0); ALKALINE PHOSPHATASE 41 U/L (40-150); ANION GAP 9 mmol/L (7-16); AST,SGOT 12 U/L (5-34); BILIRUBIN,TOTAL 0.2 mg/dL (0.2-1.2); BLOOD UREA NITROGEN 9 mg/dL (8-26); CALCIUM 9.6 mg/dL (8.4-10.2); CHLORIDE 105 mEq/L (98-107); CREATININE, serum 0.89 mg/dL (0.72-1.25); GLUCOSE 90 mg/dL (70-99); SODIUM 139 mEq/L (136-145); TOTAL PROTEIN 6.1 g/dl (6.2-8.1)
[2023-11-17] MEDS ORDERED: fentaNYL 50 MCG/ML 2 ML VIAL IV ONE ×3 (17:45→22:15)
[2023-11-17 17:46] LABS: TROPONIN-I < 0.010 ng/mL (0.00-0.033)
[2023-11-17 17:59] LABS: PROTHROMBIN TIME 10.8 SECONDS (9.7-12.8)
[2023-11-17 18:01] LABS: PARTIAL THROMBOPLASTIN TIME 28.9 SECONDS (26.0-37.0)
[2023-11-17] MEDS ORDERED: Iohexol 300 - 100 ML VIAL IV ONE (19:02)
[2023-11-17] MEDS ORDERED: NS 50 ML IV SCH (19:13)
[2023-11-17 22:34] VITALS: BP 99/75; PULSE 79
== END 2023-11-17 22:34 | disposition home or self-care (01) ==
LOC: COL.ER 16:58
PROVIDERS: Emergency Medicine
DX: R07.89 Other chest pain (principal); I95.9 Hypotension, unspecified; F17.210 Nicotine dependence, cigarettes, uncomplicated; Z85.118 Personal history of other malignant neoplasm of bronchus and lung; Z85.01 Personal history of malignant neoplasm of esophagus
CPT/HCPCS: J3010; J7030; Q9967

== ENCOUNTER 2023-11-26 11:14 | Emergency (ER) | payer OTHER ==
[~2023-11-26] VITALS: Ht 180.3 cm; Wt 50.0 kg
[2023-11-26 11:22] VITALS: TEMP 98
[2023-11-26] MEDS ORDERED: LORazepam 2 MG/ML 1 ML VIAL IV ONE (12:00)
[2023-11-26] MEDS ORDERED: Morphine 4 MG/ML VIAL IV ONE (12:00)
[2023-11-26] MEDS ORDERED: Ondansetron 4 MG/2 ML VIAL IV ONE (12:00)
[2023-11-26] MEDS ORDERED: NS 1,000 ML IV ONE (12:00)
[2023-11-26 12:10] LABS: BASO % 0.2 % (0.0-2.0); EOS # 0.1 K/mm3 (0.0-0.7); EOS % 1.5 % (0.0-4.0); GRAN # 6.2 K/mm3 (1.4-6.5); HEMOGLOBIN 11.7 g/dl (13.5-18.0); LYMPH # 1.2 K/mm3 (1.2-3.4); LYMPH % 14.6 % (20.0-51.0); MEAN CELL VOLUME 94 fl (80.0-100.0); MEAN CORPUSCULAR HEMOGLOBIN 32 pg (27-31); MEAN CORPUSCULAR HGB CONC 34 g/dl (33.0-37.0); MEAN PLATELET VOLUME 9.6 fl (7.4-10.4); MONO # 0.8 K/mm3 (0.1-0.6); MONO % 8.9 % (1.7-9.3); PLATELET COUNT 158 K/mm3 (130-400); RED BLOOD COUNT 3.71 M/mm3 (4.20-5.60)
[2023-11-26 12:11] LABS: HEMATOCRIT 34.8 % (42.0-52.0)
[2023-11-26 12:29] LABS: ALANINE AMINOTRANSFERASE 10 U/L (0-55); ALBUMIN 3.6 g/dL (3.5-5.0); ALKALINE PHOSPHATASE 43 U/L (40-150); ANION GAP 10 mmol/L (7-16); AST,SGOT 10 U/L (5-34); BILIRUBIN,TOTAL 0.3 mg/dL (0.2-1.2); BLOOD UREA NITROGEN 7 mg/dL (8-26); CALCIUM 9.6 mg/dL (8.4-10.2); CHLORIDE 101 mEq/L (98-107); CREATININE, serum 0.91 mg/dL (0.72-1.25); GLUCOSE 138 mg/dL (70-99); POTASSIUM 3.5 mEq/L (3.5-4.5); SODIUM 135 mEq/L (136-145); TOTAL PROTEIN 6.4 g/dl (6.2-8.1)
[2023-11-26 12:38] LABS: TROPONIN-I < 0.010 ng/mL (0.00-0.033)
[2023-11-26] MEDS ORDERED: ZOFRAN ODT4 MG PO (14:03)
[2023-11-26] MEDS ORDERED: NORCO 325 MG-51 TAB PO (14:03)
[2023-11-26 14:08] VITALS: BP 113/87; PULSE 102
== END 2023-11-26 14:07 | disposition home or self-care (01) ==
LOC: COL.ER 11:14
PROVIDERS: Personal Emergency Response Attendant
DX: R07.9 Chest pain, unspecified (principal); R11.2 Nausea with vomiting, unspecified; C34.90 Malignant neoplasm of unspecified part of unspecified bronchus or lung
CPT/HCPCS: J2060; J2270; J2405; J7030

== ENCOUNTER 2023-12-08 19:27 | Emergency (ER) | payer OTHER ==
[~2023-12-08] VITALS: Ht 180.3 cm; Wt 53.6 kg
[2023-12-08 19:32] VITALS: TEMP 98.3
[2023-12-08] MEDS ORDERED: LR 1,000 ML IV ONE (21:00)
[2023-12-08] MEDS ORDERED: HYDROmorphone 0.5 MG/0.5 ML SYRINGE IV ONE (21:00)
[2023-12-08 21:03] LABS: BASO % 0.5 % (0.0-2.0); EOS # 0.2 K/mm3 (0.0-0.7); EOS % 2.4 % (0.0-4.0); GRAN # 3.7 K/mm3 (1.4-6.5); GRAN % 57.3 % (42.2-75.2); HEMATOCRIT 32.1 % (42.0-52.0); HEMOGLOBIN 10.3 g/dl (13.5-18.0); LYMPH # 1.8 K/mm3 (1.2-3.4); LYMPH % 27.7 % (20.0-51.0); MEAN CELL VOLUME 95 fl (80.0-100.0); MEAN CORPUSCULAR HEMOGLOBIN 31 pg (27-31); MEAN CORPUSCULAR HGB CONC 32 g/dl (33.0-37.0); MEAN PLATELET VOLUME 9.3 fl (7.4-10.4); MONO # 0.7 K/mm3 (0.1-0.6); MONO % 10.8 % (1.7-9.3); PLATELET COUNT 156 K/mm3 (130-400); RED BLOOD COUNT 3.37 M/mm3 (4.20-5.60); REDCELL DISTRIBUTION WIDTH-CV 16.1 % (11.5-14.5)
[2023-12-08 21:09] LABS: PROTHROMBIN TIME 10.8 SECONDS (9.7-12.8)
[2023-12-08 21:12] LABS: PARTIAL THROMBOPLASTIN TIME 26.9 SECONDS (26.0-37.0)
[2023-12-08 21:20] LABS: ALBUMIN 2.9 g/dL (3.5-5.0); BILIRUBIN,TOTAL 0.2 mg/dL (0.2-1.2); CALCIUM 8.9 mg/dL (8.4-10.2); CREATININE, serum 1.16 mg/dL (0.72-1.25); MAGNESIUM 1.9 mg/dL (1.6-2.6); TOTAL PROTEIN 5.2 g/dl (6.2-8.1)
[2023-12-08 21:21] LABS: POTASSIUM 2.8 mEq/L (3.5-4.5)
[2023-12-08 21:26] LABS: TROPONIN-I 0.016 ng/mL (0.00-0.033)
[2023-12-08] MEDS ORDERED: ROXICODONE 55 MG/TAB PO (22:01)
[2023-12-08] MEDS ORDERED: K-DUR20 MEQ PO (22:01)
[2023-12-08 22:17] VITALS: BP 91/56; PULSE 100
== END 2023-12-08 22:17 | disposition home or self-care (01) ==
LOC: COL.ER 19:27
PROVIDERS: Family Medicine
DX: C34.90 Malignant neoplasm of unspecified part of unspecified bronchus or lung (principal); R07.89 Other chest pain; G89.29 Other chronic pain; J44.9 Chronic obstructive pulmonary disease, unspecified; Z85.118 Personal history of other malignant neoplasm of bronchus and lung; F17.200 Nicotine dependence, unspecified, uncomplicated; Z85.01 Personal history of malignant neoplasm of esophagus
CPT/HCPCS: J1171; J7120

== ENCOUNTER 2024-01-13 16:39 | Emergency (ER) | payer OTHER ==
[~2024-01-13] VITALS: Ht 180.3 cm; Wt 52.7 kg
[2024-01-13] MEDS ORDERED: Ondansetron 4 MG/2 ML VIAL IV ONE (16:45)
[2024-01-13 16:46] VITALS: TEMP 98.1
[2024-01-13 17:11] LABS: BASO # 0.1 K/mm3 (0.0-0.2); EOS # 0.3 K/mm3 (0.0-0.7); EOS % 3.2 % (0.0-4.0); GRAN # 5.1 K/mm3 (1.4-6.5); GRAN % 58.3 % (42.2-75.2); HEMATOCRIT 37.2 % (42.0-52.0); HEMOGLOBIN 12.1 g/dl (13.5-18.0); LYMPH # 2.1 K/mm3 (1.2-3.4); MEAN CELL VOLUME 91 fl (80.0-100.0); MEAN CORPUSCULAR HEMOGLOBIN 30 pg (27-31); MEAN CORPUSCULAR HGB CONC 33 g/dl (33.0-37.0); MEAN PLATELET VOLUME 9.4 fl (7.4-10.4); MONO # 1.1 K/mm3 (0.1-0.6); MONO % 12.8 % (1.7-9.3); PLATELET COUNT 223 K/mm3 (130-400); RED BLOOD COUNT 4.09 M/mm3 (4.20-5.60); REDCELL DISTRIBUTION WIDTH-CV 15.7 % (11.5-14.5)
[2024-01-13 17:14] LABS: INR 1.1 (0.8-3.0); PROTHROMBIN TIME 12.2 SECONDS (9.7-12.8)
[2024-01-13] MEDS ORDERED: HYDROmorphone 0.5 MG/0.5 ML SYRINGE IV ONE (17:15)
[2024-01-13 17:17] LABS: PARTIAL THROMBOPLASTIN TIME 34.7 SECONDS (26.0-37.0)
[2024-01-13 17:29] LABS: ALBUMIN 3.7 g/dL (3.5-5.0); BILIRUBIN,TOTAL 0.4 mg/dL (0.2-1.2); CALCIUM 9.6 mg/dL (8.4-10.2); CREATININE, serum 1.04 mg/dL (0.72-1.25); MAGNESIUM 1.7 mg/dL (1.6-2.6); POTASSIUM 3.8 mEq/L (3.5-4.5); TOTAL PROTEIN 6.9 g/dl (6.2-8.1)
[2024-01-13] MEDS ORDERED: LR 1,000 ML IV ONE (17:30)
[2024-01-13 17:35] LABS: TROPONIN-I 0.012 ng/mL (0.00-0.033)
[2024-01-13] MEDS ORDERED: ROXICODONE 55 MG/TAB PO (18:35)
[2024-01-13] MEDS ORDERED: Home oxyCODONE/Acetaminophen 5/325 MG #4 TAB/PACK PO ONE (18:45)
[2024-01-13 18:58] VITALS: BP 110/88; PULSE 116
[2024-01-21] MEDS ORDERED: ROXICODONE 55 MG/TAB PO (15:13)
== END 2024-01-13 19:08 | disposition home or self-care (01) ==
LOC: COL.ER 16:39
PROVIDERS: Family Medicine
DX: R07.89 Other chest pain (principal); E86.0 Dehydration; C78.00 Secondary malignant neoplasm of unspecified lung; R00.0 Tachycardia, unspecified; Z87.19 Personal history of other diseases of the digestive system; Z85.01 Personal history of malignant neoplasm of esophagus
CPT/HCPCS: J1171; J2405; J7120